=== PATIENT | male | born 1980 | race Two or more races ===

== ENCOUNTER 2023-02-11 07:32 | Inpatient (IN) | payer OTHER ==
[~2023-02-11] VITALS: Ht 172.7 cm; Wt 99.3 kg
[2023-02-11 07:55] VITALS: PULSE 111; RESP 32; O2SAT 95
[2023-02-11 08:20] LABS: Eosinophils # (auto) 0.1 10 ^3/uL (0-0.8)
[2023-02-11 08:21] LABS: Basophils # (auto) 0.1 10 ^3/uL (0-0.2); Basophils % (auto) 0.8 % (0.0-2.0); Eosinophils % (auto) 1.2 % (0.0-7.0); Hemoglobin 18.5 g/dL (13.5-17.5); Lymphocytes # (auto) 1.9 10 ^3/uL (0.4-5.4); Lymphocytes % (auto) 24.9 % (10.0-50.0); Mean Corpuscular Hgb Conc. 32.6 g/dL (32.0-36.0); Monocytes # (auto) 0.7 10 ^3/uL (0-1.3); Monocytes % (auto) 9.9 % (0.0-12.0); Neutrophils # (auto) 4.7 10 ^3/uL (1.6-8.6); Neutrophils % (auto) 63.2 % (37.0-80.0); Nucleated Red Blood Cells % 0.2 %; Red Blood Cells 6.16 10^6/uL (4.5-5.90); Red Cell Distribution Width 16.6 % (11.8-14.3); White Blood Cell 7.4 10^3/uL (4.4-10.8)
[2023-02-11 08:23] LABS: Hematocrit 56.7 % (41.0-53.0)
[2023-02-11 08:43] LABS: Alanine Aminotransferase 32 U/L (7-40); Albumin 4.2 g/dL (3.2-4.8); Alkaline Phosphatase 111 U/L (46-116); Anion Gap 12 (5-15); Aspartate Aminotransferase 29 U/L (13-40); BUN/Creatinine Ratio 10.7 (10.0-20.0); Bilirubin, Total 1.2 mg/dL (0.2-1.0); Blood Urea Nitrogen 9 mg/dL (9-23); Calcium 8.9 mg/dL (8.5-10.1); Carbon Dioxide 21 mmol/L (20-30); Chloride 106 mmol/L (98-107); Glucose 114 mg/dL (74-106); Potassium 3.9 mmol/L (3.5-5.1); Sodium 139 mmol/L (136-145); Total Protein 6.9 g/dL (5.7-8.2)
[2023-02-11 08:51] LABS: Partial Thromboplastin Time 32.5 SEC (24.5-34.5)
[2023-02-11 08:54] LABS: INR 1.25 (0.9-1.15); Prothrombin Time 12.9 sec (9.3-11.8)
[2023-02-11] MEDS ORDERED: ASPirin 81 mg TAB PO ONE (09:00)
[2023-02-11] MEDS ORDERED: NITROGLYCERIN 2% OINT 1GM PKG TD ONE (09:00)
[2023-02-11] MEDS ORDERED: FUROSEMIDE 20 MG/2 ML VIAL IV ONE (09:00)
[2023-02-11] MEDS ORDERED: ACETAMINOPHEN 325 MG TAB PO PRN (10:00)
[2023-02-11] MEDS ORDERED: MORPHINE SULFATE 4 MG/ML SYR/VIAL IV PRN (10:00)
[2023-02-11] MEDS: ASPirin 81 mg TAB PO SCH (10:00)
[2023-02-11] MEDS ORDERED: ONDANSETRON HCL 4 MG/2 ML VIAL IV PRN (10:00)
[2023-02-11] MEDS ORDERED: DEXTROSE (50%) 50ML SYRG IV PRN (10:00)
[2023-02-11] MEDS ORDERED: NITROGLYCERIN 0.4 MG SL TAB SL PRN (10:00)
[2023-02-11] MEDS: METOPROLOL TARTRATE 25 MG TAB PO SCH ×2 (10:27→21:57)
[2023-02-11] MEDS: DOCUSATE SOD 100 MG CAP PO SCH (10:27)
[2023-02-11 10:51] LABS: Triglycerides 109 mg/dL (< 150)
[2023-02-11 10:52] LABS: LDL Cholesterol 92 mg/dL (< 100)
[2023-02-11 10:53] LABS: Cholesterol 134 mg/dL (< 200); HDL Cholesterol 41 mg/dL (40-59)
[2023-02-11 11:05] LABS: INR 1.19 (0.9-1.15); Prothrombin Time 12.4 sec (9.3-11.8)
[2023-02-11] MEDS: InsuLIN REG 1unit/0.01ml Soln (100units/ml) SC SCH ×3 (11:30→22:22)
[2023-02-11] MEDS: ACCU-CHEK COMFORT CURVE STRIP VI SCH ×3 (12:23→21:51)
[2023-02-11 13:00] VITALS: BP 100/58; PULSE 90; RESP 16; TEMP 97.6; O2SAT 96
[2023-02-11] MEDS ORDERED: FURO40TA4 PO (14:20)
[2023-02-11] MEDS ORDERED: SPIR25TA8 PO (14:20)
[2023-02-11] MEDS ORDERED: LISI2.5T47 PO (14:20)
[2023-02-11] MEDS ORDERED: POTA-264 PO (14:20)
[2023-02-11 17:21] VITALS: BP 94/64; PULSE 86; RESP 20; TEMP 98.6; O2SAT 93
[2023-02-11] MEDS: FUROSEMIDE 40 MG/4 ML VIAL IV SCH (18:30)
[2023-02-11 20:15] VITALS: PULSE 99; RESP 18; O2SAT 95
[2023-02-11 22:00] VITALS: BP 112/73; PULSE 90; RESP 18; TEMP 97.1; O2SAT 94
[2023-02-11] MEDS ORDERED: ATORVASTATIN 20 MG TAB PO SCH (22:00)
[2023-02-12 00:17] LABS: Urine Bacteria NONE SEEN /hpf (None Seen); Urine Blood Negative /uL (Negative); Urine Clarity Clear (Clear); Urine Color Yellow (Yellow); Urine Hyaline Cast MOD /lpf (0 - 2); Urine Protein, UAD Negative (Negative); Urine Urobilinogen Normal (Negative); Urine WBC 2 /hpf (0 - 3)
[2023-02-12 00:35] LABS: Amphetamine Screen, Urine Pos (NEGATIVE); Barbiturate Scree,Urine Neg (NEGATIVE); Benzodiazephine Screen, Urine Neg (NEGATIVE); Cocaine Screen, Urine Neg (NEGATIVE); Opiate Scree,Urine Neg (NEGATIVE)
[2023-02-12 00:36] LABS: Cannabinoid Screen, Urine Neg (NEGATIVE); Phencyclidine Screen, Urine Neg (NEGATIVE)
[2023-02-12] MEDS ORDERED: fentaNYL CITRATE 100 MCG/2 ML VL IV ONE (02:00)
[2023-02-12 05:00] VITALS: BP 90/62
[2023-02-12 05:12] VITALS: BP 114/75; PULSE 85; RESP 16; O2SAT 100
[2023-02-12 06:10] VITALS: BP 105/78; PULSE 80; RESP 17; TEMP 98.2; O2SAT 98
[2023-02-12] MEDS: InsuLIN REG 1unit/0.01ml Soln (100units/ml) SC SCH (06:25)
[2023-02-12] MEDS: ACCU-CHEK COMFORT CURVE STRIP VI SCH (06:25)
[2023-02-12] MEDS: FUROSEMIDE 40 MG/4 ML VIAL IV SCH (06:32)
[2023-02-12 06:46] LABS: Basophils # (auto) 0.1 10 ^3/uL (0-0.2); Basophils % (auto) 0.7 % (0.0-2.0); Eosinophils # (auto) 0.1 10 ^3/uL (0-0.8); Hematocrit 54.6 % (41.0-53.0); Neutrophils # (auto) 4.6 10 ^3/uL (1.6-8.6); Nucleated Red Blood Cells % 0.4 %
[2023-02-12 06:48] LABS: Eosinophils % (auto) 1.3 % (0.0-7.0); Hemoglobin 18.5 g/dL (13.5-17.5); Lymphocytes % (auto) 25.3 % (10.0-50.0); Mean Corpuscular Hemoglobin 30.5 pg (28.0-32.0); Mean Corpuscular Hgb Conc. 33.9 g/dL (32.0-36.0); Mean Corpuscular Volume 90.2 fL (80.0-100.0); Monocytes % (auto) 12.8 % (0.0-12.0); Neutrophils % (auto) 59.9 % (37.0-80.0); Red Blood Cells 6.05 10^6/uL (4.5-5.90); Red Cell Distribution Width 16.7 % (11.8-14.3); White Blood Cell 7.7 10^3/uL (4.4-10.8)
[2023-02-12 08:00] VITALS: O2SAT 96
[2023-02-12] MEDS: ASPirin 81 mg TAB PO SCH (09:00)
[2023-02-12] MEDS: DOCUSATE SOD 100 MG CAP PO SCH (09:00)
[2023-02-12 09:01] LABS: Alanine Aminotransferase 33 U/L (7-40); Alkaline Phosphatase 97 U/L (46-116); Anion Gap 11 (5-15); Aspartate Aminotransferase 35 U/L (13-40); BUN/Creatinine Ratio 10.2 (10.0-20.0); Blood Urea Nitrogen 12 mg/dL (9-23); Calcium 8.6 mg/dL (8.7-10.4); Carbon Dioxide 23 mmol/L (20-30); Chloride 103 mmol/L (98-107); Glucose 63 mg/dL (74-106); Potassium 3.8 mmol/L (3.5-5.1); Sodium 137 mmol/L (136-145)
[2023-02-12] MEDS: METOPROLOL TARTRATE 25 MG TAB PO SCH (09:01)
[2023-02-12 09:02] LABS: Bilirubin, Total 1.4 mg/dL (0.2-1.0)
[2023-02-12 09:03] VITALS: BP 110/83; PULSE 82; RESP 16; TEMP 98.2; O2SAT 95
[2023-02-12] MEDS ORDERED: AZITHROMYCIN 500MG/ 250ML 250 ML IV SCH (10:00)
== END 2023-02-12 10:17 | disposition left against medical advice (07) | DRG 177 ==
LOC: EDBD 07:32 → ER 07:32 → TELE 09:54 → TELE-WESTW 11:53
PROVIDERS: ADMIT Nurse Practitioner Family; ATTEND Family Medicine
DX: J15.69 Pneumonia due to other Gram-negative bacteria (principal); I50.43 Acute on chronic combined systolic (congestive) and diastolic (congestive) heart failure; Z59.00 Homelessness unspecified; I42.9 Cardiomyopathy, unspecified; J15.9 Unspecified bacterial pneumonia; I11.0 Hypertensive heart disease with heart failure; E11.9 Type 2 diabetes mellitus without complications; Z53.29 Procedure and treatment not carried out because of patient's decision for other reasons; D45 Polycythemia vera; F15.10 Other stimulant abuse, uncomplicated; E78.00 Pure hypercholesterolemia, unspecified; Z88.0 Allergy status to penicillin; I25.2 Old myocardial infarction; Z87.891 Personal history of nicotine dependence
CPT/HCPCS: 36415; 71045; 80053; 80061; 80307; 81001; 82962; 83735; 83880; 84484; 85025; 85379; 85610; 85730; 87081; 93005; 93306; 96374; G0378; J1815

== ENCOUNTER 2023-11-22 00:28 | Inpatient (IN) | payer OTHER ==
[~2023-11-22] VITALS: Ht 177.8 cm; Wt 90.7 kg
[~2023-11-22 00:28] MED LIST: FURO40TA4 PO; LISI2.5T47 PO; POTA-264 PO; SPIR25TA8 PO
[2023-11-22 00:59] LABS: Basophils # (auto) 0.1 10 ^3/uL (0-0.2); Basophils % (auto) 0.9 % (0.0-2.0); Eosinophils # (auto) 0.1 10 ^3/uL (0-0.8); Eosinophils % (auto) 0.8 % (0.0-7.0); Hematocrit 53.5 % (41.0-53.0); Hemoglobin 18.6 g/dL (13.5-17.5); Lymphocytes # (auto) 2.5 10 ^3/uL (0.4-5.4); Lymphocytes % (auto) 35.2 % (10.0-50.0); Mean Corpuscular Hemoglobin 33.3 pg (28.0-32.0); Mean Corpuscular Hgb Conc. 34.7 g/dL (32.0-36.0); Mean Corpuscular Volume 95.9 fL (80.0-100.0); Monocytes # (auto) 0.4 10 ^3/uL (0-1.3); Monocytes % (auto) 6.2 % (0.0-12.0); Neutrophils % (auto) 56.9 % (37.0-80.0); Nucleated Red Blood Cells % 0.1 %; Platelet Count (auto) 212 10^3/uL (140-450); Red Blood Cells 5.58 10^6/uL (4.5-5.90); Red Cell Distribution Width 14.9 % (11.8-14.3); White Blood Cell 7.1 10^3/uL (4.4-10.8)
[2023-11-22 01:00] VITALS: PULSE 106; RESP 16; TEMP 98.5; O2SAT 97
[2023-11-22 01:07] LABS: Alanine Aminotransferase 33 U/L (7-40); Albumin 4.2 g/dL (3.2-4.8); Alkaline Phosphatase 97 U/L (46-116); Anion Gap 8 (5-15); Aspartate Aminotransferase 38 U/L (13-40); BUN/Creatinine Ratio 10.7 (10.0-20.0); Bilirubin, Total 1.1 mg/dL (0.2-1.0); Blood Urea Nitrogen 15 mg/dL (9-23); Carbon Dioxide 24 mmol/L (20-31); Chloride 106 mmol/L (98-107); Glucose 109 mg/dL (74-106); Magnesium 1.8 mg/dL (1.6-2.6); Potassium 4.2 mmol/L (3.5-5.1); Sodium 138 mmol/L (136-145); Total Protein 7.3 g/dL (5.7-8.2)
[2023-11-22 01:15] LABS: INR 1.19 (0.9-1.15); Partial Thromboplastin Time 27.3 SEC (24.5-34.5); Prothrombin Time 12.5 sec (9.3-11.8)
[2023-11-22] MEDS: ONDANSETRON HCL 4 MG/2 ML VIAL IV ONE (01:15)
[2023-11-22] MEDS: MORPHINE SULFATE 4 MG/ML SYR/VIAL IV ONE (01:15)
[2023-11-22] MEDS ORDERED: HEPARIN SODIUM (PORCINE) 5000 UNITS/ML 1ML VIAL IV ONE (01:30)
[2023-11-22] MEDS: NITROGLYCERIN 2% OINT 1GM PKG TD ONE (02:30)
[2023-11-22] MEDS: HEPARIN SODIUM (PORCINE) 5000 UNITS/ML 1ML VIAL IV ONE (02:35)
[2023-11-22] MEDS: HEPARIN DRIP/D5W 100UNITS/ML 250 ML IV SCH ×2 (02:40→10:00)
[2023-11-22] MEDS ORDERED: MORPHINE SULFATE INJ 2 MG/ml SYRG IV PRN (07:00)
[2023-11-22] MEDS: FUROSEMIDE 40 MG/4 ML VIAL IV ONE (07:00)
[2023-11-22] MEDS ORDERED: ALBUTEROL SULF 2.5 MG/0.5ML(0.5%) NEB SOLN NEB PRN (07:00)
[2023-11-22] MEDS ORDERED: ONDANSETRON HCL 4 MG/2 ML VIAL IV PRN (07:00)
[2023-11-22] MEDS ORDERED: ACETAMINOPHEN 325 MG TAB PO PRN (07:00)
[2023-11-22] MEDS ORDERED: NITROGLYCERIN 0.4 MG SL TAB SL PRN (07:00)
[2023-11-22 08:25] VITALS: PULSE 101; RESP 22; O2SAT 98
[2023-11-22 09:09] LABS: INR 1.18 (0.9-1.15); Partial Thromboplastin Time 45.4 SEC (24.5-34.5); Prothrombin Time 12.4 sec (9.3-11.8)
[2023-11-22] MEDS ORDERED: ENOXAPARIN SOD 40 MG/0.4 ML SYRINGE SC SCH (10:00)
[2023-11-22 10:26] VITALS: O2SAT 98
[2023-11-22] MEDS: ASPirin 81 mg TAB PO SCH (10:27)
[2023-11-22 10:29] VITALS: BP 123/96; PULSE 100; RESP 22; O2SAT 98
[2023-11-22] MEDS: LISINOPRIL 5 MG TAB PO SCH (10:29)
[2023-11-22] MEDS: SPIRONOLACTONE 25 MG TAB PO SCH (10:30)
[2023-11-22] MEDS ORDERED: EMPAGLIFLOZIN 10 MG TAB PO SCH (11:00)
[2023-11-22] MEDS ORDERED: FUROSEMIDE 20 MG/2 ML VIAL IV SCH (18:00)
[2023-11-22 18:48] VITALS: PULSE 83; RESP 17; O2SAT 93
[2023-11-22] MEDS ORDERED: ATORVASTATIN 20 MG TAB PO SCH ×2 (22:00)
[2023-11-23] MEDS ORDERED: ASPirin 81 mg TAB PO SCH (10:00)
== END 2023-11-22 14:09 | disposition left against medical advice (07) | DRG 280 ==
LOC: ER 00:28 → EDBD 00:28 → TELE 06:52
PROVIDERS: ADMIT Nurse Practitioner; ATTEND Student in an Organized Health Care Education/Training Program
DX: I11.0 Hypertensive heart disease with heart failure (principal); I50.43 Acute on chronic combined systolic (congestive) and diastolic (congestive) heart failure; I21.A1 Myocardial infarction type 2; Z53.29 Procedure and treatment not carried out because of patient's decision for other reasons; I42.7 Cardiomyopathy due to drug and external agent; T50.995A Adverse effect of other drugs, medicaments and biological substances, initial encounter; E11.9 Type 2 diabetes mellitus without complications; Z79.899 Other long term (current) drug therapy; Z79.4 Long term (current) use of insulin; Z88.0 Allergy status to penicillin; Y92.89 Other specified places as the place of occurrence of the external cause
CPT/HCPCS: 36415; 71045; 80053; 83735; 83880; 84484; 85025; 85610; 85730; 93005; 96365; 96375; G0378; J2405

== ENCOUNTER 2023-12-08 05:33 | Inpatient (IN) | payer OTHER ==
[~2023-12-08] VITALS: Ht 177.8 cm; Wt 91.4 kg
[2023-12-08 07:32] VITALS: PULSE 102; RESP 12; O2SAT 94
[2023-12-08 08:00] VITALS: PULSE 109
[2023-12-08] MEDS: SODIUM CHLORIDE 0.9% 1,000 ML IV ONE (09:12)
[2023-12-08 09:14] LABS: Basophils # (auto) 0.1 10 ^3/uL (0-0.2); Basophils % (auto) 0.7 % (0.0-2.0); Eosinophils # (auto) 0.1 10 ^3/uL (0-0.8); Hemoglobin 19.1 g/dL (13.5-17.5); Lymphocytes # (auto) 2.4 10 ^3/uL (0.4-5.4); Lymphocytes % (auto) 30.1 % (10.0-50.0); Monocytes # (auto) 0.6 10 ^3/uL (0-1.3)
[2023-12-08 09:16] LABS: Eosinophils % (auto) 0.7 % (0.0-7.0); Mean Corpuscular Hemoglobin 32.5 pg (28.0-32.0); Mean Corpuscular Hgb Conc. 34.2 g/dL (32.0-36.0); Mean Corpuscular Volume 95.2 fL (80.0-100.0); Monocytes % (auto) 8.1 % (0.0-12.0); Neutrophils # (auto) 4.9 10 ^3/uL (1.6-8.6); Neutrophils % (auto) 60.4 % (37.0-80.0); Nucleated Red Blood Cells % 0.2 %; Platelet Count (auto) 212 10^3/uL (140-450); Red Blood Cells 5.88 10^6/uL (4.5-5.90); Red Cell Distribution Width 14.3 % (11.8-14.3)
[2023-12-08] MEDS: ASPirin 81 mg TAB PO ONE (09:16)
[2023-12-08 09:24] LABS: INR 1.12 (0.9-1.15); Partial Thromboplastin Time 27.9 SEC (24.5-34.5); Prothrombin Time 11.8 sec (9.3-11.8)
[2023-12-08 09:31] LABS: Alanine Aminotransferase 42 U/L (7-40); Albumin 4.1 g/dL (3.2-4.8); Alkaline Phosphatase 98 U/L (46-116); Anion Gap 5 (5-15); Aspartate Aminotransferase 50 U/L (13-40); Blood Urea Nitrogen 13 mg/dL (9-23); Calcium 9.6 mg/dL (8.7-10.4); Carbon Dioxide 29 mmol/L (20-31); Chloride 106 mmol/L (98-107); Glucose 111 mg/dL (74-106); Potassium 4.6 mmol/L (3.5-5.1); Sodium 140 mmol/L (136-145); Total Protein 7.3 g/dL (5.7-8.2)
[2023-12-08] MEDS: ONDANSETRON HCL 4 MG/2 ML VIAL IV ONE (10:37)
[2023-12-08] MEDS: MORPHINE SULFATE 4 MG/ML SYR/VIAL IV ONE (10:46)
[2023-12-08] MEDS ORDERED: MORPHINE SULFATE INJ 2 MG/ml SYRG IV PRN (12:30)
[2023-12-08] MEDS ORDERED: NITROGLYCERIN 0.4 MG SL TAB SL PRN (12:30)
[2023-12-08] MEDS: HEPARIN SODIUM (PORCINE) 5000 UNITS/ML 1ML VIAL IV ONE (12:52)
[2023-12-08] MEDS: HEPARIN DRIP/D5W 100UNITS/ML 250 ML IV SCH (12:55)
[2023-12-08 13:33] LABS: Eosinophils # (auto) 0.1 10 ^3/uL (0-0.8); Hemoglobin 19.2 g/dL (13.5-17.5); Monocytes # (auto) 0.5 10 ^3/uL (0-1.3)
[2023-12-08 13:36] LABS: Basophils # (auto) 0.1 10 ^3/uL (0-0.2); Eosinophils % (auto) 0.9 % (0.0-7.0); Hematocrit 55.5 % (41.0-53.0); Lymphocytes # (auto) 1.8 10 ^3/uL (0.4-5.4); Mean Corpuscular Hemoglobin 32.7 pg (28.0-32.0); Mean Corpuscular Hgb Conc. 34.6 g/dL (32.0-36.0); Mean Corpuscular Volume 94.7 fL (80.0-100.0); Monocytes % (auto) 8.5 % (0.0-12.0); Neutrophils # (auto) 3.8 10 ^3/uL (1.6-8.6); Neutrophils % (auto) 60.6 % (37.0-80.0); Nucleated Red Blood Cells % 0.3 %; Platelet Count (auto) 210 10^3/uL (140-450); Red Blood Cells 5.86 10^6/uL (4.5-5.90); Red Cell Distribution Width 14.4 % (11.8-14.3); White Blood Cell 6.3 10^3/uL (4.4-10.8)
[2023-12-08 13:44] LABS: INR 1.15 (0.9-1.15); Partial Thromboplastin Time 29.6 SEC (24.5-34.5); Prothrombin Time 12.1 sec (9.3-11.8)
[2023-12-08 15:29] VITALS: BP 112/74; PULSE 104; PULSE 96; RESP 16; RESP 20; TEMP 97.9; O2SAT 97; O2SAT 98
[2023-12-08 15:56] LABS: Urine Bacteria None Seen /hpf (None Seen)
[2023-12-08 16:25] VITALS: BP 122/69; PULSE 106; RESP 16; TEMP 97.9; O2SAT 98
[2023-12-08 16:46] LABS: Urine Blood Negative /uL (Negative); Urine Clarity Clear (Clear); Urine Color Yellow (Yellow); Urine Mucus FEW (None Seen); Urine Protein, UAD 1+ (Negative); Urine Specific Gravity 1.023 (1.001-1.035); Urine Urobilinogen Normal (Negative); Urine WBC <1 /hpf (0 - 3); Urine pH 5.5 (5.0-9.0)
[2023-12-08 16:53] LABS: Amphetamine Screen, Urine Pos (NEGATIVE); Barbiturate Scree,Urine Neg (NEGATIVE); Benzodiazephine Screen, Urine Neg (NEGATIVE); Cannabinoid Screen, Urine Neg (NEGATIVE); Cocaine Screen, Urine Neg (NEGATIVE); Opiate Scree,Urine Neg (NEGATIVE); Phencyclidine Screen, Urine Neg (NEGATIVE)
[2023-12-08] MEDS: HYDROmorphone HCL 2 MG/ML VL/or syr IV ONE (18:15)
[2023-12-08 20:00] VITALS: PULSE 94; PULSE 95; RESP 18; O2SAT 96
[2023-12-08 20:50] LABS: INR 1.31 (0.9-1.15); Partial Thromboplastin Time 52.4 SEC (24.5-34.5); Prothrombin Time 13.6 sec (9.3-11.8)
[2023-12-08 21:00] VITALS: BP 115/75; PULSE 95; RESP 18; TEMP 98.3; O2SAT 96
[2023-12-08] MEDS: HYDROmorphone HCL 2 MG/ML VL/or syr IV PRN (21:06)
[2023-12-08] MEDS: FUROSEMIDE 40 MG TAB PO SCH (22:05)
[2023-12-09] VITALS (8 sets, daily range): BP systolic 100–120; BP diastolic 58–84; PULSE 74–96; RESP 15–20; TEMP 97.6–98.3; O2SAT 94–99
[2023-12-09] MEDS: HYDROcodone-ACET 5/325MG TAB PO PRN (02:15)
[2023-12-09] MEDS: HEPARIN DRIP/D5W 100UNITS/ML 250 ML IV SCH ×2 (03:25→11:15)
[2023-12-09 07:38] LABS: Basophils # (auto) 0.1 10 ^3/uL (0-0.2); Eosinophils # (auto) 0.1 10 ^3/uL (0-0.8); Eosinophils % (auto) 1.6 % (0.0-7.0); Mean Corpuscular Volume 95.9 fL (80.0-100.0); White Blood Cell 6.1 10^3/uL (4.4-10.8)
[2023-12-09 07:44] LABS: Hematocrit 56.6 % (41.0-53.0); Hemoglobin 19.3 g/dL (13.5-17.5); Lymphocytes # (auto) 2.3 10 ^3/uL (0.4-5.4); Lymphocytes % (auto) 38.7 % (10.0-50.0); Mean Corpuscular Hemoglobin 32.7 pg (28.0-32.0); Mean Corpuscular Hgb Conc. 34.1 g/dL (32.0-36.0); Monocytes # (auto) 0.5 10 ^3/uL (0-1.3); Neutrophils % (auto) 49.7 % (37.0-80.0); Nucleated Red Blood Cells % 0.1 %; Platelet Count (auto) 178 10^3/uL (140-450); Red Cell Distribution Width 14.6 % (11.8-14.3)
[2023-12-09 07:54] LABS: Alanine Aminotransferase 40 U/L (7-40); Albumin 3.9 g/dL (3.2-4.8); Alkaline Phosphatase 85 U/L (46-116); Anion Gap 8 (5-15); Aspartate Aminotransferase 38 U/L (13-40); BUN/Creatinine Ratio 9.5 (10.0-20.0); Bilirubin, Total 1.5 mg/dL (0.2-1.0); Blood Urea Nitrogen 11 mg/dL (9-23); Calcium 8.9 mg/dL (8.7-10.4); Carbon Dioxide 25 mmol/L (20-31); Chloride 104 mmol/L (98-107); Glucose 105 mg/dL (74-106); Potassium 4.2 mmol/L (3.5-5.1); Sodium 137 mmol/L (136-145); Total Protein 7.1 g/dL (5.7-8.2)
[2023-12-09] MEDS: LISINOPRIL 5 MG TAB PO SCH (09:35)
[2023-12-09] MEDS: PANTOPRAZOLE 40 MG/10 ML VIAL INJ IV SCH (09:35)
[2023-12-09] MEDS: SPIRONOLACTONE 25 MG TAB PO SCH (09:35)
[2023-12-09 10:25] LABS: INR 1.21 (0.9-1.15); Partial Thromboplastin Time 53.8 SEC (24.5-34.5); Prothrombin Time 12.6 sec (9.3-11.8)
[2023-12-09 16:10] LABS: INR 1.18 (0.9-1.15); Partial Thromboplastin Time 55.7 SEC (24.5-34.5); Prothrombin Time 12.4 sec (9.3-11.8)
[2023-12-09] MEDS: APIXABAN 2.5 MG TAB PO SCH (20:38)
[2023-12-09] MEDS: CARVEDILOL 3.125 MG TAB PO SCH (22:00)
[2023-12-10] MEDS ORDERED: ASPirin-EC 81 mg tab PO SCH (10:00)
== END 2023-12-09 23:20 | disposition left against medical advice (07) | DRG 280 ==
LOC: EDUNIT# 05:33 → EDBD 05:33 → ER 05:33 → TELE 12:18 → TELE-WESTW 15:22
PROVIDERS: ADMIT Internal Medicine; ATTEND Internal Medicine
DX: I21.4 Non-ST elevation (NSTEMI) myocardial infarction (principal); I50.43 Acute on chronic combined systolic (congestive) and diastolic (congestive) heart failure; I13.0 Hypertensive heart and chronic kidney disease with heart failure and stage 1 through stage 4 chronic kidney disease, or unspecified chronic kidney disease; Z59.00 Homelessness unspecified; I42.7 Cardiomyopathy due to drug and external agent; Z53.29 Procedure and treatment not carried out because of patient's decision for other reasons; D45 Polycythemia vera; E11.22 Type 2 diabetes mellitus with diabetic chronic kidney disease; N18.9 Chronic kidney disease, unspecified; F15.10 Other stimulant abuse, uncomplicated; G89.29 Other chronic pain; Z88.0 Allergy status to penicillin; Z79.899 Other long term (current) drug therapy
CPT/HCPCS: 36415; 71046; 80053; 80307; 81001; 82962; 83735; 83880; 84443; 84484; 85025; 85379; 85610; 85730; 93005; 93306; G0378; J2405; J2470

== ENCOUNTER 2024-05-29 17:42 | Inpatient (IN) | payer OTHER, MEDICAID ==
[~2024-05-29] VITALS: Ht 180.3 cm; Wt 84.2 kg
--- NOTE | 2024-05-29 18:14 | ECG ---
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
--- NOTE | 2024-05-29 19:09 | ED.PDOC ---
HPI Comments HPI: Poor Historian. 43-year-old with multiple comorbidities not taking any medications noncompliant with his medications denies any use of drugs. Patient presents to the ED for two day worsening symptoms of nonspecific midsternal chest pain with the associated shortness of breath and productive cough. He also had an episode of nausea and vomiting nonbilious nonbloody he states having diarrhea but not certain.. Denies any sick contacts. Patient states he have history of congestive heart failure or many other comorbidities Past Medical History: Polycythemia vera, hypertension, CHF, diabetes, asthma, kidney failure, ID, NSTEMI, drug induced cardiomyopathy Past Surgical History: None Social history: Methamphetamine use. REVIEW OF SYSTEMS: CONSTITUTIONAL: Denies acute: fever, diaphoresis, chills, HEAD: Denies acute: headache, photophobia Eyes: Denies acute: Double vision, vision loss, eye pain, eye discharge. EARS: Denies acute: tinnitus, hearing loss, ear discharge, ear pain, THROAT: Denies acute: sore throat, swelling, difficulty swallowing , pain with swallowing, change in voice. NECK: Denies acute: neck pain, neck swelling, stiff neck. HEART: Denies acute : palpitations, LUNGS: Denies acute: , wheezing, , hemoptysis ABDOMEN: Denies acute: abdominal pain, melena , hematemesis, hematochezia SKIN: Denies acute: rash, redness, lesions, itchiness. EXTREMITIES: Denies acute: calf pain, numbness, tingling, weakness, denies pain in extremity. Denies acute: Low back pain. Neuro: Denies acute: focal neurological deficit, motor or sensory focal neurological deficit, tremors, seizure like activity, confusion, dizziness, change in mental status, loss of bowel or bladder function, cauda equina like symptoms. : Denies acute: dysuria, hematuria, flank pain, increase in urinary frequency. PSYCH: Denies acute: hallucination, suicidal ideation, homicidal ideation. PHYSICAL EXAM: General: ----[id number]----acute distress, awake and alert. Head: normocephalic, atraumatic. Neck: supple, trachea is midline, no swelling. Throat: Normal phonation. Eyes:, no erythema, no purulent discharge, no proptosis, no icterus. Heart: regular tachycardia no significant murmur appreciated. Lungs: Mild respiratory distress, Able to speak in full sentences. No wheezing, no rhonchi, no crackles. No stridors Clear to auscultation bilaterally. Abdomen: non tender to palpation, non distended, soft, no guarding, no rebound, + bowel sounds. Neuro: Awake, Alert, oriented to name, self, situation, follows commands GCS=15. Speech is normal. Skin: no petechia, no purpura, no cyanosis, non-pale, not jaundice. Lower extremities: --1/4 b/l- Pitting edema no deformity, no focal swelling, no calf TTP. Makes eye contact. moves all four extremities. Face: no apparent facial droop. Ambulating in the ED independently. ED COURSE: Chief Complaint: Shortness of Breath Time Seen by MD: 17:45 Primary Care Provider: NONW Reviewed Notes: Nurses Notes, Allergies Allergies: Coded Allergies: Penicillins (Verified Allergy, Unknown, 02/11/23) Home Meds Reported Medications Potassium Chloride (K-Tabs) 10 Meq Tab, 1 TAB PO DAILY 02/11/23 Spironolactone (Spironolactone) 25 Mg Tab, 1 TAB PO DAILY 02/11/23 Furosemide (Furosemide) 40 Mg Tab, 1 TAB PO BID 02/11/23 Lisinopril (Lisinopril) 2.5 Mg Tab, 1 TAB PO DAILY 02/11/23 Information Source: Patient Mode of Arrival: Ambulatory Past Medical History PAST MEDICAL HISTORY: CHF, DM, HTN, ID, Seizures Surgical History: Denies all surgeries Family History Family History: Reviewed,noncontributory to illness Social History Smoker: Non-Smoker Alcohol: Occasionally Drugs: Methamphetamine Lives In: Home Was a procedure done? Was a procedure done?: No CP Differential Dx Differential Diagnosis: N/A Differential Diagnosis: Other (Ddx include but not limitied to gastritis, musculoskeletal pain, radiculopathy, atypical chest pain, dissection, aneurysm, ACS, unstable angina, hiatal hernia, GERD, anxiety, costochondritis, PE, pneumothroax, neoplasm, cardiac ischemia, drug abuse, anemia.) Differential Diagnosis: Other (DDx include ACS, unstable angina, anxiety, PE, pneumothroax, neoplasm, cardiac ischemia, COPD, asthma, CHF, pleural effusion, tobacco abuse, pneumonia, hypoxia, hypercapnia, anemia., infection/sepsis., pu lmonary edema. Asthma, Cardiac tamponade, infection.) X-Ray, Labs, Meds, VS Vital Signs Date Time Temp Pulse Resp B/P (MAP) Pulse Ox O2 Delivery O2 Flow Rate FiO2 05/29/24 18:12 117 05/29/24 17:42 96.4 122 18 123/91 (102) 98 96.4 Lab Test 05/29/24 18:21 Range/Units White Blood Count 10.0 4.4-10.8 10^3/uL Red Blood Count 6.26 H 4.5-5.90 10^6/uL Hemoglobin 19.5 H 13.5-17.5 g/dL Hematocrit 58.8 H 41.0-53.0 % Mean Corpuscular Volume 93.9 80.0-100.0 fL Mean Corpuscular Hemoglobin 31.1 28.0-32.0 pg Mean Corpuscular Hemoglobin Concent 33.1 32.0-36.0 g/dL Red Cell Distribution Width 15.0 H 11.8-14.3 % Platelet Count 251 140-450 10^3/uL Mean Platelet Volume 8.1 6.9-10.8 fL Neutrophils (%) (Auto) 74.0 37.0-80.0 % Lymphocytes (%) (Auto) 15.8 10.0-50.0 % Monocytes (%) (Auto) 8.2 0.0-12.0 % Eosinophils (%) (Auto) 0.9 0.0-7.0 % Basophils (%) (Auto) 1.1 0.0-2.0 % Neutrophils # (Auto) 7.4 1.6-8.6 10 ^3/uL Lymphocytes # (Auto) 1.6 0.4-5.4 10 ^3/uL Monocytes # (Auto) 0.8 0-1.3 10 ^3/uL Eosinophils # (Auto) 0.1 0-0.8 10 ^3/uL Basophils # (Auto) 0.1 0-0.2 10 ^3/uL Nucleated Red Blood Cells 0.2 % Prothrombin Time 12.4 H 9.3-11.8 sec Prothrombin Time INR 1.19 H 0.9-1.15 Activated Partial Thromboplast Time 30.6 24.5-34.5 SEC Sodium Level 135 L 136-145 mmol/L Potassium Level 4.1 3.5-5.1 mmol/L Chloride Level 98 98-107 mmol/L Carbon Dioxide Level 28 20-31 mmol/L Anion Gap 9 5-15 Blood Urea Nitrogen 13 9-23 mg/dL Creatinine 1.20 0.700-1.30 mg/dL Glomerular Filtration Rate Calc 78 >90 mL/min BUN/Creatinine Ratio 10.8 10.0-20.0 Serum Glucose 115 H 74-106 mg/dL Lactic Acid Level 2.0 0.4-2.0 mmol/L Calcium Level 9.6 8.7-10.4 mg/dL Magnesium Level 2.1 1.6-2.6 mg/dL Total Bilirubin 2.1 H 0.2-1.0 mg/dL Aspartate Amino Transferase (AST) 46 H 13-40 U/L Alanine Aminotransferase (ALT) 25 7-40 U/L Alkaline Phosphatase 123 H 46-116 U/L Troponin I High Sensitivity 529 *H </=54 ng/L B-Type Natriuretic Peptide 641.20 0-100 pg/mL Total Protein 8.5 H 5.7-8.2 g/dL Albumin 4.6 3.2-4.8 g/dL Microbiology Date/Time Source Procedure Growth Status 05/29/24 18:21 Blood Blood Culture - Preliminary NO GROWTH AFTER 24 HOURS OF INCUBATION. Resulted 05/29/24 18:05 Blood Blood Culture - Preliminary NO GROWTH AFTER 24 HOURS OF INCUBATION. Resulted [place] [address] Ph: [phone] DIAGNOSTIC IMAGING Diagnostic Imaging Report : [id number] Signed PATIENT: CRYSTAL ELENA ACCT: [id number] UNIT: [id number] : 1980 LOC: OVERFLOW ROOM / BED: [address] [place] [address] / AGE / SEX: 43 / M ADM STATUS: ADM IN SERVICE 0234 ORDERING PHYSICIAN: VERO KINGSLEY DO PROCEDURE(s): CXR1 - CHEST XRAY 1 VIEW REASON: CHEST PAIN, ELEVATED TROPS ORDER NUMBER(s): [id number], ACCESSION NUMBER(s): [id number] EXAM: XY CHEST XRAY 1 VIEW HISTORY: CHEST PAIN, ELEVATED TROPS COMPARISON: XY CHEST PORTABLE on DOS: 11/22/23, XY CHEST PORTABLE on DOS: 02/11/23 TECHNIQUE: Portable AP view of the chest was performed. FINDINGS: There is diffuse interstitial prominence, greatest centrally, increased versus prior chest x-ray. No pneumothorax or consolidative infiltrates. The heart is enlarged. The central pulmonary arteries may be ectatic. IMPRESSION: Cardiomegaly with increased interstitial prominence which may be due to CHF and/or reactive airways disease. ATED BY: MATEO ZAMUDIO MD DICTATED DATE/TIME: 05/30/24501 SIGNED BY: MATEO ZAMUDIO MD SIGNED DATE/TIME: 05/30/24501 CC: Time of 1ST Reevaluation: 00:00 Reevaluation 1ST: Improved Patient Education/Counseling: Diagnosis, Treatment Family Education/Counseling: Other Comments Patient presented with the above HPI.----dyspnea--workup was initiated. patient was found with the above mentioned diagnosis. the following medications were ordered: please refer to order lists of meds and tests obtained by myself Dr. Kingsley. Patient ED course and VS have been stabilized. Patient has been reassessed in the ED and remained in a stable condition. Pertinent incidental findings were discussed with the patient and/or family. Patient/family voices understanding and is agreeable with plan. Patient has been observed in the ED adequate length of time to insure improvement/stability. Escalation of care considered: Consideration of escalation to observation or admission Left against medical advice/eloped and then was contacted at home and returned back again to the hospital. Patient was ADMITTED to the medicine team for further evaluation and treatment of their presentation. All the reports of any imaging studies that were ordered by myself were reviewed by myself. Departure 1 Departure Time of Disposition: 19:20 Impression: Primary Impression: Non-STEMI (non-ST elevated myocardial infarction) Additional Impressions: Dyspnea Acute respiratory distress Methamphetamine abuse Disposition: ADMITTED INPATIENT Admit to: Tele Condition: Guarded Discharged With: Self Critical Care Note Critical Care Time?: Yes (45 min-critical care time only) Heart Score Heart Score: Heart Score Response (Comments) Value History Moderate Suspicious 1 EKG Normal 0 Age <45 0 Risk Factors >3 or Hx ASHD 2 Troponin >3 x's Normal limit 2 Total 5 I personally scribed for VERO KINGSLEY DO ([email or web address]) on 05/29/24 at 19:21. Electronically submitted by Fox Almanza ([email or web address]). I personally scribed for VERO KINGSLEY DO ([email or web address]) on 05/30/24 at 21:39. Electronically submitted by Jaylon Kruger ([email or web address]). VERO KINGSLEY DO May 29, 2024 19:09
[2024-05-29 19:23] LABS: Basophils # (auto) 0.1 10 ^3/uL (0-0.2); Basophils % (auto) 1.1 % (0.0-2.0); Eosinophils # (auto) 0.1 10 ^3/uL (0-0.8); Eosinophils % (auto) 0.9 % (0.0-7.0); Hemoglobin 19.5 g/dL (13.5-17.5); Lymphocytes # (auto) 1.6 10 ^3/uL (0.4-5.4); Lymphocytes % (auto) 15.8 % (10.0-50.0); Mean Corpuscular Hemoglobin 31.1 pg (28.0-32.0); Mean Corpuscular Hgb Conc. 33.1 g/dL (32.0-36.0); Mean Corpuscular Volume 93.9 fL (80.0-100.0); Monocytes # (auto) 0.8 10 ^3/uL (0-1.3); Monocytes % (auto) 8.2 % (0.0-12.0); Neutrophils # (auto) 7.4 10 ^3/uL (1.6-8.6); Nucleated Red Blood Cells % 0.2 %; Platelet Count (auto) 251 10^3/uL (140-450); Red Blood Cells 6.26 10^6/uL (4.5-5.90)
[2024-05-29 19:24] LABS: Hematocrit 58.8 % (41.0-53.0)
[2024-05-29 19:48] LABS: Albumin 4.6 g/dL (3.2-4.8); Anion Gap 9 (5-15); Calcium 9.6 mg/dL (8.7-10.4); Carbon Dioxide 28 mmol/L (20-31); Magnesium 2.1 mg/dL (1.6-2.6)
[2024-05-29 19:52] LABS: Alanine Aminotransferase 25 U/L (7-40); Alkaline Phosphatase 123 U/L (46-116); Aspartate Aminotransferase 46 U/L (13-40); Bilirubin, Total 2.1 mg/dL (0.2-1.0); Chloride 98 mmol/L (98-107); Glucose 115 mg/dL (74-106); Potassium 4.1 mmol/L (3.5-5.1); Sodium 135 mmol/L (136-145); Total Protein 8.5 g/dL (5.7-8.2)
[2024-05-29 19:53] LABS: BUN/Creatinine Ratio 10.8 (10.0-20.0); Blood Urea Nitrogen 13 mg/dL (9-23)
--- NOTE | 2024-05-29 20:43 | DVHHP2 ---
Admitting Diagnosis: Chest pain History of Present Illness 43 year old male patient with hx of CHF, DM, ESRD, NE, HTN, and asthma c/o midsternal chest pain with associated SOB x 2 days that has been worsening. Pat ient sts to have a productive cough. Patient reports having nausea and vomiting. While in the emergency department the patient was evaluated by the provider, As per provider: Labs, vital signs, and imagining monitored. Patient will be admitted for further evaluation and treatment. I discussed admission with the patient/family and is in agreement to treatment plan. Allergies: Coded Allergies: Penicillins (Verified Allergy, Unknown, 02/11/23) Home Meds Reported Medications Potassium Chloride (K-Tabs) 10 Meq Tab, 1 TAB PO DAILY 02/11/23 Spironolactone (Spironolactone) 25 Mg Tab, 1 TAB PO DAILY 02/11/23 Furosemide (Furosemide) 40 Mg Tab, 1 TAB PO BID 02/11/23 Lisinopril (Lisinopril) 2.5 Mg Tab, 1 TAB PO DAILY 02/11/23 Current Medications Current Medications Medications (Trade) Dose Ordered Sig/Lei Route PRN Reason Start Time Stop Time Status Last Admin Furosemide (Lasix Injection) 40 mg BIDD IV 05/30/24 18:00 05/31/24 06:21 Atorvastatin Calcium (Lipitor) 40 mg HS PO 05/30/24 22:00 05/30/24 23:49 Midazolam HCl 50 ml @ 1 mls/hr Q24H IV 05/30/24 19:00 05/31/24 17:05 Fentanyl Citrate 250 ml @ 2.5 mls/hr Q24H IV 05/30/24 19:00 05/31/24 11:35 Heparin Sodium/ Dextrose 250 ml @ 14 mls/hr [id number] IV 05/30/24 20:00 05/31/24 12:21 DC 05/31/24 02:22 Enoxaparin Sodium (Lovenox) 90 mg Q12HR SC 05/31/24 22:00 Sodium Chloride 1,000 ml @ 50 mls/hr Q20H IV 05/31/24 12:30 05/31/24 14:07 Review of Systems Constitutional: denies chills, denies fever, denies malaise Eyes: denies eye pain, denies vision change ENT: denies ear pain, denies headache, denies nasal congestion, denies painful swallowing, denies voice change Cardiovascular: denies chest pain, denies edema, denies orthopnea, denies palpitations, denies paroxysmal nocturnal dyspnea Respiratory: denies cough, denies shortness of breath Gastrointestinal: denies constipation, denies diarrhea, denies nausea, denies vomiting Genitourinary: denies dysuria, denies frequent urination, denies urethral discharge Musculoskeletal: denies back pain, denies joint pain, denies muscle pain Skin: denies bruising, denies itching, denies rash Neurological: denies focal weakness, denies headache, denies sensory changes Psychiatric: denies anxiety, denies depression Endocrine: denies polydipsia, denies polyuria Hematologic/Lymphatic: denies easy bleeding, denies easy bruising, denies enlarged lymph nodes Allergic/Immunologic: denies allergy, denies hives Vital Signs Vital Signs Date Time Temp Pulse Resp B/P (MAP) Pulse Ox O2 Delivery O2 Flow Rate FiO2 05/31/24 16:33 98 16 95 Nasal Cannula* 2 28 05/31/24 16:30 99.9 105/67 (80) 211.8 Physical Exam General Appearance: alert, no distress HEENT: EOMI, PERRLA, normal external inspect of ears, no icterus, no nasal drainage Neck: no carotid bruit, no jugular venous distention (JVD), no lymphadenopathy Chest: normal thorax Respiratory: clear to auscultation, normal air movement Cardiovascular: regular rate and rhythm, no diastolic murmur, no jugular venous distention (JVD), no rub, no systolic murmur Abdominal: soft, no hepatomegaly, no mass, no splenomegaly, no tenderness Genitourinary: grossly normal external Musculoskeletal: no joint tenderness, no swelling Extremities: normal pulses, no calf tenderness, no clubbing, no cyanosis, no edema Skin: no bruising, no jaundice, no rash Neurological: alert, No focal deficit Results Labs Test 05/31/24 10:30 05/31/24 06:25 05/31/24 03:31 05/31/24 00:55 Range/Units Prothrombin Time 11.9 H 9.3-11.8 sec Prothrombin Time INR 1.14 0.9-1.15 Activated Partial Thromboplast Time 65.5 H 24.5-34.5 SEC Blood Gas Specimen Type Arterial Blood Gas Sample Site Right radial Blood Gas Patient Temperature 37.0 Arterial Blood Date Drawn [id number] Arterial Blood pH 7.367 7.350-7.450 Arterial Blood Partial Pressure CO2 48.1 H 35.0-48.0 mmHg Arterial Blood Partial Pressure O2 153.5 H 83.0-108.0 mmHg Arterial Blood HCO3 27.0 21.0-28.0 mmol/L Arterial Blood Oxygen Saturation 98.8 H 94.0-98.0 % Arterial Blood Base Excess 0.7 -2.0-3.0 mmol/L Arterial Blood Oxyhemoglobin 97.8 94.0-98.0 % Arterial Blood Carboxyhemoglobin 0.3 L 0.5-1.5 % Arterial Blood Methemoglobin 0.7 0.0-1.5 % Bishnu Test Modified Blood Gas Total Hemoglobin 19.90 *H 13.5-17.5 g/dL Blood Gas Set Respiration Rate 16.0 Blood Gas Modality Vent - ac FiO2 % 45.0 Blood Gas Tidal Volume 500.0 Blood Gas PEEP or CPAP 5.0 Blood Gas Critical Value Read Back yes Blood Gas Notified Whom warp hauler saenz Blood Gas Notified Time [id number] Blood Gas Notified By station repairer nickolas White Blood Count 10.3 # 4.4-10.8 10^3/uL Red Blood Count 5.35 4.5-5.90 10^6/uL Hemoglobin 17.2 13.5-17.5 g/dL Hematocrit 50.9 41.0-53.0 % Mean Corpuscular Volume 95.1 80.0-100.0 fL Mean Corpuscular Hemoglobin 32.2 H 28.0-32.0 pg Mean Corpuscular Hemoglobin Concent 33.9 32.0-36.0 g/dL Red Cell Distribution Width 15.1 H 11.8-14.3 % Platelet Count 177 140-450 10^3/uL Mean Platelet Volume 7.6 6.9-10.8 fL Neutrophils (%) (Auto) 62.8 37.0-80.0 % Lymphocytes (%) (Auto) 24.1 10.0-50.0 % Monocytes (%) (Auto) 9.3 0.0-12.0 % Eosinophils (%) (Auto) 2.2 0.0-7.0 % Basophils (%) (Auto) 1.6 0.0-2.0 % Neutrophils # (Auto) 6.4 1.6-8.6 10 ^3/uL Lymphocytes # (Auto) 2.5 0.4-5.4 10 ^3/uL Monocytes # (Auto) 1.0 0-1.3 10 ^3/uL Eosinophils # (Auto) 0.2 0-0.8 10 ^3/uL Basophils # (Auto) 0.2 0-0.2 10 ^3/uL Nucleated Red Blood Cells 0.1 % Sodium Level 138 136-145 mmol/L Potassium Level 4.1 3.5-5.1 mmol/L Chloride Level 103 98-107 mmol/L Carbon Dioxide Level 29 20-31 mmol/L Anion Gap 6 5-15 Blood Urea Nitrogen 13 9-23 mg/dL Creatinine 1.15 0.700-1.30 mg/dL Glomerular Filtration Rate Calc 82 >90 mL/min BUN/Creatinine Ratio 11.3 10.0-20.0 Serum Glucose 92 74-106 mg/dL Hemoglobin A1c 6.1 H <5.7 % A1C Calcium Level 8.8 8.7-10.4 mg/dL Troponin I High Sensitivity 437 *H </=54 ng/L Test 05/30/24 22:12 05/30/24 20:10 05/30/24 18:41 05/30/24 05:30 Range/Units D-Dimer, Quantitative 0.32 0.0-0.49 mg/L FEU Lactic Acid Level 1.1 0.4-2.0 mmol/L Magnesium Level 2.0 1.6-2.6 mg/dL Total Bilirubin 2.2 H 0.2-1.0 mg/dL Aspartate Amino Transferase (AST) 32 13-40 U/L Alanine Aminotransferase (ALT) 25 7-40 U/L Alkaline Phosphatase 116 46-116 U/L Total Protein 6.9 5.7-8.2 g/dL Albumin 3.8 3.2-4.8 g/dL Urine Color Yellow Yellow Urine Clarity Clear Clear Urine pH 5.5 5.0-9.0 Urine Specific [place] 1.010 1.001-1.035 Urine Protein Trace H Negative Urine Ketones Negative Negative Urine Blood Negative Negative /uL Urine Nitrite Negative Negative Urine Bilirubin Negative Negative Urine Urobilinogen 3 H Negative mg/dL Urine Leukocyte Esterase Negative Negative /uL Urine RBC None seen 0 - 3 /hpf Urine Microscopic WBC < 1 0-3 /HPF Urine Squamous Epithelial Cells Few <5 /hpf Urine Bacteria None seen None Seen /hpf Urine Hyaline Casts Mod 0 - 2 /lpf Urine Glucose Normal Normal mg/dL Urine Opiates Screen Neg NEGATIVE Urine Fentanyl Screen Neg NEGATIVE Urine Barbiturates Screen Neg NEGATIVE Urine Phencyclidine Screen Neg NEGATIVE Urine Amphetamines Screen Pos NEGATIVE Urine Benzodiazepines Screen Pos NEGATIVE Urine Cocaine Screen Neg NEGATIVE Urine Cannabinoids Screen Neg NEGATIVE POC Glucose 137 H 70-106 mg/dl Triglycerides Level 62 < 150 mg/dL Cholesterol Level 148 < 200 mg/dL LDL Cholesterol 113 H < 100 mg/dL HDL Cholesterol 36 L 40-59 mg/dL Test 05/29/24 18:21 Range/Units B-Type Natriuretic Peptide 641.20 0-100 pg/mL Microbiology Date/Time Source Procedure Growth Status 05/30/24 20:50 Sputum Gram Stain - Final Resulted 05/30/24 20:50 Sputum Respiratory Culture - Preliminary Resulted 05/30/24 20:10 Urine - [place] Urine Culture - Preliminary Resulted 05/29/24 18:21 Blood Blood Culture - Preliminary NO GROWTH AFTER 24 HOURS OF INCUBATION. Resulted Plan 1. Acute CVA Monitor, neurology consult 2. Acute on chronic systolic heart failure Monitor, cardiology consult, heparin gtt 3. Drug induced cardiomyopathy Monitor, echocardiogram, cardiology consult 4. Elevated troponin - demand ischemia Monitor EKG, cardiology consult 5. Hx of methamphetamine abuse Monitor, urine drug screen 6. Medical non-internal review and audit compliance, PPI Plan discussed with: Patient, Other JACKIE DILLON NP May 29, 2024 20:43
[2024-05-29] MEDS ORDERED: MORPHINE SULFATE INJ 2 MG/ml SYRG IV PRN ×2 (20:45)
[2024-05-29] MEDS ORDERED: HYDROcodone-ACET 5/325MG TAB PO PRN (20:45)
[2024-05-29] MEDS ORDERED: NITROGLYCERIN 0.4 MG SL TAB SL PRN (20:45)
[2024-05-29 21:40] LABS: INR 1.19 (0.9-1.15); Partial Thromboplastin Time 30.6 SEC (24.5-34.5); Prothrombin Time 12.4 sec (9.3-11.8)
[2024-05-30] VITALS (22 sets, daily range): BP systolic 98–104; BP diastolic 66–79; PULSE 85–112; RESP 15–27; TEMP 97.4–99.9; O2SAT 89–97
[2024-05-30 03:20] LABS: Basophils # (auto) 0.1 10 ^3/uL (0-0.2); Eosinophils # (auto) 0.1 10 ^3/uL (0-0.8); Lymphocytes # (auto) 1.6 10 ^3/uL (0.4-5.4); Monocytes # (auto) 0.8 10 ^3/uL (0-1.3); White Blood Cell 10.3 10^3/uL (4.4-10.8)
[2024-05-30] MEDS: FUROSEMIDE 40 MG/4 ML VIAL IV ONE (03:20)
[2024-05-30 03:21] LABS: Basophils % (auto) 1.1 % (0.0-2.0); Hematocrit 53.1 % (41.0-53.0); Hemoglobin 18.1 g/dL (13.5-17.5); Lymphocytes % (auto) 15.6 % (10.0-50.0); Mean Corpuscular Hgb Conc. 34.2 g/dL (32.0-36.0); Mean Corpuscular Volume 93.8 fL (80.0-100.0); Monocytes % (auto) 8.2 % (0.0-12.0); Neutrophils # (auto) 7.6 10 ^3/uL (1.6-8.6); Neutrophils % (auto) 74.1 % (37.0-80.0); Nucleated Red Blood Cells % 0.2 %; Platelet Count (auto) 230 10^3/uL (140-450); Red Blood Cells 5.66 10^6/uL (4.5-5.90); Red Cell Distribution Width 14.6 % (11.8-14.3)
[2024-05-30] MEDS: HEPARIN SODIUM (PORCINE) 5000 UNITS/ML 1ML VIAL IV ONE (03:21)
[2024-05-30] MEDS: ASPirin 325 MG TAB PO ONE (03:21)
[2024-05-30] MEDS: HEPARIN DRIP/D5W 100UNITS/ML 250 ML IV SCH ×2 (03:22→11:59)
[2024-05-30 03:35] LABS: Alanine Aminotransferase 21 U/L (7-40); Albumin 4.1 g/dL (3.2-4.8); Alkaline Phosphatase 111 U/L (46-116); Anion Gap 9 (5-15); Aspartate Aminotransferase 30 U/L (13-40); BUN/Creatinine Ratio 11.3 (10.0-20.0); Blood Urea Nitrogen 12 mg/dL (9-23); Calcium 8.9 mg/dL (8.7-10.4); Carbon Dioxide 24 mmol/L (20-31); Chloride 103 mmol/L (98-107); Potassium 3.6 mmol/L (3.5-5.1); Sodium 136 mmol/L (136-145); Total Protein 7.5 g/dL (5.7-8.2)
[2024-05-30 03:38] LABS: Bilirubin, Total 1.9 mg/dL (0.2-1.0); Glucose 134 mg/dL (74-106)
[2024-05-30] MEDS: ONDANSETRON HCL 4 MG/2 ML VIAL IV PRN (03:54)
--- NOTE | 2024-05-30 05:05 | DVH ---
EXAM: XY CHEST XRAY 1 VIEW HISTORY: CHEST PAIN, ELEVATED TROPS COMPARISON: XY CHEST PORTABLE on DOS: 11/22/23, XY CHEST PORTABLE on DOS: 02/11/23 TECHNIQUE: Portable AP view of the chest was performed. FINDINGS: There is diffuse interstitial prominence, greatest centrally, increased versus prior chest x-ray. No pneumothorax or consolidative infiltrates. The heart is enlarged. The central pulmonary arteries m ay be ectatic. IMPRESSION: Cardiomegaly with increased interstitial prominence which may be due to CHF and/or reactive airways d iskatya.
--- NOTE | 2024-05-30 08:44 | DVHINCON2 ---
Date of service: May 30, 2024 History of Present Illness HPI Patient is a 43-year-old gentleman who presented with few weeks of worsening shortness of breath/generalized swelling/nausea/and some diarrhea. He is known to have systolic heart failure. He has ran out of his medications for the past few weeks. He mentions that he was on hospice before hand and he wanted to come off of it. He does have baseline history of methamphetamine abuse and mentions that he used it few days ago. He does have baseline history of noncompliance with medication and followups. Previously he was homeless. Now he says that she is renting a place. Cardiology was involved for cardiac aspects of care. It is of note that the patient does have chronic elevated troponin from prior admissions. Home Meds Reported Medications Potassium Chloride (K-Tabs) 10 Meq Tab, 1 TAB PO DAILY 02/11/23 Spironolactone (Spironolactone) 25 Mg Tab, 1 TAB PO DAILY 02/11/23 Furosemide (Furosemide) 40 Mg Tab, 1 TAB PO BID 02/11/23 Lisinopril (Lisinopril) 2.5 Mg Tab, 1 TAB PO DAILY 02/11/23 Past Medical History Others Past medical history includes diabetes mellitus, hypertension, systolic heart failure, polycythemia vera (as per patient), asthma, CKD, history of substance abuse cardiomyopathy, history of meth abuse and also history of chronic elevated troponin. Previously he was homeless. Previously he was on hospice. Smoker: Quit Alocohol: Rare Drugs: Amphetimines Lives with: Alone Review of Systems Constitutional: Weakness Pulmonary/Respiratory: Dyspnea, Cough, Orthopnea Cardiovascular: Edema All Other Systems 14 point review of system was performed. Relevant findings as per above and as per HPI. Otherwise negative. H&P Exam Vital Signs Vital Signs Date Time Temp Pulse Resp B/P (MAP) Pulse Ox O2 Delivery O2 Flow Rate FiO2 05/30/24 06:00 97 22 102/65 (77) 96 05/30/24 03:38 Room Air* 0 21 05/29/24 17:42 96.4 96.4 General Appeara: Mild distress Head Exam: Normal inspection Eye Exam: bilateral eye PERRL Mouth: Normal Inspection Pulmonary/Respiratory: Rales Cardiovascular/Chest: Edema, Regular rate, Systolic murmur, Gallop S3 Peripheral Pulses: 2+ carotid (R), 2+ carotid (L), 2+ femoral (R), 2+ femoral (L), 2+ dorsalis pedis (R), 2+ dorsalis pedis (L), 2+ Radial (R), 2+ Radial (L) Abdominal Exam: Normal bowel sounds, Soft Neuro/Mental St: Alert, Oriented Appearance: Appropriate appearance Eye contact/ Speech: Cooperative Labs/Xrays Labs Test 05/30/24 05:30 05/30/24 02:55 05/29/24 18:21 Range/Units Troponin I High Sensitivity 486 *H </=54 ng/L White Blood Count 10.3 4.4-10.8 10^3/uL Red Blood Count 5.66 4.5-5.90 10^6/uL Hemoglobin 18.1 H 13.5-17.5 g/dL Hematocrit 53.1 H 41.0-53.0 % Mean Corpuscular Volume 93.8 80.0-100.0 fL Mean Corpuscular Hemoglobin 32.0 28.0-32.0 pg Mean Corpuscular Hemoglobin Concent 34.2 32.0-36.0 g/dL Red Cell Distribution Width 14.6 H 11.8-14.3 % Platelet Count 230 140-450 10^3/uL Mean Platelet Volume 7.8 6.9-10.8 fL Neutrophils (%) (Auto) 74.1 37.0-80.0 % Lymphocytes (%) (Auto) 15.6 10.0-50.0 % Monocytes (%) (Auto) 8.2 0.0-12.0 % Eosinophils (%) (Auto) 1.0 0.0-7.0 % Basophils (%) (Auto) 1.1 0.0-2.0 % Neutrophils # (Auto) 7.6 1.6-8.6 10 ^3/uL Lymphocytes # (Auto) 1.6 0.4-5.4 10 ^3/uL Monocytes # (Auto) 0.8 0-1.3 10 ^3/uL Eosinophils # (Auto) 0.1 0-0.8 10 ^3/uL Basophils # (Auto) 0.1 0-0.2 10 ^3/uL Nucleated Red Blood Cells 0.2 % Sodium Level 136 136-145 mmol/L Potassium Level 3.6 3.5-5.1 mmol/L Chloride Level 103 98-107 mmol/L Carbon Dioxide Level 24 20-31 mmol/L Anion Gap 9 5-15 Blood Urea Nitrogen 12 9-23 mg/dL Creatinine 1.06 0.700-1.30 mg/dL Glomerular Filtration Rate Calc 90 >90 mL/min BUN/Creatinine Ratio 11.3 10.0-20.0 Serum Glucose 134 H 74-106 mg/dL Calcium Level 8.9 8.7-10.4 mg/dL Total Bilirubin 1.9 H 0.2-1.0 mg/dL Aspartate Amino Transferase (AST) 30 13-40 U/L Alanine Aminotransferase (ALT) 21 7-40 U/L Alkaline Phosphatase 111 46-116 U/L Total Protein 7.5 5.7-8.2 g/dL Albumin 4.1 3.2-4.8 g/dL Prothrombin Time 12.4 H 9.3-11.8 sec Prothrombin Time INR 1.19 H 0.9-1.15 Activated Partial Thromboplast Time 30.6 24.5-34.5 SEC Lactic Acid Level 2.0 0.4-2.0 mmol/L Magnesium Level 2.1 1.6-2.6 mg/dL B-Type Natriuretic Peptide 641.20 0-100 pg/mL Assessment/Plan Plan Patient is a 43-year-old gentleman who presented with few weeks of worsening shortness of breath/generalized swelling/nausea/and some diarrhea. He is known to have systolic heart failure. He has ran out of his medications for the past few weeks. He mentions that he was on hospice before hand and he wanted to come off of it. He does have baseline history of methamphetamine abuse and mentions that he used it few days ago. He does have baseline history of noncompliance with medication and followups. Previously he was homeless. Now he says that she is renting a place. Cardiology was involved for cardiac aspects of care. It is of note that the patient does have chronic elevated troponin from prior admissions. Not in acute distress. No JVD. Mucosa is pink and wet. Scattered crackles in the lungs is heard. Not using accessory muscle of breathing. Cardiac: Regular, no thrill. Systolic murmur 3/6 in apex is heard. History gallop is heard. Abdomen is soft and mildly distended. Bowel sound is positive. There is no abdominal tenderness. Questionable hepatomegaly can not be elicited. Extremities reveal 2+ edema bilaterally. Dorsalis pedis is 2+ bilateral. Past medical history includes diabetes mellitus, hypertension, systolic heart failure, polycythemia vera (as per patient), asthma, CKD, history of substance abuse cardiomyopathy, history of meth abuse and also history of chronic elevated troponin. Previously he was homeless. Previously he was on hospice. Echocardiogram of December 08, 2023 revealed four-chamber dilatation, ejection fraction of 5-10%, mild mitral regurgitation and tricuspid regurgitation. Hemoglobin: 19.5 - 18.1 Creatinine: 1.20 - 1.06 Potassium: 4.1 - 3.6 BNP: 641.20 Troponin (high sensitive): 529 - 502 - 526 - 486 Chest x-ray revealed: IMPRESSION: Cardiomegaly with increased interstitial prominence which may be due to CHF and/or reactive airways disease. Tele reveals sinus rhythm Patient is a 43-year-old gentleman who presented with weeks of worsening shortness of breath cough/nausea and vomiting. Does have baseline history of systolic heart failure. Has been noncompliant with medication and followups. Acute on chronic systolic heart failure could have contributed to the clinical picture. Does have baseline history of methamphetamine abuse which could have contributed to the clinical picture. He is noncompliant with medication and followups which could have contributed to the clinical picture. Does have baseline history of elevated/chronically troponin. Abnormal troponin in a pa tient with end-stage systolic heart failure usually reflects demand physiology. Acute coronary syndrome is not considered at this point. Acute on chronic systolic heart failure Drug-induced cardiomyopathy CKD Polycythemia vera removal Diabetes mellitus Noncompliant with medication and followups Substance abuse Cardiac suggestion for management: Manage on telemetry IV diuresis Follow-up electrolytes and kidney function tests and correct abnormalities. Keep potassium above 4 and magnesium above 2 Request for Echocardiogram Start Entresto: 24/26 mg p.o. b.i.d. Request for urine toxicology Aspirin: 81 mg daily suggested Heparin drip versus therapeutic Lovenox is suggested at this point High potency statin (atorvastatin at 40 mg daily) suggested Does have baseline history of elevated/chronically troponin. Abnormal troponin (flat trend) in a patient with end-stage systolic heart failure usually reflects demand physiology. Acute coronary syndrome is not considered at this point. Recognizing old history of significant heart failure and noncompliance, outcome is poor. Consider restarting hospice Lifestyle and risk factor modifications. Further evaluation and management depends on the above and clinical course Thank you for consultation A total of 75 minutes was spent reviewing the patient record, examining the patient, making a diagnostic and therapeutic plan, discussing this plan with medical personnel, following up on diagnostic studies and following the patient for clinical stability excluding any and all procedures. At least 50% of this time was spent in direct, [id number] contact. Thank you for allowing me to participate in this patient's care. Further recommendations will depend on patient's clinical course. Please do not hesitate to contact me if you have any questions or concerns. This medical document was created using electronic medical record system with [employer] computerized dictation system. Although this document has been carefully reviewed, there may still be some phonetic and typographical errors. These areas are purely typographical due to the imperfection of the software programs, and do not reflect any compromise in the patient's medical care. Plan discussed with: Patient, Other (Nurse) GABRIEL LOPEZ MD May 30, 2024 08:44
[2024-05-30 09:50] LABS: INR 1.24 (0.9-1.15); Partial Thromboplastin Time 44.9 SEC (24.5-34.5); Prothrombin Time 12.9 sec (9.3-11.8)
[2024-05-30] MEDS: ASPirin 81 mg TAB PO SCH (10:00)
[2024-05-30] MEDS: SACUBITRIL-VALSARTAN 24mg/26mg TAB PO SCH (10:00)
[2024-05-30] MEDS: PANTOPRAZOLE 40 MG/10 ML VIAL INJ IV SCH (10:32)
--- NOTE | 2024-05-30 11:56 | DVH ---
EXAM: CT STROKE CTH HISTORY: Stroke evaluation. COMPARISON: None TECHNIQUE: Axial images of the head were obtained and reformatted in coronal and sagittal planes. All CT scans at this medical facility are performed using dose modulation techniques as appropriate t o a performed exam including the following: Automated exposure control was utilized; adjustment of th e MA and/or KV according to patient size; and use of iterative reconstruction technique. CT Dose: CTDI volume is 53 mGy. Dose-length product is 971 mGy*cm FINDINGS: There is no evidence of acute intracranial hemorrhage, mass, mass effect midline shift. There is no h ydrocephalus or extra-axial fluid collection. Prasad-white matter differentiation is maintained. There is mucosal thickening throughout the paranasal sinuses. The mastoid air cells are clear. The calvarium is intact. IMPRESSION: 1. No acute intracranial process. HS:Y
--- NOTE | 2024-05-30 12:06 | DVH ---
EXAMINATION: MRI BRAIN HEAD WO CONTRAST INDICATION: STROKE LIKE SYMPTOMS COMPARISON: CT head 05/30/2024 TECHNIQUE: Multiplanar, multisequence magnetic resonance imaging of the brain was performed without t he use of intravenous contrast. FINDINGS: There is a small focus of restricted diffusion in the anterior right centrum semiovale likely represe nting a small acute to subacute infarct. There is no evidence of acute hemorrhage. There is no signi ficant surrounding edema or associated mass effect. There is no evidence of mass, mass effect or midline shift. There is no hydrocephalus or extra-axial fluid collection. The visualized intracranial vasculature demonstrates appropriate flow-voids. The s agittal midline structures appear unremarkable. The craniocervical junction is within normal limits. The calvarium demonstrates normal marrow signal. There is mucosal thickening throughout the paranasal sinuses. The mastoid air cells are clear. IMPRESSION: 1. Small focus of restricted diffusion in the anterior right centrum semiovale likely representing sm all acute to subacute infarct. There is no evidence of acute hemorrhage. HS:Y
--- NOTE | 2024-05-30 13:16 | CONS ---
Pharmacy Clinical Information: HEPARIN PER PHARMACY SPOKE TO [facility] REGARDING HEPARIN DOSE CHANGE CURRENT DOSE: 1000 UNITS/HR CURRENT aPTT: 44.9 on 05/30/24 at 09:27 BOLUS: NO Inrease (new dose): 1200 Units/hr Date and time new dose started: 11:59 Next aPTT: 05/30/2024 AT 1800 [facility] READ BACK NEW DOSE: 1200 UNITS/HR RACQUEL Kevin May 30, 2024 13:16
--- NOTE | 2024-05-30 14:47 | DVHPN2 ---
Progress Note - Dictate Date Seen: May 31, 2024 Medical Necessity Reason Pt with a Central, PICC or Fol: No vital signs Vital Sign Date Time Temp Pulse Resp B/P (MAP) Pulse Ox O2 Delivery O2 Flow Rate FiO2 05/30/24 12:00 102 28 116/82 (93) 90 05/30/24 09:10 Room Air* 0 21 05/30/24 09:10 97.4 97.4 medications Current Medications Medications Dose Ordered Sig/Lei Route Start Time Stop Time Status Last Admin Dose Admin Acetaminophen/ Hydrocodone Bitart 1 tab Q4HP PRN PO 05/29/24 20:45 Ondansetron HCl 4 mg Q4HP PRN IV 05/29/24 20:45 05/30/24 03:54 4 MG Acetaminophen 650 mg Q6HP PRN PO 05/29/24 20:45 Morphine Sulfate 2 mg Q4HPRN PRN IV 05/29/24 20:45 Nitroglycerin 0.4 mg Q5MINP PRN SL 05/29/24 20:45 Morphine Sulfate 2 mg Q30M PRN IV 05/29/24 20:45 Pantoprazole Sodium 40 mg DAILY IV 05/30/24 10:00 05/30/24 12:22 40 MG Furosemide 40 mg BIDD IV 05/30/24 18:00 Sacubitril/ Valsartan 1 tab BID PO 05/30/24 10:00 Aspirin 81 mg DAILY PO 05/30/24 10:00 Atorvastatin Calcium 40 mg HS PO 05/30/24 22:00 Heparin Sodium/ Dextrose 250 ml @ 12 mls/hr [id number] IV 05/30/24 10:45 05/30/24 11:59 12 MLS/HR objective General Appearance: alert, no distress HEENT: EOMI, PERRLA, normal external inspect of ears, no icterus, no nasal drainage Neck: no carotid bruit, no jugular venous distention (JVD), no lymphadenopathy Chest: normal thorax Respiratory: clear to auscultation, normal air movement Cardiovascular: regular rate and rhythm, no diastolic murmur, no jugular venous distention (JVD), no rub, no systolic murmur Abdominal: soft, no hepatomegaly, no mass, no splenomegaly, no tenderness Genitourinary: grossly normal external Musculoskeletal: no joint tenderness, no swelling Extremities: normal pulses, no calf tenderness, no clubbing, no cyanosis, no edema Skin: no bruising, no jaundice, no rash Neurological: alert, No focal deficit laboratory and microbiology Laboratory Tests 05/30/24 02:55 Test 05/30/24 02:55 Range/Units Serum Glucose 134 H 74-106 mg/dL Problem List 1. Acute CVA Monitor, neurology consult 2. Acute on chronic systolic heart failure Monitor, cardiology consult, heparin gtt 3. Drug induced cardiomyopathy Monitor, echocardiogram, cardiology consult 4. Elevated troponin - demand ischemia Monitor EKG, cardiology consult 5. Hx of methamphetamine abuse Monitor, urine drug screen 6. Medical non-compliance and control analyst, PPI Assessment/Plan Subjective Patient is alert and oriented 4. Objective Patient had a change in mentation earlier today in the emergency room. I spoke with the RN, and the patient stated he could not move his left side STAT CT of the head showed no brain bleed. STAT MRI of the brain showed an acute CVA. I discussed plan of care with patients significant other at bedside. She stated patient was out of state recently and was told he had blood clots in his legs, arm, chest, and heart. She also mentioned patient left against medical advice and did not take any of his home medications, including blood thinners. RN called me again later in the day and stated patient was again having a change in mentation, likely resolving CVA. I directed her to contact neurology for further instructions. Patient was previously on a heparin drip for elevated troponin levels, most likely NSTEMI type II. Patient has a known history of methamphetamine abuse. Urine drug screen is still pending. Plan Continue current treatment. Patient had acute CVA with left-sided deficits, facial drooping, and slurred speech. Plan discussed with: Patient, Other JACKIE DILLON NP May 30, 2024 14:47
[2024-05-30 16:48] LABS: Triglycerides 62 mg/dL (< 150)
[2024-05-30 16:49] LABS: Cholesterol 148 mg/dL (< 200)
[2024-05-30 16:58] LABS: HDL Cholesterol 36 mg/dL (40-59); LDL Cholesterol 113 mg/dL (< 100)
[2024-05-30] MEDS: FUROSEMIDE 40 MG/4 ML VIAL IV SCH (18:15)
--- NOTE | 2024-05-30 18:23 | DVH ---
BILATERAL LOWER EXTREMITY VENOUS DOPPLER ULTRASOUND CLINICAL HISTORY: R/O DVT TECHNIQUE: Grayscale ultrasound with compression, color Doppler flow imaging with pulsed duplex sonog saleem of the bilateral lower extremity deep venous system from the common femoral veins through the p opliteal veins is performed. COMPARISON: None FINDINGS: Right common femoral vein: Negative. Right greater saphenous vein: Negative. Right deep femoral vein: Negative. Right femoral vein: Negative. Right popliteal vein: Negative. Left common femoral vein: Negative. Left greater saphenous vein: Negative. Left deep femoral vein: Negative. Left femoral vein: Negative. Left popliteal vein: Negative. Other: Visualized bilateral popliteal trifurcation and posterior tibial veins demonstrate color flow. IMPRESSION: No sonographic evidence of deep venous thrombosis in either lower extremity at this time. HS:Y
--- NOTE | 2024-05-30 18:24 | DVH ---
RIGHT UPPER EXTREMITY VENOUS ULTRASOUND CLINICAL HISTORY: R/O DVT COMPARISON: None TECHNIQUE: Grayscale ultrasound with compression, color flow Doppler and spectral Doppler ultrasound is performed through the deep venous system of both arms from the base of the neck through the antecu bital fossa.. FINDINGS: Right internal jugular vein: Negative Right subclavian vein: Negative Right axillary vein: Negative Right brachial veins:Negative Right basilic vein: Negative Right cephalic vein: Negative Left internal jugular vein: Negative Left subclavian vein: Negative Left axillary vein: Negative Left brachial veins:Negative Left basilic vein: Negative Left cephalic vein: Negative IMPRESSION: No sonographic evidence of deep venous thrombosis in either upper extremity at this time. HS:Y
--- NOTE | 2024-05-30 18:28 | DVH ---
Carotid Doppler Examination CLINICAL HISTORY: CVA ACUTE TECHNIQUE: Real-time high resolution grayscale imaging and color Doppler flow imaging with pulsed du plex sonography of the carotid and vertebral arteries is performed. Velocity criteria are extrapolated from angiographic diameter data as defined by the Society of [employer] in Ultrasound Consensus Conference (Radiology 2003; 229: 340-346). FINDINGS: There is no significant mathias scale stenosis. Arterial waveforms are satisfactory. The vertebral ar teries demonstrate antegrade flow. Peak systolic velocities (cm/s): Right ICA proximal: 27.6 Right ICA mid: 36.8 Right ICA distal: 51.8 Right systolic ICA/CCA ratio: 1.1 Left ICA proximal: 41.0 Left ICA mid: 44.6 Left ICA distal: 40.3 Left systolic ICA/CCA ratio: 1.4 IMPRESSION: No hemodynamically significant stenoses or occlusions identified. HS:Y
--- NOTE | 2024-05-30 18:32 | DVHSR ---
APPROVED REPORT EXAM: Two-dimensional and M-mode echocardiogram with Doppler and color Doppler. Blood Pressure: 102/65 mmHg INDICATION NSTEMI RISK FACTORS Height: 70, Weight: 200 DIMENSIONS LVDd7.3 (3.8-5.7cm)LA (2D)4.6 (1.9-4.0cm)Aortic Root3.6 (2.0-3.7cm) LVDs7.0 (2.5-4.0cm)LA (MM) (1.9-4.0cm)Aortic Cusp Exc1.9 (1.5-2.0cm) EF (%) 9.0 (55-70%)Rt. Atrium4.9 (1.9-4.0cm)Asc. Aorta cm IVSd1.2 (0.7-1.1cm)RV (D) (1.8-2.4cm) PWd1.2 (0.7-1.1cm) Mitral Valve MitralMitral Stenosis E wave0.82m/sMV Mean GR.mmHg A wavem/sMV Peak GR.53mmHg E/A ratio0.02D MVAcm2 Aortic Valve Aortic ValveAortic Stenosis V10.37m/Qian Mean GR.10mmHg V21.96m/Qian Peak GR.15mmHg LVOT Diameter2.5 (1.8-2.4cm)Doppler AVA0.93cm2 Pulmonic Valve V20.51m/s Tricuspid Valve TR Velocity2.30m/s [id number] Conclusion Four-chamber dilatation was observed. Left ventricle: Left ventricle was significantly dilated with significantly reduced systolic functio n. Diffuse hypokinesis of left ventricle was seen. LVEF was 5-10%. LVEDP was assessed to be elevat ed. Right ventricle was dilated with reduced systolic function. Both atria were dilated. Aortic valve was not well visualized. There was mild aortic insufficiency. There was no aortic sten osis. There was trivial mitral regurgitation. There was mild tricuspid regurgitation. There was tr ivial pulmonary valve insufficiency. Right ventricular systolic pressure was assessed at 57 mm Hg. IVC was dilated with reduced respirato ry variation. There was no pericardial effusion
[2024-05-30] MEDS: SUCCINYLCHOLINE CHLORIDE 20 MG/ML 10ML VIAL IV ONE (18:45)
[2024-05-30] MEDS: ETOMIDATE (2MG/ML) 20ML VIAL IV ONE (18:45)
[2024-05-30] MEDS: MIDAZOLAM DRIP 50 mg/50mL 50 ML IV ONE (18:49)
[2024-05-30] MEDS: fentaNYL Drip 2500mCg/250mlNS 250 ML IV ONE (19:01)
[2024-05-30] MEDS: NOREPINEPHRINE 8 MG/250ML KIT 0 ML IV ONE (19:01)
[2024-05-30 19:27] LABS: INR 1.17 (0.9-1.15); Prothrombin Time 12.2 sec (9.3-11.8)
--- NOTE | 2024-05-30 19:28 | DVHNC2 ---
Procedure - INDICATION: Resp Failure PROCEDURE FARMWORKER FUR: Cherrie Ramos MD The procedure was emergent, the patient was unable to provide consent, and a designee was not immediately available. PROCEDURE SUMMARY: Rapid Sequence Intubation was conducted. The patient received Etomidate and Succinylcholine. Cricoid pressure was maintained from time induction agent was given to time of cuff balloon inflation. Using a laryngoscope and a size 7.5 endotracheal tube with stylet, the patient was intubated. The stylet was removed and cuff balloon was inflated. Appropriate endotracheal tube position was confirmed by direct visualization of vocal cord passage, fogging of the tube, CO2 colormetric indicator and symmetric breath sounds. The tube was secured at 22 cm at the lips. Post intubation chest x-ray is pending at this time. Date of Service: May 30, 2024 Billing Provider: CHERRIE RAMOS MD Common Visit Codes: PROCEDURE ONLY Procedure Codes: [id number] CHERRIE RAMOS MD May 30, 2024 19:28
--- NOTE | 2024-05-30 19:49 | DVH ---
CHEST RADIOGRAPH Indication: Post Intucation Technique: Single frontal view of the chest was obtained Comparison: XY CHEST XRAY 1 VIEW on DOS: 05/30/24, XY CHEST PORTABLE on DOS: 11/22/23, XY CHEST PORTABL E on DOS: 02/11/23 FINDINGS: Endotracheal tube is in good position of the level of the clavicles. Nasogastric tube is in the stomach. There is cardiomegaly with an enlarged left ventricle. There is significant pulmonary vascular congestion. Impression congestive heart failure pattern. If patient has not had a recent cardiac echo I would re commend cardiac echo
--- NOTE | 2024-05-30 19:56 | DVH ---
CT HEAD WITHOUT CONTRAST INDICATION: CVA COMPARISON: CT STROKE CTH on DOS: 05/30/24; MRI brain 05/30/24 TECHNIQUE: CT of the head without intravenous contrast. RADIATION DOSE: CTDIvol: 59.54 mGy, DLP: 954.32 mGy*cm FINDINGS: Residual intraarterial contrast present. There is no evidence of intracranial hemorrhage, large infarct, extra-axial collection, mass effect, midline shift, herniation or hydrocephalus. The very small acute/subacute infarct in the right front al lobe and very small old cortical infarct in the left parietal lobe seen on the MRI study from [facility] the same day are not evident on CT. The ventricles, sulci and cisterns are normal. The mathisa-white differentiation is normal. Fluid/mucosal thickening in bilateral maxillary, sphenoid, and ethmoid si nuses and to lesser extent frontal sinuses. Mastoid air cells and middle ear cavities are clear. Soft tissues and osseous structures are unremarkable. IMPRESSION: No abnormality demonstrated. The very small acute/subacute infarct in right frontal lobe and very sm all old cortical infarct in left parietal lobe seen on the MRI study from earlier the same day are no t evident on CT.
--- NOTE | 2024-05-30 20:04 | DVH ---
Procedure: CT CHEST WITHOUT CONTRAST Reason for study/Clinical History: SOB and ALOC Comparison Study: None available at time of dictation. Exam Date: 05/30/2024 07:23 PM TECHNIQUE: Multidetector CT of the chest was performed from the lung apices to the upper abdomen with out the use of intravenous contract. Axial, coronal and sagittal multiplanar reformats were performed . Radiation Dose Information: CT Dose: CTDI volume is 26.83 mGy. Dose-length product is 1056.64 mGy*cm The dose indicators for CT are the volume Computed Tomography (CT) Dose Index (CTDIvol) and the Dose Length Product (DLP), and are measured in units of mGy and mGy-cm, respectively. These indicators are not patient dose, but values generated from the CT scanner acquisition factors. The report includes radiation exposure data for exposures received during this examination. FINDINGS: Lower neck: Endotracheal tube and enteric tube in place. Lungs: No focal consolidation, pleural effusion or pneumothorax. Heart/Vascular Structures: Cardiomegaly with scattered coronary artery calcifications.. No pericardia l effusion. Lymph Nodes: No adenopathy Pleura: No pleural effusion or significant pneumothorax. Musculoskeletal: No acute osseous abnormality. Soft tissues: Normal. Upper abdomen: Limited portions of the upper abdomen are unremarkable. IMPRESSION: 1. Cardiomegaly. 2. Scattered coronary artery calcifications 3. Endotracheal tube in place terminating above the nicola. 4. Enteric tube in the stomach. Radiation optimization: All CT scans at this facility use at least one of these dose optimization meliza hniques: automated exposure control mA and/or kV adjustment per patient size (includes targeted exam s where dose is matched to clinical indication) or iterative reconstruction. HS:Y
--- NOTE | 2024-05-30 20:13 | DVHINCON2 ---
Date of service: May 30, 2024 Referring Physician Ángela Reason for Consultation Sudden onset of stroke-like syndrome History of Present Illness Mr. Castillo is a 43 years old right-handed gentleman with a history of hypertension, diabetes, coronary artery disease, heart attack, congestive heart failure, polycythemia vera, cardiomyopathy, asthma, he came to the [facility] Emergency room on 05/29/2024 with a chief complaint of shortness breath, chest pain. At this time, he was sedated, intubated, the history is obtained from his girlfriend, sister, but they are not good historian, I have also reviewed the chart and discussed with his nurse For a few days before he came to the hospital, the patient was did not feel comfortable, he coughed excessively, had sweating, he was in the emergency room on 05/29/2024, but he left AMA. Because of abnormal blood tests, the patient was caught back to the hospital. In the morning on 05/30/2024, he coughed excessively, and during the coughing, the patient was become nonresponsive for 10 minutes After he was admitted a telemetry bed, his found him nonresponsive, on assessment, it was confirmed that patient was nonresponsive to stroke painful stimuli, and he was diaphoretic; he was intubated, and transferred to ICU Earlier today, MR brain scan showed acute/subacute stroke, in the right central semiovale, I also saw a small DWI lesion in the left cerebellum hemispheres WBC/HB/PLT/MCV, 05/30/2024: 10.3/18.1/230/93.8 PT/INR/PTT, 05/30/2024: 12.03/1016/47 BMP, 05/30/2024: Unremarkable TBI/AST/ALT/AP, 05/29/2024: 2.1/46/25/133 Troponin one high sensitivity, 05/29/2024: 529, 05/30/2024: 502, 526, TG/HDL/LDL/HDL, 05/30/2024: 62/148/113/36 Echocardiogram, 05/30/2024: Four-chamber dilatation was observed. Left ventricle: Left ventricle was significantly dilated with significantly reduced systolic function. Diffuse hypokinesis of left ventricle was seen. LVEF was 5-10%. LVEDP was assessed to be elevated. Right ventricle was dilated with reduced systolic function. Both atria were dilated. Aortic valve was not well visualized. There was mild aortic insufficiency. There was no aortic stenosis. There was trivial mitral regurgitation. There was mild tricuspid regurgitation. There was trivial pulmonary valve insufficiency. Right ventricular systolic pressure was assessed at 57 mm Hg. IVC was dilated with reduced respiratory variation. There was no pericardial effusion Carotid Doppler, 05/30/2024: No hemodynamically significant stenoses or occlusions identified. CT head, 05/30/2024 1107: No acute intracranial process CT head, 05/30/2024 1856: No abnormality demonstrated. The very small acute/subacute infarct in right frontal lobe and very small old cortical infarct in left parietal lobe seen on the MRI study from earlier the same day are not evident on CT MRI head, 05/30/2024 1041: Small focus of restricted diffusion in the anterior right centrum semiovale likely representing small acute to subacute infarct. There is no evidence of acute hemorrhage (I saw a small DWI lesion in the left cerebellum hemisphere with ADC correlation) Past Medical History Hypertension, diabetes, coronary artery disease, heart attack, congestive heart failure, polycythemia vera, cardiomyopathy, asthma Past Surgical History No surgeries Family History Cancer Social History He has not tobacco smoke, he uses amphetamine, no drug abuse history Allergies: Coded Allergies: Penicillins (Verified Allergy, Unknown, 02/11/23) Home Meds Reported Medications Potassium Chloride (K-Tabs) 10 Meq Tab, 1 TAB PO DAILY 02/11/23 Spironolactone (Spironolactone) 25 Mg Tab, 1 TAB PO DAILY 02/11/23 Furosemide (Furosemide) 40 Mg Tab, 1 TAB PO BID 02/11/23 Lisinopril (Lisinopril) 2.5 Mg Tab, 1 TAB PO DAILY 02/11/23 Current Medications Current Medications Medications (Trade) Dose Ordered Sig/Lei Route PRN Reason Start Time Stop Time Status Last Admin Acetaminophen/ Hydrocodone Bitart (Sidney 5/325MG Tab) 1 tab Q4HP PRN PO MODERATE PAIN (4-6 PAIN SCALE) 05/29/24 20:45 Ondansetron HCl (Zofran) 4 mg Q4HP PRN IV NAUSEA / VOMITING 05/29/24 20:45 05/30/24 03:54 Acetaminophen (Tylenol Tablet) 650 mg Q6HP PRN PO PAIN SCALE 1-3 OR TEMP>100.4 05/29/24 20:45 Morphine Sulfate 2 mg Q4HPRN PRN IV SEVERE PAIN (7-10 PAIN SCALE) 05/29/24 20:45 Nitroglycerin (Ntrostat Sublingual) 0.4 mg Q5MINP PRN SL FOR CHEST PAIN 05/29/24 20:45 Morphine Sulfate 2 mg Q30M PRN IV FOR CHEST PAIN 05/29/24 20:45 Heparin Sodium/ Dextrose 250 ml @ 10 mls/hr Q24H IV 05/29/24 21:30 05/30/24 10:38 DC 05/30/24 03:22 Pantoprazole Sodium (Protonix) 40 mg DAILY IV 05/30/24 10:00 05/30/24 12:22 Furosemide (Lasix Injection) 40 mg BIDD IV 05/30/24 18:00 05/30/24 18:15 Sacubitril/ Valsartan (Entresto 24-26 Mg tab) 1 tab BID PO 05/30/24 10:00 Aspirin 81 mg DAILY PO 05/30/24 10:00 Atorvastatin Calcium (Lipitor) 40 mg HS PO 05/30/24 22:00 Heparin Sodium/ Dextrose 250 ml @ 12 mls/hr [id number] IV 05/30/24 10:45 05/30/24 19:50 DC 05/30/24 11:59 Midazolam HCl 50 ml @ 1 mls/hr Q24H IV 05/30/24 19:00 Fentanyl Citrate 250 ml @ 2.5 mls/hr Q24H IV 05/30/24 19:00 Heparin Sodium/ Dextrose 250 ml @ 14 mls/hr [id number] IV 05/30/24 20:00 Review of Systems As above, the other systems are negative Vital Signs Vital Signs Date Time Temp Pulse Resp B/P (MAP) Pulse Ox O2 Delivery O2 Flow Rate FiO2 05/30/24 18:15 112/82 05/30/24 16:23 97.4 107 19 97 97.4 05/30/24 09:10 Room Air* 0 21 Physical Exam The patient is well-nourished and well-developed with no distress. The patient is intubated HEENT: Normocephalic, neck supple, no carotid bruits Lungs: Clear to auscultation Cardiovascular: Regular rate and region, S1, S2, no murmurs Abdomen: Soft, nontender, normal bowel sounds MENTAL STATUS: Responsive to stroke painful stimuli CRANIAL NERVES: Pupils are equal, round and reactive.There are corneal reflexes and doll's eyes phenomenon. No signs of facial weakness. There are gagging or coughing reflexes SENSATION: Responses to pain stimuli. MOTOR: Normal tone in the upper and lower extremity. Normal muscle bulk. No fasciculations. No spontaneous movement. REFLEXES: Deep tendon reflexes are symmetrical. No pathological reflexes. CEREBELLAR/COORDINATION: Deferred GAIT/STATION: deferred. Labs/Diagnostic Data Labs Test 05/30/24 18:57 05/30/24 18:41 05/30/24 05:30 05/30/24 02:55 Range/Units Prothrombin Time 12.2 H 9.3-11.8 sec Prothrombin Time INR 1.17 H 0.9-1.15 Activated Partial Thromboplast Time 47.0 H 24.5-34.5 SEC POC Glucose 137 H 70-106 mg/dl Troponin I High Sensitivity 486 *H </=54 ng/L Triglycerides Level 62 < 150 mg/dL Cholesterol Level 148 < 200 mg/dL LDL Cholesterol 113 H < 100 mg/dL HDL Cholesterol 36 L 40-59 mg/dL White Blood Count 10.3 4.4-10.8 10^3/uL Red Blood Count 5.66 4.5-5.90 10^6/uL Hemoglobin 18.1 H 13.5-17.5 g/dL Hematocrit 53.1 H 41.0-53.0 % Mean Corpuscular Volume 93.8 80.0-100.0 fL Mean Corpuscular Hemoglobin 32.0 28.0-32.0 pg Mean Corpuscular Hemoglobin Concent 34.2 32.0-36.0 g/dL Red Cell Distribution Width 14.6 H 11.8-14.3 % Platelet Count 230 140-450 10^3/uL Mean Platelet Volume 7.8 6.9-10.8 fL Neutrophils (%) (Auto) 74.1 37.0-80.0 % Lymphocytes (%) (Auto) 15.6 10.0-50.0 % Monocytes (%) (Auto) 8.2 0.0-12.0 % Eosinophils (%) (Auto) 1.0 0.0-7.0 % Basophils (%) (Auto) 1.1 0.0-2.0 % Neutrophils # (Auto) 7.6 1.6-8.6 10 ^3/uL Lymphocytes # (Auto) 1.6 0.4-5.4 10 ^3/uL Monocytes # (Auto) 0.8 0-1.3 10 ^3/uL Eosinophils # (Auto) 0.1 0-0.8 10 ^3/uL Basophils # (Auto) 0.1 0-0.2 10 ^3/uL Nucleated Red Blood Cells 0.2 % Sodium Level 136 136-145 mmol/L Potassium Level 3.6 3.5-5.1 mmol/L Chloride Level 103 98-107 mmol/L Carbon Dioxide Level 24 20-31 mmol/L Anion Gap 9 5-15 Blood Urea Nitrogen 12 9-23 mg/dL Creatinine 1.06 0.700-1.30 mg/dL Glomerular Filtration Rate Calc 90 >90 mL/min BUN/Creatinine Ratio 11.3 10.0-20.0 Serum Glucose 134 H 74-106 mg/dL Calcium Level 8.9 8.7-10.4 mg/dL Total Bilirubin 1.9 H 0.2-1.0 mg/dL Aspartate Amino Transferase (AST) 30 13-40 U/L Alanine Aminotransferase (ALT) 21 7-40 U/L Alkaline Phosphatase 111 46-116 U/L Total Protein 7.5 5.7-8.2 g/dL Albumin 4.1 3.2-4.8 g/dL Test 05/29/24 18:21 Range/Units Lactic Acid Level 2.0 0.4-2.0 mmol/L Magnesium Level 2.1 1.6-2.6 mg/dL B-Type Natriuretic Peptide 641.20 0-100 pg/mL Microbiology Date/Time Source Procedure Growth Status 05/29/24 18:21 Blood Blood Culture - Preliminary NO GROWTH AFTER 24 HOURS OF INCUBATION. Resulted Assessment Altered mental status ? More strokes ? Status epileptics Elevated troponin one/heart attack Multiple strokes Cardiomyopathy Congestive heart failure A spell of nonresponsiveness on 05/30/2024 ? Syncope triggered by coughing/arrhythmia ? Seizure activity Heart failure Plan/Recommendation Monitoring Supportive treatments ICU care UDS EEG KI Stabilize vitals Respiratory support/vent management Heparin drip Aspirin 81 mg daily Lipitor 40 mg daily GI prophylax/Protonix More recommendation per clinical course Prognosis: Poor, guarded This medical document was created using an electronic medical record system with [employer] dictation system. Although this document has been carefully reviewed, there may still be some phonetic and typographical errors. These areas are purely typographical due to imperfections of the software programs, and do not reflect any compromise in the patient's medical care.uds Plan discussed with: Other ZEKE REYNOLDS MD May 30, 2024 20:13
[2024-05-30] MEDS: MIDAZOLAM DRIP 50 mg/50mL 50 ML IV SCH (20:24)
[2024-05-30 20:30] LABS: Urine Bacteria None Seen /hpf (None Seen)
[2024-05-30 20:39] LABS: Urine Blood Negative /uL (Negative); Urine Clarity Clear (Clear); Urine Color Yellow (Yellow); Urine Hyaline Cast MOD /lpf (0 - 2); Urine Protein, UAD TRACE (Negative); Urine Squamous Epithelial Cell FEW /hpf (<5); Urine Urobilinogen 3 mg/dL (Negative); Urine WBC < 1 /HPF (0-3); Urine pH 5.5 (5.0-9.0)
[2024-05-30 20:54] LABS: Cannabinoid Screen, Urine Neg (NEGATIVE)
[2024-05-30 20:55] LABS: Amphetamine Screen, Urine Pos (NEGATIVE); Barbiturate Scree,Urine Neg (NEGATIVE); Benzodiazephine Screen, Urine Pos (NEGATIVE); Cocaine Screen, Urine Neg (NEGATIVE); Opiate Scree,Urine Neg (NEGATIVE); Phencyclidine Screen, Urine Neg (NEGATIVE)
[2024-05-30] MEDS: fentaNYL Drip 2500mCg/250mlNS 250 ML IV SCH (20:55)
[2024-05-30 22:01] LABS: Base Excess -0.4 mmol/L (-2.0-3.0)
--- NOTE | 2024-05-30 22:04 | CONS ---
Pharmacy Clinical Information: INCREASE HEPARIN DRIP RATE TO 1400 UNITS/HR PER APTT OF 47 NEXT APTT DRAW SCHEDULED ON 05/31/24 @ 0330PER RX PROTOCOL PER RX CHA, RATE INCREASE AT 2130. RN CONFIRMED AND READ BACK Herminia Stinson PHARMACIST May 30, 2024 22:04
[2024-05-30 22:34] LABS: Basophils # (auto) 0.1 10 ^3/uL (0-0.2); Basophils % (auto) 0.8 % (0.0-2.0); Eosinophils # (auto) 0.2 10 ^3/uL (0-0.8); Eosinophils % (auto) 2.1 % (0.0-7.0); Hematocrit 55.2 % (41.0-53.0); Hemoglobin 18.2 g/dL (13.5-17.5); Lymphocytes # (auto) 1.5 10 ^3/uL (0.4-5.4); Lymphocytes % (auto) 18.8 % (10.0-50.0); Mean Corpuscular Hgb Conc. 32.9 g/dL (32.0-36.0); Mean Corpuscular Volume 94.1 fL (80.0-100.0); Monocytes # (auto) 0.6 10 ^3/uL (0-1.3); Monocytes % (auto) 8.1 % (0.0-12.0); Neutrophils # (auto) 5.5 10 ^3/uL (1.6-8.6); Neutrophils % (auto) 70.2 % (37.0-80.0); Nucleated Red Blood Cells % 0.2 %; Platelet Count (auto) 226 10^3/uL (140-450); Red Blood Cells 5.86 10^6/uL (4.5-5.90); White Blood Cell 7.8 10^3/uL (4.4-10.8)
[2024-05-30 22:47] LABS: Alanine Aminotransferase 25 U/L (7-40); Albumin 3.8 g/dL (3.2-4.8); Alkaline Phosphatase 116 U/L (46-116); Anion Gap 9 (5-15); Aspartate Aminotransferase 32 U/L (13-40); BUN/Creatinine Ratio 13.8 (10.0-20.0); Blood Urea Nitrogen 15 mg/dL (9-23); Carbon Dioxide 27 mmol/L (20-31); Chloride 103 mmol/L (98-107); Potassium 3.8 mmol/L (3.5-5.1); Sodium 139 mmol/L (136-145); Total Protein 6.9 g/dL (5.7-8.2)
[2024-05-30 23:04] LABS: Bilirubin, Total 2.2 mg/dL (0.2-1.0); Calcium 8.6 mg/dL (8.7-10.4); Glucose 108 mg/dL (74-106)
[2024-05-30] MEDS: ATORVASTATIN 20 MG TAB PO SCH (23:49)
[2024-05-31] VITALS (99 sets, daily range): BP systolic 82–138; BP diastolic 48–85; PULSE 80–114; RESP 16–17; TEMP 97.9–101.2; O2SAT 68–100
[2024-05-31] MEDS: HEPARIN DRIP/D5W 100UNITS/ML 250 ML IV SCH (02:22)
[2024-05-31 03:46] LABS: Basophils # (auto) 0.2 10 ^3/uL (0-0.2); Basophils % (auto) 1.6 % (0.0-2.0); Eosinophils # (auto) 0.2 10 ^3/uL (0-0.8); Eosinophils % (auto) 2.2 % (0.0-7.0); Hematocrit 50.9 % (41.0-53.0); Hemoglobin 17.2 g/dL (13.5-17.5); Lymphocytes # (auto) 2.5 10 ^3/uL (0.4-5.4); Lymphocytes % (auto) 24.1 % (10.0-50.0); Mean Corpuscular Hemoglobin 32.2 pg (28.0-32.0); Mean Corpuscular Hgb Conc. 33.9 g/dL (32.0-36.0); Mean Corpuscular Volume 95.1 fL (80.0-100.0); Monocytes % (auto) 9.3 % (0.0-12.0); Neutrophils # (auto) 6.4 10 ^3/uL (1.6-8.6); Neutrophils % (auto) 62.8 % (37.0-80.0); Nucleated Red Blood Cells % 0.1 %; Platelet Count (auto) 177 10^3/uL (140-450); Red Blood Cells 5.35 10^6/uL (4.5-5.90); Red Cell Distribution Width 15.1 % (11.8-14.3); White Blood Cell 10.3 10^3/uL (4.4-10.8)
[2024-05-31 03:54] LABS: Chloride 103 mmol/L (98-107); Potassium 4.1 mmol/L (3.5-5.1); Sodium 138 mmol/L (136-145)
[2024-05-31 03:55] LABS: Anion Gap 6 (5-15); Calcium 8.8 mg/dL (8.7-10.4); Carbon Dioxide 29 mmol/L (20-31)
[2024-05-31 04:00] LABS: BUN/Creatinine Ratio 11.3 (10.0-20.0); Blood Urea Nitrogen 13 mg/dL (9-23); Glucose 92 mg/dL (74-106)
[2024-05-31 04:21] LABS: INR 1.19 (0.9-1.15); Partial Thromboplastin Time 58.9 SEC (24.5-34.5); Prothrombin Time 12.4 sec (9.3-11.8)
[2024-05-31 06:30] LABS: Base Excess 0.7 mmol/L (-2.0-3.0)
--- NOTE | 2024-05-31 07:14 | DVHPN2 ---
Progress Note - Dictate Date Seen: May 31, 2024 Medical Necessity Reason Pt with a Central, PICC or Fol: Yes vital signs Vital Sign Date Time Temp Pulse Resp B/P (MAP) Pulse Ox O2 Delivery O2 Flow Rate FiO2 05/31/24 07:00 99.1 91 16 106/75 (85) 92 210.4 05/31/24 06:08 45 05/31/24 06:00 Mechanical Ventilator+ 05/30/24 16:33 2 Total Intake and Output 05/30/24 05/30/24 05/31/24 15:00 23:00 07:00 Intake Total 36 ml 114 ml 244.5 ml Output Total 900 ml Balance 36 ml 114 ml -655.5 ml medications Current Medications Medications Dose Ordered Sig/Lei Route Start Time Stop Time Status Last Admin Dose Admin Acetaminophen/ Hydrocodone Bitart 1 tab Q4HP PRN PO 05/29/24 20:45 Ondansetron HCl 4 mg Q4HP PRN IV 05/29/24 20:45 05/30/24 03:54 4 MG Acetaminophen 650 mg Q6HP PRN PO 05/29/24 20:45 Morphine Sulfate 2 mg Q4HPRN PRN IV 05/29/24 20:45 Nitroglycerin 0.4 mg Q5MINP PRN SL 05/29/24 20:45 Morphine Sulfate 2 mg Q30M PRN IV 05/29/24 20:45 Pantoprazole Sodium 40 mg DAILY IV 05/30/24 10:00 05/30/24 12:22 40 MG Furosemide 40 mg BIDD IV 05/30/24 18:00 05/31/24 06:21 40 MG Sacubitril/ Valsartan 1 tab BID PO 05/30/24 10:00 Aspirin 81 mg DAILY PO 05/30/24 10:00 Atorvastatin Calcium 40 mg HS PO 05/30/24 22:00 05/30/24 23:49 40 MG Midazolam HCl 50 ml @ 1 mls/hr Q24H IV 05/30/24 19:00 05/31/24 02:20 8 MLS/HR Fentanyl Citrate 250 ml @ 2.5 mls/hr Q24H IV 05/30/24 19:00 05/30/24 20:55 15 MLS/HR Heparin Sodium/ Dextrose 250 ml @ 14 mls/hr [id number] IV 05/30/24 20:00 05/31/24 02:22 14 MLS/HR laboratory and microbiology Laboratory Tests 05/31/24 03:31 Test 05/31/24 03:31 Range/Units Serum Glucose 92 74-106 mg/dL Assessment/Plan Patient had AMS and later had respiratory failure. Intubated and brought to [facility]/ICU. He is found to have acute/subacute CVA Patient is a 43-year-old gentleman who presented with few weeks of worsening shortness of breath/generalized swelling/nausea/and some diarrhea. He is known to have systolic heart failure. He has ran out of his medications for the past few weeks. He mentions that he was on hospice before hand and he wanted to come off of it. He does have baseline history of methamphetamine abuse and mentions that he used it few days ago. He does have baseline history of noncompliance with medication and followups. Previously he was homeless. Now he says that she is renting a place. Cardiology was involved for cardiac aspects of care. It is of note that the patient does have chronic elevated troponin from prior admissions. Not in acute distress. No JVD. Mucosa is pink and wet. Scattered crackles in the lungs is heard. Not using accessory muscle of breathing. Cardiac: Regular, no thrill. Systolic murmur 3/6 in apex is heard. History gallop is heard. Abdomen is soft and mildly distended. Bowel sound is positive. There is no abdominal tenderness. Questionable hepatomegaly can not be elicited. Extremities reveal 2+ edema bilaterally. Dorsalis pedis is 2+ bilateral. Past medical history includes diabetes mellitus, hypertension, systolic heart failure, polycythemia vera (as per patient), asthma, CKD, history of substance abuse cardiomyopathy, history of meth abuse and also history of chronic elevated troponin. Previously he was homeless. Previously he was on hospice. Echocardiogram of December 08, 2023 revealed four-chamber dilatation, ejection fraction of 5-10%, mild mitral regurgitation and tricuspid regurgitation. Hemoglobin: 19.5 - 18.1 - 18.2 - 17.2 Creatinine: 1.20 - 1.06 - 1.09 - 1.15 Potassium: 4.1 - 3.6 - 3.8 - 4.1 BNP: 641.20 Troponin (high sensitive): 529 - 502 - 526 - 486 - 422 - 436 - 437 D-dimer: 0.32 Urine tox was positive for Amphetamine and Benzodiazepine Chest x-ray revealed: IMPRESSION: Cardiomegaly with increased interstitial prominence which may be due to CHF and/or reactive airways disease. Repeat chest xry revealed: Endotracheal tube is in good position of the level of the clavicles. Nasogastric tube is in the stomach. There is cardiomegaly with an enlarged left ventricle. There is significant pulmonary vascular congestion. Impression congestive heart failure pattern. If patient has not had a recent cardiac echo I would recommend cardiac echo MRI of brain revealed: 1. Small focus of restricted diffusion in the anterior right centrum semiovale likely representing small acute to subacute infarct. There is no evidence of acute hemorrhage. CT of head revealed: IMPRESSION: 1. No acute intracranial process. Repeat CT of head revealed: IMPRESSION: No abnormality demonstrated. The very small acute/subacute infarct in right frontal lobe and very small old cortical infarct in left parietal lobe seen on the MRI study from earlier the same day are not evident on CT. Carotid ultrasound revealed: IMPRESSION: No hemodynamically significant stenoses or occlusions identified. Chest CT revealed: IMPRESSION: 1. Cardiomegaly. 2. Scattered coronary artery calcifications 3. Endotracheal tube in place terminating above the nicola. 4. Enteric tube in the stomach. Lower ext venous duplex revealed: IMPRESSION: No sonographic evidence of deep venous thrombosis in either lower extremity at this time. Right upper ext venous ultrasound revealed: IMPRESSION: No sonographic evidence of deep venous thrombosis in either upper extremity at this time. Tele reveals sinus rhythm Echocardiogram revealed: Four-chamber dilatation was observed. Left ventricle: Left ventricle was significantly dilated with significantly reduced systolic function. Diffuse hypokinesis of left ventricle was seen. LVEF was 5-10%. LVEDP was assessed to be elevated. Right ventricle was dilated with reduced systolic function. Both atria were dilated. Aortic valve was not well visualized. There was mild aortic insufficiency. There was no aortic stenosis. There was trivial mitral regurgitation. There was mild tricuspid regurgitation. There was trivial pulmonary valve insufficiency. Right ventricular systolic pressure was assessed at 57 mm Hg. IVC was dilated with reduced respiratory variation. There was no pericardial effusion Patient is a 43-year-old gentleman who presented with weeks of worsening shortness of breath cough/nausea and vomiting. Does have baseline history of systolic heart failure. Has been noncompliant with medication and followups. Acute on chronic systolic heart failure could have contributed to the clinical picture. Does have baseline history of methamphetamine abuse which could have contributed to the clinical picture. He is noncompliant with medication and followups which could have contributed to the clinical picture. Does have baseline history of elevated/chronically troponin. Abnormal troponin in a patient with end-stage systolic heart failure usually reflects demand physiology. Acute coronary syndrome is not considered at this point. Had AMS and later had respiratory failure. Intubated and brought to [facility]ICU. He is found to have acute/subacute CVA. Is being followed by Neurology Acute on chronic systolic heart failure Drug-induced cardiomyopathy CKD Polycythemia vera removal Diabetes mellitus Noncompliant with medication and followups Substance abuse AMS Acute/subacute CVA Cardiac suggestion for management: Manage on telemetry IV diuresis Follow-up electrolytes and kidney function tests and correct abnormalities. Keep potassium above 4 and magnesium above 2 Request for Echocardiogram Start Entresto: 24/26 mg p.o. b.i.d. Request for urine toxicology Aspirin: 81 mg daily suggested Heparin drip versus therapeutic Lovenox is suggested at this point High potency statin (atorvastatin at 40 mg daily) suggested Does have baseline history of elevated/chronically troponin. Abnormal troponin (flat trend) in a patient with end-stage systolic heart failure usually reflects demand physiology. Acute coronary syndrome is not considered at this point. Recognizing old history of significant heart failure and noncompliance, outcome is poor. Consider restarting hospice Lifestyle and risk factor modifications. Further evaluation and management depends on the above and clinical course A total of 75 minutes was spent reviewing the patient record, examining the patient, making a diagnostic and therapeutic plan, discussing this plan with medical personnel, following up on diagnostic studies and following the patient for clinical stability excluding any and all procedures. At least 50% of this time was spent in direct, [id number] contact. Thank you for allowing me to participate in this patient's care. Further recommendations will depend on patient's clinical course. Please do not hesitate to contact me if you have any questions or concerns. This medical document was created using electronic medical record system with [employer] dictation system. Although this document has been carefully reviewed, there may still be some phonetic and typographical errors. These areas are purely typographical due to the imperfection of the software programs, and do not reflect any compromise in the patient's medical care. Plan discussed with: Other (nurse) GABRIEL LOPEZ MD May 31, 2024 07:13
--- NOTE | 2024-05-31 07:52 | RESUS ---
CODE ASSIST ASSESSSMENT Initial Information Code Assist Date: May 30, 2024 Code Assist Time: 18:41 Location of Arrest: [facility] Room # 217A Provider Name Dr Ramos Time Notified: 18:41 (came to bedside) Crash Cart Opened and Supplies: Yes Situation Staff concerned/worried, speci: Non-responsive Situation comment: Per RN report patient came out of room and stated patient was unresponsive. See RN note. Background Background: See EMR for patient history, care, and treatment provided during admission. Came up from ER around 1544 to tele bed. Arrived to tele floor with stroke symptoms persisting in which laborer tan house advised her to call primary provider and nuerologist. Previously in the day when patient was in ER he had stroke like symptoms and was taken to CT. See EMR for results. Assessment Blood Pressure Systolic: 125 Blood Pressure Diastolic: 146 Respiratory Rate: 99 O2 Sat by Pulse Oximetry: 92 Bedside Blood Glucose: 137 Assessment comment: Decision was made to intubate for airway protection. Recommendations/Interventions Procedures: Accu check, ABG, CXR Portable, CMP, CBC, Troponin, Cardiac Monitoring, Inititate ACLS Protocol, Intubated, O2 Mask/NC Other Interventions Etomidate 20mg IV given per Dr order at 1851. Succinylcholine total of 100 mg IV was given at 1852 after per order for RSI. Intubated by Dr Ramos on second attempt with ETT size 8.0/24 at lip at 1854. Versed drip for sedation ordered by and started. Outcome Outcome: Transfer to ICU (room 265) Follow up Report Follow up Report Taken to CT in stable condition for stat head and chest CT order prior to ICU transfer Team Members Team Members Dr Ramos, Dr Garber-Resident, Huang GROUND EQUIPMENT MECHANIC, Felicia/Desire RFID SYSTEMS ENGINEER charges, Vasu dual rate supervisor, Parul velasquez RN, Fay RN, Bowen RN, Jaylyn RT, Maria Antonia RT critical care time 45 mins Date of Service: May 30, 2024 Billing Provider: CHERRIE RAMOS MD Common Visit Codes: [id number] CARE 30-74 MIN Vasu Jessica May 31, 2024 07:52 CHERRIE RAMOS MD May 31, 2024 19:39
--- NOTE | 2024-05-31 09:24 | DVH ---
INDICATION: intubated TECHNIQUE: Single frontal view of the chest was obtained COMPARISON: XY CHEST XRAY 1 VIEW on DOS: 05/30/24, XY CHEST XRAY 1 VIEW on DOS: 05/30/24, XY CHEST PORT ABLE on DOS: 11/22/23, XY CHEST PORTABLE on DOS: 02/11/23, XY CHEST XRAY 1 VIEW on DOS: 05/30/24 FINDINGS: Endotracheal tube is in good position of the level of the clavicles. Nasogastric tube is in the stomach. There is cardiomegaly with an enlarged left ventricle. There is significant pulmonary vascular congestion. IMPRESSION: 1. congestive heart failure pattern.
[2024-05-31 11:08] LABS: INR 1.14 (0.9-1.15); Partial Thromboplastin Time 65.5 SEC (24.5-34.5); Prothrombin Time 11.9 sec (9.3-11.8)
--- NOTE | 2024-05-31 11:43 | ECG ---
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
[2024-05-31] MEDS: ACETAMINOPHEN 325 MG TAB PO PRN (12:34)
[2024-05-31] MEDS: SODIUM CHLORIDE 0.9% 1,000 ML IV SCH (14:07)
--- NOTE | 2024-05-31 15:06 | DVHPN2 ---
Progress Note - Dictate Date Seen: May 31, 2024 Medical Necessity Reason Pt with a Central, PICC or Fol: Yes Subjective Mr. Castillo is a 43 years old right-handed gentleman with a history of hypertension, diabetes, coronary artery disease, heart attack, congestive heart failure, polycythemia vera, cardiomyopathy, asthma, he came to the [facility] room on 05/29/2024 with a chief complaint of shortness breath, chest pain. I have seen and examined the patient, I have talked to his nurse, family in the room He was intubated, sedated, reasonable to painful stimuli He is off heparin drip, on levo subcu Fentanyl 100 milligram/hour, Versed 7 milligram/hour Urinalysis, 05/30/2024: WBC: <1, urine leukocyte esterase: Negative UDS, 05/30/2024, amphetamine, benzo WBC/HB/PLT/MCV, 05/30/2024: 10.3/18.1/230/93.8 PT/INR/PTT, 05/30/2024: 12.03/1016/47 05/31/2024: 11.9/1.14/65.5 BMP, 05/30/2024: Unremarkable TBI/AST/ALT/AP, 05/29/2024: 2.1/46/25/133 Troponin one high sensitivity, 05/29/2024: 529, 05/30/2024: 502, 526, TG/HDL/LDL/HDL, 05/30/2024: 62/148/113/36 Echocardiogram, 05/30/2024: Four-chamber dilatation was observed. Left ventricle: Left ventricle was significantly dilated with significantly reduced systolic function. Diffuse hypokinesis of left ventricle was seen. LVEF was 5-10%. LVEDP was assessed to be elevated. Right ventricle was dilated with reduced systolic function. Both atria were dilated. Aortic valve was not well visualized. There was mild aortic insufficiency. There was no aortic stenosis. There was trivial mitral regurgitation. There was mild tricuspid regurgitation. There was trivial pulmonary valve insufficiency. Right ventricular systolic pressure was assessed at 57 mm Hg. IVC was dilated with reduced respiratory variation. There was no pericardial effusion Carotid Doppler, 05/30/2024: No hemodynamically significant stenoses or occlusions identified. CT head, 05/30/2024 1107: No acute intracranial process CT head, 05/30/2024 1856: No abnormality demonstrated. The very small acute/subacute infarct in right frontal lobe and very small old cortical infarct in left parietal lobe seen on the MRI study from earlier the same day are not evident on CT MRI head, 05/30/2024 1041: Small focus of restricted diffusion in the anterior right centrum semiovale likely representing small acute to subacute infarct. There is no evidence of acute hemorrhage (I saw a small DWI lesion in the left cerebellum hemisphere with ADC correlation) vital signs Vital Sign Date Time Temp Pulse Resp B/P (MAP) Pulse Ox O2 Delivery O2 Flow Rate FiO2 05/31/24 13:41 85 16 89/48 (62) 91 35 05/31/24 13:34 100.2 05/31/24 12:00 Mechanical Ventilator+ 05/31/24 08:00 40 Total Intake and Output 05/30/24 05/30/24 05/31/24 15:00 23:00 07:00 Intake Total 36 ml 114 ml 278.0 ml Output Total 900 ml Balance 36 ml 114 ml -622.0 ml medications Current Medications Medications Dose Ordered Sig/Lei Route Start Time Stop Time Status Last Admin Dose Admin Acetaminophen/ Hydrocodone Bitart 1 tab Q4HP PRN PO 05/29/24 20:45 Ondansetron HCl 4 mg Q4HP PRN IV 05/29/24 20:45 05/30/24 03:54 4 MG Acetaminophen 650 mg Q6HP PRN PO 05/29/24 20:45 05/31/24 12:34 650 MG Morphine Sulfate 2 mg Q4HPRN PRN IV 05/29/24 20:45 Nitroglycerin 0.4 mg Q5MINP PRN SL 05/29/24 20:45 Morphine Sulfate 2 mg Q30M PRN IV 05/29/24 20:45 Pantoprazole Sodium 40 mg DAILY IV 05/30/24 10:00 05/31/24 10:53 40 MG Furosemide 40 mg BIDD IV 05/30/24 18:00 05/31/24 06:21 40 MG Sacubitril/ Valsartan 1 tab BID PO 05/30/24 10:00 05/31/24 10:52 1 TAB Aspirin 81 mg DAILY PO 05/30/24 10:00 05/31/24 10:53 81 MG Atorvastatin Calcium 40 mg HS PO 05/30/24 22:00 05/30/24 23:49 40 MG Midazolam HCl 50 ml @ 1 mls/hr Q24H IV 05/30/24 19:00 05/31/24 09:05 7 MLS/HR Fentanyl Citrate 250 ml @ 2.5 mls/hr Q24H IV 05/30/24 19:00 05/31/24 11:35 12.5 MLS/HR Enoxaparin Sodium 90 mg Q12HR SC 05/31/24 22:00 Sodium Chloride 1,000 ml @ 50 mls/hr Q20H IV 05/31/24 12:30 05/31/24 14:07 50 MLS/HR objective The patient is well-nourished and well-developed with no distress. The patient is intubated MENTAL STATUS: Subjective CRANIAL NERVES: Pupils are equal, round and reactive.There are corneal reflexes and doll's eyes phenomenon. No signs of facial weakness. There are gagging or coughing reflexes SENSATION: Responses to pain stimuli. MOTOR: Normal tone in the upper and lower extremity. Normal muscle bulk. No fasciculations. No spontaneous movement. REFLEXES: Deep tendon reflexes are symmetrical. No pathological reflexes. CEREBELLAR/COORDINATION: Deferred GAIT/STATION: deferred laboratory and microbiology Laboratory Tests 05/31/24 03:31 Test 05/31/24 03:31 Range/Units Serum Glucose 92 74-106 mg/dL Problem List Altered mental status ? More strokes ? Status epileptics Elevated troponin one/heart attack Multiple strokes Cardiomyopathy Congestive heart failure A spell of nonresponsiveness on 05/30/2024 ? Syncope triggered by coughing/arrhythmia ? Seizure activity Heart failure Assessment/Plan Monitoring Supportive treatments ICU care EEG KI Follow-up MRI head Stabilize vitals Respiratory support/vent management Lovenox 90 mg subQ b.i.d. Aspirin 81 mg daily Lipitor 40 mg daily GI prophylax/Protonix More recommendation per clinical course This medical document was created using an electronic medical record system with [employer] system. Although this document has been carefully reviewed, there may still be some phonetic and typographical errors. These areas are purely typographical due to imperfections of the software programs, and do not reflect any compromise in the patient's medical care Prognosis guarded Dietary Evaluation Review Comments: 1) TF Glucerna 1.2Cal @ 70ml/hr x 24 hr along with Pro-stat 1 pk daily. Start @ 30ml/hr, increase 10ml/hr Q4H until goal rate is reached. Water flush 50ml Q4H TF goal volume along with Pro-stat & water flush provide 2016 kcal (100%), 116 gm protein (100%), and 1652ml free water 2) TPN if NPO>7 days 3) Advance diet as medically feasible 4) Continue current plan of care Expected Outcomes/Goals: To meet >75% estimated needs within 7 days Fu 2-3 days Plan discussed with: Other Critical Care Time(min): 35 ZEKE REYNOLDS MD May 31, 2024 15:06
--- NOTE | 2024-05-31 18:11 | DVH ---
EXAM: MRI BRAIN HEAD WO CONTRAST; DATE: 05/31/2024 04:56 PM HISTORY: CVA, Acute ALOC COMPARISON: MRI BRAIN HEAD WO CONTRAST on DOS: 05/30/24, CT scan dated 05/30/2024 TECHNIQUE: MRI was performed utilizing multiple appropriate imaging planes and pulse sequences. FINDINGS: SUPRATENTORIAL REGION: No evidence for acute ischemia or intracranial hemorrhage. A subcentimeter fo cus of restricted diffusion in the right frontal centrum semiovale noted without associated abnormal ADC signal. POSTERIOR FOSSA: Subcentimeter focus of acute ischemia in the medial aspect of the left cerebellar l obe. Subcentimeter foci abnormal signal in the bilateral cerebellar lobes BRAINSTEM: Unremarkable. SELLAR/SUPRASELLAR REGION: Unremarkable. VENTRICLES, CISTERNS, SULCI: Age-appropriate. ORBITS: Unremarkable. PARANASAL SINUSES: Diffuse paranasal sinus mucosal thickening noted. MASTOID AIR CELLS: Unremarkable. VASCULATURE: Unremarkable. BONES/ SOFT TISSUES: Unremarkable. OTHER: None. IMPRESSION: 1. Redemonstration of subcentimeter focus of acute ischemia in the left cerebellar lobe. No intracr anial hemorrhage. 2. Redemonstration of subcentimeter focus of DWI hyperintense signal in the right frontal centrum abigail iovale without corresponding abnormal ADC signal reflecting T2 shine through. No evidence of acute i schemia. 3. Subcentimeter foci abnormal signal in the bilateral cerebellar lobes may reflect chronic infarcts or underlying lesions. Further evaluation with MRI with IV contrast is recommended. 4. 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.
[2024-05-31 19:45] LABS: Urine Bacteria None Seen /hpf (None Seen)
[2024-05-31 20:19] LABS: Urine Blood 3+ /uL (Negative); Urine Budding Yeast OCCASIONAL /hpf (None Seen); Urine Clarity Ex.Turbid (Clear); Urine Color Orange (Yellow); Urine Mucus FEW (None Seen); Urine Protein, UAD 2+ (Negative); Urine Specific Gravity 1.019 (1.001-1.035); Urine Squamous Epithelial Cell None Seen /hpf (<5); Urine Urobilinogen 4 mg/dL (Negative); Urine WBC 145 /HPF (0-3); Urine pH 5.5 (5.0-9.0)
--- NOTE | 2024-05-31 20:20 | DVHPN2 ---
Progress Note Date Seen: May 31, 2024 Medical Necessity Reason Pt with a Central, PICC or Fol: No Subjective Review of Systems: Not Done (Unable to obtain patient is intubated and sedated) Objective vital signs Vital Sign Date Time Temp Pulse Resp B/P (MAP) Pulse Ox O2 Delivery O2 Flow Rate FiO2 05/31/24 19:30 111 16 125/79 (94) 95 05/31/24 19:03 101.2 05/31/24 18:00 40 05/31/24 18:00 Mechanical Ventilator+ 05/31/24 16:33 2 Total Intake and Output 05/30/24 05/30/24 05/31/24 15:00 23:00 07:00 Intake Total 36 ml 114 ml 278.0 ml Output Total 900 ml Balance 36 ml 114 ml -622.0 ml medications Current Medications Medications Dose Ordered Sig/Lei Route Start Time Stop Time Status Last Admin Dose Admin Acetaminophen/ Hydrocodone Bitart 1 tab Q4HP PRN PO 05/29/24 20:45 Ondansetron HCl 4 mg Q4HP PRN IV 05/29/24 20:45 05/30/24 03:54 4 MG Acetaminophen 650 mg Q6HP PRN PO 05/29/24 20:45 05/31/24 19:03 650 MG Morphine Sulfate 2 mg Q4HPRN PRN IV 05/29/24 20:45 Nitroglycerin 0.4 mg Q5MINP PRN SL 05/29/24 20:45 Morphine Sulfate 2 mg Q30M PRN IV 05/29/24 20:45 Pantoprazole Sodium 40 mg DAILY IV 05/30/24 10:00 05/31/24 10:53 40 MG Furosemide 40 mg BIDD IV 05/30/24 18:00 05/31/24 19:05 40 MG Sacubitril/ Valsartan 1 tab BID PO 05/30/24 10:00 05/31/24 10:52 1 TAB Aspirin 81 mg DAILY PO 05/30/24 10:00 05/31/24 10:53 81 MG Atorvastatin Calcium 40 mg HS PO 05/30/24 22:00 05/30/24 23:49 40 MG Midazolam HCl 50 ml @ 1 mls/hr Q24H IV 05/30/24 19:00 05/31/24 17:05 7 MLS/HR Fentanyl Citrate 250 ml @ 2.5 mls/hr Q24H IV 05/30/24 19:00 05/31/24 11:35 12.5 MLS/HR Enoxaparin Sodium 90 mg Q12HR SC 05/31/24 22:00 Sodium Chloride 1,000 ml @ 50 mls/hr Q20H IV 05/31/24 12:30 05/31/24 14:07 50 MLS/HR Examination: GENERAL:Normal, LUNGS:Abnormal (Diminished on ventilator), CVS:Normal, ABDOMEN:Normal, SKIN:Normal, :Normal laboratory and microbiology Laboratory Tests 05/31/24 03:31 Test 05/31/24 03:31 Range/Units Serum Glucose 92 74-106 mg/dL Microbiology Date/Time Source Procedure Growth Status 05/30/24 20:50 Sputum Gram Stain - Final Resulted 05/30/24 20:50 Sputum Respiratory Culture - Preliminary Resulted 05/30/24 20:10 Nose MRSA Screen - Final Complete 05/30/24 20:10 Urine - [place] Urine Culture - Preliminary Resulted 05/29/24 18:21 Blood Blood Culture - Preliminary NO GROWTH AFTER 48 HOURS OF INCUBATION. Resulted Labs and/or images reviewed: Labs reviewed by me, Image(s) reviewed by me Problem List/Assessment/Plan Problem List/Assessment/Plan 1. Acute CVA Monitor, neurology consult 2. Acute on chronic systolic heart failure Monitor, cardiology consult, heparin gtt 3. Drug induced cardiomyopathy Monitor, echocardiogram, cardiology consult 4. Elevated troponin - demand ischemia Monitor EKG, cardiology consult 5. Hx of methamphetamine abuse Monitor, urine drug screen 6. Medical non-compliance 7. Acute hypoxic respiratory failure Pulmonary consult Subjective: Intubated and sedated Objective: Patient was admitted for acute CVA, apparently yesterday patient had rapid response called. Patient was emergently intubated. Patient was found to be positive for methamphetamine. Per notes patient recently left AMA for DVTs in his lungs and bilateral lower extremities and patient is known to be noncompliant to medications. Currently venous Dopplers negative for DVTs to bilateral lower extremities. D-dimer is negative. Despite this we will continue doing CTA chest. Patient is on heparin drip for elevated troponins which was transition to full-dose Lovenox. Likely elevated troponins are due to non-STEMI type 2. Pulmonary was consulted for ventilator management. Plan: Pulmonary consult for ventilator management, neurology consult for acute CVA, continue heparin drip per Cardiology, pending CTA of chest Plan discussed with: Patient My Orders My Orders Orders - MAGGIE SANTANA Procedure Category Date Status Time Enoxaparin Sodium PHA 05/31/24 In Process (Lovenox) 22:00 *Consult CONS 05/31/24 Transmitted / 12:29 Sodium Chloride 0.9% PHA 05/31/24 In Process 12:30 Dietary Evaluation Review Comments: 1) TF Glucerna 1.2Cal @ 70ml/hr x 24 hr along with Pro-stat 1 pk daily. Start @ 30ml/hr, increase 10ml/hr Q4H until goal rate is reached. Water flush 50ml Q4H TF goal volume along with Pro-stat & water flush provide 2016 kcal (100%), 116 gm protein (100%), and 1652ml free water 2) TPN if NPO>7 days 3) Advance diet as medically feasible 4) Continue current plan of care Expected Outcomes/Goals: To meet >75% estimated needs within 7 days Fu 2-3 days Date of Service: May 31, 2024 Billing Provider: AVIS SHELLEY MD Common Visit Codes: [id number] INP/OBS CARE (MOD) MAGGIE SANTANA May 31, 2024 20:20
[2024-05-31 20:23] LABS: Cannabinoid Screen, Urine Neg (NEGATIVE)
[2024-05-31 20:26] LABS: Amphetamine Screen, Urine Pos (NEGATIVE); Barbiturate Scree,Urine Neg (NEGATIVE); Benzodiazephine Screen, Urine Pos (NEGATIVE); Cocaine Screen, Urine Neg (NEGATIVE); Opiate Scree,Urine Neg (NEGATIVE); Phencyclidine Screen, Urine Neg (NEGATIVE)
[2024-05-31] MEDS: ENOXAPARIN SOD 100 MG/1 ML SYRINGE SC SCH (21:43)
--- NOTE | 2024-05-31 22:45 | DVHINCON2 ---
Date of service: May 31, 2024 Referring Physician Ángela Albright NP Reason for Consultation Acute hypoxic respiratory failure requiring mechanical ventilator. History of Present Illness A 43-year-old man with past medical history of asthma, CHF, diabetes mellitus, ESRD, MA, and hypertension who presented to ED on 05/29/24 with c/o midsternal chest pain with associated SOB x 2 days that has been worsening. Patient also c/o productive cough and nausea and vomiting. He has run out of his medications for the past few weeks. He mentioned that he was on hospice before and wanted to come off of it. He does have baseline history of methamphetamine abuse and reports using few days prior to presentation. He does have baseline history of noncompliance with medication and followups. Patient was admitted for further care and pulmonary consultation is requested for evaluation and management of acute hypoxic respiratory failure requiring mechanical ventilator. Review of Systems: 14-point review of systems negative unless otherwise noted above. Past Medical History: Asthma, CHF, diabetes mellitus, ESRD, MA, and hypertension Past Surgical History: None Medications: Reviewed. Allergies: Penicillins Family History: No family history of premature CAD. No family history of lung disorders. Social History: Nonsmoker. No alcohol or illicit drug use. Allergies: Coded Allergies: Penicillins (Verified Allergy, Unknown, 02/11/23) Uncoded Allergies: IV CONTRAST (Allergy, Severe, HIVES AND VOMITING. , 06/01/24) Home Meds Reported Medications Potassium Chloride (K-Tabs) 10 Meq Tab, 1 TAB PO DAILY 02/11/23 Spironolactone (Spironolactone) 25 Mg Tab, 1 TAB PO DAILY 02/11/23 Furosemide (Furosemide) 40 Mg Tab, 1 TAB PO BID 02/11/23 Lisinopril (Lisinopril) 2.5 Mg Tab, 1 TAB PO DAILY 02/11/23 Current Medications Current Medications Medications (Trade) Dose Ordered Sig/Lei Route PRN Reason Start Time Stop Time Status Last Admin Enoxaparin Sodium (Lovenox) 90 mg Q12HR SC 05/31/24 22:00 05/31/24 21:43 Sodium Chloride 1,000 ml @ 50 mls/hr Q20H IV 05/31/24 12:30 05/31/24 14:07 Vital Signs Vital Signs Date Time Temp Pulse Resp B/P (MAP) Pulse Ox O2 Delivery O2 Flow Rate FiO2 05/31/24 22:37 94 16 98/64 (75) 98 30 05/31/24 22:00 Mechanical Ventilator+ 05/31/24 21:30 99.3 99.3 05/31/24 16:33 2 Physical Exam Gen.: Patient lying in bed in medical ICU. Sedated, intubated on mechanical v entilator. Head: Normocephalic, atraumatic. Eyes: PERRLA. Ears: Normal external anatomy. Throat: Endotracheal tube and orogastric tube in place. Neck: Supple, trachea midline. Chest: Transmitted breath sounds bilaterally. Decreased air entry bilaterally. N o wheezing. Bibasilar crackles. Cardiovascular: Positive S1, positive S2. Regular rate and rhythm. Abdomen: Positive bowel sounds in all 4 quadrants. Soft, nontender, nondistended. : Campos in place. Normal external genitalia. Rectal: Deferred. Skin: Warm, dry. Intact. Extremities: 2+ radial pulses bilaterally. No lower extremity edema. Neuro: Sedated. Labs/Diagnostic Data Labs Test 05/31/24 19:25 05/31/24 10:30 05/31/24 06:25 05/31/24 03:31 Range/Units Urine Color [place] H Yellow Urine Clarity Ex.turbid Clear Urine pH 5.5 5.0-9.0 Urine Specific [place] 1.019 1.001-1.035 Urine Protein 2+ H Negative Urine Ketones Negative Negative Urine Blood 3+ H Negative /uL Urine Nitrite Negative Negative Urine Bilirubin Negative Negative Urine Urobilinogen 4 H Negative mg/dL Urine Leukocyte Esterase Negative Negative /uL Urine RBC 417 0 - 3 /hpf Urine Microscopic WBC 145 H 0-3 /HPF Urine Squamous Epithelial Cells None seen <5 /hpf Urine Bacteria None seen None Seen /hpf Urine Mucus Few None Seen Urine Yeast (Budding) Occasional None Seen /hpf Urine Glucose Normal Normal mg/dL Urine Opiates Screen Neg NEGATIVE Urine Fentanyl Screen Pos NEGATIVE Urine Barbiturates Screen Neg NEGATIVE Urine Phencyclidine Screen Neg NEGATIVE Urine Amphetamines Screen Pos NEGATIVE Urine Benzodiazepines Screen Pos NEGATIVE Urine Cocaine Screen Neg NEGATIVE Urine Cannabinoids Screen Neg NEGATIVE Prothrombin Time 11.9 H 9.3-11.8 sec Prothrombin Time INR 1.14 0.9-1.15 Activated Partial Thromboplast Time 65.5 H 24.5-34.5 SEC Blood Gas Specimen Type Arterial Blood Gas Sample Site Right radial Blood Gas Patient Temperature 37.0 Arterial Blood Date Drawn [id number] Arterial Blood pH 7.367 7.350-7.450 Arterial Blood Partial Pressure CO2 48.1 H 35.0-48.0 mmHg Arterial Blood Partial Pressure O2 153.5 H 83.0-108.0 mmHg Arterial Blood HCO3 27.0 21.0-28.0 mmol/L Arterial Blood Oxygen Saturation 98.8 H 94.0-98.0 % Arterial Blood Base Excess 0.7 -2.0-3.0 mmol/L Arterial Blood Oxyhemoglobin 97.8 94.0-98.0 % Arterial Blood Carboxyhemoglobin 0.3 L 0.5-1.5 % Arterial Blood Methemoglobin 0.7 0.0-1.5 % Bishnu Test Modified Blood Gas Total Hemoglobin 19.90 *H 13.5-17.5 g/dL Blood Gas Set Respiration Rate 16.0 Blood Gas Modality Vent - ac FiO2 % 45.0 Blood Gas Tidal Volume 500.0 Blood Gas PEEP or CPAP 5.0 Blood Gas Critical Value Read Back yes Blood Gas Notified Whom operations research director saenz Blood Gas Notified Time [id number] Blood Gas Notified By prestressed concrete laborer nickolas White Blood Count 10.3 # 4.4-10.8 10^3/uL Red Blood Count 5.35 4.5-5.90 10^6/uL Hemoglobin 17.2 13.5-17.5 g/dL Hematocrit 50.9 41.0-53.0 % Mean Corpuscular Volume 95.1 80.0-100.0 fL Mean Corpuscular Hemoglobin 32.2 H 28.0-32.0 pg Mean Corpuscular Hemoglobin Concent 33.9 32.0-36.0 g/dL Red Cell Distribution Width 15.1 H 11.8-14.3 % Platelet Count 177 140-450 10^3/uL Mean Platelet Volume 7.6 6.9-10.8 fL Neutrophils (%) (Auto) 62.8 37.0-80.0 % Lymphocytes (%) (Auto) 24.1 10.0-50.0 % Monocytes (%) (Auto) 9.3 0.0-12.0 % Eosinophils (%) (Auto) 2.2 0.0-7.0 % Basophils (%) (Auto) 1.6 0.0-2.0 % Neutrophils # (Auto) 6.4 1.6-8.6 10 ^3/uL Lymphocytes # (Auto) 2.5 0.4-5.4 10 ^3/uL Monocytes # (Auto) 1.0 0-1.3 10 ^3/uL Eosinophils # (Auto) 0.2 0-0.8 10 ^3/uL Basophils # (Auto) 0.2 0-0.2 10 ^3/uL Nucleated Red Blood Cells 0.1 % Sodium Level 138 136-145 mmol/L Potassium Level 4.1 3.5-5.1 mmol/L Chloride Level 103 98-107 mmol/L Carbon Dioxide Level 29 20-31 mmol/L Anion Gap 6 5-15 Blood Urea Nitrogen 13 9-23 mg/dL Creatinine 1.15 0.700-1.30 mg/dL Glomerular Filtration Rate Calc 82 >90 mL/min BUN/Creatinine Ratio 11.3 10.0-20.0 Serum Glucose 92 74-106 mg/dL Hemoglobin A1c 6.1 H <5.7 % A1C Calcium Level 8.8 8.7-10.4 mg/dL Test 05/31/24 00:55 05/30/24 22:12 05/30/24 20:10 05/30/24 18:41 Range/Units Troponin I High Sensitivity 437 *H </=54 ng/L D-Dimer, Quantitative 0.32 0.0-0.49 mg/L FEU Lactic Acid Level 1.1 0.4-2.0 mmol/L Magnesium Level 2.0 1.6-2.6 mg/dL Total Bilirubin 2.2 H 0.2-1.0 mg/dL Aspartate Amino Transferase (AST) 32 13-40 U/L Alanine Aminotransferase (ALT) 25 7-40 U/L Alkaline Phosphatase 116 46-116 U/L Total Protein 6.9 5.7-8.2 g/dL Albumin 3.8 3.2-4.8 g/dL Urine Hyaline Casts Mod 0 - 2 /lpf POC Glucose 137 H 70-106 mg/dl Test 05/30/24 05:30 05/29/24 18:21 Range/Units Triglycerides Level 62 < 150 mg/dL Cholesterol Level 148 < 200 mg/dL LDL Cholesterol 113 H < 100 mg/dL HDL Cholesterol 36 L 40-59 mg/dL B-Type Natriuretic Peptide 641.20 0-100 pg/mL Microbiology Date/Time Source Procedure Growth Status 05/30/24 20:50 Sputum Gram Stain - Final Resulted 05/30/24 20:50 Sputum Respiratory Culture - Preliminary Resulted 05/30/24 20:10 Nose MRSA Screen - Final Complete 05/30/24 20:10 Urine - [place] Urine Culture - Preliminary Resulted 05/29/24 18:21 Blood Blood Culture - Preliminary NO GROWTH AFTER 48 HOURS OF INCUBATION. Resulted Assessment Impression: Acute hypoxic respiratory failure On mechanical ventilator Pulmonary hypertension, RVSP 57 mmHg ( Echo with LVEF of 5% to 10%) Acute CVA Acute on chronic systolic heart failure Drug induced cardiomyopathy Elevated troponin Polysubstance abuse Medical non-compliance Plan: s/p intubation on mechanical ventilator. CXR image and report reviewed. Devices in place; cardiomegaly with enlarged left ventricle; significant pulmonary vascular congestion- CHF pattern. ABG reviewed, compensated. On AC mode; RR 16, VT 500, PEEP 5, FiO2 30% Titrate FIO2 to keep O2 saturation above 90%. VAP bundle. Daily ABG and CXR while intubated Sedate for ventilator synchrony - Versed/Fentanyl Pulmonary hypertension, RVSP 57 mmHg - Echo showing LVEF of 5% to 10%. Follow up Cardiology recs On statin Elevated troponin - Heparin drip discontinued. Note, patient is febrile. MRI head shows no evidence of acute ischemia Pressors as necessary for hemodynamic support Titrate to keep mean arterial pressure greater than 65 mmHg IV fluids with NS at 50 ml/hr. Diurese as tolerated w/ Lasix BID Monitor renal function Monitor electrolytes. Supplement as necessary. Monitor ins and outs. GI prophylaxis. DVT prophylaxis. Prognosis: Poor given patient's multiple co-morbidities. Condition: Critical Rest of plan per hospitalist and other consultants. A total of 35 minutes of critical care time was spent reviewing the patient record, examining the patient, making a diagnostic and therapeutic plan, discussing this plan with the medical personnel, following up on diagnostic studies and following the patient for clinical stability excluding any and all procedures. At least 50% of this time was spent in direct, [id number] cont act. Thank you, BRANDIN Albright, for allowing me to participate in this patient's care. Further recommendations will depend on the patient's clinical course. Please do not hesitate to contact me if you have any questions or concerns. This medical document was created using an electronic medical record system with [employer] computerized dictation system. Although these documentations are being carefully reviewed, there may still be some phonetic and typographical changes. The errors are purely typographical, due to imperfection on the software program, and do not reflect any compromise in the patient's medical care. Plan discussed with: Other (RN/BRANDIN Albright/) NATALIO MÁRQUEZ MD May 31, 2024 22:44
[2024-06-01] VITALS (104 sets, daily range): BP systolic 81–117; BP diastolic 45–70; PULSE 84–99; RESP 15–19; TEMP 99.1–101.8; O2SAT 93–100
[2024-06-01 05:27] LABS: Basophils # (auto) 0.1 10 ^3/uL (0-0.2); Basophils % (auto) 0.4 % (0.0-2.0); Eosinophils # (auto) 0.1 10 ^3/uL (0-0.8); Eosinophils % (auto) 0.4 % (0.0-7.0); Hematocrit 58.2 % (41.0-53.0); Hemoglobin 18.9 g/dL (13.5-17.5); Lymphocytes # (auto) 1.4 10 ^3/uL (0.4-5.4); Lymphocytes % (auto) 9.4 % (10.0-50.0); Mean Corpuscular Hemoglobin 31.1 pg (28.0-32.0); Mean Corpuscular Hgb Conc. 32.5 g/dL (32.0-36.0); Mean Corpuscular Volume 95.7 fL (80.0-100.0); Monocytes # (auto) 1.9 10 ^3/uL (0-1.3); Neutrophils # (auto) 11.2 10 ^3/uL (1.6-8.6); Neutrophils % (auto) 76.8 % (37.0-80.0); Platelet Count (auto) 229 10^3/uL (140-450); Red Blood Cells 6.08 10^6/uL (4.5-5.90); White Blood Cell 14.5 10^3/uL (4.4-10.8)
[2024-06-01 06:05] LABS: Alanine Aminotransferase 18 U/L (7-40); Alkaline Phosphatase 107 U/L (46-116); Anion Gap 14 (5-15); BUN/Creatinine Ratio 13.8 (10.0-20.0); Blood Urea Nitrogen 20 mg/dL (9-23); Carbon Dioxide 24 mmol/L (20-31); Chloride 104 mmol/L (98-107); Glucose 85 mg/dL (74-106); Potassium 4.5 mmol/L (3.5-5.1); Sodium 142 mmol/L (136-145); Total Protein 7.2 g/dL (5.7-8.2)
[2024-06-01 06:06] LABS: Albumin 3.7 g/dL (3.2-4.8); Aspartate Aminotransferase 29 U/L (13-40)
[2024-06-01 06:20] LABS: Bilirubin, Total 2.1 mg/dL (0.2-1.0)
--- NOTE | 2024-06-01 06:41 | DVH ---
CHEST RADIOGRAPH Indication: intubated Technique: Single frontal view of the chest was obtained COMPARISON: XY CHEST PORTABLE on DOS: 05/31/24, XY CHEST XRAY 1 VIEW on DOS: 05/30/24, XY CHEST XRAY 1 VIEW on DOS: 05/30/24, XY CHEST PORTABLE on DOS: 11/22/23, XY CHEST PORTABLE on DOS: 02/11/23 FINDINGS: Lines and Tubes: Endotracheal tube and enteric catheter in satisfactory position. Lungs: Patchy bilateral airspace disease Pleura: No effusion. No pneumothorax. Cardiomediastinal contours: Cardiomegaly Bones: Unremarkable IMPRESSION: Lines and tubes in satisfactory position. No significant interval change.
[2024-06-01 06:46] LABS: Platelet Estimate Adequate
[2024-06-01] MEDS: cefTRIAXone 1GM/50ML D5W 50 ML IV SCH (07:54)
[2024-06-01] MEDS: IOHEXOL 350 MG/ML 100ML IJ ONE (08:36)
[2024-06-01 08:48] LABS: Base Excess 1.5 mmol/L (-2.0-3.0)
--- NOTE | 2024-06-01 08:57 | DVH ---
INDICATION: Hematuria TECHNIQUE: Multiple real-time sonographic images of the kidneys and bladder were obtained. COMPARISON: None FINDINGS: The right kidney measures 12.2 cm in length, which is normal in size. There is normal echog enicity of the right kidney. No hydronephrosis. The left kidney measures 9.3 cm in length, which is normal in size. There is normal echogenicity of t he left kidney. No hydronephrosis. [place] catheter is present in the urinary bladder. Urinary bladder is underdistended. IMPRESSION: 1. Left renal atrophy. No intrarenal calculi.
--- NOTE | 2024-06-01 09:21 | DVHPN2 ---
Progress Note - Dictate Date Seen: Jun 01, 2024 Medical Necessity Reason Pt with a Central, PICC or Fol: No vital signs Vital Sign Date Time Temp Pulse Resp B/P (MAP) Pulse Ox O2 Delivery O2 Flow Rate FiO2 06/01/24 08:45 100.9 92 16 110/65 (80) 100 213.6 06/01/24 08:00 Mechanical Ventilator+ 30 30 05/31/24 16:33 2 Total Intake and Output 05/31/24 05/31/24 06/01/24 15:00 23:00 07:00 Intake Total 290.0 ml 661.5 ml 614.0 ml Output Total 625 ml 700 ml Balance 290.0 ml 36.5 ml -86.0 ml medications Current Medications Medications Dose Ordered Sig/Lei Route Start Time Stop Time Status Last Admin Dose Admin Acetaminophen/ Hydrocodone Bitart 1 tab Q4HP PRN PO 05/29/24 20:45 Ondansetron HCl 4 mg Q4HP PRN IV 05/29/24 20:45 05/30/24 03:54 4 MG Acetaminophen 650 mg Q6HP PRN PO 05/29/24 20:45 06/01/24 08:32 650 MG Morphine Sulfate 2 mg Q4HPRN PRN IV 05/29/24 20:45 Nitroglycerin 0.4 mg Q5MINP PRN SL 05/29/24 20:45 Morphine Sulfate 2 mg Q30M PRN IV 05/29/24 20:45 Pantoprazole Sodium 40 mg DAILY IV 05/30/24 10:00 05/31/24 10:53 40 MG Furosemide 40 mg BIDD IV 05/30/24 18:00 06/01/24 05:45 40 MG Sacubitril/ Valsartan 1 tab BID PO 05/30/24 10:00 05/31/24 21:42 1 TAB Aspirin 81 mg DAILY PO 05/30/24 10:00 05/31/24 10:53 81 MG Atorvastatin Calcium 40 mg HS PO 05/30/24 22:00 05/31/24 21:42 40 MG Midazolam HCl 50 ml @ 1 mls/hr Q24H IV 05/30/24 19:00 06/01/24 02:41 8 MLS/HR Fentanyl Citrate 250 ml @ 2.5 mls/hr Q24H IV 05/30/24 19:00 06/01/24 05:28 12.5 MLS/HR Enoxaparin Sodium 90 mg Q12HR SC 05/31/24 22:00 05/31/24 21:43 90 MG Sodium Chloride 1,000 ml @ 50 mls/hr Q20H IV 05/31/24 12:30 06/01/24 09:07 50 MLS/HR Ceftriaxone Sodium 50 ml @ 100 mls/hr DAILY@09 IV 06/01/24 07:30 06/01/24 07:54 100 MLS/HR laboratory and microbiology Laboratory Tests 06/01/24 04:20 Test 06/01/24 04:20 Range/Units Serum Glucose 85 74-106 mg/dL Assessment/Plan Intubated and in [facility]/ICU. He is found to have acute/subacute CVA Patient is a 43-year-old gentleman who presented with few weeks of worsening shortness of breath/generalized swelling/nausea/and some diarrhea. He is known to have systolic heart failure. He has ran out of his medications for the past few weeks. He mentions that he was on hospice before hand and he wanted to come off of it. He does have baseline history of methamphetamine abuse and mentions that he used it few days ago. He does have baseline history of noncompliance with medication and followups. Previously he was homeless. Now he says that she is renting a place. Cardiology was involved for cardiac aspects of care. It is of note that the patient does have chronic elevated troponin from prior admissions. Intubated, No JVD. Mucosa is pink and wet. Scattered crackles in the lungs is heard. Cardiac: Regular, no thrill. Systolic murmur 3/6 in apex is heard. History gallop is heard. Abdomen is soft and mildly distended. Bowel sound is positive. There is no abdominal tenderness. Questionable hepatomegaly can not be elicited. Extremities reveal 2+ edema bilaterally. Dorsalis pedis is 2+ bilateral. Past medical history includes diabetes mellitus, hypertension, systolic heart failure, polycythemia vera (as per patient), asthma, CKD, history of substance abuse cardiomyopathy, history of meth abuse and also history of chronic elevated troponin. Previously he was homeless. Previously he was on hospice. Echocardiogram of December 08, 2023 revealed four-chamber dilatation, ejection fraction of 5-10%, mild mitral regurgitation and tricuspid regurgitation. Hemoglobin: 19.5 - 18.1 - 18.2 - 17.2 - 18.9 Creatinine: 1.20 - 1.06 - 1.09 - 1.15 - 1.45 Potassium: 4.1 - 3.6 - 3.8 - 4.1 - 4.5 BNP: 641.20 Troponin (high sensitive): 529 - 502 - 526 - 486 - 422 - 436 - 437 D-dimer: 0.32 Urine tox was positive for Amphetamine and Benzodiazepine Chest x-ray revealed: IMPRESSION: Cardiomegaly with increased interstitial prominence which may be due to CHF and/or reactive airways disease. Repeat chest xry revealed: Endotracheal tube is in good position of the level of the clavicles. Nasogastric tube is in the stomach. There is cardiomegaly with an enlarged left ventricle. There is significant pulmonary vascular congestion. Impression congestive heart failure pattern. If patient has not had a recent cardiac echo I would recommend cardiac echo Repeat chest xry revealed: IMPRESSION: 1. congestive heart failure pattern. Repeat chest xry revealed: FINDINGS: Lines and Tubes: Endotracheal tube and enteric catheter in satisfactory position. Lungs: Patchy bilateral airspace disease Pleura: No effusion. No pneumothorax. Cardiomediastinal contours: Cardiomegaly Bones: Unremarkable IMPRESSION: Lines and tubes in satisfactory position. No significant interval change. MRI of brain revealed: 1. Small focus of restricted diffusion in the anterior right centrum semiovale likely representing small acute to subacute infarct. There is no evidence of acute hemorrhage. Repeat MRI of brain revealed: IMPRESSION: 1. Redemonstration of subcentimeter focus of acute ischemia in the left cerebellar lobe. No intracranial hemorrhage. 2. Redemonstration of subcentimeter focus of DWI hyperintense signal in the right frontal centrum semiovale without corresponding abnormal ADC signal reflecting T2 shine through. No evidence of acute ischemia. 3. Subcentimeter foci abnormal signal in the bilateral cerebellar lobes may reflect chronic infarcts or underlying lesions. Further evaluation with MRI with IV contrast is recommended. 4. 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. CT of head revealed: IMPRESSION: 1. No acute intracranial process. Repeat CT of head revealed: IMPRESSION: No abnormality demonstrated. The very small acute/subacute infarct in right frontal lobe and very small old cortical infarct in left parietal lobe seen on the MRI study from earlier the same day are not evident on CT. Carotid ultrasound revealed: IMPRESSION: No hemodynamically significant stenoses or occlusions identified. Chest CT revealed: IMPRESSION: 1. Cardiomegaly. 2. Scattered coronary artery calcifications 3. Endotracheal tube in place terminating above the nicola. 4. Enteric tube in the stomach. Lower ext venous duplex revealed: IMPRESSION: No sonographic evidence of deep venous thrombosis in either lower extremity at this time. Right upper ext venous ultrasound revealed: IMPRESSION: No sonographic evidence of deep venous thrombosis in either upper extremity at this time. Renal Ultrasound revealed: IMPRESSION: 1. Left renal atrophy. No intrarenal calculi. Tele reveals sinus rhythm Echocardiogram revealed: Four-chamber dilatation was observed. Left ventricle: Left ventricle was significantly dilated with significantly reduced systolic function. Diffuse hypokinesis of left ventricle was seen. LVEF was 5-10%. LVEDP was assessed to be elevated. Right ventricle was dilated with reduced systolic function. Both atria were dilated. Aortic valve was not well visualized. There was mild aortic insufficiency. There was no aortic stenosis. There was trivial mitral regurgitation. There was mild tricuspid regurgitation. There was trivial pulmonary valve insufficiency. Right ventricular systolic pressure was assessed at 57 mm Hg. IVC was dilated with reduced respiratory variation. There was no pericardial effusion Patient is a 43-year-old gentleman who presented with weeks of worsening shortness of breath cough/nausea and vomiting. Does have baseline history of systolic heart failure. Has been noncompliant with medication and followups. Acute on chronic systolic heart failure could have contributed to the clinical picture. Does have baseline history of methamphetamine abuse which could have contributed to the clinical picture. He is noncompliant with medication and followups which could have contributed to the clinical picture. Does have baseline history of elevated/chronically troponin. Abnormal troponin in a patient with end-stage systolic heart failure usually reflects demand physiology. Acute coronary syndrome is not considered at this point. Had AMS and later had respiratory failure. Intubated and brought to [facility]/ICU. He is found to have acute/subacute CVA. Is being followed by Neurology Acute on chronic systolic heart failure Drug-induced cardiomyopathy CKD Polycythemia vera removal Diabetes mellitus Noncompliant with medication and followups Substance abuse AMS Acute/subacute CVA Cardiac suggestion for management: Manage in ICU IV diuresis Follow-up electrolytes and kidney function tests and correct abnormalities. Keep potassium above 4 and magnesium above 2 Start Entresto: 24/26 mg p.o. b.i.d. Request for urine toxicology Aspirin: 81 mg daily suggested Heparin drip versus therapeutic Lovenox is suggested at this point High potency statin (atorvastatin at 40 mg daily) suggested Does have baseline history of elevated/chronically troponin. Abnormal troponin (flat trend) in a patient with end-stage systolic heart failure usually reflects demand physiology. Acute coronary syndrome is not considered at this point. Recognizing old history of significant heart failure and noncompliance, outcome is poor. Consider restarting hospice Lifestyle and risk factor modifications. KI as suggested by Neurology early next week (tentatively Monday) Neurology follow up Further evaluation and management depends on the above and clinical course A total of 75 minutes was spent reviewing the patient record, examining the patient, making a diagnostic and therapeutic plan, discussing this plan with medical personnel, following up on diagnostic studies and following the patient for clinical stability excluding any and all procedures. At least 50% of this time was spent in direct, [id number] contact. Thank you for allowing me to participate in this patient's care. Further recommendations will depend on patient's clinical course. Please do not hesitate to contact me if you have any questions or concerns. This medical document was created using electronic medical record system with [employer] computerized dictation system. Although this document has been carefully reviewed, there may still be some phonetic and typographical errors. These areas are purely typographical due to the imperfection of the software programs, and do not reflect any compromise in the patient's medical care. Dietary Evaluation Review Comments: 1) TF Glucerna 1.2Cal @ 70ml/hr x 24 hr along with Pro-stat 1 pk daily. Start @ 30ml/hr, increase 10ml/hr Q4H until goal rate is reached. Water flush 50ml Q4H TF goal volume along with Pro-stat & water flush provide 2016 kcal (100%), 116 gm protein (100%), and 1652ml free water 2) TPN if NPO>7 days 3) Advance diet as medically feasible 4) Continue current plan of care Expected Outcomes/Goals: To meet >75% estimated needs within 7 days Fu 2-3 days Plan discussed with: Other (nurse) GABRIEL LOPEZ MD Jun 01, 2024 09:21
--- NOTE | 2024-06-01 13:35 | DVHPN2 ---
Progress Note - Dictate Date Seen: Jun 01, 2024 Medical Necessity Reason Pt with a Central, PICC or Fol: Yes Subjective *Computer Network Engineer rounds* Patient seen and examined Overnight events reviewed vital signs Vital Sign Date Time Temp Pulse Resp B/P (MAP) Pulse Ox O2 Delivery O2 Flow Rate FiO2 06/01/24 13:15 100.0 85 16 102/52 (69) 100 212.0 06/01/24 12:00 30 06/01/24 12:00 Mechanical Ventilator+ 05/31/24 16:33 2 Total Intake and Output 05/31/24 05/31/24 06/01/24 15:00 23:00 07:00 Intake Total 290.0 ml 661.5 ml 614.0 ml Output Total 625 ml 700 ml Balance 290.0 ml 36.5 ml -86.0 ml medications Current Medications Medications Dose Ordered Sig/Lei Route Start Time Stop Time Status Last Admin Dose Admin Acetaminophen/ Hydrocodone Bitart 1 tab Q4HP PRN PO 05/29/24 20:45 Ondansetron HCl 4 mg Q4HP PRN IV 05/29/24 20:45 05/30/24 03:54 4 MG Acetaminophen 650 mg Q6HP PRN PO 05/29/24 20:45 06/01/24 08:32 650 MG Morphine Sulfate 2 mg Q4HPRN PRN IV 05/29/24 20:45 Nitroglycerin 0.4 mg Q5MINP PRN SL 05/29/24 20:45 Morphine Sulfate 2 mg Q30M PRN IV 05/29/24 20:45 Pantoprazole Sodium 40 mg DAILY IV 05/30/24 10:00 06/01/24 10:00 40 MG Furosemide 40 mg BIDD IV 05/30/24 18:00 06/01/24 05:45 40 MG Sacubitril/ Valsartan 1 tab BID PO 05/30/24 10:00 06/01/24 09:22 1 TAB Aspirin 81 mg DAILY PO 05/30/24 10:00 06/01/24 09:23 81 MG Atorvastatin Calcium 40 mg HS PO 05/30/24 22:00 05/31/24 21:42 40 MG Midazolam HCl 50 ml @ 1 mls/hr Q24H IV 05/30/24 19:00 06/01/24 09:27 8 MLS/HR Fentanyl Citrate 250 ml @ 2.5 mls/hr Q24H IV 05/30/24 19:00 06/01/24 05:28 12.5 MLS/HR Enoxaparin Sodium 90 mg Q12HR SC 05/31/24 22:00 06/01/24 09:22 90 MG Sodium Chloride 1,000 ml @ 50 mls/hr Q20H IV 05/31/24 12:30 06/01/24 09:07 50 MLS/HR Ceftriaxone Sodium 50 ml @ 100 mls/hr DAILY@09 IV 06/01/24 07:30 06/01/24 07:54 100 MLS/HR laboratory and microbiology Laboratory Tests 06/01/24 04:20 Test 06/01/24 04:20 Range/Units Serum Glucose 85 74-106 mg/dL Assessment/Plan Impression Acute hypoxemic respiratory failure Substance abuse Cardiomyopathy Atelectasis Patient seen and examined in ICU Events On mechanical ventilation S/p intubation PEEP 8, FiO2 40% Family at the bedside Labs and imaging reviewed Creatinine borderline ABG reviewed Management Vent support Titrate to maintain sats 90% or above Sedation for vent synchrony Continue antibiotics F/u cultures Bronchodilators Monitor renal function Monitor electrolytes Supplement as needed Pressors as needed for hemodynamic support To maintain a mean arterial pressure of 65 mmHg Scheduled for KI F/u cardiology DVT prophylaxis Critical care time 35 minutes Dietary Evaluation Review Comments: 1) TF Glucerna 1.2Cal @ 70ml/hr x 24 hr along with Pro-stat 1 pk daily. Start @ 30ml/hr, increase 10ml/hr Q4H until goal rate is reached. Water flush 50ml Q4H TF goal volume along with Pro-stat & water flush provide 2016 kcal (100%), 116 gm protein (100%), and 1652ml free water 2) TPN if NPO>7 days 3) Advance diet as medically feasible 4) Continue current plan of care Expected Outcomes/Goals: To meet >75% estimated needs within 7 days Fu 2-3 days Plan discussed with: Other (Rn) JAIME ALAN MD Jun 01, 2024 13:35
--- NOTE | 2024-06-01 19:14 | DVHPN2 ---
Progress Note Date Seen: Jun 01, 2024 Medical Necessity Reason Pt with a Central, PICC or Fol: Yes Subjective Review of Systems: Not Done Objective vital signs Vital Sign Date Time Temp Pulse Resp B/P (MAP) Pulse Ox O2 Delivery O2 Flow Rate FiO2 06/01/24 18:45 100.8 95 16 97/50 (66) 100 213.4 06/01/24 18:19 30 06/01/24 18:00 Mechanical Ventilator+ 06/01/24 16:33 2 Total Intake and Output 05/31/24 05/31/24 06/01/24 15:00 23:00 07:00 Intake Total 290.0 ml 661.5 ml 614.0 ml Output Total 625 ml 700 ml Balance 290.0 ml 36.5 ml -86.0 ml medications Current Medications Medications Dose Ordered Sig/Lei Route Start Time Stop Time Status Last Admin Dose Admin Acetaminophen/ Hydrocodone Bitart 1 tab Q4HP PRN PO 05/29/24 20:45 Ondansetron HCl 4 mg Q4HP PRN IV 05/29/24 20:45 05/30/24 03:54 4 MG Acetaminophen 650 mg Q6HP PRN PO 05/29/24 20:45 06/01/24 17:42 650 MG Morphine Sulfate 2 mg Q4HPRN PRN IV 05/29/24 20:45 Nitroglycerin 0.4 mg Q5MINP PRN SL 05/29/24 20:45 Morphine Sulfate 2 mg Q30M PRN IV 05/29/24 20:45 Pantoprazole Sodium 40 mg DAILY IV 05/30/24 10:00 06/01/24 10:00 40 MG Furosemide 40 mg BIDD IV 05/30/24 18:00 06/01/24 17:43 40 MG Sacubitril/ Valsartan 1 tab BID PO 05/30/24 10:00 06/01/24 09:22 1 TAB Aspirin 81 mg DAILY PO 05/30/24 10:00 06/01/24 09:23 81 MG Atorvastatin Calcium 40 mg HS PO 05/30/24 22:00 05/31/24 21:42 40 MG Midazolam HCl 50 ml @ 1 mls/hr Q24H IV 05/30/24 19:00 06/01/24 16:30 8 MLS/HR Fentanyl Citrate 250 ml @ 2.5 mls/hr Q24H IV 05/30/24 19:00 06/01/24 05:28 12.5 MLS/HR Enoxaparin Sodium 90 mg Q12HR SC 05/31/24 22:00 06/01/24 09:22 90 MG Sodium Chloride 1,000 ml @ 50 mls/hr Q20H IV 05/31/24 12:30 06/01/24 09:07 50 MLS/HR Ceftriaxone Sodium 50 ml @ 100 mls/hr DAILY@09 IV 06/01/24 07:30 06/01/24 07:54 100 MLS/HR Examination: LUNGS:Abnormal, CVS:Normal, ABDOMEN:Normal, SKIN:Normal, NEURO:Normal, :Normal laboratory and microbiology Laboratory Tests 06/01/24 04:20 Test 06/01/24 04:20 Range/Units Serum Glucose 85 74-106 mg/dL Microbiology Date/Time Source Procedure Growth Status 05/30/24 20:50 Sputum Gram Stain - Final Complete 05/30/24 20:50 Respiratory Culture - Final Klebsiella pneumoniae Complete 05/30/24 20:10 Nose MRSA Screen - Final Complete 05/30/24 20:10 Urine - [place] Urine Culture - Preliminary Resulted 05/29/24 18:21 Blood Blood Culture - Preliminary NO GROWTH AFTER 48 HOURS OF INCUBATION. Resulted Labs and/or images reviewed: Labs reviewed by me, Image(s) reviewed by me Problem List/Assessment/Plan Problem List/Assessment/Plan 1. Acute CVA Monitor, neurology consult 2. Acute on chronic systolic heart failure Monitor, cardiology consult, heparin gtt 3. Drug induced cardiomyopathy Monitor, echocardiogram, cardiology consult 4. Elevated troponin - demand ischemia Monitor EKG, cardiology consult 5. Hx of methamphetamine abuse Monitor, urine drug screen 6. Medical non-compliance 7. Acute hypoxic respiratory failure likely from pneumonia Pulmonary consult 8. Pneumonia likely hospital acquired from Klebsiella pneumoniae IV Rocephin 9. Acute cystitis without hematuria IV Rocephin Subjective: Intubated and sedated Objective: Patient was admitted for acute CVA, apparently yesterday patient had rapid response called. Patient was emergently intubated. Patient was found to be positive for methamphetamine. Per notes patient recently left AMA for DVTs in his lungs and bilateral lower extremities and patient is known to be noncompliant to medications. Currently venous Dopplers negative for DVTs to bilateral lower extremities. D-dimer is negative. Despite this we will continue doing CTA chest. Patient is on heparin drip for elevated troponins which was transition to full-dose Lovenox. Likely elevated troponins are due to non-STEMI type 2. Patient was seen by neurologist. Sputum culture was positive for Klebsiella pneumoniae, which is sensitive to Rocephin Plan: Pulmonary consult for ventilator management, neurology consult for acute CVA, continue full-dose Lovenox, continue IV Rocephin, pending CTA of chest Plan discussed with: Patient My Orders My Orders Orders - MAGGIE SANTANA Procedure Category Date Status Time Kidney US 06/01/24 Resulted 06:54 Ceftriaxone 1gm/50ml PHA 06/01/24 In Process D5w (Rocephin) 07:30 * Dietary Consult CONS 06/01/24 Transmitted 10:53 Dietary Evaluation Review Comments: 1) TF Glucerna 1.2Cal @ 70ml/hr x 24 hr along with Pro-stat 1 pk daily. Start @ 30ml/hr, increase 10ml/hr Q4H until goal rate is reached. Water flush 50ml Q4H TF goal volume along with Pro-stat & water flush provide 2016 kcal (100%), 116 gm protein (100%), and 1652ml free water 2) TPN if NPO>7 days 3) Advance diet as medically feasible 4) Continue current plan of care Expected Outcomes/Goals: To meet >75% estimated needs within 7 days Fu 2-3 days Date of Service: Jun 01, 2024 Billing Provider: AVIS SHELLEY MD Common Visit Codes: [id number] INP/OBS CARE (MOD) MAGGIE SANTANA Jun 01, 2024 19:14
[2024-06-02] VITALS (113 sets, daily range): BP systolic 77–121; BP diastolic 40–72; PULSE 81–99; RESP 13–18; TEMP 98.6–100.9; O2SAT 92–100
--- NOTE | 2024-06-02 07:00 | DVH ---
INDICATION: RESPIRATORY FAILURE TECHNIQUE: Single frontal view of the chest was obtained COMPARISON: XY CHEST PORTABLE on DOS: 06/01/24, XY CHEST PORTABLE on DOS: 05/31/24, XY CHEST XRAY 1 VIE W on DOS: 05/30/24, XY CHEST XRAY 1 VIEW on DOS: 05/30/24, XY CHEST PORTABLE on DOS: 11/22/23, XY CHEST PORTABLE on DOS: 06/01/24 FINDINGS: Lines and Tubes: Endotracheal tube and enteric catheter in satisfactory position. Lungs: Patchy bilateral airspace disease Pleura: No effusion. No pneumothorax. Cardiomediastinal contours: Cardiomegaly Bones: Unremarkable IMPRESSION: Lines and tubes in satisfactory position. No significant interval change.
[2024-06-02 10:41] LABS: Basophils # (auto) 0 10 ^3/uL (0-0.2); Basophils % (auto) 0.2 % (0.0-2.0); Eosinophils # (auto) 0 10 ^3/uL (0-0.8); Eosinophils % (auto) 0.1 % (0.0-7.0)
[2024-06-02 10:42] LABS: Hematocrit 60.8 % (41.0-53.0); Hemoglobin 20.1 g/dL (13.5-17.5); Lymphocytes # (auto) 0.6 10 ^3/uL (0.4-5.4); Lymphocytes % (auto) 3.6 % (10.0-50.0); Mean Corpuscular Hemoglobin 31.5 pg (28.0-32.0); Mean Corpuscular Hgb Conc. 33.1 g/dL (32.0-36.0); Monocytes # (auto) 1.4 10 ^3/uL (0-1.3); Monocytes % (auto) 8.8 % (0.0-12.0); Neutrophils # (auto) 13.4 10 ^3/uL (1.6-8.6); Neutrophils % (auto) 87.3 % (37.0-80.0); Nucleated Red Blood Cells % 0.6 %; Platelet Count (auto) 209 10^3/uL (140-450); Red Cell Distribution Width 14.8 % (11.8-14.3); White Blood Cell 15.4 10^3/uL (4.4-10.8)
[2024-06-02 11:08] LABS: Alanine Aminotransferase 16 U/L (7-40); Albumin 3.6 g/dL (3.2-4.8); Alkaline Phosphatase 112 U/L (46-116); Anion Gap 9 (5-15); Aspartate Aminotransferase 35 U/L (13-40); BUN/Creatinine Ratio 13.8 (10.0-20.0); Blood Urea Nitrogen 17 mg/dL (9-23); Calcium 9.1 mg/dL (8.7-10.4); Carbon Dioxide 25 mmol/L (20-31); Chloride 103 mmol/L (98-107); Potassium 3.9 mmol/L (3.5-5.1); Sodium 137 mmol/L (136-145); Total Protein 7.3 g/dL (5.7-8.2)
[2024-06-02 11:50] LABS: Bilirubin, Total 1.8 mg/dL (0.2-1.0); Glucose 107 mg/dL (74-106)
[2024-06-02] MEDS: LIDOCAINE 1% (LOCAL ANESTH.) PF 5ml SDV ID ONE (13:30)
--- NOTE | 2024-06-02 14:01 | DVHPN2 ---
Progress Note - Dictate Date Seen: Jun 02, 2024 Medical Necessity Reason Pt with a Central, PICC or Fol: Yes Subjective *Corporate Trainer rounds* Patient seen and examined Overnight events reviewed vital signs Vital Sign Date Time Temp Pulse Resp B/P (MAP) Pulse Ox O2 Delivery O2 Flow Rate FiO2 06/02/24 13:50 30 06/02/24 13:50 16 100 Mechanical Ventilator+ 06/02/24 13:50 87 06/02/24 13:45 98.8 90/59 (69) 209.8 06/01/24 16:33 2 Total Intake and Output 06/01/24 06/01/24 06/02/24 15:00 23:00 07:00 Intake Total 626.5 ml 849.0 ml 650.0 ml Output Total 700 ml 750 ml Balance 626.5 ml 149.0 ml -100.0 ml medications Current Medications Medications Dose Ordered Sig/Lei Route Start Time Stop Time Status Last Admin Dose Admin Acetaminophen/ Hydrocodone Bitart 1 tab Q4HP PRN PO 05/29/24 20:45 Ondansetron HCl 4 mg Q4HP PRN IV 05/29/24 20:45 05/30/24 03:54 4 MG Acetaminophen 650 mg Q6HP PRN PO 05/29/24 20:45 06/02/24 09:19 650 MG Morphine Sulfate 2 mg Q4HPRN PRN IV 05/29/24 20:45 Nitroglycerin 0.4 mg Q5MINP PRN SL 05/29/24 20:45 Morphine Sulfate 2 mg Q30M PRN IV 05/29/24 20:45 Pantoprazole Sodium 40 mg DAILY IV 05/30/24 10:00 06/02/24 07:53 40 MG Furosemide 40 mg BIDD IV 05/30/24 18:00 06/02/24 05:55 40 MG Sacubitril/ Valsartan 1 tab BID PO 05/30/24 10:00 06/02/24 07:54 1 TAB Aspirin 81 mg DAILY PO 05/30/24 10:00 06/02/24 07:54 81 MG Atorvastatin Calcium 40 mg HS PO 05/30/24 22:00 06/01/24 21:31 40 MG Midazolam HCl 50 ml @ 1 mls/hr Q24H IV 05/30/24 19:00 06/02/24 13:11 5 MLS/HR Fentanyl Citrate 250 ml @ 2.5 mls/hr Q24H IV 05/30/24 19:00 06/02/24 13:12 15 MLS/HR Enoxaparin Sodium 90 mg Q12HR SC 05/31/24 22:00 06/02/24 07:54 90 MG Sodium Chloride 1,000 ml @ 50 mls/hr Q20H IV 05/31/24 12:30 06/01/24 09:07 50 MLS/HR Ceftriaxone Sodium 50 ml @ 100 mls/hr DAILY@09 IV 06/01/24 07:30 06/02/24 07:53 100 MLS/HR Norepinephrine Bitartrate 250 ml @ 3.75 mls/hr Q24H IV 06/02/24 11:30 laboratory and microbiology Laboratory Tests 06/02/24 10:19 Test 06/02/24 10:19 Range/Units Serum Glucose 107 H 74-106 mg/dL Assessment/Plan director diabetes rounds Impression Acute hypoxemic respiratory failure Substance abuse Cardiomyopathy Atelectasis Patient seen and examined in ICU Events On mechanical ventilation S/p intubation PEEP 8, FiO2 40% planned for KI on monday afterwards proceed to weaning Labs and imaging reviewed ABG reviewed Management Vent support Titrate to maintain sats 90% or above Sedation for vent synchrony Continue antibiotics F/u cultures Bronchodilators Monitor renal function Monitor electrolytes Supplement as needed Pressors as needed for hemodynamic support To maintain a mean arterial pressure of 65 mmHg Scheduled for KI F/u cardiology DVT prophylaxis Critical care time 35 minutes Dietary Evaluation Review Comments: 1) TF Glucerna 1.2Cal @ 70ml/hr x 24 hr along with Pro-stat 1 pk daily. Start @ 30ml/hr, increase 10ml/hr Q4H until goal rate is reached. Water flush 50ml Q4H TF goal volume along with Pro-stat & water flush provide 2016 kcal (100%), 116 gm protein (100%), and 1652ml free water 2) TPN if NPO>7 days 3) Advance diet as medically feasible 4) Continue current plan of care Expected Outcomes/Goals: To meet >75% estimated needs within 7 days Fu 2-3 days Plan discussed with: Other (rn) JAIME ALAN MD Jun 02, 2024 14:01
[2024-06-02] MEDS: NOREPINEPHRINE 8 MG/250ML KIT 250 ML IV SCH (16:15)
--- NOTE | 2024-06-02 17:37 | DVHPN2 ---
Progress Note Date Seen: Jun 02, 2024 Medical Necessity Reason Pt with a Central, PICC or Fol: Yes Objective vital signs Vital Sign Date Time Temp Pulse Resp B/P (MAP) Pulse Ox O2 Delivery O2 Flow Rate FiO2 06/02/24 17:12 87/53 06/02/24 17:00 99.9 89 16 100 211.8 06/02/24 16:02 30 06/02/24 15:37 Mechanical Ventilator+ 06/01/24 16:33 2 Total Intake and Output 06/01/24 06/01/24 06/02/24 15:00 23:00 07:00 Intake Total 626.5 ml 849.0 ml 650.0 ml Output Total 700 ml 750 ml Balance 626.5 ml 149.0 ml -100.0 ml medications Current Medications Medications Dose Ordered Sig/Lei Route Start Time Stop Time Status Last Admin Dose Admin Acetaminophen/ Hydrocodone Bitart 1 tab Q4HP PRN PO 05/29/24 20:45 Ondansetron HCl 4 mg Q4HP PRN IV 05/29/24 20:45 05/30/24 03:54 4 MG Acetaminophen 650 mg Q6HP PRN PO 05/29/24 20:45 06/02/24 09:19 650 MG Morphine Sulfate 2 mg Q4HPRN PRN IV 05/29/24 20:45 Nitroglycerin 0.4 mg Q5MINP PRN SL 05/29/24 20:45 Morphine Sulfate 2 mg Q30M PRN IV 05/29/24 20:45 Pantoprazole Sodium 40 mg DAILY IV 05/30/24 10:00 06/02/24 07:53 40 MG Furosemide 40 mg BIDD IV 05/30/24 18:00 06/02/24 17:12 40 MG Sacubitril/ Valsartan 1 tab BID PO 05/30/24 10:00 06/02/24 07:54 1 TAB Aspirin 81 mg DAILY PO 05/30/24 10:00 06/02/24 07:54 81 MG Atorvastatin Calcium 40 mg HS PO 05/30/24 22:00 06/01/24 21:31 40 MG Midazolam HCl 50 ml @ 1 mls/hr Q24H IV 05/30/24 19:00 06/02/24 13:11 5 MLS/HR Fentanyl Citrate 250 ml @ 2.5 mls/hr Q24H IV 05/30/24 19:00 06/02/24 13:12 15 MLS/HR Enoxaparin Sodium 90 mg Q12HR SC 05/31/24 22:00 06/02/24 07:54 90 MG Sodium Chloride 1,000 ml @ 50 mls/hr Q20H IV 05/31/24 12:30 06/02/24 15:33 50 MLS/HR Ceftriaxone Sodium 50 ml @ 100 mls/hr DAILY@09 IV 06/01/24 07:30 06/02/24 07:53 100 MLS/HR Norepinephrine Bitartrate 250 ml @ 3.75 mls/hr Q24H IV 06/02/24 11:30 06/02/24 16:15 3.75 MLS/HR Sodium Chloride 10 ml QSHIFT@10,22 IV 06/02/24 22:00 Examination: GENERAL:Normal, LUNGS:Normal, CVS:Normal, ABDOMEN:Normal, SKIN:Normal, NEURO:Normal laboratory and microbiology Laboratory Tests 06/02/24 10:19 Test 06/02/24 10:19 Range/Units Serum Glucose 107 H 74-106 mg/dL Microbiology Date/Time Source Procedure Growth Status 05/30/24 20:50 Sputum Gram Stain - Final Complete 05/30/24 20:50 Respiratory Culture - Final Klebsiella pneumoniae Complete 05/30/24 20:10 Nose MRSA Screen - Final Complete 05/30/24 20:10 Urine - [place] Urine Culture - Final Complete 05/29/24 18:21 Blood Blood Culture - Preliminary NO GROWTH AFTER 72 HOURS OF INCUBATION. Resulted Labs and/or images reviewed: Labs reviewed by me, Image(s) reviewed by me Problem List/Assessment/Plan Problem List/Assessment/Plan 1. Acute CVA Monitor, neurology consult 2. Acute on chronic systolic heart failure Monitor, cardiology consult, heparin gtt 3. Drug induced cardiomyopathy Monitor, echocardiogram, cardiology consult 4. Elevated troponin - demand ischemia Monitor EKG, cardiology consult 5. Hx of methamphetamine abuse Monitor, urine drug screen 6. Medical non-compliance 7. Acute hypoxic respiratory failure likely from pneumonia Pulmonary consult 8. Pneumonia likely hospital acquired from Klebsiella pneumoniae IV Rocephin 9. Acute cystitis without hematuria IV Rocephin Subjective: Intubated and sedated Objective: Patient was admitted for acute CVA, apparently yesterday patient had rapid response called. Patient was emergently intubated. Patient was found to be positive for methamphetamine. Per notes patient recently left AMA for DVTs in his lungs and bilateral lower extremities and patient is known to be noncompliant to medications. Currently venous Dopplers negative for DVTs to bilateral lower extremities. D-dimer is negative. Despite this we will continue doing CTA chest. Patient is on heparin drip for elevated troponins which was transition to full-dose Lovenox. Likely elevated troponins are due to non-STEMI type 2. Patient was seen by neurologist. Sputum culture was positive for Klebsiella pneumoniae, which is sensitive to Rocephin. Patient is to have KI done tomorrow by Cardiology Plan: Pulmonary consult for ventilator management, neurology consult for acute CVA, continue full-dose Lovenox, continue IV Rocephin, pending CTA of chest, pending KI tomorrow, continue with current management Plan discussed with: Patient My Orders My Orders Orders - MAGGIE SANTANA Procedure Category Date Status Time Norepinephrine 8 PHA 06/02/24 In Process Mg/250ml Kit 11:30 * Picc Line Consult CONS 06/02/24 Transmitted 11:20 Dietary Evaluation Review Comments: 1) TF Glucerna 1.2Cal @ 70ml/hr x 24 hr along with Pro-stat 1 pk daily. Start @ 30ml/hr, increase 10ml/hr Q4H until goal rate is reached. Water flush 50ml Q4H TF goal volume along with Pro-stat & water flush provide 2016 kcal (100%), 116 gm protein (100%), and 1652ml free water 2) TPN if NPO>7 days 3) Advance diet as medically feasible 4) Continue current plan of care Expected Outcomes/Goals: To meet >75% estimated needs within 7 days Fu 2-3 days Date of Service: Jun 02, 2024 Billing Provider: AVIS SHELLEY MD Common Visit Codes: [id number] INP/OBS CARE (MOD) MAGGIE SANTANA Jun 02, 2024 17:36
--- NOTE | 2024-06-02 19:36 | DVHPN2 ---
Progress Note - Dictate Date Seen: Jun 02, 2024 Medical Necessity Reason Pt with a Central, PICC or Fol: Yes vital signs Vital Sign Date Time Temp Pulse Resp B/P (MAP) Pulse Ox O2 Delivery O2 Flow Rate FiO2 06/02/24 18:45 100.6 95 16 94/53 (67) 100 213.1 06/02/24 18:12 30 06/02/24 17:36 Mechanical Ventilator+ 06/01/24 16:33 2 Total Intake and Output 06/01/24 06/01/24 06/02/24 15:00 23:00 07:00 Intake Total 626.5 ml 849.0 ml 650.0 ml Output Total 700 ml 750 ml Balance 626.5 ml 149.0 ml -100.0 ml medications Current Medications Medications Dose Ordered Sig/Lei Route Start Time Stop Time Status Last Admin Dose Admin Acetaminophen/ Hydrocodone Bitart 1 tab Q4HP PRN PO 05/29/24 20:45 Ondansetron HCl 4 mg Q4HP PRN IV 05/29/24 20:45 05/30/24 03:54 4 MG Acetaminophen 650 mg Q6HP PRN PO 05/29/24 20:45 06/02/24 09:19 650 MG Morphine Sulfate 2 mg Q4HPRN PRN IV 05/29/24 20:45 Nitroglycerin 0.4 mg Q5MINP PRN SL 05/29/24 20:45 Morphine Sulfate 2 mg Q30M PRN IV 05/29/24 20:45 Pantoprazole Sodium 40 mg DAILY IV 05/30/24 10:00 06/02/24 07:53 40 MG Furosemide 40 mg BIDD IV 05/30/24 18:00 06/02/24 17:12 40 MG Sacubitril/ Valsartan 1 tab BID PO 05/30/24 10:00 06/02/24 07:54 1 TAB Aspirin 81 mg DAILY PO 05/30/24 10:00 06/02/24 07:54 81 MG Atorvastatin Calcium 40 mg HS PO 05/30/24 22:00 06/01/24 21:31 40 MG Midazolam HCl 50 ml @ 1 mls/hr Q24H IV 05/30/24 19:00 06/02/24 13:11 5 MLS/HR Fentanyl Citrate 250 ml @ 2.5 mls/hr Q24H IV 05/30/24 19:00 06/02/24 13:12 15 MLS/HR Enoxaparin Sodium 90 mg Q12HR SC 05/31/24 22:00 06/02/24 07:54 90 MG Sodium Chloride 1,000 ml @ 50 mls/hr Q20H IV 05/31/24 12:30 06/02/24 15:33 50 MLS/HR Ceftriaxone Sodium 50 ml @ 100 mls/hr DAILY@09 IV 06/01/24 07:30 06/02/24 07:53 100 MLS/HR Norepinephrine Bitartrate 250 ml @ 3.75 mls/hr Q24H IV 06/02/24 11:30 06/02/24 16:15 3.75 MLS/HR Sodium Chloride 10 ml QSHIFT@,22 IV 06/02/24 22:00 laboratory and microbiology Laboratory Tests 06/02/24 10:19 Test 06/02/24 10:19 Range/Units Serum Glucose 107 H 74-106 mg/dL Assessment/Plan Intubated and in [facility]/ICU. He is found to have acute/subacute CVA Patient is a 43-year-old gentleman who presented with few weeks of worsening shortness of breath/generalized swelling/nausea/and some diarrhea. He is known to have systolic heart failure. He has ran out of his medications for the past few weeks. He mentions that he was on hospice before hand and he wanted to come off of it. He does have baseline history of methamphetamine abuse and mentions that he used it few days ago. He does have baseline history of noncompliance with medication and followups. Previously he was homeless. Now he says that she is renting a place. Cardiology was involved for cardiac aspects of care. It is of note that the patient does have chronic elevated troponin from prior admissions. Intubated, No JVD. Mucosa is pink and wet. Scattered crackles in the lungs is heard. Cardiac: Regular, no thrill. Systolic murmur 3/6 in apex is heard. History gallop is heard. Abdomen is soft and mildly distended. Bowel sound is positive. There is no abdominal tenderness. Questionable hepatomegaly can not be elicited. Extremities reveal 2+ edema bilaterally. Dorsalis pedis is 2+ bilateral. Past medical history includes diabetes mellitus, hypertension, systolic heart failure, polycythemia vera (as per patient), asthma, CKD, history of substance abuse cardiomyopathy, history of meth abuse and also history of chronic elevated troponin. Previously he was homeless. Previously he was on hospice. Echocardiogram of December 08, 2023 revealed four-chamber dilatation, ejection fraction of 5-10%, mild mitral regurgitation and tricuspid regurgitation. Hemoglobin: 19.5 - 18.1 - 18.2 - 17.2 - 18.9 - 20.1 Creatinine: 1.20 - 1.06 - 1.09 - 1.15 - 1.45 - 1.23 Potassium: 4.1 - 3.6 - 3.8 - 4.1 - 4.5 - 3.9 BNP: 641.20 Troponin (high sensitive): 529 - 502 - 526 - 486 - 422 - 436 - 437 D-dimer: 0.32 Urine tox was positive for Amphetamine and Benzodiazepine Chest x-ray revealed: IMPRESSION: Cardiomegaly with increased interstitial prominence which may be due to CHF and/or reactive airways disease. Repeat chest xry revealed: Endotracheal tube is in good position of the level of the clavicles. Nasogastric tube is in the stomach. There is cardiomegaly with an enlarged left ventricle. There is significant pulmonary vascular congestion. Impression congestive heart failure pattern. If patient has not had a recent cardiac echo I would recommend cardiac echo Repeat chest xry revealed: IMPRESSION: 1. congestive heart failure pattern. Repeat chest xry revealed: FINDINGS: Lines and Tubes: Endotracheal tube and enteric catheter in satisfactory position. Lungs: Patchy bilateral airspace disease Pleura: No effusion. No pneumothorax. Cardiomediastinal contours: Cardiomegaly Bones: Unremarkable IMPRESSION: Lines and tubes in satisfactory position. No significant interval change. Repeat chest xry revealed: IMPRESSION: Lines and tubes in satisfactory position. No significant interval change. MRI of brain revealed: 1. Small focus of restricted diffusion in the anterior right centrum semiovale likely representing small acute to subacute infarct. There is no evidence of acute hemorrhage. Repeat MRI of brain revealed: IMPRESSION: 1. Redemonstration of subcentimeter focus of acute ischemia in the left cerebellar lobe. No intracranial hemorrhage. 2. Redemonstration of subcentimeter focus of DWI hyperintense signal in the right frontal centrum semiovale without corresponding abnormal ADC signal reflecting T2 shine through. No evidence of acute ischemia. 3. Subcentimeter foci abnormal signal in the bilateral cerebellar lobes may reflect chronic infarcts or underlying lesions. Further evaluation with MRI with IV contrast is recommended. 4. 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. CT of head revealed: IMPRESSION: 1. No acute intracranial process. Repeat CT of head revealed: IMPRESSION: No abnormality demonstrated. The very small acute/subacute infarct in right frontal lobe and very small old cortical infarct in left parietal lobe seen on the MRI study from earlier the same day are not evident on CT. Carotid ultrasound revealed: IMPRESSION: No hemodynamically significant stenoses or occlusions identified. Chest CT revealed: IMPRESSION: 1. Cardiomegaly. 2. Scattered coronary artery calcifications 3. Endotracheal tube in place terminating above the nicola. 4. Enteric tube in the stomach. Lower ext venous duplex revealed: IMPRESSION: No sonographic evidence of deep venous thrombosis in either lower extremity at this time. Right upper ext venous ultrasound revealed: IMPRESSION: No sonographic evidence of deep venous thrombosis in either upper extremity at this time. Renal Ultrasound revealed: IMPRESSION: 1. Left renal atrophy. No intrarenal calculi. Tele reveals sinus rhythm Echocardiogram revealed: Four-chamber dilatation was observed. Left ventricle: Left ventricle was significantly dilated with significantly reduced systolic function. Diffuse hypokinesis of left ventricle was seen. LVEF was 5-10%. LVEDP was assessed to be elevated. Right ventricle was dilated with reduced systolic function. Both atria were dilated. Aortic valve was not well visualized. There was mild aortic insufficiency. There was no aortic stenosis. There was trivial mitral regurgitation. There was mild tricuspid regurgitation. There was trivial pulmonary valve insufficiency. Right ventricular systolic pressure was assessed at 57 mm Hg. IVC was dilated with reduced respiratory variation. There was no pericardial effusion Patient is a 43-year-old gentleman who presented with weeks of worsening shortness of breath cough/nausea and vomiting. Does have baseline history of systolic heart failure. Has been noncompliant with medication and followups. Acute on chronic systolic heart failure could have contributed to the clinical picture. Does have baseline history of methamphetamine abuse which could have contributed to the clinical picture. He is noncompliant with medication and followups which could have contributed to the clinical picture. Does have baseline history of elevated/chronically troponin. Abnormal troponin in a patient with end-stage systolic heart failure usually reflects demand physiology. Acute coronary syndrome is not considered at this point. Had AMS and later had respiratory failure. Intubated and brought to [facility]/ICU. He is found to have acute/subacute CVA. Is being followed by Neurology Acute on chronic systolic heart failure Drug-induced cardiomyopathy CKD Polycythemia vera removal Diabetes mellitus Noncompliant with medication and followups Substance abuse AMS Acute/subacute CVA Cardiac suggestion for management: Manage in ICU IV diuresis Follow-up electrolytes and kidney function tests and correct abnormalities. Keep potassium above 4 and magnesium above 2 Entresto: 24/26 mg p.o. b.i.d. Aspirin: 81 mg daily suggested Heparin drip versus therapeutic Lovenox is suggested at this point High potency statin (atorvastatin at 40 mg daily) suggested Does have baseline history of elevated/chronically troponin. Abnormal troponin (flat trend) in a patient with end-stage systolic heart failure usually reflects demand physiology. Acute coronary syndrome is not considered at this point. Recognizing old history of significant heart failure and noncompliance, outcome is poor. Consider restarting hospice Lifestyle and risk factor modifications. KI as suggested by Neurology early next week (tentatively Monday) Neurology follow up Further evaluation and management depends on the above and clinical course A total of 75 minutes was spent reviewing the patient record, examining the patient, making a diagnostic and therapeutic plan, discussing this plan with medical personnel, following up on diagnostic studies and following the patient for clinical stability excluding any and all procedures. At least 50% of this time was spent in direct, [id number] contact. Thank you for allowing me to participate in this patient's care. Further recommendations will depend on patient's clinical course. Please do not hesitate to contact me if you have any questions or concerns. This medical document was created using electronic medical record system with [employer] computerized dictation system. Although this document has been carefully reviewed, there may still be some phonetic and typographical errors. These areas are purely typographical due to the imperfection of the software programs, and do not reflect any compromise in the patient's medical care. Dietary Evaluation Review Comments: 1) TF Glucerna 1.2Cal @ 70ml/hr x 24 hr along with Pro-stat 1 pk daily. Start @ 30ml/hr, increase 10ml/hr Q4H until goal rate is reached. Water flush 50ml Q4H TF goal volume along with Pro-stat & water flush provide 2016 kcal (100%), 116 gm protein (100%), and 1652ml free water 2) TPN if NPO>7 days 3) Advance diet as medically feasible 4) Continue current plan of care Expected Outcomes/Goals: To meet >75% estimated needs within 7 days Fu 2-3 days Plan discussed with: Other (nurse) GABRIEL OLPEZ MD Jun 02, 2024 19:36
[2024-06-02] MEDS: SODIUM CHLOR 0.9% PF (SALINE LOCK) 10ML VIAL/SYR IV SCH (21:54)
[2024-06-03] VITALS (106 sets, daily range): BP systolic 83–124; BP diastolic 33–70; PULSE 81–97; RESP 14–17; TEMP 99.3–101.5; O2SAT 89–100
[2024-06-03 05:22] LABS: Basophils # (auto) 0.1 10 ^3/uL (0-0.2); Eosinophils # (auto) 0 10 ^3/uL (0-0.8); Eosinophils % (auto) 0.1 % (0.0-7.0); Monocytes # (auto) 1.6 10 ^3/uL (0-1.3)
[2024-06-03 05:25] LABS: Basophils % (auto) 0.4 % (0.0-2.0); Hemoglobin 19.2 g/dL (13.5-17.5); Lymphocytes % (auto) 5.6 % (10.0-50.0); Mean Corpuscular Hemoglobin 31.5 pg (28.0-32.0); Mean Corpuscular Hgb Conc. 33.2 g/dL (32.0-36.0); Monocytes % (auto) 8.7 % (0.0-12.0); Neutrophils # (auto) 15.4 10 ^3/uL (1.6-8.6); Neutrophils % (auto) 85.2 % (37.0-80.0); Nucleated Red Blood Cells % 0.5 %; Platelet Count (auto) 275 10^3/uL (140-450); Red Cell Distribution Width 14.8 % (11.8-14.3); White Blood Cell 18.1 10^3/uL (4.4-10.8)
[2024-06-03 05:29] LABS: Hematocrit 57.9 % (41.0-53.0)
--- NOTE | 2024-06-03 05:40 | DVH ---
EXAM: XR Chest, 1 View CLINICAL INDICATION: intubated TECHNIQUE: Frontal view of the chest. COMPARISON: XY CHEST PORTABLE on DOS: 06/02/24, XY CHEST PORTABLE on DOS: 06/01/24, XY CHEST PORTABLE on DOS: 05/31/24, XY CHEST XRAY 1 VIEW on DOS: 05/30/24, XY CHEST XRAY 1 VIEW on DOS: 05/30/24 FINDINGS: LUNGS AND PLEURAL SPACES: See below. HEART: Cardiomegaly with mild congestion. MEDIASTINUM: Unremarkable. Normal mediastinal contour. BONES/JOINTS: Unremarkable. No acute fracture. TUBES, LINES AND DEVICES: Right-sided peripherally inserted central catheter (PICC) tip in the supe rior vena cava. The endotracheal tube (ETT) is in satisfactory position. Enteric tube tip in the st omach. OTHER FINDINGS: . . .. IMPRESSION: Cardiomegaly with mild congestion.
[2024-06-03 06:04] LABS: Alanine Aminotransferase 15 U/L (7-40); Albumin 3.3 g/dL (3.2-4.8); Anion Gap 10 (5-15); BUN/Creatinine Ratio 17.7 (10.0-20.0); Carbon Dioxide 25 mmol/L (20-31); Total Protein 6.7 g/dL (5.7-8.2)
[2024-06-03 06:10] LABS: Alkaline Phosphatase 122 U/L (46-116); Aspartate Aminotransferase 60 U/L (13-40); Bilirubin, Total 1.4 mg/dL (0.2-1.0); Blood Urea Nitrogen 26 mg/dL (9-23); Calcium 8.4 mg/dL (8.7-10.4); Chloride 105 mmol/L (98-107); Glucose 120 mg/dL (74-106); Potassium 3.7 mmol/L (3.5-5.1); Sodium 140 mmol/L (136-145)
--- NOTE | 2024-06-03 07:42 | DVHPN2 ---
Progress Note - Dictate Date Seen: Jun 03, 2024 Medical Necessity Reason Pt with a Central, PICC or Fol: Yes vital signs Vital Sign Date Time Temp Pulse Resp B/P (MAP) Pulse Ox O2 Delivery O2 Flow Rate FiO2 06/03/24 06:45 100.4 93 16 102/57 (72) 99 212.7 06/03/24 06:05 30 06/03/24 06:00 Mechanical Ventilator+ 06/01/24 16:33 2 Total Intake and Output 06/02/24 06/02/24 06/03/24 15:00 23:00 07:00 Intake Total 627.5 ml 790.50 ml 812.00 ml Output Total 825 ml 500 ml Balance 627.5 ml -34.50 ml 312.00 ml medications Current Medications Medications Dose Ordered Sig/Lei Route Start Time Stop Time Status Last Admin Dose Admin Acetaminophen/ Hydrocodone Bitart 1 tab Q4HP PRN PO 05/29/24 20:45 Ondansetron HCl 4 mg Q4HP PRN IV 05/29/24 20:45 05/30/24 03:54 4 MG Acetaminophen 650 mg Q6HP PRN PO 05/29/24 20:45 06/02/24 22:38 650 MG Morphine Sulfate 2 mg Q4HPRN PRN IV 05/29/24 20:45 Nitroglycerin 0.4 mg Q5MINP PRN SL 05/29/24 20:45 Morphine Sulfate 2 mg Q30M PRN IV 05/29/24 20:45 Pantoprazole Sodium 40 mg DAILY IV 05/30/24 10:00 06/02/24 07:53 40 MG Furosemide 40 mg BIDD IV 05/30/24 18:00 06/03/24 05:48 40 MG Sacubitril/ Valsartan 1 tab BID PO 05/30/24 10:00 06/02/24 07:54 1 TAB Aspirin 81 mg DAILY PO 05/30/24 10:00 06/02/24 07:54 81 MG Atorvastatin Calcium 40 mg HS PO 05/30/24 22:00 06/02/24 21:54 40 MG Midazolam HCl 50 ml @ 1 mls/hr Q24H IV 05/30/24 19:00 06/03/24 00:14 6 MLS/HR Fentanyl Citrate 250 ml @ 2.5 mls/hr Q24H IV 05/30/24 19:00 06/03/24 03:58 15 MLS/HR Enoxaparin Sodium 90 mg Q12HR SC 05/31/24 22:00 06/02/24 21:55 90 MG Sodium Chloride 1,000 ml @ 50 mls/hr Q20H IV 05/31/24 12:30 06/02/24 15:33 50 MLS/HR Ceftriaxone Sodium 50 ml @ 100 mls/hr DAILY@09 IV 06/01/24 07:30 06/02/24 07:53 100 MLS/HR Norepinephrine Bitartrate 250 ml @ 3.75 mls/hr Q24H IV 06/02/24 11:30 06/03/24 03:57 33.75 MLS/HR Sodium Chloride 10 ml QSHIFT@10,22 IV 06/02/24 22:00 06/02/24 21:54 10 ML laboratory and microbiology Laboratory Tests 06/03/24 04:35 Test 06/03/24 04:35 Range/Units Serum Glucose 120 H 74-106 mg/dL Assessment/Plan Intubated and in [facility]/ICU. He is found to have acute/subacute CVA Patient is a 43-year-old gentleman who presented with few weeks of worsening shortness of breath/generalized swelling/nausea/and some diarrhea. He is known to have systolic heart failure. He has ran out of his medications for the past few weeks. He mentions that he was on hospice before hand and he wanted to come off of it. He does have baseline history of methamphetamine abuse and mentions that he used it few days ago. He does have baseline history of noncompliance with medication and followups. Previously he was homeless. Now he says that she is renting a place. Cardiology was involved for cardiac aspects of care. It is of note that the patient does have chronic elevated troponin from prior admissions. Intubated, No JVD. Mucosa is pink and wet. Scattered crackles in the lungs is heard. Cardiac: Regular, no thrill. Systolic murmur 3/6 in apex is heard. History gallop is heard. Abdomen is soft and mildly distended. Bowel sound is positive. There is no abdominal tenderness. Questionable hepatomegaly can not be elicited. Extremities reveal 2+ edema bilaterally. Dorsalis pedis is 2+ bilateral. Past medical history includes diabetes mellitus, hypertension, systolic heart failure, polycythemia vera (as per patient), asthma, CKD, history of substance abuse cardiomyopathy, history of meth abuse and also history of chronic elevated troponin. Previously he was homeless. Previously he was on hospice. Echocardiogram of December 08, 2023 revealed four-chamber dilatation, ejection fraction of 5-10%, mild mitral regurgitation and tricuspid regurgitation. Hemoglobin: 19.5 - 18.1 - 18.2 - 17.2 - 18.9 - 20.1 - 19.2 Creatinine: 1.20 - 1.06 - 1.09 - 1.15 - 1.45 - 1.23 - 1.47 Potassium: 4.1 - 3.6 - 3.8 - 4.1 - 4.5 - 3.9 - 3.7 BNP: 641.20 Troponin (high sensitive): 529 - 502 - 526 - 486 - 422 - 436 - 437 D-dimer: 0.32 Urine tox was positive for Amphetamine and Benzodiazepine Chest x-ray revealed: IMPRESSION: Cardiomegaly with increased interstitial prominence which may be due to CHF and/or reactive airways disease. Repeat chest xry revealed: Endotracheal tube is in good position of the level of the clavicles. Nasogastric tube is in the stomach. There is cardiomegaly with an enlarged left ventricle. There is significant pulmonary vascular congestion. Impression congestive heart failure pattern. If patient has not had a recent cardiac echo I would recommend cardiac echo Repeat chest xry revealed: IMPRESSION: 1. congestive heart failure pattern. Repeat chest xry revealed: FINDINGS: Lines and Tubes: Endotracheal tube and enteric catheter in satisfactory position. Lungs: Patchy bilateral airspace disease Pleura: No effusion. No pneumothorax. Cardiomediastinal contours: Cardiomegaly Bones: Unremarkable IMPRESSION: Lines and tubes in satisfactory position. No significant interval change. Repeat chest xry revealed: IMPRESSION: Lines and tubes in satisfactory position. No significant interval change. Repeat chest xry revealed: IMPRESSION: Cardiomegaly with mild congestion. MRI of brain revealed: 1. Small focus of restricted diffusion in the anterior right centrum semiovale likely representing small acute to subacute infarct. There is no evidence of acute hemorrhage. Repeat MRI of brain revealed: IMPRESSION: 1. Redemonstration of subcentimeter focus of acute ischemia in the left cerebellar lobe. No intracranial hemorrhage. 2. Redemonstration of subcentimeter focus of DWI hyperintense signal in the right frontal centrum semiovale without corresponding abnormal ADC signal reflecting T2 shine through. No evidence of acute ischemia. 3. Subcentimeter foci abnormal signal in the bilateral cerebellar lobes may reflect chronic infarcts or underlying lesions. Further evaluation with MRI with IV contrast is recommended. 4. 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. CT of head revealed: IMPRESSION: 1. No acute intracranial process. Repeat CT of head revealed: IMPRESSION: No abnormality demonstrated. The very small acute/subacute infarct in right frontal lobe and very small old cortical infarct in left parietal lobe seen on the MRI study from earlier the same day are not evident on CT. Carotid ultrasound revealed: IMPRESSION: No hemodynamically significant stenoses or occlusions identified. Chest CT revealed: IMPRESSION: 1. Cardiomegaly. 2. Scattered coronary artery calcifications 3. Endotracheal tube in place terminating above the nicola. 4. Enteric tube in the stomach. Lower ext venous duplex revealed: IMPRESSION: No sonographic evidence of deep venous thrombosis in either lower extremity at this time. Right upper ext venous ultrasound revealed: IMPRESSION: No sonographic evidence of deep venous thrombosis in either upper extremity at this time. Renal Ultrasound revealed: IMPRESSION: 1. Left renal atrophy. No intrarenal calculi. Tele reveals sinus rhythm Echocardiogram revealed: Four-chamber dilatation was observed. Left ventricle: Left ventricle was significantly dilated with significantly reduced systolic function. Diffuse hypokinesis of left ventricle was seen. LVEF was 5-10%. LVEDP was assessed to be elevated. Right ventricle was dilated with reduced systolic function. Both atria were dilated. Aortic valve was not well visualized. There was mild aortic insufficiency. There was no aortic stenosis. There was trivial mitral regurgitation. There was mild tricuspid regurgitation. There was trivial pulmonary valve insufficiency. Right ventricular systolic pressure was assessed at 57 mm Hg. IVC was dilated with reduced respiratory variation. There was no pericardial effusion KI: Severe dilatation of LV with reduced LV systolic function. No Cardiac source for Emboli. Positive bubble study questions small PFO (PFO itself could not be visualized) Patient is a 43-year-old gentleman who presented with weeks of worsening shortness of breath cough/nausea and vomiting. Does have baseline history of systolic heart failure. Has been noncompliant with medication and followups. Acute on chronic systolic heart failure could have contributed to the clinical picture. Does have baseline history of methamphetamine abuse which could have contributed to the clinical picture. He is noncompliant with medication and followups which could have contributed to the clinical picture. Does have baseline history of elevated/chronically troponin. Abnormal troponin in a patient with end-stage systolic heart failure usually reflects demand physiology. Acute coronary syndrome is not considered at this point. Had AMS and later had respiratory failure. Intubated and brought to [facility]/ICU. He is found to have acute/subacute CVA. Is being followed by Neurology. KI performed: no source for Emboli. Still, Positive Bubble study questions PFO (PFO itself could not be visualized: maybe too small). Still, there was no recent DVT also (negative venous duplex). Acute on chronic systolic heart failure Drug-induced cardiomyopathy CKD Polycythemia vera removal Diabetes mellitus Noncompliant with medication and followups Substance abuse AMS Acute/subacute CVA Cardiac suggestion for management: Manage in ICU IV diuresis Follow-up electrolytes and kidney function tests and correct abnormalities. Keep potassium above 4 and magnesium above 2 Entresto: 24/26 mg p.o. b.i.d. Aspirin: 81 mg daily suggested Heparin drip versus therapeutic Lovenox is suggested at this point High potency statin (atorvastatin at 40 mg daily) suggested Does have baseline history of elevated/chronically troponin. Abnormal troponin (flat trend) in a patient with end-stage systolic heart failure usually reflects demand physiology. Acute coronary syndrome is not considered at this point. Recognizing old history of significant heart failure and noncompliance, outcome is poor. Consider restarting hospice Lifestyle and risk factor modifications. Neurology follow up Further evaluation and management depends on the above and clinical course A total of 75 minutes was spent reviewing the patient record, examining the patient, making a diagnostic and therapeutic plan, discussing this plan with medical personnel, following up on diagnostic studies and following the patient for clinical stability excluding any and all procedures. At least 50% of this time was spent in direct, [id number] contact. Thank you for allowing me to participate in this patient's care. Further recommendations will depend on patient's clinical course. Please do not hesitate to contact me if you have any questions or concerns. This medical document was created using electronic medical record system with [employer] dictation system. Although this document has been carefully reviewed, there may still be some phonetic and typographical errors. These areas are purely typographical due to the imperfection of the software programs, and do not reflect any compromise in the patient's medical care. Dietary Evaluation Review Comments: 1) TF Glucerna 1.2Cal @ 70ml/hr x 24 hr along with Pro-stat 1 pk daily. Start @ 30ml/hr, increase 10ml/hr Q4H until goal rate is reached. Water flush 50ml Q4H TF goal volume along with Pro-stat & water flush provide 2016 kcal (100%), 116 gm protein (100%), and 1652ml free water 2) TPN if NPO>7 days 3) Advance diet as medically feasible 4) Continue current plan of care Expected Outcomes/Goals: To meet >75% estimated needs within 7 days Fu 2-3 days Plan discussed with: Other (nurse) GABRIEL LOPEZ MD Jun 03, 2024 07:42
[2024-06-03 08:00] LABS: Base Excess -1.9 mmol/L (-2.0-3.0)
--- NOTE | 2024-06-03 09:29 | DVHOP2 ---
Operative Report Trans-Esophageal Echocardiogram PROCEDURE REPORT Date of Service: 06/03/2024 [employer]: Gabriel Lopez MD PROCEDURE PERFORMED: Transesophageal echocardiogram, conscious sedation administration and supervision, more than 15 minutes. Intra cardiac bubble study. PREOPERATIVE DIAGNOSES: r/o source for emboli. DESCRIPTION OF PROCEDURE: As the patient is intubated and on Vent support: The NOK/(father) signed informed consent understanding risks, benefits and alternatives of the procedure, they wished to proceed. He is intubated from before the procedure. Was on Versed drip from before. He was placed in a left lateral decubitus position and conscious sedation was administered per optical laboratory manager protocol (another 1 mg of Versed). I administered a bite block into his mouth and a KI probe into the mid esophagus without any difficulties or complications. Multiple planar images were obtained. Bubble study was also performed. At the completion of procedure, KI probe was removed and there were no immediate complications. Vitals signs were stable throughout the procedure. FINDINGS: 1. Left ventricle: Significant dilatation of Left ventricle with LVEF of around 10% was observed. Diffuse hypokinesis of left ventricle was seen. There was no intraventricular thrombus. . 2. Right ventricle: RV was dilated with reduced systolic function. 3. Left atrium: LA enlarged 4. Right atrium: RA enlarged 5. Mitral valve: Mild Mitral regurgitation, no significant stenosis, normal functioning valve. No vegetation was seen on Mitral valve. 6. Left atrial appendage: No evidence of thrombus. 7. Aortic valve: It was trileaflet. There was no stenosis. There was trace insufficiency. There was no vegetation seen in Aortic valve. 8. Pulmonic valve: Trivial pulmonic insufficiency. No significant stenosis. No vegetation was seen. 9. Tricuspid valve: Mild tricuspid regurgitation. There was no vegetation on Tricuspid valve. 10. Interatrial septum: Negative color flow for shunt was observed. Some bubbles crossed to left atria in favor of small PFO. 11. Pericardium: No significant effusion. 12. Thoracic aorta: No significant plaquing. Severe dilatation of LV with reduced LV systolic function. No Cardiac source for Emboli. Positive bubble study questions small PFO (PFO itself could not be visualized) GABRIEL LOPEZ MD Jun 03, 2024 09:29
--- NOTE | 2024-06-03 09:49 | DVHPN2 ---
Progress Note - Dictate Date Seen: Jun 03, 2024 Medical Necessity Reason Pt with a Central, PICC or Fol: Yes Subjective Mr. Castillo is a 43 years old right-handed gentleman with a history of hypertension, diabetes, coronary artery disease, heart attack, congestive heart failure, polycythemia vera, cardiomyopathy, asthma, he came to the [facility] Emergency room on 05/29/2024 with a chief complaint of shortness breath, chest pain. I have seen and examined the patient, I have talked to his nurse. I have talked to Dr. Tovar. 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 He was responds to strong painful stimuli prior the KI, but now is completely nonresponsive, he was all the brainstem reflexes Fentanyl 150 milligram/hour, Versed 6 milligram/hour Urinalysis, 05/30/2024: WBC: <1, urine leukocyte esterase: Negative UDS, 05/30/2024, amphetamine, benzo CBC, 05/30/2024: Respiratory acidosis, 06/03/2024: Acidosis WBC/HB/PLT/MCV, 05/30/2024: 10.3/18.1/230/93.8, 06/03/2024: 18.1/19.2/275/95 PT/INR/PTT, 05/30/2024: 12.03/1016/47 05/31/2024: 11.9/1.14/65.5 BMP, 05/30/2024: Unremarkable BUN/CR, 06/03/2024: 26/1.47 TBI/AST/ALT/AP, 05/29/2024: 2.1/46/25/133, 06/03/2024: 1.4/60/15/122 Troponin one high sensitivity, 05/29/2024: 529, 05/30/2024: 502, 526, TG/HDL/LDL/HDL, 05/30/2024: 62/148/113/36 Echocardiogram, 05/30/2024: Four-chamber dilatation was observed. Left ventricle: Left ventricle was significantly dilated with significantly reduced systolic function. Diffuse hypokinesis of left ventricle was seen. LVEF was 5-10%. LVEDP was assessed to be elevated. Right ventricle was dilated with reduced systolic function. Both atria were dilated. Aortic valve was not well visualized. There was mild aortic insufficiency. There was no aortic stenosis. There was trivial mitral regurgitation. There was mild tricuspid regurgitation. There was trivial pulmonary valve insufficiency. Right ventricular systolic pressure was assessed at 57 mm Hg. IVC was dilated with reduced respiratory variation. There was no pericardial effusion Carotid Doppler, 05/30/2024: No hemodynamically significant stenoses or occlusions identified. CT head, 05/30/2024 1107: No acute intracranial process CT head, 05/30/2024 1856: No abnormality demonstrated. The very small acute/subacute infarct in right frontal lobe and very small old cortical infarct in left parietal lobe seen on the MRI study from earlier the same day are not evident on CT MRI head, 05/30/2024 1041: Small focus of restricted diffusion in the anterior right centrum semiovale likely representing small acute to subacute infarct. There is no evidence of acute hemorrhage (I saw a small DWI lesion in the left cerebellum hemisphere with ADC correlation) MRI head, 05/31/2024: 1. Redemonstration of subcentimeter focus of acute ischemia in the left cerebellar lobe. No intracranial hemorrhage. 2. Redemonstration of subcentimeter focus of DWI hyperintense signal in the right frontal centrum semiovale without corresponding abnormal ADC signal reflecting T2 shine through. No evidence of acute ischemia. 3. Subcentimeter foci abnormal signal in the bilateral cerebellar lobes may reflect chronic infarcts or underlying lesions. Further evaluation with MRI with IV contrast is recommended. 4. 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 vital signs Vital Sign Date Time Temp Pulse Resp B/P (MAP) Pulse Ox O2 Delivery O2 Flow Rate FiO2 06/03/24 08:30 124/57 06/03/24 08:03 95 16 100 30 06/03/24 08:00 Mechanical Ventilator+ 06/03/24 08:00 100.4 212.7 06/01/24 16:33 2 Total Intake and Output 06/02/24 06/02/24 06/03/24 15:00 23:00 07:00 Intake Total 627.5 ml 790.50 ml 913.00 ml Output Total 825 ml 500 ml Balance 627.5 ml -34.50 ml 413.00 ml medications Current Medications Medications Dose Ordered Sig/Lei Route Start Time Stop Time Status Last Admin Dose Admin Acetaminophen/ Hydrocodone Bitart 1 tab Q4HP PRN PO 4/9/25 20:45 Ondansetron HCl 4 mg Q4HP PRN IV 05/29/24 20:45 05/30/24 03:54 4 MG Acetaminophen 650 mg Q6HP PRN PO 05/29/24 20:45 06/02/24 22:38 650 MG Morphine Sulfate 2 mg Q4HPRN PRN IV 05/29/24 20:45 Nitroglycerin 0.4 mg Q5MINP PRN SL 05/29/24 20:45 Morphine Sulfate 2 mg Q30M PRN IV 05/29/24 20:45 Pantoprazole Sodium 40 mg DAILY IV 05/30/24 10:00 06/03/24 08:22 40 MG Furosemide 40 mg BIDD IV 05/30/24 18:00 06/03/24 05:48 40 MG Sacubitril/ Valsartan 1 tab BID PO 05/30/24 10:00 06/03/24 09:32 1 TAB Aspirin 81 mg DAILY PO 05/30/24 10:00 06/03/24 09:33 81 MG Atorvastatin Calcium 40 mg HS PO 05/30/24 22:00 06/02/24 21:54 40 MG Midazolam HCl 50 ml @ 1 mls/hr Q24H IV 05/30/24 19:00 06/03/24 07:41 6 MLS/HR Fentanyl Citrate 250 ml @ 2.5 mls/hr Q24H IV 05/30/24 19:00 06/03/24 03:58 15 MLS/HR Enoxaparin Sodium 90 mg Q12HR SC 05/31/24 22:00 06/03/24 09:33 90 MG Sodium Chloride 1,000 ml @ 50 mls/hr Q20H IV 05/31/24 12:30 06/03/24 08:23 50 MLS/HR Ceftriaxone Sodium 50 ml @ 100 mls/hr DAILY@09 IV 06/01/24 07:30 06/03/24 08:22 100 MLS/HR Norepinephrine Bitartrate 250 ml @ 3.75 mls/hr Q24H IV 06/02/24 11:30 06/03/24 03:57 33.75 MLS/HR Sodium Chloride 10 ml QSHIFT@ IV 06/02/24 22:00 06/03/24 08:22 10 ML objective The patient is well-nourished and well-developed with no distress. The patient is intubated MENTAL STATUS: Subjective CRANIAL NERVES: Pupils are equal, round and reactive.There are corneal reflexes and doll's eyes phenomenon. No signs of facial weakness. There are gagging or coughing reflexes SENSATION: Responses to pain stimuli. MOTOR: Normal tone in the upper and lower extremity. Normal muscle bulk. No fasciculations. No spontaneous movement. REFLEXES: Deep tendon reflexes are symmetrical. No pathological reflexes. CEREBELLAR/COORDINATION: Deferred GAIT/STATION: deferred laboratory and microbiology Laboratory Tests 06/03/24 04:35 Test 06/03/24 04:35 Range/Units Serum Glucose 120 H 74-106 mg/dL Problem List Altered mental status More strokes Metabolic encephalopathy/hepatic encephalopathy ? Status epileptics Elevated troponin one/heart attack Multiple strokes Cardiomyopathy Congestive heart failure A spell of nonresponsiveness on 05/30/2024 ? Syncope triggered by coughing/arrhythmia ? Seizure activity Heart failure Assessment/Plan Monitoring Supportive treatments ICU care EEG KI NH3 Stabilize vitals Respiratory support/vent management Lovenox 90 mg subQ b.i.d. Aspirin 81 mg daily Lipitor 40 mg daily IV antibiotics GI prophylax/Protonix More recommendation per clinical course This medical document was created using an electronic medical record system with [employer] dictation system. Although this document has been carefully reviewed, there may still be some phonetic and typographical errors. These areas are purely typographical due to imperfections of the software programs, and do not reflect any compromise in the patient's medical care Prognosis guarded Dietary Evaluation Review Comments: 1) TF Glucerna 1.2Cal @ 70ml/hr x 24 hr along with Pro-stat 1 pk daily. Start @ 30ml/hr, increase 10ml/hr Q4H until goal rate is reached. Water flush 50ml Q4H TF goal volume along with Pro-stat & water flush provide 2016 kcal (100%), 116 gm protein (100%), and 1652ml free water 2) TPN if NPO>7 days 3) Advance diet as medically feasible 4) Continue current plan of care Expected Outcomes/Goals: To meet >75% estimated needs within 7 days Fu 2-3 days Plan discussed with: Other Critical Care Time(min): 35 ZEKE REYNOLDS MD Jun 03, 2024 09:49
--- NOTE | 2024-06-03 15:13 | DVHPN2 ---
Progress Note - Dictate Date Seen: Jun 03, 2024 Medical Necessity Reason Pt with a Central, PICC or Fol: Yes vital signs Vital Sign Date Time Temp Pulse Resp B/P (MAP) Pulse Ox O2 Delivery O2 Flow Rate FiO2 06/03/24 14:02 97 16 105/39 (61) 99 30 06/03/24 14:00 Mechanical Ventilator+ 06/03/24 13:30 101.3 214.3 06/01/24 16:33 2 Total Intake and Output 06/02/24 06/02/24 06/03/24 15:00 23:00 07:00 Intake Total 627.5 ml 790.50 ml 913.00 ml Output Total 825 ml 500 ml Balance 627.5 ml -34.50 ml 413.00 ml medications Current Medications Medications Dose Ordered Sig/Lei Route Start Time Stop Time Status Last Admin Dose Admin Acetaminophen/ Hydrocodone Bitart 1 tab Q4HP PRN PO 05/29/24 20:45 Ondansetron HCl 4 mg Q4HP PRN IV 05/29/24 20:45 05/30/24 03:54 4 MG Acetaminophen 650 mg Q6HP PRN PO 05/29/24 20:45 06/03/24 13:26 650 MG Morphine Sulfate 2 mg Q4HPRN PRN IV 05/29/24 20:45 Nitroglycerin 0.4 mg Q5MINP PRN SL 05/29/24 20:45 Morphine Sulfate 2 mg Q30M PRN IV 05/29/24 20:45 Pantoprazole Sodium 40 mg DAILY IV 05/30/24 10:00 06/03/24 08:22 40 MG Furosemide 40 mg BIDD IV 05/30/24 18:00 06/03/24 05:48 40 MG Sacubitril/ Valsartan 1 tab BID PO 05/30/24 10:00 06/03/24 09:32 1 TAB Aspirin 81 mg DAILY PO 05/30/24 10:00 06/03/24 09:33 81 MG Atorvastatin Calcium 40 mg HS PO 05/30/24 22:00 06/02/24 21:54 40 MG Midazolam HCl 50 ml @ 1 mls/hr Q24H IV 05/30/24 19:00 06/03/24 07:41 6 MLS/HR Fentanyl Citrate 250 ml @ 2.5 mls/hr Q24H IV 05/30/24 19:00 06/03/24 03:58 15 MLS/HR Enoxaparin Sodium 90 mg Q12HR SC 05/31/24 22:00 06/03/24 09:33 90 MG Sodium Chloride 1,000 ml @ 50 mls/hr Q20H IV 05/31/24 12:30 06/03/24 08:23 50 MLS/HR Ceftriaxone Sodium 50 ml @ 100 mls/hr DAILY@09 IV 06/01/24 07:30 06/03/24 08:22 100 MLS/HR Norepinephrine Bitartrate 250 ml @ 3.75 mls/hr Q24H IV 06/02/24 11:30 06/03/24 11:35 26.25 MLS/HR Sodium Chloride 10 ml QSHIFT@10,22 IV 06/02/24 22:00 06/03/24 08:22 10 ML objective General Appearance: alert, no distress HEENT: EOMI, PERRLA, normal external inspect of ears, no icterus, no nasal drainage Neck: no carotid bruit, no jugular venous distention (JVD), no lymphadenopathy Chest: normal thorax Respiratory: clear to auscultation, normal air movement Cardiovascular: regular rate and rhythm, no diastolic murmur, no jugular venous distention (JVD), no rub, no systolic murmur Abdominal: soft, no hepatomegaly, no mass, no splenomegaly, no tenderness Genitourinary: grossly normal external Musculoskeletal: no joint tenderness, no swelling Extremities: normal pulses, no calf tenderness, no clubbing, no cyanosis, no edema Skin: no bruising, no jaundice, no rash Neurological: alert, No focal deficit laboratory and microbiology Laboratory Tests 06/03/24 04:35 Test 06/03/24 04:35 Range/Units Serum Glucose 120 H 74-106 mg/dL Problem List 1. Acute CVA Monitor, neurology consult 2. Acute on chronic systolic heart failure Monitor, cardiology consult, heparin gtt 3. Drug induced cardiomyopathy Monitor, echocardiogram, cardiology consult 4. Elevated troponin - demand ischemia Monitor EKG, cardiology consult 5. Hx of methamphetamine abuse Monitor, urine drug screen 6. 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 Objective: I spoke with patients father at bedside. Patient was admitted for sepsis with pneumonia and UTI. He had a change in mentation and was found to have an acute CVA. Significant other reported DVTs in lower extremities and heart; however, Doppler ultrasound of bilateral upper and lower extremities was negative for DVT. KI done today was negative for emboli but showed a possible PFO due to positive bubble study. Sputum culture is positive for Klebsiella pneumonia. Plan: Continue current treatment. Continue antibiotics. Cardiology and neurology recommendations appreciated. Ventilator management per pulmonary. Dietary Evaluation Review Comments: 1) TF Glucerna 1.2Cal @ 70ml/hr x 24 hr along with Pro-stat 1 pk daily. Start @ 30ml/hr, increase 10ml/hr Q4H until goal rate is reached. Water flush 50ml Q4H TF goal volume along with Pro-stat & water flush provide 2016 kcal (100%), 116 gm protein (100%), and 1652ml free water 2) TPN if NPO>7 days 3) Advance diet as medically feasible 4) Continue current plan of care Expected Outcomes/Goals: To meet >75% estimated needs within 7 days Fu 2-3 days Plan discussed with: Patient, Other JACKIE DILLON FAT [employer]ESS[employer]OM WORKER Jun 03, 2024 15:13
--- NOTE | 2024-06-03 20:41 | DVHPN2 ---
Progress Note - Dictate Date Seen: Jun 03, 2024 Medical Necessity Reason Pt with a Central, PICC or Fol: Yes The following are medically ne: Ramirez Catheter Reason for ramirez catheter: Strict I&O Subjective Patient seen and examined at bedside. Sedated, intubated on mechanical ventilator. Overnight events reviewed. vital signs Vital Sign Date Time Temp Pulse Resp B/P (MAP) Pulse Ox O2 Delivery O2 Flow Rate FiO2 06/03/24 20:25 85 16 96/54 (68) 100 30 06/03/24 18:45 99.7 211.5 06/03/24 18:00 Mechanical Ventilator+ 06/01/24 16:33 2 Total Intake and Output 06/02/24 06/02/24 06/03/24 15:00 23:00 07:00 Intake Total 627.5 ml 790.50 ml 913.00 ml Output Total 825 ml 500 ml Balance 627.5 ml -34.50 ml 413.00 ml medications Current Medications Medications Dose Ordered Sig/Lei Route Start Time Stop Time Status Last Admin Dose Admin Acetaminophen/ Hydrocodone Bitart 1 tab Q4HP PRN PO 05/29/24 20:45 Ondansetron HCl 4 mg Q4HP PRN IV 05/29/24 20:45 05/30/24 03:54 4 MG Acetaminophen 650 mg Q6HP PRN PO 05/29/24 20:45 06/03/24 13:26 650 MG Morphine Sulfate 2 mg Q4HPRN PRN IV 05/29/24 20:45 Nitroglycerin 0.4 mg Q5MINP PRN SL 05/29/24 20:45 Morphine Sulfate 2 mg Q30M PRN IV 05/29/24 20:45 Pantoprazole Sodium 40 mg DAILY IV 05/30/24 10:00 06/03/24 08:22 40 MG Furosemide 40 mg BIDD IV 05/30/24 18:00 06/03/24 17:02 40 MG Sacubitril/ Valsartan 1 tab BID PO 05/30/24 10:00 06/03/24 09:32 1 TAB Aspirin 81 mg DAILY PO 05/30/24 10:00 06/03/24 09:33 81 MG Atorvastatin Calcium 40 mg HS PO 05/30/24 22:00 06/02/24 21:54 40 MG Midazolam HCl 50 ml @ 1 mls/hr Q24H IV 05/30/24 19:00 06/03/24 16:08 6 MLS/HR Fentanyl Citrate 250 ml @ 2.5 mls/hr Q24H IV 05/30/24 19:00 06/03/24 20:32 15 MLS/HR Enoxaparin Sodium 90 mg Q12HR SC 05/31/24 22:00 06/03/24 09:33 90 MG Sodium Chloride 1,000 ml @ 50 mls/hr Q20H IV 05/31/24 12:30 06/03/24 08:23 50 MLS/HR Ceftriaxone Sodium 50 ml @ 100 mls/hr DAILY@09 IV 06/01/24 07:30 06/03/24 08:22 100 MLS/HR Norepinephrine Bitartrate 250 ml @ 3.75 mls/hr Q24H IV 06/02/24 11:30 06/03/24 11:35 26.25 MLS/HR Sodium Chloride 10 ml QSHIFT@10,22 IV 06/02/24 22:00 06/03/24 08:22 10 ML objective Gen.: Patient lying in bed in medical ICU. Sedated, intubated on mechanical ventilator. Head: Normocephalic, atraumatic. Eyes: PERRLA. Ears: Normal external anatomy. Throat: Endotracheal tube and orogastric tube in place. Neck: Supple, trachea midline. Chest: Transmitted breath sounds bilaterally. Decreased air entry bilaterally. No wheezing. Bibasilar crackles. Cardiovascular: Positive S1, positive S2. Regular rate and rhythm. Abdomen: Positive bowel sounds in all 4 quadrants. Soft, nontender, nondistended. : Ramirez in place. Normal external genitalia. Rectal: Deferred. Skin: Warm, dry. Intact. Extremities: 2+ radial pulses bilaterally. No lower extremity edema. Neuro: Sedated. laboratory and microbiology Laboratory Tests 06/03/24 04:35 Test 06/03/24 04:35 Range/Units Serum Glucose 120 H 74-106 mg/dL Assessment/Plan Impression: Acute hypoxic respiratory failure On mechanical ventilator Pulmonary hypertension, RVSP 57 mmHg ( Echo with LVEF of 5% to 10%) Atelectasis Acute CVA Acute on chronic systolic heart failure Drug induced cardiomyopathy Elevated troponin Polysubstance abuse Medical non-compliance Events: Remains on vent support On AC mode; RR 16, VT 500, PEEP 5, FiO2 30% Improved FiO2 requirements Sedated on Versed, Fentanyl Pressors for hemodynamic support On Levophed 14 mcg/min Titrate to keep mean arterial pressure greater than 65 mmHg Poor EF Status post KI Follow up Cardiology recs Maintain euvolemia w/ Lasix BID Monitor renal function Monitor electrolytes. Supplement as necessary. Monitor ins and outs. ABG reviewed, notable for acidemia CXR reviewed, demonstrates cardiomegaly with mild congestion. Taper sedation as tolerated SBT/MANOLO Labs and imaging reviewed. Rest of plan as noted below. Plan: s/p intubation on mechanical ventilator. On AC mode; RR 16, VT 500, PEEP 5, FiO2 30% Titrate FIO2 to keep O2 saturation above 90%. VAP bundle. Daily ABG and CXR while intubated Sedate for ventilator synchrony Pulmonary hypertension, RVSP 57 mmHg - Echo showing LVEF of 5% to 10%. Follow up Cardiology recs On statin Elevated troponin - Heparin drip discontinued. MRI head shows no evidence of acute ischemia Pressors as necessary for hemodynamic support Titrate to keep mean arterial pressure greater than 65 mmHg IV fluids with NS at 50 ml/hr. Diurese as tolerated w/ Lasix BID Monitor renal function Monitor electrolytes. Supplement as necessary. Monitor ins and outs. GI prophylaxis - Protonix. DVT prophylaxis - Lovenox SC. Prognosis: Poor given patient's multiple co-morbidities. Condition: Critical Rest of plan per hospitalist and other consultants. A total of 35 minutes of critical care time was spent reviewing the patient record, examining the patient, making a diagnostic and therapeutic plan, discussing this plan with the medical personnel, following up on diagnostic studies and following the patient for clinical stability excluding any and all procedures. At least 50% of this time was spent in direct, [id number] contact. Thank you, BRANDIN Albright, for allowing me to participate in this patient's care. Further recommendations will depend on the patient's clinical course. Please do not hesitate to contact me if you have any questions or concerns. This medical document was created using an electronic medical record system with [employer] system. Although these documentations are being carefully reviewed, there may still be some phonetic and typographical changes. The errors are purely typographical, due to imperfection on the software program, and do not reflect any compromise in the patient's medical care. Dietary Evaluation Review Comments: 1) TF Glucerna 1.2Cal @ 70ml/hr x 24 hr along with Pro-stat 1 pk daily. Start @ 30ml/hr, increase 10ml/hr Q4H until goal rate is reached. Water flush 50ml Q4H TF goal volume along with Pro-stat & water flush provide 2016 kcal (100%), 116 gm protein (100%), and 1652ml free water 2) TPN if NPO>7 days 3) Advance diet as medically feasible 4) Continue current plan of care Expected Outcomes/Goals: To meet >75% estimated needs within 7 days Fu 2-3 days Plan discussed with: Other (HONG Olguin) Critical Care Time(min): 35 NATALIO MÁRQUEZ MD Jun 03, 2024 20:41
[2024-06-04] VITALS (105 sets, daily range): BP systolic 87–129; BP diastolic 52–80; PULSE 78–101; RESP 12–20; TEMP 99–101.1; O2SAT 94–100
[2024-06-04 05:03] LABS: Basophils # (auto) 0 10 ^3/uL (0-0.2); Eosinophils # (auto) 0.1 10 ^3/uL (0-0.8); Eosinophils % (auto) 0.5 % (0.0-7.0); Lymphocytes # (auto) 0.8 10 ^3/uL (0.4-5.4)
[2024-06-04 05:06] LABS: Basophils % (auto) 0.1 % (0.0-2.0); Hemoglobin 19.3 g/dL (13.5-17.5); Lymphocytes % (auto) 6.2 % (10.0-50.0); Mean Corpuscular Hemoglobin 31.7 pg (28.0-32.0); Mean Corpuscular Hgb Conc. 33.8 g/dL (32.0-36.0); Mean Corpuscular Volume 93.8 fL (80.0-100.0); Monocytes % (auto) 7.4 % (0.0-12.0); Neutrophils # (auto) 11.8 10 ^3/uL (1.6-8.6); Neutrophils % (auto) 85.8 % (37.0-80.0); Nucleated Red Blood Cells % 0.1 %; Platelet Count (auto) 252 10^3/uL (140-450); Red Blood Cells 6.08 10^6/uL (4.5-5.90); Red Cell Distribution Width 14.4 % (11.8-14.3); White Blood Cell 13.7 10^3/uL (4.4-10.8)
--- NOTE | 2024-06-04 05:12 | DVH ---
Exam: US US GUIDED VASCULAR ACCESS Clinical History: PICC LINE INSERTION Comparison: None Findings: Targeted sonographic evaluation of the arm vein was obtained utilizing grayscale and color Doppler im aging. IMPRESSION: Sonographic assistance for central line placement. Please refer to procedural report for detailed fin dings.
--- NOTE | 2024-06-04 05:13 | DVH ---
CHEST RADIOGRAPH Indication: Intubated Technique: Single frontal view of the chest was obtained COMPARISON: XY CHEST PORTABLE on DOS: 06/03/24, XY CHEST PORTABLE on DOS: 06/02/24, XY CHEST PORTABLE o n DOS: 06/01/24, XY CHEST PORTABLE on DOS: 05/31/24, XY CHEST XRAY 1 VIEW on DOS: 05/30/24 FINDINGS: Lines and Tubes: Endotracheal tube, enteric catheter and right PICC in satisfactory position. Lungs: Congestion Pleura: No effusion. No pneumothorax. Cardiomediastinal contours: Cardiomegaly Bones: Unremarkable IMPRESSION: Lines and tubes in satisfactory position. No significant interval change.
[2024-06-04 05:32] LABS: Alanine Aminotransferase 26 U/L (7-40); Albumin 3.5 g/dL (3.2-4.8); Anion Gap 8 (5-15); BUN/Creatinine Ratio 16.5 (10.0-20.0); Blood Urea Nitrogen 19 mg/dL (9-23); Calcium 9.1 mg/dL (8.7-10.4); Carbon Dioxide 28 mmol/L (20-31); Chloride 105 mmol/L (98-107); Potassium 3.8 mmol/L (3.5-5.1); Sodium 141 mmol/L (136-145)
[2024-06-04 05:43] LABS: Alkaline Phosphatase 128 U/L (46-116); Aspartate Aminotransferase 87 U/L (13-40); Bilirubin, Total 1.3 mg/dL (0.2-1.0); Glucose 126 mg/dL (74-106)
--- NOTE | 2024-06-04 07:45 | DVHPN2 ---
Progress Note - Dictate Date Seen: Jun 04, 2024 Medical Necessity Reason Pt with a Central, PICC or Fol: Yes The following are medically ne: Ramirez Catheter Reason for ramirez catheter: Strict I&O vital signs Vital Sign Date Time Temp Pulse Resp B/P (MAP) Pulse Ox O2 Delivery O2 Flow Rate FiO2 06/04/24 07:27 83 16 104/66 (79) 100 30 06/04/24 06:00 Mechanical Ventilator+ 06/04/24 03:10 99.1 Total Intake and Output 06/03/24 06/03/24 06/04/24 15:00 23:00 07:00 Intake Total 830 ml 764.75 ml 527.50 ml Output Total 1050 ml 1600 ml Balance 830 ml -285.25 ml -1072.50 ml medications Current Medications Medications Dose Ordered Sig/Lei Route Start Time Stop Time Status Last Admin Dose Admin Acetaminophen/ Hydrocodone Bitart 1 tab Q4HP PRN PO 05/29/24 20:45 Ondansetron HCl 4 mg Q4HP PRN IV 05/29/24 20:45 05/30/24 03:54 4 MG Acetaminophen 650 mg Q6HP PRN PO 05/29/24 20:45 06/03/24 22:44 650 MG Morphine Sulfate 2 mg Q4HPRN PRN IV 05/29/24 20:45 Nitroglycerin 0.4 mg Q5MINP PRN SL 05/29/24 20:45 Morphine Sulfate 2 mg Q30M PRN IV 05/29/24 20:45 Pantoprazole Sodium 40 mg DAILY IV 05/30/24 10:00 06/03/24 08:22 40 MG Furosemide 40 mg BIDD IV 05/30/24 18:00 06/04/24 06:44 40 MG Sacubitril/ Valsartan 1 tab BID PO 05/30/24 10:00 06/03/24 22:03 1 TAB Aspirin 81 mg DAILY PO 05/30/24 10:00 06/03/24 09:33 81 MG Atorvastatin Calcium 40 mg HS PO 05/30/24 22:00 06/03/24 22:03 40 MG Midazolam HCl 50 ml @ 1 mls/hr Q24H IV 05/30/24 19:00 06/04/24 03:10 4 MLS/HR Fentanyl Citrate 250 ml @ 2.5 mls/hr Q24H IV 05/30/24 19:00 06/03/24 20:32 15 MLS/HR Enoxaparin Sodium 90 mg Q12HR SC 05/31/24 22:00 06/03/24 22:03 90 MG Sodium Chloride 1,000 ml @ 50 mls/hr Q20H IV 05/31/24 12:30 06/04/24 05:11 50 MLS/HR Ceftriaxone Sodium 50 ml @ 100 mls/hr DAILY@09 IV 06/01/24 07:30 06/03/24 08:22 100 MLS/HR Norepinephrine Bitartrate 250 ml @ 3.75 mls/hr Q24H IV 06/02/24 11:30 06/04/24 07:16 18.75 MLS/HR Sodium Chloride 10 ml QSHIFT@10,22 IV 06/02/24 22:00 06/03/24 22:02 10 ML laboratory and microbiology Laboratory Tests 06/04/24 04:51 Test 06/04/24 04:51 Range/Units Serum Glucose 126 H 74-106 mg/dL Assessment/Plan Intubated and in [facility]/ICU. He is found to have acute/subacute CVA Patient is a 43-year-old gentleman who presented with few weeks of worsening shortness of breath/generalized swelling/nausea/and some diarrhea. He is known to have systolic heart failure. He has ran out of his medications for the past few weeks. He mentions that he was on hospice before hand and he wanted to come off of it. He does have baseline history of methamphetamine abuse and mentions that he used it few days ago. He does have baseline history of noncompliance with medication and followups. Previously he was homeless. Now he says that she is renting a place. Cardiology was involved for cardiac aspects of care. It is of note that the patient does have chronic elevated troponin from prior admissions. Intubated, No JVD. Mucosa is pink and wet. Scattered crackles in the lungs is heard. Cardiac: Regular, no thrill. Systolic murmur 3/6 in apex is heard. History gallop is heard. Abdomen is soft and mildly distended. Bowel sound is positive. There is no abdominal tenderness. Questionable hepatomegaly can not be elicited. Extremities reveal 2+ edema bilaterally. Dorsalis pedis is 2+ bilateral. Past medical history includes diabetes mellitus, hypertension, systolic heart failure, polycythemia vera (as per patient), asthma, CKD, history of substance abuse cardiomyopathy, history of meth abuse and also history of chronic elevated troponin. Previously he was homeless. Previously he was on hospice. Echocardiogram of December 08, 2023 revealed four-chamber dilatation, ejection fraction of 5-10%, mild mitral regurgitation and tricuspid regurgitation. Hemoglobin: 19.5 - 18.1 - 18.2 - 17.2 - 18.9 - 20.1 - 19.2 - 19.3 Creatinine: 1.20 - 1.06 - 1.09 - 1.15 - 1.45 - 1.23 - 1.47 - 1.15 Potassium: 4.1 - 3.6 - 3.8 - 4.1 - 4.5 - 3.9 - 3.7 - 3.8 BNP: 641.20 Troponin (high sensitive): 529 - 502 - 526 - 486 - 422 - 436 - 437 D-dimer: 0.32 Urine tox was positive for Amphetamine and Benzodiazepine Chest x-ray revealed: IMPRESSION: Cardiomegaly with increased interstitial prominence which may be due to CHF and/or reactive airways disease. Repeat chest xry revealed: Endotracheal tube is in good position of the level of the clavicles. Nasogastric tube is in the stomach. There is cardiomegaly with an enlarged left ventricle. There is significant pulmonary vascular congestion. Impression congestive heart failure pattern. If patient has not had a recent cardiac echo I would recommend cardiac echo Repeat chest xry revealed: IMPRESSION: 1. congestive heart failure pattern. Repeat chest xry revealed: FINDINGS: Lines and Tubes: Endotracheal tube and enteric catheter in satisfactory position. Lungs: Patchy bilateral airspace disease Pleura: No effusion. No pneumothorax. Cardiomediastinal contours: Cardiomegaly Bones: Unremarkable IMPRESSION: Lines and tubes in satisfactory position. No significant interval change. Repeat chest xry revealed: IMPRESSION: Lines and tubes in satisfactory position. No significant interval change. Repeat chest xry revealed: IMPRESSION: Cardiomegaly with mild congestion. Repeat chest xry revealed: IMPRESSION: Lines and tubes in satisfactory position. No significant interval change. MRI of brain revealed: 1. Small focus of restricted diffusion in the anterior right centrum semiovale likely representing small acute to subacute infarct. There is no evidence of acute hemorrhage. Repeat MRI of brain revealed: IMPRESSION: 1. Redemonstration of subcentimeter focus of acute ischemia in the left cerebellar lobe. No intracranial hemorrhage. 2. Redemonstration of subcentimeter focus of DWI hyperintense signal in the right frontal centrum semiovale without corresponding abnormal ADC signal reflecting T2 shine through. No evidence of acute ischemia. 3. Subcentimeter foci abnormal signal in the bilateral cerebellar lobes may reflect chronic infarcts or underlying lesions. Further evaluation with MRI with IV contrast is recommended. 4. 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. CT of head revealed: IMPRESSION: 1. No acute intracranial process. Repeat CT of head revealed: IMPRESSION: No abnormality demonstrated. The very small acute/subacute infarct in right frontal lobe and very small old cortical infarct in left parietal lobe seen on the MRI study from earlier the same day are not evident on CT. Carotid ultrasound revealed: IMPRESSION: No hemodynamically significant stenoses or occlusions identified. Chest CT revealed: IMPRESSION: 1. Cardiomegaly. 2. Scattered coronary artery calcifications 3. Endotracheal tube in place terminating above the nicola. 4. Enteric tube in the stomach. Lower ext venous duplex revealed: IMPRESSION: No sonographic evidence of deep venous thrombosis in either lower extremity at this time. Right upper ext venous ultrasound revealed: IMPRESSION: No sonographic evidence of deep venous thrombosis in either upper extremity at this time. Renal Ultrasound revealed: IMPRESSION: 1. Left renal atrophy. No intrarenal calculi. Tele reveals sinus rhythm Echocardiogram revealed: Four-chamber dilatation was observed. Left ventricle: Left ventricle was significantly dilated with significantly reduced systolic function. Diffuse hypokinesis of left ventricle was seen. LVEF was 5-10%. LVEDP was assessed to be elevated. Right ventricle was dilated with reduced systolic function. Both atria were dilated. Aortic valve was not well visualized. There was mild aortic insufficiency. There was no aortic stenosis. There was trivial mitral regurgitation. There was mild tricuspid regurgitation. There was trivial pulmonary valve insufficiency. Right ventricular systolic pressure was assessed at 57 mm Hg. IVC was dilated with reduced respiratory variation. There was no pericardial effusion KI: Severe dilatation of LV with reduced LV systolic function. No Cardiac source for Emboli. Positive bubble study questions small PFO (PFO itself could not be visualized) Patient is a 43-year-old gentleman who presented with weeks of worsening shortness of breath cough/nausea and vomiting. Does have baseline history of systolic heart failure. Has been noncompliant with medication and followups. Acute on chronic systolic heart failure could have contributed to the clinical picture. Does have baseline history of methamphetamine abuse which could have contributed to the clinical picture. He is noncompliant with medication and followups which could have contributed to the clinical picture. Does have baseline history of elevated/chronically troponin. Abnormal troponin in a patient with end-stage systolic heart failure usually reflects demand physiology. Acute coronary syndrome is not considered at this point. Had AMS and later had respiratory failure. Intubated and brought to [facility]/ICU. He is found to have acute/subacute CVA. Is being followed by Neurology. KI performed: no source for Emboli. Still, Positive Bubble study questions PFO (PFO itself could not be visualized: maybe too small). Still, there was no recent DVT also (negative venous duplex). Acute on chronic systolic heart failure Drug-induced cardiomyopathy CKD Polycythemia vera removal Diabetes mellitus Noncompliant with medication and followups Substance abuse AMS Acute/subacute CVA Cardiac suggestion for management: Manage in ICU IV diuresis Follow-up electrolytes and kidney function tests and correct abnormalities. Keep potassium above 4 and magnesium above 2 Entresto: 24/26 mg p.o. b.i.d. Aspirin: 81 mg daily suggested Heparin drip versus therapeutic Lovenox is suggested at this point High potency statin (atorvastatin at 40 mg daily) suggested Does have baseline history of elevated/chronically troponin. Abnormal troponin (flat trend) in a patient with end-stage systolic heart failure usually reflects demand physiology. Acute coronary syndrome is not considered at this point. Recognizing old history of significant heart failure and noncompliance, outcome is poor. Consider restarting hospice Lifestyle and risk factor modifications. Neurology follow up Consider Hematology evaluation for Hemoconcentration / Polycythemia Vera Further evaluation and management depends on the above and clinical course A total of 75 minutes was spent reviewing the patient record, examining the patient, making a diagnostic and therapeutic plan, discussing this plan with medical personnel, following up on diagnostic studies and following the patient for clinical stability excluding any and all procedures. At least 50% of this time was spent in direct, [id number] contact. Thank you for allowing me to participate in this patient's care. Further recommendations will depend on patient's clinical course. Please do not hesitate to contact me if you have any questions or concerns. This medical document was created using electronic medical record system with [employer] computerized dictation system. Although this document has been carefully reviewed, there may still be some phonetic and typographical errors. These areas are purely typographical due to the imperfection of the software programs, and do not reflect any compromise in the patient's medical care. Dietary Evaluation Review Comments: 1) TF Glucerna 1.2Cal @ 70ml/hr x 24 hr along with Pro-stat 1 pk daily. Start @ 30ml/hr, increase 10ml/hr Q4H until goal rate is reached. Water flush 50ml Q4H TF goal volume along with Pro-stat & water flush provide 2016 kcal (100%), 116 gm protein (100%), and 1652ml free water 2) TPN if NPO>7 days 3) Advance diet as medically feasible 4) Continue current plan of care Expected Outcomes/Goals: To meet >75% estimated needs within 7 days Fu 2-3 days Plan discussed with: Patient, Other (nurse) GABRIEL LOPEZ MD Jun 04, 2024 07:45
--- NOTE | 2024-06-04 10:43 | DVHPN2 ---
Progress Note - Dictate Date Seen: Jun 04, 2024 Medical Necessity Reason Pt with a Central, PICC or Fol: Yes The following are medically ne: Ramirez Catheter Reason for ramirez catheter: Strict I&O vital signs Vital Sign Date Time Temp Pulse Resp B/P (MAP) Pulse Ox O2 Delivery O2 Flow Rate FiO2 06/04/24 09:51 83 16 91/60 (70) 100 30 06/04/24 08:00 Mechanical Ventilator+ 06/04/24 07:45 99.9 211.8 Total Intake and Output 06/03/24 06/03/24 06/04/24 15:00 23:00 07:00 Intake Total 830 ml 764.75 ml 648.00 ml Output Total 1050 ml 1600 ml Balance 830 ml -285.25 ml -952.00 ml medications Current Medications Medications Dose Ordered Sig/Lei Route Start Time Stop Time Status Last Admin Dose Admin Acetaminophen/ Hydrocodone Bitart 1 tab Q4HP PRN PO 05/29/24 20:45 Ondansetron HCl 4 mg Q4HP PRN IV 05/29/24 20:45 05/30/24 03:54 4 MG Acetaminophen 650 mg Q6HP PRN PO 05/29/24 20:45 06/03/24 22:44 650 MG Morphine Sulfate 2 mg Q4HPRN PRN IV 05/29/24 20:45 Nitroglycerin 0.4 mg Q5MINP PRN SL 05/29/24 20:45 Morphine Sulfate 2 mg Q30M PRN IV 05/29/24 20:45 Pantoprazole Sodium 40 mg DAILY IV 05/30/24 10:00 06/03/24 08:22 40 MG Furosemide 40 mg BIDD IV 05/30/24 18:00 06/04/24 06:44 40 MG Sacubitril/ Valsartan 1 tab BID PO 05/30/24 10:00 06/03/24 22:03 1 TAB Aspirin 81 mg DAILY PO 05/30/24 10:00 06/03/24 09:33 81 MG Atorvastatin Calcium 40 mg HS PO 05/30/24 22:00 06/03/24 22:03 40 MG Midazolam HCl 50 ml @ 1 mls/hr Q24H IV 05/30/24 19:00 06/04/24 03:10 4 MLS/HR Fentanyl Citrate 250 ml @ 2.5 mls/hr Q24H IV 05/30/24 19:00 06/03/24 20:32 15 MLS/HR Enoxaparin Sodium 90 mg Q12HR SC 05/31/24 22:00 06/03/24 22:03 90 MG Sodium Chloride 1,000 ml @ 50 mls/hr Q20H IV 05/31/24 12:30 06/04/24 05:11 50 MLS/HR Ceftriaxone Sodium 50 ml @ 100 mls/hr DAILY@09 IV 06/01/24 07:30 06/04/24 09:33 100 MLS/HR Norepinephrine Bitartrate 250 ml @ 3.75 mls/hr Q24H IV 06/02/24 11:30 06/04/24 07:16 18.75 MLS/HR Sodium Chloride 10 ml QSHIFT@10,22 IV 06/02/24 22:00 06/03/24 22:02 10 ML Piperacillin Sod/ Tazobactam Sod 100 ml @ 25 mls/hr Q8HR IV 06/04/24 14:00 UNV Diphenhydramine HCl 25 mg Q4HP PRN IV 06/04/24 10:45 UNV objective General Appearance: alert, no distress HEENT: EOMI, PERRLA, normal external inspect of ears, no icterus, no nasal drainage Neck: no carotid bruit, no jugular venous distention (JVD), no lymphadenopathy Chest: normal thorax Respiratory: clear to auscultation, normal air movement Cardiovascular: regular rate and rhythm, no diastolic murmur, no jugular venous distention (JVD), no rub, no systolic murmur Abdominal: soft, no hepatomegaly, no mass, no splenomegaly, no tenderness Genitourinary: grossly normal external Musculoskeletal: no joint tenderness, no swelling Extremities: normal pulses, no calf tenderness, no clubbing, no cyanosis, no edema Skin: no bruising, no jaundice, no rash Neurological: alert, No focal deficit laboratory and microbiology Laboratory Tests 06/04/24 04:51 Test 06/04/24 04:51 Range/Units Serum Glucose 126 H 74-106 mg/dL Problem List 1. Acute CVA Monitor, neurology consult 2. Acute on chronic systolic heart failure Monitor, cardiology consult, heparin gtt 3. Drug induced cardiomyopathy Monitor, echocardiogram, cardiology consult 4. Elevated troponin - demand ischemia Monitor EKG, cardiology consult 5. Hx of methamphetamine abuse Monitor, urine drug screen 6. 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 Acute hypoxic respiratory failure Monitor, supplemental O2, ventilator management per pulmonary 8. Pneumonia Monitor, antibiotics, pulmonary consult 9. Acute cystitis Monitor, antibiotics [40] minutes of critical care time were spent in evaluating the patient, reviewing the diagnostic data, discussing with the family. Assessment/Plan Subjective: Patient remains sedated on the ventilator. Objective: I did update mother and father at bedside. Patient was admitted for sepsis with acute cystitis and pneumonia. Patient had a mental status change in the emergency room. Stat MRI was done which did show an acute CVA. Patient has acute on chronic systolic heart failure. Patient does have drug-induced cardiomyopathy. Patient tested positive for methamphetamines. Plan: Broaden antibiotics. Add Zosyn. ID consult. Panculture. Ventilator management per pulmonary. Will assess neurostatus once extubated. Dietary Evaluation Review Comments: 1) TF Glucerna 1.2Cal @ 70ml/hr x 24 hr along with Pro-stat 1 pk daily. Start @ 30ml/hr, increase 10ml/hr Q4H until goal rate is reached. Water flush 50ml Q4H TF goal volume along with Pro-stat & water flush provide 2016 kcal (100%), 116 gm protein (100%), and 1652ml free water 2) TPN if NPO>7 days 3) Advance diet as medically feasible 4) Continue current plan of care Expected Outcomes/Goals: To meet >75% estimated needs within 7 days Fu 2-3 days Plan discussed with: Patient, Other JACKIE DILLON [employer] Jun 04, 2024 10:43
--- NOTE | 2024-06-04 11:05 | DVHPN2 ---
Progress Note - Dictate Date Seen: Jun 04, 2024 Medical Necessity Reason Pt with a Central, PICC or Fol: Yes The following are medically ne: Ramirez Catheter Reason for ramirez catheter: Strict I&O Subjective Mr. Castillo is a 43 years old right-handed gentleman with a history of hypertension, diabetes, coronary artery disease, heart attack, congestive heart failure, polycythemia vera, cardiomyopathy, asthma, he came to the [facility] Emergency room on 05/29/2024 with a chief complaint of shortness breath, chest pain. I have seen and examined the patient, I have talked to his nurse. Family in the room. He is responsive to painful stimuli Fentanyl 150 mcg/hour, Versed 5 milligram/hour Levo: 8mcg/min Urinalysis, 05/30/2024: WBC: <1, urine leukocyte esterase: Negative UDS, 05/30/2024, amphetamine, benzo CBC, 05/30/2024: Respiratory acidosis, 06/03/2024: Acidosis WBC/HB/PLT/MCV, 05/30/2024: 10.3/18.1/230/93.8, 06/03/2024: 18.1/19.2/275/95 PT/INR/PTT, 05/30/2024: 12.03/1016/47 05/31/2024: 11.9/1.14/65.5 BMP, 05/30/2024: Unremarkable BUN/CR, 06/03/2024: 26/1.47 TBI/AST/ALT/AP, 05/29/2024: 2.1/46/25/133, 06/03/2024: 1.4/60/15/122 NH3 06/03/24: 30 Troponin one high sensitivity, 05/29/2024: 529, 05/30/2024: 502, 526, TG/HDL/LDL/HDL, 05/30/2024: 62/148/113/36 Echocardiogram, 05/30/2024: Four-chamber dilatation was observed. Left ventricle: Left ventricle was significantly dilated with significantly reduced systolic function. Diffuse hypokinesis of left ventricle was seen. LVEF was 5-10%. LVEDP was assessed to be elevated. Right ventricle was dilated with reduced systolic function. Both atria were dilated. Aortic valve was not well visualized. There was mild aortic insufficiency. There was no aortic stenosis. There was trivial mitral regurgitation. There was mild tricuspid regurgitation. There was trivial pulmonary valve insufficiency. Right ventricular systolic pressure was assessed at 57 mm Hg. IVC was dilated with reduced respiratory variation. There was no pericardial effusion Carotid Doppler, 05/30/2024: No hemodynamically significant stenoses or occlusions identified. CT head, 05/30/2024 1107: No acute intracranial process CT head, 05/30/2024 1856: No abnormality demonstrated. The very small acute/subacute infarct in right frontal lobe and very small old cortical infarct in left parietal lobe seen on the MRI study from earlier the same day are not evident on CT MRI head, 05/30/2024 1041: Small focus of restricted diffusion in the anterior right centrum semiovale likely representing small acute to subacute infarct. There is no evidence of acute hemorrhage (I saw a small DWI lesion in the left cerebellum hemisphere with ADC correlation) MRI head, 05/31/2024: 1. Redemonstration of subcentimeter focus of acute ischemia in the left cerebellar lobe. No intracranial hemorrhage. 2. Redemonstration of subcentimeter focus of DWI hyperintense signal in the right frontal centrum semiovale without corresponding abnormal ADC signal reflecting T2 shine through. No evidence of acute ischemia. 3. Subcentimeter foci abnormal signal in the bilateral cerebellar lobes may reflect chronic infarcts or underlying lesions. Further evaluation with MRI with IV contrast is recommended. 4. 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 vital signs Vital Sign Date Time Temp Pulse Resp B/P (MAP) Pulse Ox O2 Delivery O2 Flow Rate FiO2 06/04/24 09:51 83 16 91/60 (70) 100 30 06/04/24 08:00 Mechanical Ventilator+ 06/04/24 07:45 99.9 211.8 Total Intake and Output 06/03/24 06/03/24 06/04/24 15:00 23:00 07:00 Intake Total 830 ml 764.75 ml 648.00 ml Output Total 1050 ml 1600 ml Balance 830 ml -285.25 ml -952.00 ml medications Current Medications Medications Dose Ordered Sig/Lei Route Start Time Stop Time Status Last Admin Dose Admin Acetaminophen/ Hydrocodone Bitart 1 tab Q4HP PRN PO 05/29/24 20:45 Ondansetron HCl 4 mg Q4HP PRN IV 05/29/24 20:45 05/30/24 03:54 4 MG Acetaminophen 650 mg Q6HP PRN PO 05/29/24 20:45 06/03/24 22:44 650 MG Morphine Sulfate 2 mg Q4HPRN PRN IV 05/29/24 20:45 Nitroglycerin 0.4 mg Q5MINP PRN SL 05/29/24 20:45 Morphine Sulfate 2 mg Q30M PRN IV 05/29/24 20:45 Pantoprazole Sodium 40 mg DAILY IV 05/30/24 10:00 06/03/24 08:22 40 MG Furosemide 40 mg BIDD IV 05/30/24 18:00 06/04/24 06:44 40 MG Sacubitril/ Valsartan 1 tab BID PO 05/30/24 10:00 06/03/24 22:03 1 TAB Aspirin 81 mg DAILY PO 05/30/24 10:00 06/03/24 09:33 81 MG Atorvastatin Calcium 40 mg HS PO 05/30/24 22:00 06/03/24 22:03 40 MG Midazolam HCl 50 ml @ 1 mls/hr Q24H IV 05/30/24 19:00 06/04/24 03:10 4 MLS/HR Fentanyl Citrate 250 ml @ 2.5 mls/hr Q24H IV 05/30/24 19:00 06/03/24 20:32 15 MLS/HR Enoxaparin Sodium 90 mg Q12HR SC 05/31/24 22:00 06/03/24 22:03 90 MG Sodium Chloride 1,000 ml @ 50 mls/hr Q20H IV 05/31/24 12:30 06/04/24 05:11 50 MLS/HR Ceftriaxone Sodium 50 ml @ 100 mls/hr DAILY@09 IV 06/01/24 07:30 06/04/24 09:33 100 MLS/HR Norepinephrine Bitartrate 250 ml @ 3.75 mls/hr Q24H IV 06/02/24 11:30 06/04/24 07:16 18.75 MLS/HR Sodium Chloride 10 ml QSHIFT@ IV 06/02/24 22:00 06/03/24 22:02 10 ML Piperacillin Sod/ Tazobactam Sod 100 ml @ 25 mls/hr Q8HR IV 06/04/24 14:00 UNV Diphenhydramine HCl 25 mg Q4HP PRN IV 06/04/24 10:45 UNV objective The patient is well-nourished and well-developed with no distress. The patient is intubated MENTAL STATUS: Subjective CRANIAL NERVES: Pupils are equal, round and reactive.There are corneal reflexes and doll's eyes phenomenon. No signs of facial weakness. There are gagging or coughing reflexes SENSATION: Responses to pain stimuli. MOTOR: Normal tone in the upper and lower extremity. Normal muscle bulk. No fasciculations. No spontaneous movement. REFLEXES: Deep tendon reflexes are symmetrical. No pathological reflexes. CEREBELLAR/COORDINATION: Deferred GAIT/STATION: deferred laboratory and microbiology Laboratory Tests 06/04/24 04:51 Test 06/04/24 04:51 Range/Units Serum Glucose 126 H 74-106 mg/dL Problem List Altered mental status More strokes Metabolic encephalopathy/hepatic encephalopathy ? Status epileptics Elevated troponin one/heart attack Multiple strokes Cardiomyopathy Congestive heart failure A spell of nonresponsiveness on 05/30/2024 ? Syncope triggered by coughing/arrhythmia ? Seizure activity Heart failure Assessment/Plan Monitoring Supportive treatments ICU care EEG Stabilize vitals Respiratory support/vent management Lovenox 90 mg subQ b.i.d. Aspirin 81 mg daily Lipitor 40 mg daily IV antibiotics GI prophylax/Protonix More recommendation per clinical course This medical document was created using an electronic medical record system with [employer] dictation system. Although this document has been carefully reviewed, there may still be some phonetic and typographical errors. These areas are purely typographical due to imperfections of the software programs, and do not reflect any compromise in the patient's medical care Prognosis guarded Dietary Evaluation Review Comments: 1) TF Glucerna 1.2Cal @ 70ml/hr x 24 hr along with Pro-stat 1 pk daily. Start @ 30ml/hr, increase 10ml/hr Q4H until goal rate is reached. Water flush 50ml Q4H TF goal volume along with Pro-stat & water flush provide 2016 kcal (100%), 116 gm protein (100%), and 1652ml free water 2) TPN if NPO>7 days 3) Advance diet as medically feasible 4) Continue current plan of care Expected Outcomes/Goals: To meet >75% estimated needs within 7 days Fu 2-3 days Plan discussed with: Other Critical Care Time(min): 35 ZEKE REYNOLDS MD Jun 04, 2024 11:05
[2024-06-04] MEDS: diphenhdrAMINE HCL 50 MG/1 ML VL IV PRN (13:28)
[2024-06-04] MEDS: PIPERACILLIN-TAZOB 3.375GM 100 ML IV SCH (13:35)
--- NOTE | 2024-06-04 19:56 | DVHPN2 ---
Progress Note - Dictate Date Seen: Jun 04, 2024 Medical Necessity Reason Pt with a Central, PICC or Fol: Yes The following are medically ne: Ramirez Catheter Reason for ramirez catheter: Strict I&O Subjective Patient seen and examined at bedside. Sedated, intubated on mechanical ventilator. Overnight events reviewed. vital signs Vital Sign Date Time Temp Pulse Resp B/P (MAP) Pulse Ox O2 Delivery O2 Flow Rate FiO2 06/04/24 19:55 103/66 06/04/24 19:15 99.9 82 16 100 211.8 06/04/24 18:00 Mechanical Ventilator+ 30 30 Total Intake and Output 06/03/24 06/03/24 06/04/24 15:00 23:00 07:00 Intake Total 830 ml 764.75 ml 733.25 ml Output Total 1050 ml 1600 ml Balance 830 ml -285.25 ml -866.75 ml medications Current Medications Medications Dose Ordered Sig/Lei Route Start Time Stop Time Status Last Admin Dose Admin Acetaminophen/ Hydrocodone Bitart 1 tab Q4HP PRN PO 05/29/24 20:45 Ondansetron HCl 4 mg Q4HP PRN IV 05/29/24 20:45 05/30/24 03:54 4 MG Acetaminophen 650 mg Q6HP PRN PO 05/29/24 20:45 06/04/24 13:18 650 MG Morphine Sulfate 2 mg Q4HPRN PRN IV 05/29/24 20:45 Nitroglycerin 0.4 mg Q5MINP PRN SL 05/29/24 20:45 Morphine Sulfate 2 mg Q30M PRN IV 05/29/24 20:45 Pantoprazole Sodium 40 mg DAILY IV 05/30/24 10:00 06/04/24 11:18 40 MG Furosemide 40 mg BIDD IV 05/30/24 18:00 06/04/24 18:30 40 MG Sacubitril/ Valsartan 1 tab BID PO 05/30/24 10:00 Hold 06/03/24 22:03 1 TAB Aspirin 81 mg DAILY PO 05/30/24 10:00 06/04/24 11:19 81 MG Atorvastatin Calcium 40 mg HS PO 05/30/24 22:00 06/03/24 22:03 40 MG Midazolam HCl 50 ml @ 1 mls/hr Q24H IV 05/30/24 19:00 06/04/24 19:55 6 MLS/HR Fentanyl Citrate 250 ml @ 2.5 mls/hr Q24H IV 05/30/24 19:00 06/04/24 14:36 15 MLS/HR Enoxaparin Sodium 90 mg Q12HR SC 05/31/24 22:00 06/04/24 11:19 90 MG Sodium Chloride 1,000 ml @ 50 mls/hr Q20H IV 05/31/24 12:30 06/04/24 05:11 50 MLS/HR Ceftriaxone Sodium 50 ml @ 100 mls/hr DAILY@09 IV 06/01/24 07:30 06/04/24 09:33 100 MLS/HR Norepinephrine Bitartrate 250 ml @ 3.75 mls/hr Q24H IV 06/02/24 11:30 06/04/24 19:54 22.5 MLS/HR Sodium Chloride 10 ml QSHIFT@10,22 IV 06/02/24 22:00 06/04/24 11:18 10 ML Piperacillin Sod/ Tazobactam Sod 100 ml @ 25 mls/hr Q8HR IV 06/04/24 14:00 06/04/24 13:35 25 MLS/HR Diphenhydramine HCl 25 mg Q4HP PRN IV 06/04/24 10:45 06/04/24 13:28 25 MG objective Gen.: Patient lying in bed in medical ICU. Sedated, intubated on mechanical ventilator. Head: Normocephalic, atraumatic. Eyes: PERRLA. Ears: Normal external anatomy. Throat: Endotracheal tube and orogastric tube in place. Neck: Supple, trachea midline. Chest: Transmitted breath sounds bilaterally. Decreased air entry bilaterally. No wheezing. Bibasilar crackles. Cardiovascular: Positive S1, positive S2. Regular rate and rhythm. Abdomen: Positive bowel sounds in all 4 quadrants. Soft, nontender, nondistended. : Ramirez in place. Normal external genitalia. Rectal: Deferred. Skin: Warm, dry. Intact. Extremities: 2+ radial pulses bilaterally. No lower extremity edema. Neuro: Sedated. laboratory and microbiology Laboratory Tests 06/04/24 04:51 Test 06/04/24 04:51 Range/Units Serum Glucose 126 H 74-106 mg/dL Assessment/Plan Impression: Acute hypoxic respiratory failure On mechanical ventilator Pulmonary hypertension, RVSP 57 mmHg ( Echo with LVEF of 5% to 10%) Atelectasis Acute CVA Acute on chronic systolic heart failure Drug induced cardiomyopathy Elevated troponin Polysubstance abuse Medical non-compliance Events: Remains on vent support On AC mode; RR 16, VT 500, PEEP 5, FiO2 30% Sedated on Versed, Fentanyl Pressors for hemodynamic support On Levophed 12 mcg/min Titrate to keep mean arterial pressure greater than 65 mmHg Increased pressor requirements Patient was re-sedated Increased ET tube secretions noted Plan/obtain consent for therapeutic bronchoscopy for clearing of secretions. Continue antibiotics Follow up ID recommendations Follow up Hematology recommendations for polycythemia vera. Maintain euvolemia w/ Lasix BID Monitor renal function Monitor electrolytes. Supplement as necessary. Monitor ins and outs. Poor EF Status post KI Cardiology recs appreciated ABG reviewed, compensated CXR reviewed, demonstrates pulmonary congestion. Taper sedation as tolerated SBT/MANOLO Labs and imaging reviewed. Rest of plan as noted below. Plan: s/p intubation on mechanical ventilator. On AC mode; RR 16, VT 500, PEEP 5, FiO2 30% Titrate FIO2 to keep O2 saturation above 90%. VAP bundle. Daily ABG and CXR while intubated Sedate for ventilator synchrony Pulmonary hypertension, RVSP 57 mmHg - Echo showing LVEF of 5% to 10%. On statin Cardiology recs appreciated Elevated troponin - Heparin drip discontinued. MRI head shows no evidence of acute ischemia Pressors as necessary for hemodynamic support Titrate to keep mean arterial pressure greater than 65 mmHg IV fluids with NS at 50 ml/hr. Diurese as tolerated w/ Lasix BID Monitor renal function Monitor electrolytes. Supplement as necessary. Monitor ins and outs. GI prophylaxis - Protonix. DVT prophylaxis - Lovenox SC. Prognosis: Poor given patient's multiple co-morbidities. Condition: Critical Rest of plan per hospitalist and other consultants. A total of 35 minutes of critical care time was spent reviewing the patient record, examining the patient, making a diagnostic and therapeutic plan, discussing this plan with the medical personnel, following up on diagnostic studies and following the patient for clinical stability excluding any and all procedures. At least 50% of this time was spent in direct, [id number] contact. Thank you, BRANDIN Albright, for allowing me to participate in this patient's care. Further recommendations will depend on the patient's clinical course. Please do not hesitate to contact me if you have any questions or concerns. This medical document was created using an electronic medical record system with [employer] dictation system. Although these documentations are being carefully reviewed, there may still be some phonetic and typographical changes. The errors are purely typographical, due to imperfection on the software program, and do not reflect any compromise in the patient's medical care. Dietary Evaluation Review Comments: 1) TF Glucerna 1.2Cal @ 70ml/hr x 24 hr along with Pro-stat 1 pk daily. Start @ 30ml/hr, increase 10ml/hr Q4H until goal rate is reached. Water flush 50ml Q4H TF goal volume along with Pro-stat & water flush provide 2016 kcal (100%), 116 gm protein (100%), and 1652ml free water 2) TPN if NPO>7 days 3) Advance diet as medically feasible 4) Continue current plan of care Expected Outcomes/Goals: To meet >75% estimated needs within 7 days Fu 2-3 days Plan discussed with: Other (HONG Gonzalez) Critical Care Time(min): 35 NATALIO MÁRQUEZ MD Jun 04, 2024 19:56
[2024-06-05] VITALS (111 sets, daily range): BP systolic 85–124; BP diastolic 53–85; PULSE 74–100; RESP 11–19; TEMP 98.8–101.5; O2SAT 98–100
--- NOTE | 2024-06-05 05:13 | DVH ---
EXAM: XR Chest, 1 View CLINICAL INDICATION: intubated, congestion TECHNIQUE: Frontal view of the chest. COMPARISON: XY CHEST PORTABLE on DOS: 06/04/24, XY CHEST PORTABLE on DOS: 06/03/24, XY CHEST PORTABLE on DOS: 06/02/24, XY CHEST PORTABLE on DOS: 06/01/24, XY CHEST PORTABLE on DOS: 05/31/24 FINDINGS: LUNGS AND PLEURAL SPACES: See below. HEART: Cardiomegaly with mild congestion. MEDIASTINUM: Unremarkable. Normal mediastinal contour. BONES/JOINTS: Unremarkable. No acute fracture. TUBES, LINES AND DEVICES: Right peripherally inserted central catheter (PICC) tip in the superior v arturo cava. The endotracheal tube (ETT) is in satisfactory position. Enteric tube tip in the stomach. OTHER FINDINGS: . . .. IMPRESSION: Cardiomegaly with mild congestion.
--- NOTE | 2024-06-05 06:46 | DVHPN2 ---
Progress Note - Dictate Date Seen: Jun 05, 2024 Medical Necessity Reason Pt with a Central, PICC or Fol: Yes The following are medically ne: Ramirez Catheter Reason for ramirez catheter: Strict I&O vital signs Vital Sign Date Time Temp Pulse Resp B/P (MAP) Pulse Ox O2 Delivery O2 Flow Rate FiO2 06/05/24 06:30 99.0 74 16 124/85 (98) 100 210.2 06/05/24 06:19 30 06/05/24 06:00 Mechanical Ventilator+ Total Intake and Output 06/04/24 06/04/24 06/05/24 15:00 23:00 07:00 Intake Total 838.75 ml 993.0 ml 611.0 ml Output Total 1925 ml 1900 ml Balance 838.75 ml -932.0 ml -1289.0 ml medications Current Medications Medications Dose Ordered Sig/Lei Route Start Time Stop Time Status Last Admin Dose Admin Acetaminophen/ Hydrocodone Bitart 1 tab Q4HP PRN PO 05/29/24 20:45 Ondansetron HCl 4 mg Q4HP PRN IV 05/29/24 20:45 05/30/24 03:54 4 MG Acetaminophen 650 mg Q6HP PRN PO 05/29/24 20:45 06/05/24 01:39 650 MG Morphine Sulfate 2 mg Q4HPRN PRN IV 05/29/24 20:45 Nitroglycerin 0.4 mg Q5MINP PRN SL 05/29/24 20:45 Morphine Sulfate 2 mg Q30M PRN IV 05/29/24 20:45 Pantoprazole Sodium 40 mg DAILY IV 05/30/24 10:00 06/04/24 11:18 40 MG Furosemide 40 mg BIDD IV 05/30/24 18:00 06/05/24 06:04 40 MG Sacubitril/ Valsartan 1 tab BID PO 05/30/24 10:00 Hold 06/03/24 22:03 1 TAB Aspirin 81 mg DAILY PO 05/30/24 10:00 06/04/24 11:19 81 MG Atorvastatin Calcium 40 mg HS PO 05/30/24 22:00 06/04/24 21:45 40 MG Midazolam HCl 50 ml @ 1 mls/hr Q24H IV 05/30/24 19:00 06/05/24 03:45 6 MLS/HR Fentanyl Citrate 250 ml @ 2.5 mls/hr Q24H IV 05/30/24 19:00 06/05/24 03:46 15 MLS/HR Enoxaparin Sodium 90 mg Q12HR SC 05/31/24 22:00 06/04/24 21:46 90 MG Sodium Chloride 1,000 ml @ 50 mls/hr Q20H IV 05/31/24 12:30 06/04/24 05:11 50 MLS/HR Ceftriaxone Sodium 50 ml @ 100 mls/hr DAILY@09 IV 06/01/24 07:30 06/04/24 09:33 100 MLS/HR Norepinephrine Bitartrate 250 ml @ 3.75 mls/hr Q24H IV 06/02/24 11:30 06/04/24 19:54 22.5 MLS/HR Sodium Chloride 10 ml QSHIFT@10,22 IV 06/02/24 22:00 06/04/24 21:45 10 ML Piperacillin Sod/ Tazobactam Sod 100 ml @ 25 mls/hr Q8HR IV 06/04/24 14:00 06/05/24 06:04 25 MLS/HR Diphenhydramine HCl 25 mg Q4HP PRN IV 06/04/24 10:45 06/04/24 13:28 25 MG laboratory and microbiology Laboratory Tests 06/04/24 04:51 Test 06/04/24 04:51 Range/Units Serum Glucose 126 H 74-106 mg/dL Assessment/Plan Intubated and in [facility]/ICU. He is found to have acute/subacute CVA Patient is a 43-year-old gentleman who presented with few weeks of worsening shortness of breath/generalized swelling/nausea/and some diarrhea. He is known to have systolic heart failure. He has ran out of his medications for the past few weeks. He mentions that he was on hospice before hand and he wanted to come off of it. He does have baseline history of methamphetamine abuse and mentions that he used it few days ago. He does have baseline history of noncompliance with medication and followups. Previously he was homeless. Now he says that she is renting a place. Cardiology was involved for cardiac aspects of care. It is of note that the patient does have chronic elevated troponin from prior admissions. Intubated, No JVD. Mucosa is pink and wet. Scattered crackles in the lungs is heard. Cardiac: Regular, no thrill. Systolic murmur 3/6 in apex is heard. History gallop is heard. Abdomen is soft and mildly distended. Bowel sound is positive. There is no abdominal tenderness. Questionable hepatomegaly can not be elicited. Extremities reveal 2+ edema bilaterally. Dorsalis pedis is 2+ bilateral. Past medical history includes diabetes mellitus, hypertension, systolic heart failure, polycythemia vera (as per patient), asthma, CKD, history of substance abuse cardiomyopathy, history of meth abuse and also history of chronic elevated troponin. Previously he was homeless. Previously he was on hospice. Echocardiogram of December 08, 2023 revealed four-chamber dilatation, ejection fraction of 5-10%, mild mitral regurgitation and tricuspid regurgitation. Hemoglobin: 19.5 - 18.1 - 18.2 - 17.2 - 18.9 - 20.1 - 19.2 - 19.3 Creatinine: 1.20 - 1.06 - 1.09 - 1.15 - 1.45 - 1.23 - 1.47 - 1.15 Potassium: 4.1 - 3.6 - 3.8 - 4.1 - 4.5 - 3.9 - 3.7 - 3.8 BNP: 641.20 Troponin (high sensitive): 529 - 502 - 526 - 486 - 422 - 436 - 437 D-dimer: 0.32 Urine tox was positive for Amphetamine and Benzodiazepine Chest x-ray revealed: IMPRESSION: Cardiomegaly with increased interstitial prominence which may be due to CHF and/or reactive airways disease. Repeat chest xry revealed: Endotracheal tube is in good position of the level of the clavicles. Nasogastric tube is in the stomach. There is cardiomegaly with an enlarged left ventricle. There is significant pulmonary vascular congestion. Impression congestive heart failure pattern. If patient has not had a recent cardiac echo I would recommend cardiac echo Repeat chest xry revealed: IMPRESSION: 1. congestive heart failure pattern. Repeat chest xry revealed: FINDINGS: Lines and Tubes: Endotracheal tube and enteric catheter in satisfactory position. Lungs: Patchy bilateral airspace disease Pleura: No effusion. No pneumothorax. Cardiomediastinal contours: Cardiomegaly Bones: Unremarkable IMPRESSION: Lines and tubes in satisfactory position. No significant interval change. Repeat chest xry revealed: IMPRESSION: Lines and tubes in satisfactory position. No significant interval change. Repeat chest xry revealed: IMPRESSION: Cardiomegaly with mild congestion. Repeat chest xry revealed: IMPRESSION: Lines and tubes in satisfactory position. No significant interval change. Repeat chest xry revealed: IMPRESSION: Cardiomegaly with mild congestion. MRI of brain revealed: 1. Small focus of restricted diffusion in the anterior right centrum semiovale likely representing small acute to subacute infarct. There is no evidence of acute hemorrhage. Repeat MRI of brain revealed: IMPRESSION: 1. Redemonstration of subcentimeter focus of acute ischemia in the left cerebellar lobe. No intracranial hemorrhage. 2. Redemonstration of subcentimeter focus of DWI hyperintense signal in the right frontal centrum semiovale without corresponding abnormal ADC signal reflecting T2 shine through. No evidence of acute ischemia. 3. Subcentimeter foci abnormal signal in the bilateral cerebellar lobes may reflect chronic infarcts or underlying lesions. Further evaluation with MRI with IV contrast is recommended. 4. 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. CT of head revealed: IMPRESSION: 1. No acute intracranial process. Repeat CT of head revealed: IMPRESSION: No abnormality demonstrated. The very small acute/subacute infarct in right frontal lobe and very small old cortical infarct in left parietal lobe seen on the MRI study from earlier the same day are not evident on CT. Carotid ultrasound revealed: IMPRESSION: No hemodynamically significant stenoses or occlusions identified. Chest CT revealed: IMPRESSION: 1. Cardiomegaly. 2. Scattered coronary artery calcifications 3. Endotracheal tube in place terminating above the nicola. 4. Enteric tube in the stomach. Lower ext venous duplex revealed: IMPRESSION: No sonographic evidence of deep venous thrombosis in either lower extremity at this time. Right upper ext venous ultrasound revealed: IMPRESSION: No sonographic evidence of deep venous thrombosis in either upper extremity at this time. Renal Ultrasound revealed: IMPRESSION: 1. Left renal atrophy. No intrarenal calculi. Tele reveals sinus rhythm Echocardiogram revealed: Four-chamber dilatation was observed. Left ventricle: Left ventricle was significantly dilated with significantly reduced systolic function. Diffuse hypokinesis of left ventricle was seen. LVEF was 5-10%. LVEDP was assessed to be elevated. Right ventricle was dilated with reduced systolic function. Both atria were dilated. Aortic valve was not well visualized. There was mild aortic insufficiency. There was no aortic stenosis. There was trivial mitral regurgitation. There was mild tricuspid regurgitation. There was trivial pulmonary valve insufficiency. Right ventricular systolic pressure was assessed at 57 mm Hg. IVC was dilated with reduced respiratory variation. There was no pericardial effusion KI: Severe dilatation of LV with reduced LV systolic function. No Cardiac source for Emboli. Positive bubble study questions small PFO (PFO itself could not be visualized) Patient is a 43-year-old gentleman who presented with weeks of worsening shortness of breath cough/nausea and vomiting. Does have baseline history of systolic heart failure. Has been noncompliant with medication and followups. Acute on chronic systolic heart failure could have contributed to the clinical picture. Does have baseline history of methamphetamine abuse which could have contributed to the clinical picture. He is noncompliant with medication and followups which could have contributed to the clinical picture. Does have baseline history of elevated/chronically troponin. Abnormal troponin in a patient with end-stage systolic heart failure usually reflects demand physiology. Acute coronary syndrome is not considered at this point. Had AMS and later had respiratory failure. Intubated and brought to [facility]/ICU. He is found to have acute/subacute CVA. Is being followed by Neurology. KI performed: no source for Emboli. Still, Positive Bubble study questions PFO (PFO itself could not be visualized: maybe too small). Still, there was no recent DVT also (negative venous duplex). Acute on chronic systolic heart failure Drug-induced cardiomyopathy CKD Polycythemia vera removal Diabetes mellitus Noncompliant with medication and followups Substance abuse AMS Acute/subacute CVA Cardiac suggestion for management: Manage in ICU IV diuresis Follow-up electrolytes and kidney function tests and correct abnormalities. Keep potassium above 4 and magnesium above 2 Entresto: 24/26 mg p.o. b.i.d. Aspirin: 81 mg daily suggested Heparin drip versus therapeutic Lovenox is suggested at this point High potency statin (atorvastatin at 40 mg daily) suggested Does have baseline history of elevated/chronically troponin. Abnormal troponin (flat trend) in a patient with end-stage systolic heart failure usually reflects demand physiology. Acute coronary syndrome is not considered at this point. Recognizing old history of significant heart failure and noncompliance, outcome is poor. Consider restarting hospice Lifestyle and risk factor modifications. Neurology follow up Consider Hematology evaluation for Hemoconcentration / Polycythemia Vera Further evaluation and management depends on the above and clinical course A total of 75 minutes was spent reviewing the patient record, examining the patient, making a diagnostic and therapeutic plan, discussing this plan with medical personnel, following up on diagnostic studies and following the patient for clinical stability excluding any and all procedures. At least 50% of this time was spent in direct, [id number] contact. Thank you for allowing me to participate in this patient's care. Further recommendations will depend on patient's clinical course. Please do not hesitate to contact me if you have any questions or concerns. This medical document was created using electronic medical record system with [employer] dictation system. Although this document has been carefully reviewed, there may still be some phonetic and typographical errors. These areas are purely typographical due to the imperfection of the software programs, and do not reflect any compromise in the patient's medical care. Dietary Evaluation Review Comments: 1) TF Glucerna 1.2Cal @ 70ml/hr x 24 hr along with Pro-stat 1 pk daily. Start @ 30ml/hr, increase 10ml/hr Q4H until goal rate is reached. Water flush 50ml Q4H TF goal volume along with Pro-stat & water flush provide 2016 kcal (100%), 116 gm protein (100%), and 1652ml free water 2) TPN if NPO>7 days 3) Advance diet as medically feasible 4) Continue current plan of care Expected Outcomes/Goals: To meet >75% estimated needs within 7 days Fu 2-3 days Plan discussed with: Other (nurse) GABRIEL LOPEZ MD Jun 05, 2024 06:46
[2024-06-05] MEDS ORDERED: VANCOMYCIN PER PHARMACY 0 MG IV SCH (09:45)
[2024-06-05] MEDS ORDERED: Glucerna 1.2 Cal 1Liter BOTTLE GT SCH (10:15)
--- NOTE | 2024-06-05 10:56 | DVHPN2 ---
Progress Note - Dictate Date Seen: Jun 05, 2024 Medical Necessity Reason Pt with a Central, PICC or Fol: Yes The following are medically ne: Ramirez Catheter Reason for ramirez catheter: Strict I&O vital signs Vital Sign Date Time Temp Pulse Resp B/P (MAP) Pulse Ox O2 Delivery O2 Flow Rate FiO2 06/05/24 10:05 105/66 06/05/24 09:34 87 16 100 30 06/05/24 08:00 Mechanical Ventilator+ 06/05/24 07:15 99.0 210.2 Total Intake and Output 06/04/24 06/04/24 06/05/24 15:00 23:00 07:00 Intake Total 838.75 ml 993.0 ml 773.0 ml Output Total 1925 ml 1900 ml Balance 838.75 ml -932.0 ml -1127.0 ml medications Current Medications Medications Dose Ordered Sig/Lei Route Start Time Stop Time Status Last Admin Dose Admin Acetaminophen/ Hydrocodone Bitart 1 tab Q4HP PRN PO 05/29/24 20:45 Ondansetron HCl 4 mg Q4HP PRN IV 05/29/24 20:45 05/30/24 03:54 4 MG Acetaminophen 650 mg Q6HP PRN PO 05/29/24 20:45 06/05/24 01:39 650 MG Morphine Sulfate 2 mg Q4HPRN PRN IV 05/29/24 20:45 Nitroglycerin 0.4 mg Q5MINP PRN SL 05/29/24 20:45 Morphine Sulfate 2 mg Q30M PRN IV 05/29/24 20:45 Pantoprazole Sodium 40 mg DAILY IV 05/30/24 10:00 06/05/24 09:57 40 MG Furosemide 40 mg BIDD IV 05/30/24 18:00 06/05/24 06:04 40 MG Sacubitril/ Valsartan 1 tab BID PO 05/30/24 10:00 Hold 06/03/24 22:03 1 TAB Aspirin 81 mg DAILY PO 05/30/24 10:00 06/05/24 09:58 81 MG Atorvastatin Calcium 40 mg HS PO 05/30/24 22:00 06/04/24 21:45 40 MG Midazolam HCl 50 ml @ 1 mls/hr Q24H IV 05/30/24 19:00 06/05/24 10:05 6 MLS/HR Fentanyl Citrate 250 ml @ 2.5 mls/hr Q24H IV 05/30/24 19:00 06/05/24 03:46 15 MLS/HR Enoxaparin Sodium 90 mg Q12HR SC 05/31/24 22:00 06/05/24 09:58 90 MG Sodium Chloride 1,000 ml @ 50 mls/hr Q20H IV 05/31/24 12:30 06/04/24 05:11 50 MLS/HR Ceftriaxone Sodium 50 ml @ 100 mls/hr DAILY@09 IV 06/01/24 07:30 06/05/24 09:55 100 MLS/HR Norepinephrine Bitartrate 250 ml @ 3.75 mls/hr Q24H IV 06/02/24 11:30 06/05/24 07:53 22.5 MLS/HR Sodium Chloride 10 ml QSHIFT@10,22 IV 06/02/24 22:00 06/05/24 09:57 10 ML Piperacillin Sod/ Tazobactam Sod 100 ml @ 25 mls/hr Q8HR IV 06/04/24 14:00 06/05/24 06:04 25 MLS/HR Diphenhydramine HCl 25 mg Q4HP PRN IV 06/04/24 10:45 06/04/24 13:28 25 MG Vancomycin HCl 0 ml @ 0 mls/hr UD IV 06/05/24 09:45 UNV Enteral Nutritional Formula 1,000 ml 70ML/HR GT 06/05/24 10:15 UNV Amino Acid Protein 30 ml DAILY PO 06/06/24 10:00 UNV objective General Appearance: alert, no distress HEENT: EOMI, PERRLA, normal external inspect of ears, no icterus, no nasal drainage Neck: no carotid bruit, no jugular venous distention (JVD), no lymphadenopathy Chest: normal thorax Respiratory: clear to auscultation, normal air movement Cardiovascular: regular rate and rhythm, no diastolic murmur, no jugular venous distention (JVD), no rub, no systolic murmur Abdominal: soft, no hepatomegaly, no mass, no splenomegaly, no tenderness Genitourinary: grossly normal external Musculoskeletal: no joint tenderness, no swelling Extremities: normal pulses, no calf tenderness, no clubbing, no cyanosis, no edema Skin: no bruising, no jaundice, no rash Neurological: alert, No focal deficit laboratory and microbiology Test 06/05/24 10:48 Range/Units Serum Glucose Pending Problem List 1. Acute CVA Monitor, neurology consult 2. Acute on chronic systolic heart failure Monitor, cardiology consult, heparin gtt 3. Drug induced cardiomyopathy Monitor, echocardiogram, cardiology consult 4. Elevated troponin - demand ischemia Monitor EKG, cardiology consult 5. Hx of methamphetamine abuse Monitor, urine drug screen 6. 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 Acute hypoxic respiratory failure Monitor, supplemental O2, ventilator management per pulmonary 8. Pneumonia Monitor, antibiotics, pulmonary consult 9. Acute cystitis Monitor, antibiotics 10. Bacteremia Monitor, continue antibiotics, ID consult. [40] minutes of critical care time were spent in evaluating the patient, reviewing the diagnostic data, discussing with the family. Assessment/Plan Subjective: Patient remains intubated and sedated. Objective: Patient was admitted on May 29, 2024 for severe sepsis related to pneumonia and UTI. Patient was found to be positive for methamphetamines. Patient patient had a change in mentation in the emergency room. Stat MRI was done and patient was found to have an acute CVA. Patient was seen and evaluated by neurology. Re peat cultures were done. Patient was found to have bacteremia. Patient was seen and evaluated by pulmonary and they are scheduling for a bronchoscopy today. Plan: Continue antibiotics as ordered by ID. Patient was initiated on vancomycin today. Ventilator management for pulmonary. Patient will need to be assessed by neurology once extubated. Monitor daily labs. Continued tube feeding as tolerated. Dietary Evaluation Review Comments: 1) TF Glucerna 1.2Cal @ 70ml/hr x 24 hr along with Pro-stat 1 pk daily. Start @ 30ml/hr, increase 10ml/hr Q4H until goal rate is reached. Water flush 50ml Q4H TF goal volume along with Pro-stat & water flush provide 2016 kcal (100%), 116 gm protein (100%), and 1652ml free water 2) TPN if NPO>7 days 3) Advance diet as medically feasible 4) Continue current plan of care Expected Outcomes/Goals: To meet >75% estimated needs within 7 days Fu 2-3 days Plan discussed with: Patient, Other JACKIE DILLON ATM TECHNICIAN Jun 05, 2024 10:56
[2024-06-05 11:04] LABS: Basophils # (auto) 0 10 ^3/uL (0-0.2); Basophils % (auto) 0.3 % (0.0-2.0); Eosinophils # (auto) 0.2 10 ^3/uL (0-0.8); Hemoglobin 19.7 g/dL (13.5-17.5); Mean Corpuscular Hgb Conc. 33.2 g/dL (32.0-36.0); Mean Corpuscular Volume 93.3 fL (80.0-100.0); Monocytes % (auto) 8.1 % (0.0-12.0); Neutrophils # (auto) 9.9 10 ^3/uL (1.6-8.6); Neutrophils % (auto) 81.6 % (37.0-80.0); Nucleated Red Blood Cells % 0.2 %; Platelet Count (auto) 288 10^3/uL (140-450); Red Blood Cells 6.35 10^6/uL (4.5-5.90); White Blood Cell 12.2 10^3/uL (4.4-10.8)
[2024-06-05 11:06] LABS: Hematocrit 59.3 % (41.0-53.0)
[2024-06-05 11:20] LABS: Alanine Aminotransferase 28 U/L (7-40); Albumin 3.7 g/dL (3.2-4.8); Anion Gap 9 (5-15); BUN/Creatinine Ratio 13.3 (10.0-20.0); Blood Urea Nitrogen 15 mg/dL (9-23); Calcium 9.3 mg/dL (8.7-10.4); Carbon Dioxide 27 mmol/L (20-31); Chloride 102 mmol/L (98-107); Magnesium 1.9 mg/dL (1.6-2.6); Potassium 3.6 mmol/L (3.5-5.1); Sodium 138 mmol/L (136-145); Total Protein 7.6 g/dL (5.7-8.2)
[2024-06-05 11:22] LABS: Alkaline Phosphatase 133 U/L (46-116); Aspartate Aminotransferase 81 U/L (13-40); Bilirubin, Total 1.2 mg/dL (0.2-1.0); Glucose 151 mg/dL (74-106)
--- NOTE | 2024-06-05 11:22 | DVHPN2 ---
Progress Note - Dictate Date Seen: Jun 05, 2024 Medical Necessity Reason Pt with a Central, PICC or Fol: Yes The following are medically ne: Ramirez Catheter Reason for ramirez catheter: Strict I&O Subjective Mr. Castillo is a 43 years old right-handed gentleman with a history of hypertension, diabetes, coronary artery disease, heart attack, congestive heart failure, polycythemia vera, cardiomyopathy, asthma, he came to the [facility] Emergency room on 05/29/2024 with a chief complaint of shortness breath, chest pain. I have seen and examined the patient, I have talked to his nurse. The eyes were closed, but there was strong resistance when I tried to open them Nurse reports the patient moved arms Fentanyl 150 mcg/hour, Versed 6 milligram/hour Levo: 12 mcg/min Urinalysis, 05/30/2024: WBC: <1, urine leukocyte esterase: Negative UDS, 05/30/2024, amphetamine, benzo CBC, 05/30/2024: Respiratory acidosis, 06/03/2024: Acidosis WBC/HB/PLT/MCV, 05/30/2024: 10.3/18.1/230/93.8, 06/03/2024: 18.1/19.2/275/95 PT/INR/PTT, 05/30/2024: 12.03/1016/47 05/31/2024: 11.9/1.14/65.5 BMP, 05/30/2024: Unremarkable BUN/CR, 06/03/2024: 26/1.47 TBI/AST/ALT/AP, 05/29/2024: 2.1/46/25/133, 06/03/2024: 1.4/60/15/122 NH3 06/03/24: 30 Troponin one high sensitivity, 05/29/2024: 529, 05/30/2024: 502, 526, TG/HDL/LDL/HDL, 05/30/2024: 62/148/113/36 KI, 06/03/24: 1. Left ventricle: Significant dilatation of Left ventricle with LVEF of around 10% was observed. Diffuse hypokinesis of left ventricle was seen. There was no intraventricular thrombus. . 2. Right ventricle: RV was dilated with reduced systolic function. 3. Left atrium: LA enlarged 4. Right atrium: RA enlarged 5. Mitral valve: Mild Mitral regurgitation, no significant stenosis, normal functioning valve. No vegetation was seen on Mitral valve. 6. Left atrial appendage: No evidence of thrombus. 7. Aortic valve: It was trileaflet. There was no stenosis. There was trace insufficiency. There was no vegetation seen in Aortic valve. 8. Pulmonic valve: Trivial pulmonic insufficiency. No significant stenosis. No vegetation was seen. 9. Tricuspid valve: Mild tricuspid regurgitation. There was no vegetation on Tricuspid valve. 10. Interatrial septum: Negative color flow for shunt was observed. Some bubbles crossed to left atria in favor of small PFO. 11. Pericardium: No significant effusion. 12. Thoracic aorta: No significant plaquing. Echocardiogram, 05/30/2024: Four-chamber dilatation was observed. Left ventricle: Left ventricle was significantly dilated with significantly reduced systolic function. Diffuse hypokinesis of left ventricle was seen. LVEF was 5-10%. LVEDP was assessed to be elevated. Right ventricle was dilated with reduced systolic function. Both atria were dilated. Aortic valve was not well visualized. There was mild aortic insufficiency. There was no aortic stenosis. There was trivial mitral regurgitation. There was mild tricuspid regurgitation. There was trivial pulmonary valve insufficiency. Right ventricular systolic pressure was assessed at 57 mm Hg. IVC was dilated with reduced respiratory variation. There was no pericardial effusion Carotid Doppler, 05/30/2024: No hemodynamically significant stenoses or occlusions identified. CT head, 05/30/2024 1107: No acute intracranial process CT head, 05/30/2024 1856: No abnormality demonstrated. The very small acute/subacute infarct in right frontal lobe and very small old cortical infarct in left parietal lobe seen on the MRI study from earlier the same day are not evident on CT MRI head, 05/30/2024 1041: Small focus of restricted diffusion in the anterior right centrum semiovale likely representing small acute to subacute infarct. There is no evidence of acute hemorrhage (I saw a small DWI lesion in the left cerebellum hemisphere with ADC correlation) MRI head, 05/31/2024: 1. Redemonstration of subcentimeter focus of acute ischemia in the left cerebellar lobe. No intracranial hemorrhage. 2. Redemonstration of subcentimeter focus of DWI hyperintense signal in the right frontal centrum semiovale without corresponding abnormal ADC signal reflecting T2 shine through. No evidence of acute ischemia. 3. Subcentimeter foci abnormal signal in the bilateral cerebellar lobes may reflect chronic infarcts or underlying lesions. Further evaluation with MRI with IV contrast is recommended. 4. 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 vital signs Vital Sign Date Time Temp Pulse Resp B/P (MAP) Pulse Ox O2 Delivery O2 Flow Rate FiO2 06/05/24 10:05 105/66 06/05/24 09:34 87 16 100 30 06/05/24 08:00 Mechanical Ventilator+ 06/05/24 07:15 99.0 210.2 Total Intake and Output 06/04/24 06/04/24 06/05/24 15:00 23:00 07:00 Intake Total 838.75 ml 993.0 ml 773.0 ml Output Total 1925 ml 1900 ml Balance 838.75 ml -932.0 ml -1127.0 ml medications Current Medications Medications Dose Ordered Sig/Lei Route Start Time Stop Time Status Last Admin Dose Admin Acetaminophen/ Hydrocodone Bitart 1 tab Q4HP PRN PO 05/29/24 20:45 Ondansetron HCl 4 mg Q4HP PRN IV 05/29/24 20:45 05/30/24 03:54 4 MG Acetaminophen 650 mg Q6HP PRN PO 05/29/24 20:45 06/05/24 01:39 650 MG Morphine Sulfate 2 mg Q4HPRN PRN IV 05/29/24 20:45 Nitroglycerin 0.4 mg Q5MINP PRN SL 05/29/24 20:45 Morphine Sulfate 2 mg Q30M PRN IV 05/29/24 20:45 Pantoprazole Sodium 40 mg DAILY IV 05/30/24 10:00 06/05/24 09:57 40 MG Furosemide 40 mg BIDD IV 05/30/24 18:00 06/05/24 06:04 40 MG Sacubitril/ Valsartan 1 tab BID PO 05/30/24 10:00 Hold 06/03/24 22:03 1 TAB Aspirin 81 mg DAILY PO 05/30/24 10:00 06/05/24 09:58 81 MG Atorvastatin Calcium 40 mg HS PO 05/30/24 22:00 06/04/24 21:45 40 MG Midazolam HCl 50 ml @ 1 mls/hr Q24H IV 05/30/24 19:00 06/05/24 10:05 6 MLS/HR Fentanyl Citrate 250 ml @ 2.5 mls/hr Q24H IV 05/30/24 19:00 06/05/24 03:46 15 MLS/HR Enoxaparin Sodium 90 mg Q12HR SC 05/31/24 22:00 06/05/24 09:58 90 MG Sodium Chloride 1,000 ml @ 50 mls/hr Q20H IV 05/31/24 12:30 06/04/24 05:11 50 MLS/HR Ceftriaxone Sodium 50 ml @ 100 mls/hr DAILY@09 IV 06/01/24 07:30 06/05/24 09:55 100 MLS/HR Norepinephrine Bitartrate 250 ml @ 3.75 mls/hr Q24H IV 06/02/24 11:30 06/05/24 07:53 22.5 MLS/HR Sodium Chloride 10 ml QSHIFT@10,22 IV 06/02/24 22:00 06/05/24 09:57 10 ML Piperacillin Sod/ Tazobactam Sod 100 ml @ 25 mls/hr Q8HR IV 06/04/24 14:00 06/05/24 06:04 25 MLS/HR Diphenhydramine HCl 25 mg Q4HP PRN IV 06/04/24 10:45 06/04/24 13:28 25 MG Vancomycin HCl 0 ml @ 0 mls/hr UD IV 06/05/24 09:45 UNV Enteral Nutritional Formula 1,000 ml 70ML/HR GT 06/05/24 10:15 Amino Acid Protein 30 ml DAILY PO 06/06/24 10:00 objective The patient is well-nourished and well-developed with no distress. The patient is intubated MENTAL STATUS: Subjective CRANIAL NERVES: Pupils are equal, round and reactive.There are corneal reflexes and doll's eyes phenomenon. No signs of facial weakness. There are gagging or coughing reflexes SENSATION: Responses to pain stimuli. MOTOR: Normal tone in the upper and lower extremity. Normal muscle bulk. No fasciculations. No spontaneous movement. REFLEXES: Deep tendon reflexes are symmetrical. No pathological reflexes. CEREBELLAR/COORDINATION: Deferred GAIT/STATION: deferred laboratory and microbiology Laboratory Tests 06/05/24 10:48 Test 06/05/24 10:48 Range/Units Serum Glucose Pending Problem List Altered mental status More strokes Metabolic encephalopathy/hepatic encephalopathy ? Status epileptics Elevated troponin one/heart attack Multiple strokes Cardiomyopathy Congestive heart failure A spell of nonresponsiveness on 05/30/2024 ? Syncope triggered by coughing/arrhythmia ? Seizure activity Heart failure ? Small PFO Assessment/Plan Monitoring Supportive treatments ICU care EEG Stabilize vitals Respiratory support/vent management Lovenox 90 mg subQ b.i.d. Aspirin 81 mg daily Lipitor 40 mg daily IV antibiotics GI prophylax/Protonix More recommendation per clinical course This medical document was created using an electronic medical record system with [employer] dictation system. Although this document has been carefully reviewed, there may still be some phonetic and typographical errors. These areas are purely typographical due to imperfections of the software programs, and do not reflect any compromise in the patient's medical care Prognosis guarded Dietary Evaluation Review Comments: 1) TF Glucerna 1.2Cal @ 70ml/hr x 24 hr along with Pro-stat 1 pk daily. Start @ 30ml/hr, increase 10ml/hr Q4H until goal rate is reached. Water flush 50ml Q4H TF goal volume along with Pro-stat & water flush provide 2016 kcal (100%), 116 gm protein (100%), and 1652ml free water 2) TPN if NPO>7 days 3) Advance diet as medically feasible 4) Continue current plan of care Expected Outcomes/Goals: To meet >75% estimated needs within 7 days Fu 2-3 days Plan discussed with: Other ZEKE REYNOLDS MD Jun 05, 2024 11:22
[2024-06-05] MEDS: POTASSIUM EFFERVESENT TAB 25 MEQ PO ONE (15:27)
[2024-06-05] MEDS: MAGNESIUM SULFATE 1GM/100ML 100 ML IV SCH (15:27)
[2024-06-05] MEDS: VANCOMYCIN 1GM/200ML PM 250 ML IV SCH (15:28)
--- NOTE | 2024-06-05 19:52 | DVHPN2 ---
Progress Note - Dictate Date Seen: Jun 05, 2024 Medical Necessity Reason Pt with a Central, PICC or Fol: Yes The following are medically ne: Ramirez Catheter Reason for ramirez catheter: Strict I&O Subjective Patient seen and examined at bedside. Sedated, intubated on mechanical ventilator. Overnight events reviewed. vital signs Vital Sign Date Time Temp Pulse Resp B/P (MAP) Pulse Ox O2 Delivery O2 Flow Rate FiO2 06/05/24 18:56 105/69 06/05/24 17:50 92 16 100 30 06/05/24 16:15 99.9 211.8 06/05/24 16:00 Mechanical Ventilator+ Total Intake and Output 06/04/24 06/04/24 06/05/24 15:00 23:00 07:00 Intake Total 838.75 ml 993.0 ml 823.0 ml Output Total 1925 ml 1900 ml Balance 838.75 ml -932.0 ml -1077.0 ml medications Current Medications Medications Dose Ordered Sig/Lei Route Start Time Stop Time Status Last Admin Dose Admin Acetaminophen/ Hydrocodone Bitart 1 tab Q4HP PRN PO 05/29/24 20:45 Ondansetron HCl 4 mg Q4HP PRN IV 05/29/24 20:45 05/30/24 03:54 4 MG Acetaminophen 650 mg Q6HP PRN PO 05/29/24 20:45 06/05/24 01:39 650 MG Morphine Sulfate 2 mg Q4HPRN PRN IV 05/29/24 20:45 Nitroglycerin 0.4 mg Q5MINP PRN SL 05/29/24 20:45 Morphine Sulfate 2 mg Q30M PRN IV 05/29/24 20:45 Pantoprazole Sodium 40 mg DAILY IV 05/30/24 10:00 06/05/24 09:57 40 MG Furosemide 40 mg BIDD IV 05/30/24 18:00 06/05/24 17:57 40 MG Sacubitril/ Valsartan 1 tab BID PO 05/30/24 10:00 Hold 06/03/24 22:03 1 TAB Aspirin 81 mg DAILY PO 05/30/24 10:00 06/05/24 09:58 81 MG Atorvastatin Calcium 40 mg HS PO 05/30/24 22:00 06/04/24 21:45 40 MG Midazolam HCl 50 ml @ 1 mls/hr Q24H IV 05/30/24 19:00 06/05/24 17:56 6 MLS/HR Fentanyl Citrate 250 ml @ 2.5 mls/hr Q24H IV 05/30/24 19:00 06/05/24 18:56 17.5 MLS/HR Enoxaparin Sodium 90 mg Q12HR SC 05/31/24 22:00 06/05/24 09:58 90 MG Sodium Chloride 1,000 ml @ 50 mls/hr Q20H IV 05/31/24 12:30 06/05/24 14:17 50 MLS/HR Ceftriaxone Sodium 50 ml @ 100 mls/hr DAILY@09 IV 06/01/24 07:30 06/05/24 09:55 100 MLS/HR Norepinephrine Bitartrate 250 ml @ 3.75 mls/hr Q24H IV 06/02/24 11:30 06/05/24 07:53 22.5 MLS/HR Sodium Chloride 10 ml QSHIFT@10,22 IV 06/02/24 22:00 06/05/24 09:57 10 ML Piperacillin Sod/ Tazobactam Sod 100 ml @ 25 mls/hr Q8HR IV 06/04/24 14:00 06/05/24 14:17 25 MLS/HR Diphenhydramine HCl 25 mg Q4HP PRN IV 06/04/24 10:45 06/04/24 13:28 25 MG Vancomycin HCl 0 ml @ 0 mls/hr UD IV 06/05/24 09:45 Enteral Nutritional Formula 1,000 ml 70ML/HR GT 06/05/24 10:15 Amino Acid Protein 30 ml DAILY PO 06/06/24 10:00 objective Gen.: Patient lying in bed in medical ICU. Sedated, intubated on mechanical ventilator. Head: Normocephalic, atraumatic. Eyes: PERRLA. Ears: Normal external anatomy. Throat: Endotracheal tube and orogastric tube in place. Neck: Supple, trachea midline. Chest: Transmitted breath sounds bilaterally. Decreased air entry bilaterally. No wheezing. Bibasilar crackles. Cardiovascular: Positive S1, positive S2. Regular rate and rhythm. Abdomen: Positive bowel sounds in all 4 quadrants. Soft, nontender, nondistended. : Rmairez in place. Normal external genitalia. Rectal: Deferred. Skin: Warm, dry. Intact. Extremities: 2+ radial pulses bilaterally. No lower extremity edema. Neuro: Sedated. laboratory and microbiology Laboratory Tests 06/05/24 10:48 Test 06/05/24 10:48 Range/Units Serum Glucose 151 H 74-106 mg/dL Assessment/Plan Impression: Acute hypoxic respiratory failure On mechanical ventilator Pulmonary hypertension, RVSP 57 mmHg ( Echo with LVEF of 5% to 10%) Atelectasis Acute CVA Acute on chronic systolic heart failure Drug induced cardiomyopathy Elevated troponin Polysubstance abuse Medical non-compliance Events: Remains on vent support On AC mode; RR 16, VT 500, PEEP 5, FiO2 100% Increased FiO2 requirements Sedated on Versed, Fentanyl Pressors for hemodynamic support On Levophed Titrate to keep mean arterial pressure greater than 65 mmHg S/p therapeutic bronchoscopy with BAL for clearing of secretions. Please see procedure note for details Follow up BAL cultures Continue antibiotics - started vancomycin Follow up blood cultures Follow up ID recommendations Follow up Hematology recommendations for polycythemia vera. Maintain euvolemia w/ Lasix BID Monitor renal function Monitor electrolytes. Supplement as necessary. Magnesium supplementation Monitor ins and outs. Poor EF Status post KI Cardiology recs appreciated ABG reviewed, compensated CXR reviewed, demonstrates cardiomegaly with mild congestion. Taper sedation as tolerated CPAP in the AM Labs and imaging reviewed. Rest of plan as noted below. Plan: s/p intubation on mechanical ventilator. On AC mode; RR 16, VT 500, PEEP 5, FiO2 100% Titrate FIO2 to keep O2 saturation above 90%. VAP bundle. Daily ABG and CXR while intubated Sedate for ventilator synchrony Pulmonary hypertension, RVSP 57 mmHg - Echo showing LVEF of 5% to 10%. On statin Cardiology recs appreciated Elevated troponin - Heparin drip discontinued. MRI head shows no evidence of acute ischemia Pressors as necessary for hemodynamic support Titrate to keep mean arterial pressure greater than 65 mmHg IV fluids with NS at 50 ml/hr. Diurese as tolerated w/ Lasix BID Monitor renal function Monitor electrolytes. Supplement as necessary. Monitor ins and outs. GI prophylaxis - Protonix. DVT prophylaxis - Lovenox SC. Prognosis: Poor given patient's multiple co-morbidities. Condition: Critical Rest of plan per hospitalist and other consultants. A total of 35 minutes of critical care time was spent reviewing the patient record, examining the patient, making a diagnostic and therapeutic plan, discussing this plan with the medical personnel, following up on diagnostic studies and following the patient for clinical stability excluding any and all procedures. At least 50% of this time was spent in direct, [id number] contact. Thank you, BRANDIN Albright, for allowing me to participate in this patient's care. Further recommendations will depend on the patient's clinical course. Please do not hesitate to contact me if you have any questions or concerns. This medical document was created using an electronic medical record system with [employer] dictation system. Although these documentations are being carefully reviewed, there may still be some phonetic and typographical changes. The errors are purely typographical, due to imperfection on the software program, and do not reflect any compromise in the patient's medical care. Dietary Evaluation Review Comments: 1) TF Glucerna 1.2Cal @ 70ml/hr x 24 hr along with Pro-stat 1 pk daily. Start @ 30ml/hr, increase 10ml/hr Q4H until goal rate is reached. Water flush 50ml Q4H TF goal volume along with Pro-stat & water flush provide 2016 kcal (100%), 116 gm protein (100%), and 1652ml free water 2) TPN if NPO>7 days 3) Advance diet as medically feasible 4) Continue current plan of care Expected Outcomes/Goals: To meet >75% estimated needs within 7 days Fu 2-3 days Plan discussed with: Other (HONG Gonzalez) Critical Care Time(min): 35 NATALIO MÁRQUEZ MD Jun 05, 2024 19:52
--- NOTE | 2024-06-05 19:54 | DVHNC2 ---
Procedure - Bronchoscopy procedure note: Indications: Increased ET tube secretions, Possible mucous plugging. Medicines: See [employer]ESSOR notes. Complications: None Procedure: Patient medications and allergies reviewed. The risks and benefits of the procedure and the sedation options and risk were discussed with the patient's healthcare proxy. All questions were answered and informed consent was obt ained. Patient identification and proposed procedure were verified prior to the procedure by the physician, and a nurse, and the respiratory therapist in ICU room. The heart rate, respiratory rate, oxygen saturations, blood pressure, adequacy of pulmonary ventilation, and response to care were monitored throughout the procedure. The physical status of the patient was reassessed after the procedure. After obtaining informed consent, the bronchoscope was introduced through the endotracheal tube and advanced into the trachea bronchial tree of both lungs. The procedure was accomplished without difficulty. The patient tolerated the procedure well. Findings: The trachea is in normal caliber. The nicola is sharp. The tracheobronchial t ree of the right lung was examined to at least the first subsegmental level. The bronchial mucosa and anatomy in the right lung are normal. There are no endobronchial lesions. There was copious whitish secretions from right main stem bronchus onward throughout R6-R10. Right lower lobe (RLL) Bronchoalveolar lavage (BAL) obtained. RLL BAL sent for gram stain and culture. The left upper lobe, lingula, and left lower lobe were examined to at least the first subsegmental level. Bronchial mucosa and anatomy in the left upper lobe and lingula are normal. There were no endobronchial lesions. There was copious whitish secretions from left main stem bronchus onward throughout L6-L10. Mucous plugging removed from L6-L10. There was no active bleeding at the completion of the procedure. Estimated blood loss: Less than 5 mL. Impression: Right and Left lower lobe atelectasis due to mucous plugging Mucous plugging from L6-L10 and R6-R10 RLL BAL performed Recommendation: Follow-up RLL BAL results. Procedure codes: 47035, bronchoscopy, rigid and flexible, including fluoroscopic guidance, one performed; with bronchial endobronchial broncho-alveolar lavage, single or multiple sites NATALIO MÁRQUEZ MD Jun 05, 2024 19:54
[2024-06-06] VITALS (99 sets, daily range): BP systolic 76–130; BP diastolic 48–92; PULSE 69–111; RESP 15–29; TEMP 94.1–102; O2SAT 78–100
[2024-06-06] MEDS: DEXMEDETOMIDINE HCL IN D5W 100 ML IV SCH (02:47)
[2024-06-06 05:45] LABS: Lymphocytes # (auto) 1.2 10 ^3/uL (0.4-5.4); Neutrophils % (auto) 76.6 % (37.0-80.0); Platelet Count (auto) 260 10^3/uL (140-450)
[2024-06-06 05:48] LABS: Basophils # (auto) 0.1 10 ^3/uL (0-0.2); Basophils % (auto) 0.5 % (0.0-2.0); Eosinophils # (auto) 0.3 10 ^3/uL (0-0.8); Eosinophils % (auto) 2.9 % (0.0-7.0); Hematocrit 55.4 % (41.0-53.0); Hemoglobin 18.6 g/dL (13.5-17.5); Lymphocytes % (auto) 10.9 % (10.0-50.0); Mean Corpuscular Hemoglobin 31.6 pg (28.0-32.0); Mean Corpuscular Hgb Conc. 33.5 g/dL (32.0-36.0); Mean Corpuscular Volume 94.2 fL (80.0-100.0); Monocytes % (auto) 9.1 % (0.0-12.0); Neutrophils # (auto) 8.6 10 ^3/uL (1.6-8.6); Nucleated Red Blood Cells % 0.1 %; Red Blood Cells 5.88 10^6/uL (4.5-5.90); White Blood Cell 11.2 10^3/uL (4.4-10.8)
--- NOTE | 2024-06-06 05:57 | DVH ---
CHEST RADIOGRAPH Indication: s/p bronchoscopy Technique: Single frontal view of the chest was obtained Comparison: XY CHEST PORTABLE on DOS: 06/05/24 FINDINGS: Lines and Tubes: The endotracheal tube terminates 5.6 cm above the nicola. Right PICC terminates in t he right atrium. The enteric tube courses below the left hemidiaphragm and the tip extends outside t he field of view. Lungs: Mild pulmonary congestion. Pleura: No effusion. No pneumothorax. Cardiomediastinal contours: Cardiomegaly. Bones: No acute osseous abnormality. IMPRESSION: 1. Mild pulmonary congestion. 2. Cardiomegaly.
[2024-06-06 06:14] LABS: Alanine Aminotransferase 25 U/L (7-40); Albumin 3.5 g/dL (3.2-4.8); Anion Gap 9 (5-15); BUN/Creatinine Ratio 12.3 (10.0-20.0); Blood Urea Nitrogen 16 mg/dL (9-23); Calcium 9.2 mg/dL (8.7-10.4); Carbon Dioxide 26 mmol/L (20-31); Chloride 101 mmol/L (98-107); Magnesium 2.2 mg/dL (1.6-2.6); Potassium 3.9 mmol/L (3.5-5.1); Sodium 136 mmol/L (136-145); Total Protein 7.3 g/dL (5.7-8.2)
[2024-06-06 06:15] LABS: Phosphorus 3.8 mg/dL (2.4-5.1)
[2024-06-06 06:17] LABS: Alkaline Phosphatase 136 U/L (46-116); Aspartate Aminotransferase 75 U/L (13-40); Bilirubin, Total 1.3 mg/dL (0.2-1.0); Glucose 132 mg/dL (74-106)
--- NOTE | 2024-06-06 06:46 | DVHPN2 ---
Progress Note - Dictate Date Seen: Jun 06, 2024 Medical Necessity Reason Pt with a Central, PICC or Fol: Yes The following are medically ne: Ramirez Catheter Reason for ramirez catheter: Strict I&O vital signs Vital Sign Date Time Temp Pulse Resp B/P (MAP) Pulse Ox O2 Delivery O2 Flow Rate FiO2 06/06/24 06:15 98.8 74 16 90/58 (69) 99 209.8 06/06/24 06:00 Mechanical Ventilator+ 30 30 Total Intake and Output 06/05/24 06/05/24 06/06/24 15:00 23:00 07:00 Intake Total 893.00 ml 1686.75 ml 488.50 ml Output Total 1250 ml 1200 ml Balance 893.00 ml 436.75 ml -711.50 ml medications Current Medications Medications Dose Ordered Sig/Lei Route Start Time Stop Time Status Last Admin Dose Admin Acetaminophen/ Hydrocodone Bitart 1 tab Q4HP PRN PO 05/29/24 20:45 Ondansetron HCl 4 mg Q4HP PRN IV 05/29/24 20:45 05/30/24 03:54 4 MG Acetaminophen 650 mg Q6HP PRN PO 05/29/24 20:45 06/06/24 00:36 650 MG Morphine Sulfate 2 mg Q4HPRN PRN IV 05/29/24 20:45 Nitroglycerin 0.4 mg Q5MINP PRN SL 05/29/24 20:45 Morphine Sulfate 2 mg Q30M PRN IV 05/29/24 20:45 Pantoprazole Sodium 40 mg DAILY IV 05/30/24 10:00 06/05/24 09:57 40 MG Furosemide 40 mg BIDD IV 05/30/24 18:00 06/06/24 05:20 40 MG Sacubitril/ Valsartan 1 tab BID PO 05/30/24 10:00 Hold 06/03/24 22:03 1 TAB Aspirin 81 mg DAILY PO 05/30/24 10:00 06/05/24 09:58 81 MG Atorvastatin Calcium 40 mg HS PO 05/30/24 22:00 06/05/24 21:25 40 MG Midazolam HCl 50 ml @ 1 mls/hr Q24H IV 05/30/24 19:00 06/06/24 00:35 6 MLS/HR Fentanyl Citrate 250 ml @ 2.5 mls/hr Q24H IV 05/30/24 19:00 06/05/24 18:56 17.5 MLS/HR Enoxaparin Sodium 90 mg Q12HR SC 05/31/24 22:00 06/05/24 21:26 90 MG Sodium Chloride 1,000 ml @ 50 mls/hr Q20H IV 05/31/24 12:30 06/05/24 14:17 50 MLS/HR Ceftriaxone Sodium 50 ml @ 100 mls/hr DAILY@09 IV 06/01/24 07:30 06/05/24 09:55 100 MLS/HR Norepinephrine Bitartrate 250 ml @ 3.75 mls/hr Q24H IV 06/02/24 11:30 06/06/24 00:36 11.25 MLS/HR Sodium Chloride 10 ml QSHIFT@10,22 IV 06/02/24 22:00 06/05/24 21:29 10 ML Piperacillin Sod/ Tazobactam Sod 100 ml @ 25 mls/hr Q8HR IV 06/04/24 14:00 06/06/24 05:21 25 MLS/HR Diphenhydramine HCl 25 mg Q4HP PRN IV 06/04/24 10:45 06/04/24 13:28 25 MG Vancomycin HCl 0 ml @ 0 mls/hr UD IV 06/05/24 09:45 Enteral Nutritional Formula 1,000 ml 70ML/HR GT 06/05/24 10:15 Amino Acid Protein 30 ml DAILY PO 06/06/24 10:00 laboratory and microbiology Laboratory Tests 06/06/24 05:09 Test 06/06/24 05:09 Range/Units Serum Glucose 132 H 74-106 mg/dL Assessment/Plan Intubated and in [facility]/ICU. He is found to have acute/subacute CVA Patient is a 43-year-old gentleman who presented with few weeks of worsening shortness of breath/generalized swelling/nausea/and some diarrhea. He is known to have systolic heart failure. He has ran out of his medications for the past few weeks. He mentions that he was on hospice before hand and he wanted to come off of it. He does have baseline history of methamphetamine abuse and mentions that he used it few days ago. He does have baseline history of noncompliance with medication and followups. Previously he was homeless. Now he says that she is renting a place. Cardiology was involved for cardiac aspects of care. It is of note that the patient does have chronic elevated troponin from prior admissions. Intubated, No JVD. Mucosa is pink and wet. Scattered crackles in the lungs is heard. Cardiac: Regular, no thrill. Systolic murmur 3/6 in apex is heard. History gallop is heard. Abdomen is soft and mildly distended. Bowel sound is positive. There is no abdominal tenderness. Questionable hepatomegaly can not be elicited. Extremities reveal 2+ edema bilaterally. Dorsalis pedis is 2+ bilateral. Past medical history includes diabetes mellitus, hypertension, systolic heart failure, polycythemia vera (as per patient), asthma, CKD, history of substance abuse cardiomyopathy, history of meth abuse and also history of chronic elevated troponin. Previously he was homeless. Previously he was on hospice. Echocardiogram of December 08, 2023 revealed four-chamber dilatation, ejection fraction of 5-10%, mild mitral regurgitation and tricuspid regurgitation. Hemoglobin: 19.5 - 18.1 - 18.2 - 17.2 - 18.9 - 20.1 - 19.2 - 19.3 - 18.6 Creatinine: 1.20 - 1.06 - 1.09 - 1.15 - 1.45 - 1.23 - 1.47 - 1.15 - 1.13 - 1.30 Potassium: 4.1 - 3.6 - 3.8 - 4.1 - 4.5 - 3.9 - 3.7 - 3.8 - 3.6 - 3.9 BNP: 641.20 Troponin (high sensitive): 529 - 502 - 526 - 486 - 422 - 436 - 437 D-dimer: 0.32 Urine tox was positive for Amphetamine and Benzodiazepine Chest x-ray revealed: IMPRESSION: Cardiomegaly with increased interstitial prominence which may be due to CHF and/or reactive airways disease. Repeat chest xry revealed: Endotracheal tube is in good position of the level of the clavicles. Nasogastric tube is in the stomach. There is cardiomegaly with an enlarged left ventricle. There is significant pulmonary vascular congestion. Impression congestive heart failure pattern. If patient has not had a recent cardiac echo I would recommend cardiac echo Repeat chest xry revealed: IMPRESSION: 1. congestive heart failure pattern. Repeat chest xry revealed: FINDINGS: Lines and Tubes: Endotracheal tube and enteric catheter in satisfactory position. Lungs: Patchy bilateral airspace disease Pleura: No effusion. No pneumothorax. Cardiomediastinal contours: Cardiomegaly Bones: Unremarkable IMPRESSION: Lines and tubes in satisfactory position. No significant interval change. Repeat chest xry revealed: IMPRESSION: Lines and tubes in satisfactory position. No significant interval change. Repeat chest xry revealed: IMPRESSION: Cardiomegaly with mild congestion. Repeat chest xry revealed: IMPRESSION: Lines and tubes in satisfactory position. No significant interval change. Repeat chest xry revealed: IMPRESSION: Cardiomegaly with mild congestion. Repeat chest xry revealed: IMPRESSION: 1. Mild pulmonary congestion. 2. Cardiomegaly. MRI of brain revealed: 1. Small focus of restricted diffusion in the anterior right centrum semiovale likely representing small acute to subacute infarct. There is no evidence of acute hemorrhage. Repeat MRI of brain revealed: IMPRESSION: 1. Redemonstration of subcentimeter focus of acute ischemia in the left cerebellar lobe. No intracranial hemorrhage. 2. Redemonstration of subcentimeter focus of DWI hyperintense signal in the right frontal centrum semiovale without corresponding abnormal ADC signal reflecting T2 shine through. No evidence of acute ischemia. 3. Subcentimeter foci abnormal signal in the bilateral cerebellar lobes may reflect chronic infarcts or underlying lesions. Further evaluation with MRI with IV contrast is recommended. 4. 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. CT of head revealed: IMPRESSION: 1. No acute intracranial process. Repeat CT of head revealed: IMPRESSION: No abnormality demonstrated. The very small acute/subacute infarct in right frontal lobe and very small old cortical infarct in left parietal lobe seen on the MRI study from earlier the same day are not evident on CT. Carotid ultrasound revealed: IMPRESSION: No hemodynamically significant stenoses or occlusions identified. Chest CT revealed: IMPRESSION: 1. Cardiomegaly. 2. Scattered coronary artery calcifications 3. Endotracheal tube in place terminating above the nicola. 4. Enteric tube in the stomach. Lower ext venous duplex revealed: IMPRESSION: No sonographic evidence of deep venous thrombosis in either lower extremity at this time. Right upper ext venous ultrasound revealed: IMPRESSION: No sonographic evidence of deep venous thrombosis in either upper extremity at this time. Renal Ultrasound revealed: IMPRESSION: 1. Left renal atrophy. No intrarenal calculi. Tele reveals sinus rhythm Echocardiogram revealed: Four-chamber dilatation was observed. Left ventricle: Left ventricle was significantly dilated with significantly reduced systolic function. Diffuse hypokinesis of left ventricle was seen. LVEF was 5-10%. LVEDP was assessed to be elevated. Right ventricle was dilated with reduced systolic function. Both atria were dilated. Aortic valve was not well visualized. There was mild aortic insufficiency. There was no aortic stenosis. There was trivial mitral regurgitation. There was mild tricuspid regurgitation. There was trivial pulmonary valve insufficiency. Right ventricular systolic pressure was assessed at 57 mm Hg. IVC was dilated with reduced respiratory variation. There was no pericardial effusion KI: Severe dilatation of LV with reduced LV systolic function. No Cardiac source for Emboli. Positive bubble study questions small PFO (PFO itself could not be visualized) Patient is a 43-year-old gentleman who presented with weeks of worsening shortness of breath cough/nausea and vomiting. Does have baseline history of systolic heart failure. Has been noncompliant with medication and followups. Acute on chronic systolic heart failure could have contributed to the clinical picture. Does have baseline history of methamphetamine abuse which could have contributed to the clinical picture. He is noncompliant with medication and followups which could have contributed to the clinical picture. Does have baseline history of elevated/chronically troponin. Abnormal troponin in a patient with end-stage systolic heart failure usually reflects demand physiology. Acute coronary syndrome is not considered at this point. Had AMS and later had respiratory failure. Intubated and brought to [facility]/ICU. He is found to have acute/subacute CVA. Is being followed by Neurology. KI performed: no source for Emboli. Still, Positive Bubble study questions PFO (PFO itself could not be visualized: maybe too small). Still, there was no recent DVT also (negative venous duplex). Acute on chronic systolic heart failure Drug-induced cardiomyopathy CKD Polycythemia vera removal Diabetes mellitus Noncompliant with medication and followups Substance abuse AMS Acute/subacute CVA Cardiac suggestion for management: Manage in ICU IV diuresis Follow-up electrolytes and kidney function tests and correct abnormalities. Keep potassium above 4 and magnesium above 2 Entresto: 24/26 mg p.o. b.i.d. (for now on hold secondary to hypotension and need for pressure support) Aspirin: 81 mg daily suggested Heparin drip versus therapeutic Lovenox is suggested at this point High potency statin (atorvastatin at 40 mg daily) suggested Does have baseline history of elevated/chronically troponin. Abnormal troponin (flat trend) in a patient with end-stage systolic heart failure usually reflects demand physiology. Acute coronary syndrome is not considered at this point. Recognizing old history of significant heart failure and noncompliance, outcome is poor. Consider restarting hospice Lifestyle and risk factor modifications. Neurology follow up Consider Hematology evaluation for Hemoconcentration / Polycythemia Vera Further evaluation and management depends on the above and clinical course A total of 75 minutes was spent reviewing the patient record, examining the patient, making a diagnostic and therapeutic plan, discussing this plan with medical personnel, following up on diagnostic studies and following the patient for clinical stability excluding any and all procedures. At least 50% of this time was spent in direct, [id number] contact. Thank you for allowing me to participate in this patient's care. Further recommendations will depend on patient's clinical course. Please do not hesitate to contact me if you have any questions or concerns. This medical document was created using electronic medical record system with [employer] computerized dictation system. Although this document has been carefully reviewed, there may still be some phonetic and typographical errors. These areas are purely typographical due to the imperfection of the software programs, and do not reflect any compromise in the patient's medical care. Dietary Evaluation Review Comments: 1) TF Glucerna 1.2Cal @ 70ml/hr x 24 hr along with Pro-stat 1 pk daily. Start @ 30ml/hr, increase 10ml/hr Q4H until goal rate is reached. Water flush 50ml Q4H TF goal volume along with Pro-stat & water flush provide 2016 kcal (100%), 116 gm protein (100%), and 1652ml free water 2) TPN if NPO>7 days 3) Advance diet as medically feasible 4) Continue current plan of care Expected Outcomes/Goals: To meet >75% estimated needs within 7 days Fu 2-3 days Plan discussed with: Other (nurse) GABRIEL LOPEZ MD Jun 06, 2024 06:46
--- NOTE | 2024-06-06 07:14 | DVHINCON2 ---
Date of service: Jun 04, 2024 Allergies: Coded Allergies: Penicillins (Verified Allergy, Unknown, 02/11/23) Uncoded Allergies: IV CONTRAST (Allergy, Severe, HIVES AND VOMITING. , 06/01/24) Home Meds Reported Medications Potassium Chloride (K-Tabs) 10 Meq Tab, 1 TAB PO DAILY 02/11/23 Spironolactone (Spironolactone) 25 Mg Tab, 1 TAB PO DAILY 02/11/23 Furosemide (Furosemide) 40 Mg Tab, 1 TAB PO BID 02/11/23 Lisinopril (Lisinopril) 2.5 Mg Tab, 1 TAB PO DAILY 02/11/23 Current Medications Current Medications Medications (Trade) Dose Ordered Sig/Lei Route PRN Reason Start Time Stop Time Status Last Admin Vancomycin HCl 0 ml @ 0 mls/hr UD IV 06/05/24 09:45 Enteral Nutritional Formula (Glucerna 1.2 Benedict) 1,000 ml 70ML/HR GT 06/05/24 10:15 Amino Acid Protein (Pro-Stat Sugar Free) 30 ml DAILY PO 06/06/24 10:00 Vancomycin HCl 250 ml @ 250 mls/hr Q1H IV 06/05/24 13:15 06/05/24 15:14 DC 06/05/24 16:50 Magnesium Sulfate/ Dextrose 100 ml @ 100 mls/hr Q1HR IV 06/05/24 15:00 06/05/24 16:59 DC 06/05/24 16:50 Vital Signs Vital Signs Date Time Temp Pulse Resp B/P (MAP) Pulse Ox O2 Delivery O2 Flow Rate FiO2 06/06/24 06:41 73 16 93/60 (71) 100 30 06/06/24 06:15 98.8 209.8 06/06/24 06:00 Mechanical Ventilator+ Labs/Diagnostic Data Labs Test 06/06/24 05:09 06/05/24 07:38 06/03/24 17:56 06/03/24 10:20 Range/Units White Blood Count 11.2 H 4.4-10.8 10^3/uL Red Blood Count 5.88 4.5-5.90 10^6/uL Hemoglobin 18.6 H 13.5-17.5 g/dL Hematocrit 55.4 H 41.0-53.0 % Mean Corpuscular Volume 94.2 80.0-100.0 fL Mean Corpuscular Hemoglobin 31.6 28.0-32.0 pg Mean Corpuscular Hemoglobin Concent 33.5 32.0-36.0 g/dL Red Cell Distribution Width 15.0 H 11.8-14.3 % Platelet Count 260 140-450 10^3/uL Mean Platelet Volume 7.9 6.9-10.8 fL Neutrophils (%) (Auto) 76.6 37.0-80.0 % Lymphocytes (%) (Auto) 10.9 10.0-50.0 % Monocytes (%) (Auto) 9.1 0.0-12.0 % Eosinophils (%) (Auto) 2.9 0.0-7.0 % Basophils (%) (Auto) 0.5 0.0-2.0 % Neutrophils # (Auto) 8.6 1.6-8.6 10 ^3/uL Lymphocytes # (Auto) 1.2 0.4-5.4 10 ^3/uL Monocytes # (Auto) 1.0 0-1.3 10 ^3/uL Eosinophils # (Auto) 0.3 0-0.8 10 ^3/uL Basophils # (Auto) 0.1 0-0.2 10 ^3/uL Nucleated Red Blood Cells 0.1 % Sodium Level 136 136-145 mmol/L Potassium Level 3.9 3.5-5.1 mmol/L Chloride Level 101 98-107 mmol/L Carbon Dioxide Level 26 20-31 mmol/L Anion Gap 9 5-15 Blood Urea Nitrogen 16 9-23 mg/dL Creatinine 1.30 0.700-1.30 mg/dL Glomerular Filtration Rate Calc 71 >90 mL/min BUN/Creatinine Ratio 12.3 10.0-20.0 Serum Glucose 132 H 74-106 mg/dL Calcium Level 9.2 8.7-10.4 mg/dL Phosphorus Level 3.8 2.4-5.1 mg/dL Magnesium Level 2.2 1.6-2.6 mg/dL Total Bilirubin 1.3 H 0.2-1.0 mg/dL Aspartate Amino Transferase (AST) 75 H 13-40 U/L Alanine Aminotransferase (ALT) 25 7-40 U/L Alkaline Phosphatase 136 H 46-116 U/L Total Protein 7.3 5.7-8.2 g/dL Albumin 3.5 3.2-4.8 g/dL Random Vancomycin Level 12.0 H 5-10 ug/mL Blood Gas Specimen Type Arterial Blood Gas Sample Site Right radial Blood Gas Patient Temperature 37.0 Arterial Blood Date Drawn [id number] Arterial Blood pH 7.399 7.350-7.450 Arterial Blood Partial Pressure CO2 43.7 35.0-48.0 mmHg Arterial Blood Partial Pressure O2 97.1 83.0-108.0 mmHg Arterial Blood HCO3 26.4 21.0-28.0 mmol/L Bishnu Test Modified Blood Gas Total Hemoglobin > 21.00 *H 13.5-17.5 g/dL Blood Gas Set Respiration Rate 16.0 Blood Gas Modality Vent - ac FiO2 % 30.0 Blood Gas Tidal Volume 500.0 Blood Gas PEEP or CPAP 5.0 Blood Gas Critical Value Read Back Yes Blood Gas Notified Whom Benny patton Blood Gas Notified Time [id number] Blood Gas Notified By Jey pattern designer POC Glucose 148 H 70-106 mg/dl Ammonia 30 11-32 umol/L Test 06/03/24 07:42 06/02/24 07:22 06/01/24 04:20 05/31/24 19:25 Range/Units Arterial Blood Oxygen Saturation 96.1 94.0-98.0 % Arterial Blood Base Excess -1.9 -2.0-3.0 mmol/L Arterial Blood Oxyhemoglobin 95.2 94.0-98.0 % Arterial Blood Carboxyhemoglobin 0.3 L 0.5-1.5 % Arterial Blood Methemoglobin 0.6 0.0-1.5 % Blood Gas Comments hgb out of amr range Platelet Estimate Adequate Urine Color [place] H Yellow Urine Clarity Ex.turbid Clear Urine pH 5.5 5.0-9.0 Urine Specific Brick 1.019 1.001-1.035 Urine Protein 2+ H Negative Urine Ketones Negative Negative Urine Blood 3+ H Negative /uL Urine Nitrite Negative Negative Urine Bilirubin Negative Negative Urine Urobilinogen 4 H Negative mg/dL Urine Leukocyte Esterase Negative Negative /uL Urine RBC 417 0 - 3 /hpf Urine Microscopic WBC 145 H 0-3 /HPF Urine Squamous Epithelial Cells None seen <5 /hpf Urine Bacteria None seen None Seen /hpf Urine Mucus Few None Seen Urine Yeast (Budding) Occasional None Seen /hpf Urine Glucose Normal Normal mg/dL Urine Opiates Screen Neg NEGATIVE Urine Fentanyl Screen Pos NEGATIVE Urine Barbiturates Screen Neg NEGATIVE Urine Phencyclidine Screen Neg NEGATIVE Urine Amphetamines Screen Pos NEGATIVE Urine Benzodiazepines Screen Pos NEGATIVE Urine Cocaine Screen Neg NEGATIVE Urine Cannabinoids Screen Neg NEGATIVE Test 05/31/24 10:30 05/31/24 03:31 05/31/24 00:55 05/30/24 22:12 Range/Units Prothrombin Time 11.9 H 9.3-11.8 sec Prothrombin Time INR 1.14 0.9-1.15 Activated Partial Thromboplast Time 65.5 H 24.5-34.5 SEC Hemoglobin A1c 6.1 H <5.7 % A1C Troponin I High Sensitivity 437 *H </=54 ng/L D-Dimer, Quantitative 0.32 0.0-0.49 mg/L FEU Lactic Acid Level 1.1 0.4-2.0 mmol/L Test 05/30/24 20:10 05/30/24 05:30 05/29/24 18:21 Range/Units Urine Hyaline Casts Mod 0 - 2 /lpf Triglycerides Level 62 < 150 mg/dL Cholesterol Level 148 < 200 mg/dL LDL Cholesterol 113 H < 100 mg/dL HDL Cholesterol 36 L 40-59 mg/dL B-Type Natriuretic Peptide 641.20 0-100 pg/mL Microbiology Date/Time Source Procedure Growth Status 06/04/24 15:40 Urine - [place] Urine Culture - Preliminary Resulted 06/04/24 15:30 Sputum Gram Stain - Final Resulted 06/04/24 15:30 Sputum Respiratory Culture - Preliminary Resulted 06/04/24 10:28 Blood Blood Culture - Preliminary Resulted 05/30/24 20:10 Nose MRSA Screen - Final Complete Problems(with codes): (1) Septic shock (2) Klebsiella pneumoniae pneumonia (3) Aspiration pneumonia (4) Gram positive bacterial infection (5) Congestive heart failure due to cardiomyopathy (6) Non-STEMI (non-ST elevated myocardial infarction) (7) Acute respiratory distress (8) Dyspnea (9) Methamphetamine abuse (10) CHF exacerbation (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 (12) Polycythemia vera (13) NSTEMI (non-ST elevated myocardial infarction) Plan/Recommendation ASSESSMENT AND PLAN ID Problem List: - Septic shock - Acute hypoxic respiratory failure - Aspiration pneumonia (Klebsiella) - Gram-positive cocci bacteremia - Acute systolic and diastolic heart failure - [id number] myocardial infarction (NSTEMI) Type 2 - Ischemic stroke - Polysythemia vera - End-stage renal disease (on hemodialysis, possibly resolved) - Hypertension - Diabetes mellitus - Asthma - Intravenous drug use (amphetamines, benzodiazepines, ongoing) - Medication noncompliance - History of deep vein thrombosis (DVT) and pulmonary embolism (PE), not currently confirmed Assessment: This is a 43-year-old male with significant past medical history including congestive heart failure, hypertension, diabetes mellitus, end-stage renal disease (previously on hemodialysis), asthma, polysythemia vera, and ongoing intravenous drug use, presenting with septic shock, acute hypoxic respiratory failure, aspiration pneumonia, and a complicated hospital course. He was noted to have chest pain, shortness of breath, and recent code event. Imaging revealed acute ischemic stroke. Patient had recent blood clots in multiple locations and was previously medication noncompliant. Admitted for acute decompensated heart failure (cardiomyopathy, LVEF 5-10%), persistent fevers, and required emergent intubation for hypoxia. Sputum culture positive for gram-negative rods (Klebsiella); blood cultures preliminary growth gram-positive cocci. Initial antibiotics with ceftriaxone, transitioned to Zosyn, then vancomycin added due to persistent fevers and rising WBC. Patient has a central line in place. TTE reveals four chamber dilation, biventricular systolic dysfunction, no pericardial effusion. Labs notable for persistent leukocytosis, Hb as high as 19.5 (polycythemia vera), and improving chest imaging but ongoing fever. No current DVTs by Doppler. Plan: - Continue vancomycin and Zosyn (piperacillin-tazobactam); discontinue ceftriaxone - Monitor for persistent bacteremia; if persists, consider line exchange - Await and follow up on KI to evaluate for endocarditis - Repeat and monitor blood cultures to confirm clearance - Continue supportive care for acute hypoxic respiratory failure; monitor ventilator settings; target minimal FiO2 - Serial lactate and creatinine monitoring - Cardiology and primary service to continue management of heart failure and NSTEMI type 2 - Monitor skin for signs of ischemia or evolving lesions - Repeat imaging as clinically indicated - Assess for HIV and hepatitis status given ongoing IV drug use - Defer management of drug use and suspected resolved end-stage renal disease; re-evaluate dialysis need - Social work and case management for disposition planning (including possible hospice versus home care if patient preference changes) - Continue close hemodynamic and laboratory monitoring - Infectious Disease service to continue to follow Authorized and Performed by: Randi Barboza MD Total critical care time: Approximately 76 minutes Due to a high probability of clinically significant, life threatening deterioration, the patient required my highest level of preparedness to intervene emergently and I personally spent this critical care time directly and personally managing the patient. This critical care time included obtaining a history; examining the patient; pulse oximetry; ordering and review of studies; arranging urgent treatment with development of a management plan; evaluation of patient's response to treatment; frequent reassessment; and, discussions with other providers. This critical care time was performed to assess and manage the high probability of imminent, life-threatening deterioration that could result in multi-organ failure. It was exclusive of separately billable procedures and treating other patients and teaching time. Assessment and plan was discussed with the patient as written above. Plan is subject to change pending incorporation of new incoming information/diagnostics. Updates may be added as an addendum at the bottom (or top) of this note. Thank you for the consult. ID will continue to follow. Please contact Infectious Disease for any questions or concerns. Randi Barboza M.D. [facility] Ph: ? History: The patient's chart and medications were reviewed in detail and the patient was seen and examined. History obtained from: Encounter transcript This is a 43-year-old male with history as above, admitted with septic shock, acute hypoxic respiratory failure, aspiration pneumonia (Klebsiella), acute heart failure, recent code event, positive blood and sputum cultures, and evidence of ongoing IV drug use. Review of Systems: A complete review of systems was completed and is negative except as documented in the HPI or below. - CONSTITUTIONAL: Reports persistent fevers, most recently up to 100.6F. - HEENT: Not specifically discussed. - RESPIRATORY: Shortness of breath noted. - CV: Chest pain reported. - GI: Not specifically discussed. - : Not specifically discussed; chronic renal disease referenced, possibly resolved. - MSK: No lower extremity DVTs noted on Doppler; otherwise not discussed. - SKIN: No skin lesions; modeling of skin likely ischemic. - NEUROLOGICAL: Noted acute ischemic stroke on MRI, left-sided symptoms; otherwise not discussed. - PSYCHIATRIC: Not specifically addressed. Past Medical History: - Congestive heart failure - Hypertension - Diabetes mellitus - End-stage renal disease (on hemodialysis, per history, possibly resolved) - Asthma - Polysythemia vera - Ischemic stroke - History of DVT and PE - IV drug use (ongoing; amphetamines, benzodiazepines) - Medication noncompliance Past Surgical History: Not provided in transcript. Home Medications: Not provided in transcript. Allergies: Not provided in transcript. Family History: Not provided in transcript. Social History: IV drug useongoing (amphetamines, benzodiazepines) Further details not provided in transcript. Objective: Vital Signs on Arrival: Not provided in transcript. Most Recent Vital Signs: Not provided in transcript. Admission Weight: Not provided in transcript. Physical Exam: General: NAD Neck: Supple. No masses. HEENT: PERRL. Normal lids and conjunctiva. Moist mucous membranes. Oropharynx without lesions, exudates or excessive erythema. Normal appearance of the external aspects of the nose and ears. Heart: Regular rhythm, normal rate. No murmur. No lower extremity edema. Lungs: Normal respiratory effort. Clear to auscultation bilaterally. No wheezes. No crackles. Abdomen: Soft. Non-tender. Non-distended. No masses or abdominal hernia. Msk: No digital cyanosis. Normal strength and tone in all 4 limbs. Skin: Warm and dry, no rashes. Modeling likely ischemic disease. Neuro: Alert. No facial droop or slurred speech. Extra-ocular movements intact. Sensation intact to soft touch in all 4 limbs. Evidence of acute stroke (left-sided symptoms per MRI report). Psych: Appropriate mood. Full affect. Oriented to person, place, time, and situation. Lines: Central line in place. No other notable lines specified. Diagnostic Studies: Diagnostic studies were reviewed personally. Significant results are outlined below or addressed in the Assessment and Plan above. Pertinent Imaging and Labs: - MRI: Acute ischemic stroke - TTE: Four chamber dilation, LVEF 5-10%, biventricular dysfunction, dilated IVC, trivial pulmonary valve insufficiency, no pericardial effusion - Chest X-ray: Initial pulmonary edema resolved; no current focal consolidation or opacities - Sputum culture: Gram-negative rods, Klebsiella - Blood cultures: Preliminary, gram-positive cocci in clusters - Labs: WBC up to 18.1, Hb up to 19.5, A1C 6.1, sodium 141, potassium 3.8, BUN 30, Cr 1.15, AST 87, ALT 26 - Lower extremity Doppler: Negative for DVT - Vitals: Intermittent fever, max 100.6F, other values not specified If additional detail is needed for any section, further transcript review or user clarification is required. Plan discussed with: Patient RANDI BARBOZA MD Jun 06, 2024 07:14
[2024-06-06 07:57] LABS: Base Excess 3.8 mmol/L (-2.0-3.0)
[2024-06-06] MEDS: Pro-Stat SF 30ml Vanilla PO SCH (10:00)
--- NOTE | 2024-06-06 10:06 | CONS ---
Pharmacy Clinical Information: From Heart Failure Fallout Report on CQM Application, Landen Castillo is a 43 year old male with PMH of CHF, DM, ESRD, HI, HTN. Patient is NPO, sedated, and intubated on mechanical ventilator. EBBB, MRA, SGLT2i not recommended at this time due to patient's critical condition. According to 2024 ADA guidelines, insulin should be initiated or intensified for treatment of persistent hyperglycemia starting at a threshold of >180 mg/dL for the majority of critically ill hospitalized individuals. His HbA1c was 6.1% within goal and serum Glu ranges <180 mg/dL. Antihyperglycemic agents not recommended at this time. GENOVEVA PADRON PHARMACIST Jun 06, 2024 10:06
--- NOTE | 2024-06-06 11:00 | DVHPN2 ---
Progress Note - Dictate Date Seen: Jun 06, 2024 Medical Necessity Reason Pt with a Central, PICC or Fol: Yes The following are medically ne: Ramirez Catheter Reason for ramirez catheter: Strict I&O Subjective Mr. Castillo is a 43 years old right-handed gentleman with a history of hypertension, diabetes, coronary artery disease, heart attack, congestive heart failure, polycythemia vera, cardiomyopathy, asthma, he came to the [facility] room on 05/29/2024 with a chief complaint of shortness breath, chest pain. I have seen and examined the patient, I have talked to his nurse. Family in the room. He was eyes are closed, but is responsive to touch stimuli, cough excessively with a lot of oral secretions He moves the arms and legs Precedex 0.07mcg/Kg/Hr, Levo: 10 mcg/min Urinalysis, 05/30/2024: WBC: <1, urine leukocyte esterase: Negative UDS, 05/30/2024, amphetamine, benzo CBC, 05/30/2024: Respiratory acidosis, 06/03/2024: Acidosis WBC/HB/PLT/MCV, 05/30/2024: 10.3/18.1/230/93.8, 06/03/2024: 18.1/19.2/275/95 PT/INR/PTT, 05/30/2024: 12.03/1016/47 05/31/2024: 11.9/1.14/65.5 BMP, 05/30/2024: Unremarkable BUN/CR, 06/03/2024: 26/1.47 TBI/AST/ALT/AP, 05/29/2024: 2.1/46/25/133, 06/03/2024: 1.4/60/15/122 NH3 06/03/24: 30 Troponin one high sensitivity, 05/29/2024: 529, 05/30/2024: 502, 526, TG/HDL/LDL/HDL, 05/30/2024: 62/148/113/36 KI, 06/03/24: 1. Left ventricle: Significant dilatation of Left ventricle with LVEF of around 10% was observed. Diffuse hypokinesis of left ventricle was seen. There was no intraventricular thrombus. . 2. Right ventricle: RV was dilated with reduced systolic function. 3. Left atrium: LA enlarged 4. Right atrium: RA enlarged 5. Mitral valve: Mild Mitral regurgitation, no significant stenosis, normal functioning valve. No vegetation was seen on Mitral valve. 6. Left atrial appendage: No evidence of thrombus. 7. Aortic valve: It was trileaflet. There was no stenosis. There was trace insufficiency. There was no vegetation seen in Aortic valve. 8. Pulmonic valve: Trivial pulmonic insufficiency. No significant stenosis. No vegetation was seen. 9. Tricuspid valve: Mild tricuspid regurgitation. There was no vegetation on Tricuspid valve. 10. Interatrial septum: Negative color flow for shunt was observed. Some bubbles crossed to left atria in favor of small PFO. 11. Pericardium: No significant effusion. 12. Thoracic aorta: No significant plaquing. Echocardiogram, 05/30/2024: Four-chamber dilatation was observed. Left ventricle: Left ventricle was significantly dilated with significantly reduced systolic function. Diffuse hypokinesis of left ventricle was seen. LVEF was 5-10%. LVEDP was assessed to be elevated. Right ventricle was dilated with reduced systolic function. Both atria were dilated. Aortic valve was not well visualized. There was mild aortic insufficiency. There was no aortic stenosis. There was trivial mitral regurgitation. There was mild tricuspid regurgitation. There was trivial pulmonary valve insufficiency. Right ventricular systolic pressure was assessed at 57 mm Hg. IVC was dilated with reduced respiratory variation. There was no pericardial effusion Carotid Doppler, 05/30/2024: No hemodynamically significant stenoses or occlusions identified. CT head, 05/30/2024 1107: No acute intracranial process CT head, 05/30/2024 1856: No abnormality demonstrated. The very small acute/subacute infarct in right frontal lobe and very small old cortical infarct in left parietal lobe seen on the MRI study from earlier the same day are not evident on CT MRI head, 05/30/2024 1041: Small focus of restricted diffusion in the anterior right centrum semiovale likely representing small acute to subacute infarct. There is no evidence of acute hemorrhage (I saw a small DWI lesion in the left cerebellum hemisphere with ADC correlation) MRI head, 05/31/2024: 1. Redemonstration of subcentimeter focus of acute ischemia in the left cerebellar lobe. No intracranial hemorrhage. 2. Redemonstration of subcentimeter focus of DWI hyperintense signal in the right frontal centrum semiovale without corresponding abnormal ADC signal reflecting T2 shine through. No evidence of acute ischemia. 3. Subcentimeter foci abnormal signal in the bilateral cerebellar lobes may reflect chronic infarcts or underlying lesions. Further evaluation with MRI with IV contrast is recommended. 4. 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 vital signs Vital Sign Date Time Temp Pulse Resp B/P (MAP) Pulse Ox O2 Delivery O2 Flow Rate FiO2 06/06/24 10:53 87/53 06/06/24 10:29 96 18 96 30 06/06/24 06:15 98.8 209.8 06/06/24 06:00 Mechanical Ventilator+ Total Intake and Output 06/05/24 06/05/24 06/06/24 15:00 23:00 07:00 Intake Total 893.00 ml 1686.75 ml 563.50 ml Output Total 1250 ml 1200 ml Balance 893.00 ml 436.75 ml -636.50 ml medications Current Medications Medications Dose Ordered Sig/Lei Route Start Time Stop Time Status Last Admin Dose Admin Acetaminophen/ Hydrocodone Bitart 1 tab Q4HP PRN PO 05/29/24 20:45 Ondansetron HCl 4 mg Q4HP PRN IV 05/29/24 20:45 05/30/24 03:54 4 MG Acetaminophen 650 mg Q6HP PRN PO 05/29/24 20:45 06/06/24 00:36 650 MG Morphine Sulfate 2 mg Q4HPRN PRN IV 05/29/24 20:45 Nitroglycerin 0.4 mg Q5MINP PRN SL 05/29/24 20:45 Morphine Sulfate 2 mg Q30M PRN IV 05/29/24 20:45 Pantoprazole Sodium 40 mg DAILY IV 05/30/24 10:00 06/06/24 09:57 40 MG Furosemide 40 mg BIDD IV 05/30/24 18:00 06/06/24 05:20 40 MG Sacubitril/ Valsartan 1 tab BID PO 05/30/24 10:00 Hold 06/03/24 22:03 1 TAB Aspirin 81 mg DAILY PO 05/30/24 10:00 06/05/24 09:58 81 MG Atorvastatin Calcium 40 mg HS PO 05/30/24 22:00 06/05/24 21:25 40 MG Midazolam HCl 50 ml @ 1 mls/hr Q24H IV 05/30/24 19:00 06/06/24 00:35 6 MLS/HR Fentanyl Citrate 250 ml @ 2.5 mls/hr Q24H IV 05/30/24 19:00 06/05/24 18:56 17.5 MLS/HR Enoxaparin Sodium 90 mg Q12HR SC 05/31/24 22:00 06/06/24 10:00 90 MG Sodium Chloride 1,000 ml @ 50 mls/hr Q20H IV 05/31/24 12:30 06/05/24 14:17 50 MLS/HR Ceftriaxone Sodium 50 ml @ 100 mls/hr DAILY@09 IV 06/01/24 07:30 06/06/24 09:18 100 MLS/HR Norepinephrine Bitartrate 250 ml @ 3.75 mls/hr Q24H IV 06/02/24 11:30 06/06/24 00:36 11.25 MLS/HR Sodium Chloride 10 ml QSHIFT@10,22 IV 06/02/24 22:00 06/06/24 10:01 10 ML Piperacillin Sod/ Tazobactam Sod 100 ml @ 25 mls/hr Q8HR IV 06/04/24 14:00 06/06/24 05:21 25 MLS/HR Diphenhydramine HCl 25 mg Q4HP PRN IV 06/04/24 10:45 06/04/24 13:28 25 MG Vancomycin HCl 0 ml @ 0 mls/hr UD IV 06/05/24 09:45 Enteral Nutritional Formula 1,000 ml 70ML/HR GT 06/05/24 10:15 Amino Acid Protein 30 ml DAILY PO 06/06/24 10:00 objective The patient is well-nourished and well-developed with no distress. The patient is intubated MENTAL STATUS: Subjective CRANIAL NERVES: Pupils are equal, round and reactive. There are conjugated eye movement. No signs of facial weakness. He coughs excessively s SENSATION: Responses to pain stimuli. MOTOR: Normal tone in the upper and lower extremity. Normal muscle bulk. No fasciculations. He moves the arms and legs REFLEXES: Deep tendon reflexes are symmetrical. No pathological reflexes. CEREBELLAR/COORDINATION: Deferred GAIT/STATION: deferred laboratory and microbiology Laboratory Tests 06/06/24 05:09 Test 06/06/24 05:09 Range/Units Serum Glucose 132 H 74-106 mg/dL Problem List Altered mental status More strokes Metabolic encephalopathy/hepatic encephalopathy ? Status epileptics Elevated troponin I/heart attack Multiple strokes Cardiomyopathy Congestive heart failure A spell of nonresponsiveness on 05/30/2024 ? Syncope triggered by coughing/arrhythmia ? Seizure activity Heart failure ? Small PFO Assessment/Plan Monitoring Supportive treatments ICU care EEG Stabilize vitals Respiratory support/vent management Lovenox 90 mg subQ b.i.d. Aspirin 81 mg daily Lipitor 40 mg daily IV antibiotics GI prophylax/Protonix CPAP trial More recommendation per clinical course This medical document was created using an electronic medical record system with [employer] dictation system. Although this document has been carefully reviewed, there may still be some phonetic and typographical errors. These areas are purely typographical due to imperfections of the software programs, and do not reflect any compromise in the patient's medical care Prognosis guarded Dietary Evaluation Review Comments: 1) TF Glucerna 1.2Cal @ 70ml/hr x 24 hr along with Pro-stat 1 pk daily. Start @ 30ml/hr, increase 10ml/hr Q4H until goal rate is reached. Water flush 50ml Q4H TF goal volume along with Pro-stat & water flush provide 2016 kcal (100%), 116 gm protein (100%), and 1652ml free water 2) TPN if NPO>7 days 3) Advance diet as medically feasible 4) Continue current plan of care Expected Outcomes/Goals: To meet >75% estimated needs within 7 days Fu 2-3 days Plan discussed with: Other Critical Care Time(min): 30 ZEKE REYNOLDS MD Jun 06, 2024 11:00
[2024-06-06 13:57] LABS: Lactic Acid w/Reflex 2.1 mmol/L (0.4-2.0)
--- NOTE | 2024-06-06 14:53 | DVHPN2 ---
Progress Note - Dictate Date Seen: Jun 06, 2024 Medical Necessity Reason Pt with a Central, PICC or Fol: Yes The following are medically ne: Ramirez Catheter Reason for ramirez catheter: Strict I&O vital signs Vital Sign Date Time Temp Pulse Resp B/P (MAP) Pulse Ox O2 Delivery O2 Flow Rate FiO2 06/06/24 14:26 101.1 06/06/24 12:50 97 19 114/81 (92) 100 30 06/06/24 12:00 Mechanical Ventilator+ Total Intake and Output 06/05/24 06/05/24 06/06/24 15:00 23:00 07:00 Intake Total 893.00 ml 1686.75 ml 563.50 ml Output Total 1250 ml 1200 ml Balance 893.00 ml 436.75 ml -636.50 ml medications Current Medications Medications Dose Ordered Sig/Lei Route Start Time Stop Time Status Last Admin Dose Admin Acetaminophen/ Hydrocodone Bitart 1 tab Q4HP PRN PO 05/29/24 20:45 Ondansetron HCl 4 mg Q4HP PRN IV 05/29/24 20:45 05/30/24 03:54 4 MG Acetaminophen 650 mg Q6HP PRN PO 05/29/24 20:45 06/06/24 14:26 650 MG Morphine Sulfate 2 mg Q4HPRN PRN IV 05/29/24 20:45 Nitroglycerin 0.4 mg Q5MINP PRN SL 05/29/24 20:45 Morphine Sulfate 2 mg Q30M PRN IV 05/29/24 20:45 Pantoprazole Sodium 40 mg DAILY IV 05/30/24 10:00 06/06/24 09:57 40 MG Furosemide 40 mg BIDD IV 05/30/24 18:00 06/06/24 05:20 40 MG Sacubitril/ Valsartan 1 tab BID PO 05/30/24 10:00 Hold 06/03/24 22:03 1 TAB Aspirin 81 mg DAILY PO 05/30/24 10:00 06/05/24 09:58 81 MG Atorvastatin Calcium 40 mg HS PO 05/30/24 22:00 06/05/24 21:25 40 MG Midazolam HCl 50 ml @ 1 mls/hr Q24H IV 05/30/24 19:00 06/06/24 00:35 6 MLS/HR Fentanyl Citrate 250 ml @ 2.5 mls/hr Q24H IV 05/30/24 19:00 06/05/24 18:56 17.5 MLS/HR Enoxaparin Sodium 90 mg Q12HR SC 05/31/24 22:00 06/06/24 10:00 90 MG Sodium Chloride 1,000 ml @ 50 mls/hr Q20H IV 05/31/24 12:30 06/05/24 14:17 50 MLS/HR Norepinephrine Bitartrate 250 ml @ 3.75 mls/hr Q24H IV 06/02/24 11:30 06/06/24 12:45 26.25 MLS/HR Sodium Chloride 10 ml QSHIFT@10,22 IV 06/02/24 22:00 06/06/24 10:01 10 ML Piperacillin Sod/ Tazobactam Sod 100 ml @ 25 mls/hr Q8HR IV 06/04/24 14:00 06/06/24 14:25 25 MLS/HR Diphenhydramine HCl 25 mg Q4HP PRN IV 06/04/24 10:45 06/04/24 13:28 25 MG Vancomycin HCl 0 ml @ 0 mls/hr UD IV 06/05/24 09:45 Enteral Nutritional Formula 1,000 ml 70ML/HR GT 06/05/24 10:15 Amino Acid Protein 30 ml DAILY PO 06/06/24 10:00 objective General Appearance: alert, no distress HEENT: EOMI, PERRLA, normal external inspect of ears, no icterus, no nasal drainage Neck: no carotid bruit, no jugular venous distention (JVD), no lymphadenopathy Chest: normal thorax Respiratory: clear to auscultation, normal air movement Cardiovascular: regular rate and rhythm, no diastolic murmur, no jugular venous distention (JVD), no rub, no systolic murmur Abdominal: soft, no hepatomegaly, no mass, no splenomegaly, no tenderness Genitourinary: grossly normal external Musculoskeletal: no joint tenderness, no swelling Extremities: normal pulses, no calf tenderness, no clubbing, no cyanosis, no edema Skin: no bruising, no jaundice, no rash Neurological: alert, No focal deficit laboratory and microbiology Laboratory Tests 06/06/24 05:09 Test 06/06/24 05:09 Range/Units Serum Glucose 132 H 74-106 mg/dL Problem List 1. Acute CVA Monitor, neurology consult 2. Acute on chronic systolic heart failure Monitor, cardiology consult, heparin gtt 3. Drug induced cardiomyopathy Monitor, echocardiogram, cardiology consult 4. Elevated troponin - demand ischemia Monitor EKG, cardiology consult 5. Hx of methamphetamine abuse Monitor, urine drug screen 6. Medical non-ncaa compliance internship, PPI 7. Acute hypoxic respiratory failure Monitor, supplemental O2, ventilator management per pulmonary 8. Pneumonia Monitor, antibiotics, pulmonary consult 9. Acute cystitis Monitor, antibiotics 10. Bacteremia Monitor, continue antibiotics, ID consult. [40] minutes of critical care time were spent in evaluating the patient, reviewing the diagnostic data, discussing with the family. Assessment/Plan Subjective Patient remains intubated and sedated. Objective Patient is status post bronchoscopy. Currently on antibiotics. Patient seen by ID. Patient has sepsis with pneumonia, UTI, and bacteremia. Plan Continue current treatment. ID recommendations appreciated. Ventilator management per pulmonary. Neurology recommendations appreciated. Dietary Evaluation Review Comments: 1) TF Glucerna 1.2Cal @ 70ml/hr x 24 hr along with Pro-stat 1 pk daily. Start @ 30ml/hr, increase 10ml/hr Q4H until goal rate is reached. Water flush 50ml Q4H TF goal volume along with Pro-stat & water flush provide 2016 kcal (100%), 116 gm protein (100%), and 1652ml free water 2) TPN if NPO>7 days 3) Advance diet as medically feasible 4) Continue current plan of care Expected Outcomes/Goals: To meet >75% estimated needs within 7 days Fu 2-3 days Plan discussed with: JACKIE Ruiz NP Jun 06, 2024 14:53
[2024-06-06] MEDS: VANCOMYCIN 500mg/100mL 100 ML IV ONE (16:13)
--- NOTE | 2024-06-06 22:16 | DVHPN2 ---
Progress Note - Dictate Date Seen: Jun 06, 2024 Medical Necessity Reason Pt with a Central, PICC or Fol: Yes The following are medically ne: Ramirez Catheter Reason for ramirez catheter: Strict I&O Subjective Patient seen and examined at bedside. Intubated on mechanical ventilator. Overnight events reviewed. vital signs Vital Sign Date Time Temp Pulse Resp B/P (MAP) Pulse Ox O2 Delivery O2 Flow Rate FiO2 06/06/24 22:00 30 06/06/24 21:45 100.6 06/06/24 20:00 85 18 105/77 (86) 98 06/06/24 16:00 Mechanical Ventilator+ Total Intake and Output 06/05/24 06/05/24 06/06/24 15:00 23:00 07:00 Intake Total 893.00 ml 1686.75 ml 563.50 ml Output Total 1250 ml 1200 ml Balance 893.00 ml 436.75 ml -636.50 ml medications Current Medications Medications Dose Ordered Sig/Lei Route Start Time Stop Time Status Last Admin Dose Admin Acetaminophen/ Hydrocodone Bitart 1 tab Q4HP PRN PO 05/29/24 20:45 Ondansetron HCl 4 mg Q4HP PRN IV 05/29/24 20:45 05/30/24 03:54 4 MG Acetaminophen 650 mg Q6HP PRN PO 05/29/24 20:45 06/06/24 21:45 650 MG Morphine Sulfate 2 mg Q4HPRN PRN IV 05/29/24 20:45 Nitroglycerin 0.4 mg Q5MINP PRN SL 05/29/24 20:45 Morphine Sulfate 2 mg Q30M PRN IV 05/29/24 20:45 Pantoprazole Sodium 40 mg DAILY IV 05/30/24 10:00 06/06/24 09:57 40 MG Furosemide 40 mg BIDD IV 05/30/24 18:00 06/06/24 18:20 40 MG Sacubitril/ Valsartan 1 tab BID PO 05/30/24 10:00 Hold 06/03/24 22:03 1 TAB Aspirin 81 mg DAILY PO 05/30/24 10:00 06/05/24 09:58 81 MG Atorvastatin Calcium 40 mg HS PO 05/30/24 22:00 06/06/24 21:45 40 MG Midazolam HCl 50 ml @ 1 mls/hr Q24H IV 05/30/24 19:00 06/06/24 00:35 6 MLS/HR Fentanyl Citrate 250 ml @ 2.5 mls/hr Q24H IV 05/30/24 19:00 06/05/24 18:56 17.5 MLS/HR Enoxaparin Sodium 90 mg Q12HR SC 05/31/24 22:00 06/06/24 21:45 90 MG Sodium Chloride 1,000 ml @ 50 mls/hr Q20H IV 05/31/24 12:30 06/06/24 21:48 50 MLS/HR Norepinephrine Bitartrate 250 ml @ 3.75 mls/hr Q24H IV 06/02/24 11:30 06/06/24 12:45 26.25 MLS/HR Sodium Chloride 10 ml QSHIFT@10,22 IV 06/02/24 22:00 06/06/24 21:45 10 ML Piperacillin Sod/ Tazobactam Sod 100 ml @ 25 mls/hr Q8HR IV 06/04/24 14:00 06/06/24 21:45 25 MLS/HR Diphenhydramine HCl 25 mg Q4HP PRN IV 06/04/24 10:45 06/04/24 13:28 25 MG Vancomycin HCl 0 ml @ 0 mls/hr UD IV 06/05/24 09:45 Enteral Nutritional Formula 1,000 ml 70ML/HR GT 06/05/24 10:15 Amino Acid Protein 30 ml DAILY PO 06/06/24 10:00 objective Gen.: Patient lying in bed in medical ICU. Intubated on mechanical ventilator. Head: Normocephalic, atraumatic. Eyes: PERRLA. Ears: Normal external anatomy. Throat: Endotracheal tube and orogastric tube in place. Neck: Supple, trachea midline. Chest: Transmitted breath sounds bilaterally. Decreased air entry bilaterally. No wheezing. Bibasilar crackles. Cardiovascular: Positive S1, positive S2. Regular rate and rhythm. Abdomen: Positive bowel sounds in all 4 quadrants. Soft, nontender, nondistended. : Ramirez in place. Normal external genitalia. Rectal: Deferred. Skin: Warm, dry. Intact. Extremities: 2+ radial pulses bilaterally. No lower extremity edema. Neuro: Off sedation. laboratory and microbiology Laboratory Tests 06/06/24 05:09 Test 06/06/24 05:09 Range/Units Serum Glucose 132 H 74-106 mg/dL Assessment/Plan Impression: Acute hypoxic respiratory failure On mechanical ventilator Pulmonary hypertension, RVSP 57 mmHg ( Echo with LVEF of 5% to 10%) Atelectasis Acute CVA Acute on chronic systolic heart failure Drug induced cardiomyopathy Elevated troponin Polysubstance abuse Medical non-compliance Polycythemia vera Events: Remains on vent support On AC mode; RR 16, VT 500, PEEP 5, FiO2 30% Improved FiO2 requirements Off Versed, Fentanyl On Precedex drip. Pressors for hemodynamic support On Levophed 12 mcg/min Titrate to keep mean arterial pressure greater than 65 mmHg CPAP with PS 12, PEEP of 5 - pt tolerated for 1 hour S/p therapeutic bronchoscopy with BAL on 06/05/24 for clearing of secretions. Please see procedure note for details Follow up BAL cultures Continue antibiotics Follow up blood cultures ID recommendations appreciated Polycythemia vera - Hematology recommendations appreciated. Maintain euvolemia w/ Lasix BID Monitor renal function Monitor electrolytes. Supplement as necessary. Monitor ins and outs. Poor EF Status post KI Cardiology recs appreciated ABG reviewed, compensated SBT/MANOLO. Labs and imaging reviewed. Rest of plan as noted below. Plan: s/p intubation on mechanical ventilator. On AC mode; RR 16, VT 500, PEEP 5, FiO2 30% Titrate FIO2 to keep O2 saturation above 90%. VAP bundle. Daily ABG and CXR while intubated Off sedation Pulmonary hypertension, RVSP 57 mmHg - Echo showing LVEF of 5% to 10%. On statin Cardiology recs appreciated Pressors as necessary for hemodynamic support Titrate to keep mean arterial pressure greater than 65 mmHg IV fluids with NS at 50 ml/hr. Diurese as tolerated w/ Lasix BID Monitor renal function Monitor electrolytes. Supplement as necessary. Monitor ins and outs. GI prophylaxis - Protonix. DVT prophylaxis - Lovenox SC. Prognosis: Poor given patient's multiple co-morbidities. Condition: Critical Rest of plan per hospitalist and other consultants. A total of 35 minutes of critical care time was spent reviewing the patient record, examining the patient, making a diagnostic and therapeutic plan, discussing this plan with the medical personnel, following up on diagnostic studies and following the patient for clinical stability excluding any and all procedures. At least 50% of this time was spent in direct, [id number] contact. Thank you, BRANDIN Albright, for allowing me to participate in this patient's care. Further recommendations will depend on the patient's clinical course. Please do not hesitate to contact me if you have any questions or concerns. This medical document was created using an electronic medical record system with [employer] system. Although these documentations are being carefully reviewed, there may still be some phonetic and typographical changes. The errors are purely typographical, due to imperfection on the software program, and do not reflect any compromise in the patient's medical care. Dietary Evaluation Review Comments: 1) TF Glucerna 1.2Cal @ 70ml/hr x 24 hr along with Pro-stat 1 pk daily. Start @ 30ml/hr, increase 10ml/hr Q4H until goal rate is reached. Water flush 50ml Q4H TF goal volume along with Pro-stat & water flush provide 2016 kcal (100%), 116 gm protein (100%), and 1652ml free water 2) TPN if NPO>7 days 3) Advance diet as medically feasible 4) Continue current plan of care Expected Outcomes/Goals: To meet >75% estimated needs within 7 days Fu 2-3 days Plan discussed with: Other (HONG Garcia) Critical Care Time(min): 35 NATALIO MÁRQUEZ MD Jun 06, 2024 22:16
[2024-06-07] VITALS (111 sets, daily range): BP systolic 78–132; BP diastolic 43–97; PULSE 72–108; RESP 14–30; TEMP 98.2–100.6; O2SAT 90–99
[2024-06-07 05:21] LABS: Basophils # (auto) 0.1 10 ^3/uL (0-0.2); Basophils % (auto) 0.4 % (0.0-2.0); Eosinophils # (auto) 0.1 10 ^3/uL (0-0.8); Eosinophils % (auto) 0.9 % (0.0-7.0); Hematocrit 59.2 % (41.0-53.0); Hemoglobin 20.2 g/dL (13.5-17.5); Lymphocytes % (auto) 7.3 % (10.0-50.0); Mean Corpuscular Hemoglobin 31.2 pg (28.0-32.0); Mean Corpuscular Hgb Conc. 34.2 g/dL (32.0-36.0); Mean Corpuscular Volume 91.4 fL (80.0-100.0); Monocytes # (auto) 0.9 10 ^3/uL (0-1.3); Monocytes % (auto) 6.6 % (0.0-12.0); Neutrophils # (auto) 11.2 10 ^3/uL (1.6-8.6); Neutrophils % (auto) 84.8 % (37.0-80.0); Nucleated Red Blood Cells % 1.2 %; Platelet Count (auto) 301 10^3/uL (140-450); Red Blood Cells 6.47 10^6/uL (4.5-5.90); Red Cell Distribution Width 14.7 % (11.8-14.3); White Blood Cell 13.2 10^3/uL (4.4-10.8)
[2024-06-07 05:37] LABS: Alanine Aminotransferase 24 U/L (7-40); Albumin 3.8 g/dL (3.2-4.8); Anion Gap 11 (5-15); BUN/Creatinine Ratio 13.7 (10.0-20.0); Blood Urea Nitrogen 17 mg/dL (9-23); Calcium 9.5 mg/dL (8.7-10.4); Carbon Dioxide 27 mmol/L (20-31); Chloride 98 mmol/L (98-107); Magnesium 2.1 mg/dL (1.6-2.6); Sodium 136 mmol/L (136-145)
[2024-06-07 05:42] LABS: Alkaline Phosphatase 145 U/L (46-116); Aspartate Aminotransferase 70 U/L (13-40); Bilirubin, Total 1.6 mg/dL (0.2-1.0); Glucose 130 mg/dL (74-106)
--- NOTE | 2024-06-07 06:39 | DVHPN2 ---
Progress Note - Dictate Date Seen: Jun 07, 2024 Medical Necessity Reason Pt with a Central, PICC or Fol: Yes The following are medically ne: Ramirez Catheter Reason for ramirez catheter: Strict I&O vital signs Vital Sign Date Time Temp Pulse Resp B/P (MAP) Pulse Ox O2 Delivery O2 Flow Rate FiO2 06/07/24 06:15 99.9 79 18 87/60 (69) 94 211.8 06/07/24 06:00 30 06/07/24 06:00 Mechanical Ventilator+ Total Intake and Output 06/06/24 06/06/24 06/07/24 15:00 23:00 07:00 Intake Total 853.514 ml 1148.271 ml 957.958 ml Output Total 1250 ml 1400 ml Balance 853.514 ml -101.729 ml -442.042 ml medications Current Medications Medications Dose Ordered Sig/Lei Route Start Time Stop Time Status Last Admin Dose Admin Acetaminophen/ Hydrocodone Bitart 1 tab Q4HP PRN PO 05/29/24 20:45 Ondansetron HCl 4 mg Q4HP PRN IV 05/29/24 20:45 05/30/24 03:54 4 MG Acetaminophen 650 mg Q6HP PRN PO 05/29/24 20:45 06/06/24 21:45 650 MG Morphine Sulfate 2 mg Q4HPRN PRN IV 05/29/24 20:45 Nitroglycerin 0.4 mg Q5MINP PRN SL 05/29/24 20:45 Morphine Sulfate 2 mg Q30M PRN IV 05/29/24 20:45 Pantoprazole Sodium 40 mg DAILY IV 05/30/24 10:00 06/06/24 09:57 40 MG Furosemide 40 mg BIDD IV 05/30/24 18:00 06/07/24 05:38 40 MG Sacubitril/ Valsartan 1 tab BID PO 05/30/24 10:00 Hold 06/03/24 22:03 1 TAB Aspirin 81 mg DAILY PO 05/30/24 10:00 06/05/24 09:58 81 MG Atorvastatin Calcium 40 mg HS PO 05/30/24 22:00 06/06/24 21:45 40 MG Midazolam HCl 50 ml @ 1 mls/hr Q24H IV 05/30/24 19:00 06/07/24 06:30 1 MLS/HR Fentanyl Citrate 250 ml @ 2.5 mls/hr Q24H IV 05/30/24 19:00 06/05/24 18:56 17.5 MLS/HR Enoxaparin Sodium 90 mg Q12HR SC 05/31/24 22:00 06/06/24 21:45 90 MG Sodium Chloride 1,000 ml @ 50 mls/hr Q20H IV 05/31/24 12:30 06/06/24 21:48 50 MLS/HR Norepinephrine Bitartrate 250 ml @ 3.75 mls/hr Q24H IV 06/02/24 11:30 06/06/24 23:33 18.75 MLS/HR Sodium Chloride 10 ml QSHIFT@10,22 IV 06/02/24 22:00 06/06/24 21:45 10 ML Piperacillin Sod/ Tazobactam Sod 100 ml @ 25 mls/hr Q8HR IV 06/04/24 14:00 06/07/24 05:38 25 MLS/HR Diphenhydramine HCl 25 mg Q4HP PRN IV 06/04/24 10:45 06/04/24 13:28 25 MG Vancomycin HCl 0 ml @ 0 mls/hr UD IV 06/05/24 09:45 Enteral Nutritional Formula 1,000 ml 70ML/HR GT 06/05/24 10:15 Amino Acid Protein 30 ml DAILY PO 06/06/24 10:00 laboratory and microbiology Laboratory Tests 06/07/24 04:38 Test 06/07/24 04:38 Range/Units Serum Glucose 130 H 74-106 mg/dL Assessment/Plan Intubated and in [facility]/ICU. He is found to have acute/subacute CVA Patient is a 43-year-old gentleman who presented with few weeks of worsening shortness of breath/generalized swelling/nausea/and some diarrhea. He is known to have systolic heart failure. He has ran out of his medications for the past few weeks. He mentions that he was on hospice before hand and he wanted to come off of it. He does have baseline history of methamphetamine abuse and mentions that he used it few days ago. He does have baseline history of noncompliance with medication and followups. Previously he was homeless. Now he says that she is renting a place. Cardiology was involved for cardiac aspects of care. It is of note that the patient does have chronic elevated troponin from prior admissions. Intubated, No JVD. Mucosa is pink and wet. Scattered crackles in the lungs is heard. Cardiac: Regular, no thrill. Systolic murmur 3/6 in apex is heard. History gallop is heard. Abdomen is soft and mildly distended. Bowel sound is positive. There is no abdominal tenderness. Questionable hepatomegaly can not be elicited. Extremities reveal 2+ edema bilaterally. Dorsalis pedis is 2+ bilateral. Past medical history includes diabetes mellitus, hypertension, systolic heart failure, polycythemia vera (as per patient), asthma, CKD, history of substance abuse cardiomyopathy, history of meth abuse and also history of chronic elevated troponin. Previously he was homeless. Previously he was on hospice. Echocardiogram of December 08, 2023 revealed four-chamber dilatation, ejection fraction of 5-10%, mild mitral regurgitation and tricuspid regurgitation. Hemoglobin: 19.5 - 18.1 - 18.2 - 17.2 - 18.9 - 20.1 - 19.2 - 19.3 - 18.6 - 20.2 Creatinine: 1.20 - 1.06 - 1.09 - 1.15 - 1.45 - 1.23 - 1.47 - 1.15 - 1.13 - 1.30 - 1.24 Potassium: 4.1 - 3.6 - 3.8 - 4.1 - 4.5 - 3.9 - 3.7 - 3.8 - 3.6 - 3.9 - 4.0 BNP: 641.20 Troponin (high sensitive): 529 - 502 - 526 - 486 - 422 - 436 - 437 D-dimer: 0.32 Urine tox was positive for Amphetamine and Benzodiazepine Chest x-ray revealed: IMPRESSION: Cardiomegaly with increased interstitial prominence which may be due to CHF and/or reactive airways disease. Repeat chest xry revealed: Endotracheal tube is in good position of the level of the clavicles. Nasogastric tube is in the stomach. There is cardiomegaly with an enlarged left ventricle. There is significant pulmonary vascular congestion. Impression congestive heart failure pattern. If patient has not had a recent cardiac echo I would recommend cardiac echo Repeat chest xry revealed: IMPRESSION: 1. congestive heart failure pattern. Repeat chest xry revealed: FINDINGS: Lines and Tubes: Endotracheal tube and enteric catheter in satisfactory position. Lungs: Patchy bilateral airspace disease Pleura: No effusion. No pneumothorax. Cardiomediastinal contours: Cardiomegaly Bones: Unremarkable IMPRESSION: Lines and tubes in satisfactory position. No significant interval change. Repeat chest xry revealed: IMPRESSION: Lines and tubes in satisfactory position. No significant interval change. Repeat chest xry revealed: IMPRESSION: Cardiomegaly with mild congestion. Repeat chest xry revealed: IMPRESSION: Lines and tubes in satisfactory position. No significant interval change. Repeat chest xry revealed: IMPRESSION: Cardiomegaly with mild congestion. Repeat chest xry revealed: IMPRESSION: 1. Mild pulmonary congestion. 2. Cardiomegaly. MRI of brain revealed: 1. Small focus of restricted diffusion in the anterior right centrum semiovale likely representing small acute to subacute infarct. There is no evidence of acute hemorrhage. Repeat MRI of brain revealed: IMPRESSION: 1. Redemonstration of subcentimeter focus of acute ischemia in the left cerebellar lobe. No intracranial hemorrhage. 2. Redemonstration of subcentimeter focus of DWI hyperintense signal in the right frontal centrum semiovale without corresponding abnormal ADC signal reflecting T2 shine through. No evidence of acute ischemia. 3. Subcentimeter foci abnormal signal in the bilateral cerebellar lobes may reflect chronic infarcts or underlying lesions. Further evaluation with MRI with IV contrast is recommended. 4. 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. CT of head revealed: IMPRESSION: 1. No acute intracranial process. Repeat CT of head revealed: IMPRESSION: No abnormality demonstrated. The very small acute/subacute infarct in right frontal lobe and very small old cortical infarct in left parietal lobe seen on the MRI study from earlier the same day are not evident on CT. Carotid ultrasound revealed: IMPRESSION: No hemodynamically significant stenoses or occlusions identified. Chest CT revealed: IMPRESSION: 1. Cardiomegaly. 2. Scattered coronary artery calcifications 3. Endotracheal tube in place terminating above the nicola. 4. Enteric tube in the stomach. Lower ext venous duplex revealed: IMPRESSION: No sonographic evidence of deep venous thrombosis in either lower extremity at this time. Right upper ext venous ultrasound revealed: IMPRESSION: No sonographic evidence of deep venous thrombosis in either upper extremity at this time. Renal Ultrasound revealed: IMPRESSION: 1. Left renal atrophy. No intrarenal calculi. Tele reveals sinus rhythm Echocardiogram revealed: Four-chamber dilatation was observed. Left ventricle: Left ventricle was significantly dilated with significantly reduced systolic function. Diffuse hypokinesis of left ventricle was seen. LVEF was 5-10%. LVEDP was assessed to be elevated. Right ventricle was dilated with reduced systolic function. Both atria were dilated. Aortic valve was not well visualized. There was mild aortic insufficiency. There was no aortic stenosis. There was trivial mitral regurgitation. There was mild tricuspid regurgitation. There was trivial pulmonary valve insufficiency. Right ventricular systolic pressure was assessed at 57 mm Hg. IVC was dilated with reduced respiratory variation. There was no pericardial effusion KI: Severe dilatation of LV with reduced LV systolic function. No Cardiac source for Emboli. Positive bubble study questions small PFO (PFO itself could not be visualized) Patient is a 43-year-old gentleman who presented with weeks of worsening shortness of breath cough/nausea and vomiting. Does have baseline history of systolic heart failure. Has been noncompliant with medication and followups. Acute on chronic systolic heart failure could have contributed to the clinical picture. Does have baseline history of methamphetamine abuse which could have contributed to the clinical picture. He is noncompliant with medication and followups which could have contributed to the clinical picture. Does have baseline history of elevated/chronically troponin. Abnormal troponin in a patient with end-stage systolic heart failure usually reflects demand physiology. Acute coronary syndrome is not considered at this point. Had AMS and later had respiratory failure. Intubated and brought to [facility]/ICU. He is found to have acute/subacute CVA. Is being followed by Neurology. KI performed: no source for Emboli. Still, Positive Bubble study questions PFO (PFO itself could not be visualized: maybe too small). Still, there was no recent DVT also (negative venous duplex). Acute on chronic systolic heart failure Drug-induced cardiomyopathy CKD Polycythemia vera removal Diabetes mellitus Noncompliant with medication and followups Substance abuse AMS Acute/subacute CVA Cardiac suggestion for management: Manage in ICU IV diuresis Follow-up electrolytes and kidney function tests and correct abnormalities. Keep potassium above 4 and magnesium above 2 Entresto: 24/26 mg p.o. b.i.d. (for now on hold secondary to hypotension and need for pressure support) Aspirin: 81 mg daily suggested Heparin drip versus therapeutic Lovenox is suggested at this point High potency statin (atorvastatin at 40 mg daily) suggested Does have baseline history of elevated/chronically troponin. Abnormal troponin (flat trend) in a patient with end-stage systolic heart failure usually reflects demand physiology. Acute coronary syndrome is not considered at this point. Recognizing old history of significant heart failure and noncompliance, outcome is poor. Consider restarting hospice Lifestyle and risk factor modifications. Neurology follow up Consider Hematology evaluation for Hemoconcentration / Polycythemia Vera Further evaluation and management depends on the above and clinical course A total of 75 minutes was spent reviewing the patient record, examining the patient, making a diagnostic and therapeutic plan, discussing this plan with medical personnel, following up on diagnostic studies and following the patient for clinical stability excluding any and all procedures. At least 50% of this time was spent in direct, [id number] contact. Thank you for allowing me to participate in this patient's care. Further recommendations will depend on patient's clinical course. Please do not hesitate to contact me if you have any questions or concerns. This medical document was created using electronic medical record system with [employer] computerized dictation system. Although this document has been carefully reviewed, there may still be some phonetic and typographical errors. These areas are purely typographical due to the imperfection of the software programs, and do not reflect any compromise in the patient's medical care. Dietary Evaluation Review Comments: 1) TF Glucerna 1.2Cal @ 70ml/hr x 24 hr along with Pro-stat 1 pk daily. Start @ 30ml/hr, increase 10ml/hr Q4H until goal rate is reached. Water flush 50ml Q4H TF goal volume along with Pro-stat & water flush provide 2016 kcal (100%), 116 gm protein (100%), and 1652ml free water 2) TPN if NPO>7 days 3) Advance diet as medically feasible 4) Continue current plan of care Expected Outcomes/Goals: To meet >75% estimated needs within 7 days Fu 2-3 days Plan discussed with: Other (nurse) GABRIEL LOPEZ MD Jun 07, 2024 06:39
--- NOTE | 2024-06-07 09:26 | DVHPN2 ---
Consult Progress Note Date Seen: Jun 05, 2024 Subjective Patient reports: Other (remains intubated on FIO2 30% , on and off levofed , tolerated dialysis yesterday , continuing to produce sputum ) Objective vital signs Vital Sign Date Time Temp Pulse Resp B/P (MAP) Pulse Ox O2 Delivery O2 Flow Rate FiO2 06/07/24 08:24 96/64 06/07/24 07:50 81 18 96 30 06/07/24 06:45 100.4 212.7 06/07/24 06:00 Mechanical Ventilator+ Total Intake and Output 06/06/24 06/06/24 06/07/24 15:00 23:00 07:00 Intake Total 853.514 ml 1148.271 ml 957.958 ml Output Total 1250 ml 1400 ml Balance 853.514 ml -101.729 ml -442.042 ml medications Current Medications Medications Dose Ordered Sig/Lei Route Start Time Stop Time Status Last Admin Dose Admin Acetaminophen/ Hydrocodone Bitart 1 tab Q4HP PRN PO 05/29/24 20:45 Ondansetron HCl 4 mg Q4HP PRN IV 05/29/24 20:45 05/30/24 03:54 4 MG Acetaminophen 650 mg Q6HP PRN PO 05/29/24 20:45 06/06/24 21:45 650 MG Morphine Sulfate 2 mg Q4HPRN PRN IV 05/29/24 20:45 Nitroglycerin 0.4 mg Q5MINP PRN SL 05/29/24 20:45 Morphine Sulfate 2 mg Q30M PRN IV 05/29/24 20:45 Pantoprazole Sodium 40 mg DAILY IV 05/30/24 10:00 06/06/24 09:57 40 MG Furosemide 40 mg BIDD IV 05/30/24 18:00 06/07/24 05:38 40 MG Sacubitril/ Valsartan 1 tab BID PO 05/30/24 10:00 Hold 06/03/24 22:03 1 TAB Aspirin 81 mg DAILY PO 05/30/24 10:00 06/05/24 09:58 81 MG Atorvastatin Calcium 40 mg HS PO 05/30/24 22:00 06/06/24 21:45 40 MG Midazolam HCl 50 ml @ 1 mls/hr Q24H IV 05/30/24 19:00 06/07/24 06:30 1 MLS/HR Fentanyl Citrate 250 ml @ 2.5 mls/hr Q24H IV 05/30/24 19:00 06/07/24 08:24 12.5 MLS/HR Enoxaparin Sodium 90 mg Q12HR SC 05/31/24 22:00 06/06/24 21:45 90 MG Sodium Chloride 1,000 ml @ 50 mls/hr Q20H IV 05/31/24 12:30 06/06/24 21:48 50 MLS/HR Norepinephrine Bitartrate 250 ml @ 3.75 mls/hr Q24H IV 06/02/24 11:30 06/06/24 23:33 18.75 MLS/HR Sodium Chloride 10 ml QSHIFT@10,22 IV 06/02/24 22:00 06/06/24 21:45 10 ML Piperacillin Sod/ Tazobactam Sod 100 ml @ 25 mls/hr Q8HR IV 06/04/24 14:00 06/07/24 05:38 25 MLS/HR Diphenhydramine HCl 25 mg Q4HP PRN IV 06/04/24 10:45 06/04/24 13:28 25 MG Vancomycin HCl 0 ml @ 0 mls/hr UD IV 06/05/24 09:45 Enteral Nutritional Formula 1,000 ml 70ML/HR GT 06/05/24 10:15 Amino Acid Protein 30 ml DAILY PO 06/06/24 10:00 Physical Exam: General: NAD Neck: Supple. No masses. HEENT: PERRL. Normal lids and conjunctiva. Moist mucous membranes. Oropharynx without lesions, exudates or excessive erythema. Normal appearance of the external aspects of the nose and ears. Heart: Regular rhythm, normal rate. No murmur. No lower extremity edema. Lungs: Normal respiratory effort. Clear to auscultation bilaterally. No wheezes. No crackles. Abdomen: Soft. Non-tender. Non-distended. No masses or abdominal hernia. Msk: No digital cyanosis. Normal strength and tone in all 4 limbs. Skin: Warm and dry, no rashes. Modeling likely ischemic disease. Neuro: Alert. No facial droop or slurred speech. Extra-ocular movements intact. Sensation intact to soft touch in all 4 limbs. Evidence of acute stroke (left-sided symptoms per MRI report). Psych: Appropriate mood. Full affect. Oriented to person, place, time, and situation laboratory and microbiology Laboratory Tests 06/07/24 04:38 Test 06/07/24 04:38 Range/Units Serum Glucose 130 H 74-106 mg/dL Problem List/Assessment/Plan Problems(with codes): (1) Congestive heart failure due to cardiomyopathy (2) Gram positive bacterial infection (3) CHF exacerbation (4) NSTEMI (non-ST elevated myocardial infarction) (5) Drug-induced cardiomyopathy (6) Aspiration pneumonia (7) Klebsiella pneumoniae pneumonia (8) Polycythemia vera Problem List/Assessment/Plan ASSESSMENT AND PLAN ID Problem List: - Septic shock - Acute hypoxic respiratory failure - Aspiration pneumonia (Klebsiella) - Gram-positive cocci bacteremia - Acute systolic and diastolic heart failure - [id number] myocardial infarction (NSTEMI) Type 2 - Ischemic stroke - Polysythemia vera - End-stage renal disease (on hemodialysis, possibly resolved) - Hypertension - Diabetes mellitus - Asthma - Intravenous drug use (amphetamines, benzodiazepines, ongoing) - Medication noncompliance - History of deep vein thrombosis (DVT) and pulmonary embolism (PE), not currently confirmed Assessment: This is a 43-year-old male with significant past medical history including congestive heart failure, hypertension, diabetes mellitus, end-stage renal disease (previously on hemodialysis), asthma, polysythemia vera, and ongoing intravenous drug use, presenting with septic shock, acute hypoxic respiratory failure, aspiration pneumonia, and a complicated hospital course. He was noted to have chest pain, shortness of breath, and recent code event. Imaging revealed acute ischemic stroke. Patient had recent blood clots in multiple locations and was previously medication noncompliant. Admitted for acute decompensated heart failure (cardiomyopathy, LVEF 5-10%), persistent fevers, and required emergent intubation for hypoxia. Sputum culture positive for gram-negative rods (Klebsiella); blood cultures preliminary growth gram-positive cocci. Initial antibiotics with ceftriaxone, transitioned to Zosyn, then vancomycin added due to persistent fevers and rising WBC. Patient has a central line in place. TTE reveals four chamber dilation, biventricular systolic dysfunction, no pericardial effusion. Labs notable for persistent leukocytosis, Hb as high as 19.5 (polycythemia vera), and improving chest imaging but ongoing fever. No current DVTs by Doppler. 06/05: underwent bronchoscopy by Dr Zapata today and there was a right and left lower lobe atelectasis due to mucus plugging in the L6-L10 and R6-R10. right lower lobe BAL performed and cultures sent Plan: - follow up on BAL culture results - follow up on GPC in blood culture - recommend repeating blood cultures at this time - jaunnet has a considerably poor prognosis , low EF , would recommend checking lactic acid to confirm patient is responding to antibiotic therapy - may need to be considered for Inotrope defer to cardiology - Continue vancomycin and Zosyn (piperacillin-tazobactam) - Monitor for persistent bacteremia; if persists, consider line exchange - Await and follow up on KI to evaluate for endocarditis - Repeat and monitor blood cultures to confirm clearance - Continue supportive care for acute hypoxic respiratory failure; monitor ventilator settings; target minimal FiO2 - Serial lactate and creatinine monitoring - Cardiology and primary service to continue management of heart failure and NSTEMI type 2 - Monitor skin for signs of ischemia or evolving lesions - Repeat imaging as clinically indicated - Assess for HIV and hepatitis status given ongoing IV drug use - Defer management of drug use and suspected resolved end-stage renal disease; re-evaluate dialysis need - Social work and case management for disposition planning (including possible hospice versus home care if patient preference changes) - Continue close hemodynamic and laboratory monitoring - Infectious Disease service to continue to follow Authorized and Performed by: Randi Barboza MD Total critical care time: Approximately 76 minutes Due to a high probability of clinically significant, life threatening deterioration, the patient required my highest level of preparedness to intervene emergently and I personally spent this critical care time directly and personally managing the patient. This critical care time included obtaining a history; examining the patient; pulse oximetry; ordering and review of studies; arranging urgent treatment with development of a management plan; evaluation of patient's response to treatment; frequent reassessment; and, discussions with other providers. This critical care time was performed to assess and manage the high probability of imminent, life-threatening deterioration that could result in multi-organ failure. It was exclusive of separately billable procedures and treating other patients and teaching time. Plan discussed with: Other Dietary Evaluation Review Comments: 1) TF Glucerna 1.2Cal @ 70ml/hr x 24 hr along with Pro-stat 1 pk daily. Start @ 30ml/hr, increase 10ml/hr Q4H until goal rate is reached. Water flush 50ml Q4H TF goal volume along with Pro-stat & water flush provide 2016 kcal (100%), 116 gm protein (100%), and 1652ml free water 2) TPN if NPO>7 days 3) Advance diet as medically feasible 4) Continue current plan of care Expected Outcomes/Goals: To meet >75% estimated needs within 7 days Fu 2-3 days RANDI BARBOZA MD Jun 07, 2024 09:26
--- NOTE | 2024-06-07 09:37 | DVHPN2 ---
Consult Progress Note Date Seen: Jun 06, 2024 Subjective Patient reports: Other (on 14 of levofed after bronchoscopy procedure yesterday and is on minimla vent , BP appears strong and levofed is coming down ) Objective vital signs Vital Sign Date Time Temp Pulse Resp B/P (MAP) Pulse Ox O2 Delivery O2 Flow Rate FiO2 06/07/24 08:24 96/64 06/07/24 07:50 81 18 96 30 06/07/24 06:45 100.4 212.7 06/07/24 06:00 Mechanical Ventilator+ Total Intake and Output 06/06/24 06/06/24 06/07/24 15:00 23:00 07:00 Intake Total 853.514 ml 1148.271 ml 957.958 ml Output Total 1250 ml 1400 ml Balance 853.514 ml -101.729 ml -442.042 ml medications Current Medications Medications Dose Ordered Sig/Lei Route Start Time Stop Time Status Last Admin Dose Admin Acetaminophen/ Hydrocodone Bitart 1 tab Q4HP PRN PO 05/29/24 20:45 Ondansetron HCl 4 mg Q4HP PRN IV 05/29/24 20:45 05/30/24 03:54 4 MG Acetaminophen 650 mg Q6HP PRN PO 05/29/24 20:45 06/06/24 21:45 650 MG Morphine Sulfate 2 mg Q4HPRN PRN IV 05/29/24 20:45 Nitroglycerin 0.4 mg Q5MINP PRN SL 05/29/24 20:45 Morphine Sulfate 2 mg Q30M PRN IV 05/29/24 20:45 Pantoprazole Sodium 40 mg DAILY IV 05/30/24 10:00 06/06/24 09:57 40 MG Furosemide 40 mg BIDD IV 05/30/24 18:00 06/07/24 05:38 40 MG Sacubitril/ Valsartan 1 tab BID PO 05/30/24 10:00 Hold 06/03/24 22:03 1 TAB Aspirin 81 mg DAILY PO 05/30/24 10:00 06/05/24 09:58 81 MG Atorvastatin Calcium 40 mg HS PO 05/30/24 22:00 06/06/24 21:45 40 MG Midazolam HCl 50 ml @ 1 mls/hr Q24H IV 05/30/24 19:00 06/07/24 06:30 1 MLS/HR Fentanyl Citrate 250 ml @ 2.5 mls/hr Q24H IV 05/30/24 19:00 06/07/24 08:24 12.5 MLS/HR Enoxaparin Sodium 90 mg Q12HR SC 05/31/24 22:00 06/06/24 21:45 90 MG Sodium Chloride 1,000 ml @ 50 mls/hr Q20H IV 05/31/24 12:30 06/06/24 21:48 50 MLS/HR Norepinephrine Bitartrate 250 ml @ 3.75 mls/hr Q24H IV 06/02/24 11:30 06/06/24 23:33 18.75 MLS/HR Sodium Chloride 10 ml QSHIFT@10,22 IV 06/02/24 22:00 06/06/24 21:45 10 ML Piperacillin Sod/ Tazobactam Sod 100 ml @ 25 mls/hr Q8HR IV 06/04/24 14:00 06/07/24 05:38 25 MLS/HR Diphenhydramine HCl 25 mg Q4HP PRN IV 06/04/24 10:45 06/04/24 13:28 25 MG Vancomycin HCl 0 ml @ 0 mls/hr UD IV 06/05/24 09:45 Enteral Nutritional Formula 1,000 ml 70ML/HR GT 06/05/24 10:15 Amino Acid Protein 30 ml DAILY PO 06/06/24 10:00 Physical Exam: General: NAD Neck: Supple. No masses. HEENT: PERRL. Normal lids and conjunctiva. Moist mucous membranes. Oropharynx without lesions, exudates or excessive erythema. Normal appearance of the external aspects of the nose and ears. Heart: Regular rhythm, normal rate. No murmur. No lower extremity edema. Lungs: Normal respiratory effort. Clear to auscultation bilaterally. No wheezes. No crackles. Abdomen: Soft. Non-tender. Non-distended. No masses or abdominal hernia. Msk: No digital cyanosis. Normal strength and tone in all 4 limbs. Skin: Warm and dry, no rashes. Modeling likely ischemic disease. Neuro: Alert. No facial droop or slurred speech. Extra-ocular movements intact. Sensation intact to soft touch in all 4 limbs. Evidence of acute stroke (left-sided symptoms per MRI report). Psych: Appropriate mood. Full affect. Oriented to person, place, time, and situation laboratory and microbiology Laboratory Tests 06/07/24 04:38 Test 06/07/24 04:38 Range/Units Serum Glucose 130 H 74-106 mg/dL Problem List/Assessment/Plan Problems(with codes): (1) Congestive heart failure due to cardiomyopathy (2) Gram positive bacterial infection (3) CHF exacerbation (4) NSTEMI (non-ST elevated myocardial infarction) (5) Aspiration pneumonia (6) Drug-induced cardiomyopathy Problem List/Assessment/Plan ASSESSMENT AND PLAN ID Problem List: - Septic shock - Acute hypoxic respiratory failure - Aspiration pneumonia (Klebsiella) - Gram-positive cocci bacteremia - Acute systolic and diastolic heart failure - [id number] myocardial infarction (NSTEMI) Type 2 - Ischemic stroke - Polysythemia vera - End-stage renal disease (on hemodialysis, possibly resolved) - Hypertension - Diabetes mellitus - Asthma - Intravenous drug use (amphetamines, benzodiazepines, ongoing) - Medication noncompliance - History of deep vein thrombosis (DVT) and pulmonary embolism (PE), not currently confirmed Assessment: This is a 43-year-old male with significant past medical history including congestive heart failure, hypertension, diabetes mellitus, end-stage renal disease (previously on hemodialysis), asthma, polysythemia vera, and ongoing intravenous drug use, presenting with septic shock, acute hypoxic respiratory failure, aspiration pneumonia, and a complicated hospital course. He was noted to have chest pain, shortness of breath, and recent code event. Imaging revealed acute ischemic stroke. Patient had recent blood clots in multiple locations and was previously medication noncompliant. Admitted for acute decompensated heart failure (cardiomyopathy, LVEF 5-10%), persistent fevers, and required emergent intubation for hypoxia. Sputum culture positive for gram-negative rods (Klebsiella); blood cultures preliminary growth gram-positive cocci. Initial antibiotics with ceftriaxone, transitioned to Zosyn, then vancomycin added due to persistent fevers and rising WBC. Patient has a central line in place. TTE reveals four chamber dilation, biventricular systolic dysfunction, no pericardial effusion. Labs notable for persistent leukocytosis, Hb as high as 19.5 (polycythemia vera), and improving chest imaging but ongoing fever. No current DVTs by Doppler. 06/05: underwent bronchoscopy by Dr Zapata today and there was a right and left lower lobe atelectasis due to mucus plugging in the L6-L10 and R6-R10. right lower lobe BAL performed and cultures sent 06/06: appears to be clinically improving , however is intermittently requiring pressers . lactic acid is at 2.7 , likely secondary to cardiogenic shock , low EF . preliminary cultures are growing gram negative rods , likely klebsiella Plan: - follow up on BAL culture results - follow up on GPC in blood culture - recommend repeating blood cultures at this time - odilon has a considerably poor prognosis , low EF , would recommend checking lactic acid to confirm patient is responding to antibiotic therapy - may need to be considered for Inotrope defer to cardiology - Continue vancomycin and Zosyn (piperacillin-tazobactam) - Monitor for persistent bacteremia; if persists, consider line exchange - Await and follow up on KI to evaluate for endocarditis - Repeat and monitor blood cultures to confirm clearance - Continue supportive care for acute hypoxic respiratory failure; monitor ventilator settings; target minimal FiO2 - Serial lactate and creatinine monitoring - Cardiology and primary service to continue management of heart failure and NSTEMI type 2 - Monitor skin for signs of ischemia or evolving lesions - Repeat imaging as clinically indicated - Assess for HIV and hepatitis status given ongoing IV drug use - Defer management of drug use and suspected resolved end-stage renal disease; re-evaluate dialysis need - Social work and case management for disposition planning (including possible hospice versus home care if patient preference changes) - Continue close hemodynamic and laboratory monitoring - Infectious Disease service to continue to follow Authorized and Performed by: Randi Barboza MD Total critical care time: Approximately 76 minutes Due to a high probability of clinically significant, life threatening deterioration, the patient required my highest level of preparedness to intervene emergently and I personally spent this critical care time directly and personally managing the patient. This critical care time included obtaining a history; examining the patient; pulse oximetry; ordering and review of studies; arranging urgent treatment with development of a management plan; evaluation of patient's response to treatment; frequent reassessment; and, discussions with other providers. This critical care time was performed to assess and manage the high probability of imminent, life-threatening deterioration that could result in multi-organ failure. It was exclusive of separately billable procedures and treating other patients and teaching time. Plan discussed with: Other Dietary Evaluation Review Comments: 1) TF Glucerna 1.2Cal @ 70ml/hr x 24 hr along with Pro-stat 1 pk daily. Start @ 30ml/hr, increase 10ml/hr Q4H until goal rate is reached. Water flush 50ml Q4H TF goal volume along with Pro-stat & water flush provide 2016 kcal (100%), 116 gm protein (100%), and 1652ml free water 2) TPN if NPO>7 days 3) Advance diet as medically feasible 4) Continue current plan of care Expected Outcomes/Goals: To meet >75% estimated needs within 7 days Fu 2-3 days RANDI BARBOZA MD Jun 07, 2024 09:37
--- NOTE | 2024-06-07 10:44 | DVHPN2 ---
Progress Note - Dictate Date Seen: Jun 07, 2024 Medical Necessity Reason Pt with a Central, PICC or Fol: Yes The following are medically ne: Ramirez Catheter Reason for ramirez catheter: Strict I&O vital signs Vital Sign Date Time Temp Pulse Resp B/P (MAP) Pulse Ox O2 Delivery O2 Flow Rate FiO2 06/07/24 10:30 100.2 81 17 103/74 (84) 97 212.4 06/07/24 10:00 Mechanical Ventilator+ 30 30 Total Intake and Output 06/06/24 06/06/24 06/07/24 15:00 23:00 07:00 Intake Total 853.514 ml 1148.271 ml 957.958 ml Output Total 1250 ml 1400 ml Balance 853.514 ml -101.729 ml -442.042 ml medications Current Medications Medications Dose Ordered Sig/Lei Route Start Time Stop Time Status Last Admin Dose Admin Acetaminophen/ Hydrocodone Bitart 1 tab Q4HP PRN PO 05/29/24 20:45 Ondansetron HCl 4 mg Q4HP PRN IV 05/29/24 20:45 05/30/24 03:54 4 MG Acetaminophen 650 mg Q6HP PRN PO 05/29/24 20:45 06/06/24 21:45 650 MG Morphine Sulfate 2 mg Q4HPRN PRN IV 05/29/24 20:45 Nitroglycerin 0.4 mg Q5MINP PRN SL 05/29/24 20:45 Morphine Sulfate 2 mg Q30M PRN IV 05/29/24 20:45 Pantoprazole Sodium 40 mg DAILY IV 05/30/24 10:00 06/07/24 09:44 40 MG Furosemide 40 mg BIDD IV 05/30/24 18:00 06/07/24 05:38 40 MG Sacubitril/ Valsartan 1 tab BID PO 05/30/24 10:00 Hold 06/03/24 22:03 1 TAB Aspirin 81 mg DAILY PO 05/30/24 10:00 06/07/24 09:45 81 MG Atorvastatin Calcium 40 mg HS PO 05/30/24 22:00 06/06/24 21:45 40 MG Midazolam HCl 50 ml @ 1 mls/hr Q24H IV 05/30/24 19:00 06/07/24 06:30 1 MLS/HR Fentanyl Citrate 250 ml @ 2.5 mls/hr Q24H IV 05/30/24 19:00 06/07/24 08:24 12.5 MLS/HR Enoxaparin Sodium 90 mg Q12HR SC 05/31/24 22:00 06/07/24 09:58 90 MG Sodium Chloride 1,000 ml @ 50 mls/hr Q20H IV 05/31/24 12:30 06/06/24 21:48 50 MLS/HR Norepinephrine Bitartrate 250 ml @ 3.75 mls/hr Q24H IV 06/02/24 11:30 06/06/24 23:33 18.75 MLS/HR Sodium Chloride 10 ml QSHIFT@10,22 IV 06/02/24 22:00 06/07/24 09:46 10 ML Piperacillin Sod/ Tazobactam Sod 100 ml @ 25 mls/hr Q8HR IV 06/04/24 14:00 06/07/24 05:38 25 MLS/HR Diphenhydramine HCl 25 mg Q4HP PRN IV 06/04/24 10:45 06/04/24 13:28 25 MG Vancomycin HCl 0 ml @ 0 mls/hr UD IV 06/05/24 09:45 Enteral Nutritional Formula 1,000 ml 70ML/HR GT 06/05/24 10:15 Amino Acid Protein 30 ml DAILY PO 06/06/24 10:00 objective General Appearance: alert, no distress HEENT: EOMI, PERRLA, normal external inspect of ears, no icterus, no nasal drainage Neck: no carotid bruit, no jugular venous distention (JVD), no lymphadenopathy Chest: normal thorax Respiratory: clear to auscultation, normal air movement Cardiovascular: regular rate and rhythm, no diastolic murmur, no jugular venous distention (JVD), no rub, no systolic murmur Abdominal: soft, no hepatomegaly, no mass, no splenomegaly, no tenderness Genitourinary: grossly normal external Musculoskeletal: no joint tenderness, no swelling Extremities: normal pulses, no calf tenderness, no clubbing, no cyanosis, no edema Skin: no bruising, no jaundice, no rash Neurological: alert, No focal deficit laboratory and microbiology Laboratory Tests 06/07/24 04:38 Test 06/07/24 04:38 Range/Units Serum Glucose 130 H 74-106 mg/dL Problem List 1. Acute CVA Monitor, neurology consult 2. Acute on chronic systolic heart failure Monitor, cardiology consult, heparin gtt 3. Drug induced cardiomyopathy Monitor, echocardiogram, cardiology consult 4. Elevated troponin - demand ischemia Monitor EKG, cardiology consult 5. Hx of methamphetamine abuse Monitor, urine drug screen 6. Medical non-tax compliance agent, PPI 7. Acute hypoxic respiratory failure Monitor, supplemental O2, ventilator management per pulmonary 8. Pneumonia Monitor, antibiotics, pulmonary consult 9. Acute cystitis Monitor, antibiotics 10. Bacteremia Monitor, continue antibiotics, ID consult. 11. Polycythemia vera Monitor, daily labs 12. IZZY with vasomotor nephropathy Monitor, monitor renal function 13. Metabolic encephalopathy Monitor, Neurology consult [40] minutes of critical care time were spent in evaluating the patient, reviewing the diagnostic data, discussing with the family. Assessment/Plan Subjective Patient is currently sedated, however, he is agitated and combative. Objective Ventilator management per pulmonary. Patient was admitted for sepsis related to pneumonia and UTI. Patient was positive for methamphetamines. Patient had a change in neuro status and became obtunded. MRI shows acute CVA. Patient was seen by neurology as well as cardiology. Plan Continue tube feeding as tolerated. Monitor renal function. Patient had a IZZY with vasomotor nephropathy. Neurology consult for metabolic encephalopathy. Monitor daily labs. Patient has polycythemia vera. Dietary Evaluation Review Comments: 1) TF Glucerna 1.2Cal @ 70ml/hr x 24 hr along with Pro-stat 1 pk daily. Start @ 30ml/hr, increase 10ml/hr Q4H until goal rate is reached. Water flush 50ml Q4H TF goal volume along with Pro-stat & water flush provide 2016 kcal (100%), 116 gm protein (100%), and 1652ml free water 2) TPN if NPO>7 days 3) Advance diet as medically feasible 4) Continue current plan of care Expected Outcomes/Goals: To meet >75% estimated needs within 7 days Fu 2-3 days Plan discussed with: Patient, Other [employer] Jun 07, 2024 10:44
[2024-06-07 11:40] LABS: Hepatitis A Ab IgM Negative; Hepatitis B Core IgM Negative (Negative); Hepatitis B Surface Antigen Negative (Negative); Hepatitis C Antibody Negative (Negative)
--- NOTE | 2024-06-07 16:56 | DVH ---
Bilateral Lower Extremity Arterial Duplex Clinical History: coolness mottlng Comparison: None Technique: Duplex Doppler evaluation including color Doppler and spectral/pulsed waveform analysis of the lower extremity arteries was performed. Findings: RIGHT: Peak systolic velocities are less than 150 cm/sec. The waveforms are multiphasic. LEFT: Peak systolic velocities are less than 150 cm/sec. The waveforms are multiphasic. IMPRESSION: No hemodynamically significant stenosis based on peak systolic velocity criteria. REFERENCE VALUES, [facility] ([facility]) vascular Imaging Lab Criteria: Peak systolic velocity ranges (in cm/sec) are as follows: <150 cm/s - <20 % stenosis 150-200 cm/s - 20-49% stenosis 200-300 cm/s - 50-75% stenosis >300 cm/s -> 75% stenosis
--- NOTE | 2024-06-07 18:10 | DVHPN2 ---
Progress Note - Dictate Date Seen: Jun 07, 2024 Medical Necessity Reason Pt with a Central, PICC or Fol: Yes The following are medically ne: Ramirez Catheter Reason for ramirez catheter: Strict I&O Subjective Mr. Castillo is a 43 years old right-handed gentleman with a history of hypertension, diabetes, coronary artery disease, heart attack, congestive heart failure, polycythemia vera, cardiomyopathy, asthma, he came to the [facility] Emergency room on 05/29/2024 with a chief complaint of shortness breath, chest pain. I have seen and examined the patient, I have talked to his nurse. His eyes are closed, nonresponsive painful stimuli But he was agitated, moving excessively with less sedation earlier today He does not not move the arms and legs Fentanyl 225 mcg/hour, Precedex 1.5mcg/Kg/Hr, Levo: 8 mcg/min Urinalysis, 05/30/2024: WBC: <1, urine leukocyte esterase: Negative UDS, 05/30/2024, amphetamine, benzo CBC, 05/30/2024: Respiratory acidosis, 06/03/2024: Acidosis WBC/HB/PLT/MCV, 05/30/2024: 10.3/18.1/230/93.8, 06/03/2024: 18.1/19.2/275/95 PT/INR/PTT, 05/30/2024: 12.03/1016/47 05/31/2024: 11.9/1.14/65.5 BMP, 05/30/2024: Unremarkable BUN/CR, 06/03/2024: 26/1.47 TBI/AST/ALT/AP, 05/29/2024: 2.1/46/25/133, 06/03/2024: 1.4/60/15/122 NH3 06/03/24: 30 Troponin one high sensitivity, 05/29/2024: 529, 05/30/2024: 502, 526, TG/HDL/LDL/HDL, 05/30/2024: 62/148/113/36 KI, 06/03/24: 1. Left ventricle: Significant dilatation of Left ventricle with LVEF of around 10% was observed. Diffuse hypokinesis of left ventricle was seen. There was no intraventricular thrombus. . 2. Right ventricle: RV was dilated with reduced systolic function. 3. Left atrium: LA enlarged 4. Right atrium: RA enlarged 5. Mitral valve: Mild Mitral regurgitation, no significant stenosis, normal functioning valve. No vegetation was seen on Mitral valve. 6. Left atrial appendage: No evidence of thrombus. 7. Aortic valve: It was trileaflet. There was no stenosis. There was trace insufficiency. There was no vegetation seen in Aortic valve. 8. Pulmonic valve: Trivial pulmonic insufficiency. No significant stenosis. No vegetation was seen. 9. Tricuspid valve: Mild tricuspid regurgitation. There was no vegetation on Tricuspid valve. 10. Interatrial septum: Negative color flow for shunt was observed. Some bubbles crossed to left atria in favor of small PFO. 11. Pericardium: No significant effusion. 12. Thoracic aorta: No significant plaquing. Echocardiogram, 05/30/2024: Four-chamber dilatation was observed. Left ventricle: Left ventricle was significantly dilated with significantly reduced systolic function. Diffuse hypokinesis of left ventricle was seen. LVEF was 5-10%. LVEDP was assessed to be elevated. Right ventricle was dilated with reduced systolic function. Both atria were dilated. Aortic valve was not well visualized. There was mild aortic insufficiency. There was no aortic stenosis. There was trivial mitral regurgitation. There was mild tricuspid regurgitation. There was trivial pulmonary valve insufficiency. Right ventricular systolic pressure was assessed at 57 mm Hg. IVC was dilated with reduced respiratory variation. There was no pericardial effusion Carotid Doppler, 05/30/2024: No hemodynamically significant stenoses or occlusions identified. CT head, 05/30/2024 1107: No acute intracranial process CT head, 05/30/2024 1856: No abnormality demonstrated. The very small acute/subacute infarct in right frontal lobe and very small old cortical infarct in left parietal lobe seen on the MRI study from earlier the same day are not evident on CT MRI head, 05/30/2024 1041: Small focus of restricted diffusion in the anterior right centrum semiovale likely representing small acute to subacute infarct. There is no evidence of acute hemorrhage (I saw a small DWI lesion in the left cerebellum hemisphere with ADC correlation) MRI head, 05/31/2024: 1. Redemonstration of subcentimeter focus of acute ischemia in the left cerebellar lobe. No intracranial hemorrhage. 2. Redemonstration of subcentimeter focus of DWI hyperintense signal in the right frontal centrum semiovale without corresponding abnormal ADC signal reflecting T2 shine through. No evidence of acute ischemia. 3. Subcentimeter foci abnormal signal in the bilateral cerebellar lobes may reflect chronic infarcts or underlying lesions. Further evaluation with MRI with IV contrast is recommended. 4. 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 vital signs Vital Sign Date Time Temp Pulse Resp B/P (MAP) Pulse Ox O2 Delivery O2 Flow Rate FiO2 06/07/24 17:51 30 06/07/24 17:51 77 06/07/24 17:51 18 97 Mechanical Ventilator+ 06/07/24 17:17 112/80 06/07/24 15:00 100.4 212.7 Total Intake and Output 06/06/24 06/06/24 06/07/24 15:00 23:00 07:00 Intake Total 853.514 ml 1148.271 ml 1071.596 ml Output Total 1250 ml 1400 ml Balance 853.514 ml -101.729 ml -328.404 ml medications Current Medications Medications Dose Ordered Sig/Lei Route Start Time Stop Time Status Last Admin Dose Admin Acetaminophen/ Hydrocodone Bitart 1 tab Q4HP PRN PO 05/29/24 20:45 Ondansetron HCl 4 mg Q4HP PRN IV 05/29/24 20:45 05/30/24 03:54 4 MG Acetaminophen 650 mg Q6HP PRN PO 05/29/24 20:45 06/06/24 21:45 650 MG Morphine Sulfate 2 mg Q4HPRN PRN IV 05/29/24 20:45 Nitroglycerin 0.4 mg Q5MINP PRN SL 05/29/24 20:45 Morphine Sulfate 2 mg Q30M PRN IV 05/29/24 20:45 Pantoprazole Sodium 40 mg DAILY IV 05/30/24 10:00 06/07/24 09:44 40 MG Furosemide 40 mg BIDD IV 05/30/24 18:00 06/07/24 17:17 40 MG Sacubitril/ Valsartan 1 tab BID PO 05/30/24 10:00 Hold 06/03/24 22:03 1 TAB Aspirin 81 mg DAILY PO 05/30/24 10:00 06/07/24 09:45 81 MG Atorvastatin Calcium 40 mg HS PO 05/30/24 22:00 06/06/24 21:45 40 MG Midazolam HCl 50 ml @ 1 mls/hr Q24H IV 05/30/24 19:00 06/07/24 17:16 2 MLS/HR Fentanyl Citrate 250 ml @ 2.5 mls/hr Q24H IV 05/30/24 19:00 06/07/24 08:24 12.5 MLS/HR Enoxaparin Sodium 90 mg Q12HR SC 05/31/24 22:00 06/07/24 09:58 90 MG Sodium Chloride 1,000 ml @ 50 mls/hr Q20H IV 05/31/24 12:30 06/06/24 21:48 50 MLS/HR Norepinephrine Bitartrate 250 ml @ 3.75 mls/hr Q24H IV 06/02/24 11:30 06/07/24 14:37 15 MLS/HR Sodium Chloride 10 ml QSHIFT@10,22 IV 06/02/24 22:00 06/07/24 09:46 10 ML Piperacillin Sod/ Tazobactam Sod 100 ml @ 25 mls/hr Q8HR IV 06/04/24 14:00 06/07/24 14:37 25 MLS/HR Diphenhydramine HCl 25 mg Q4HP PRN IV 06/04/24 10:45 06/04/24 13:28 25 MG Vancomycin HCl 0 ml @ 0 mls/hr UD IV 06/05/24 09:45 Enteral Nutritional Formula 1,000 ml 70ML/HR GT 06/05/24 10:15 Amino Acid Protein 30 ml DAILY PO 06/06/24 10:00 Vancomycin HCl 200 ml @ 160 mls/hr Q16H IV 06/07/24 20:00 objective The patient is well-nourished and well-developed with no distress. The patient is intubated MENTAL STATUS: Subjective CRANIAL NERVES: Pupils are equal, round and reactive. There are conjugated eye movement. No signs of facial weakness. He coughs excessively s SENSATION: Non-responses to pain stimuli. MOTOR: Normal tone in the upper and lower extremity. Normal muscle bulk. No fasciculations. He does not move the arms and legs REFLEXES: Deep tendon reflexes are symmetrical. No pathological reflexes. CEREBELLAR/COORDINATION: Deferred GAIT/STATION: deferred laboratory and microbiology Laboratory Tests 06/07/24 04:38 Test 06/07/24 04:38 Range/Units Serum Glucose 130 H 74-106 mg/dL Problem List Altered mental status More strokes Metabolic encephalopathy/hepatic encephalopathy ? Status epileptics Elevated troponin I/heart attack Multiple strokes Cardiomyopathy Congestive heart failure A spell of nonresponsiveness on 05/30/2024 ? Syncope triggered by coughing/arrhythmia ? Seizure activity Heart failure ? Small PFO Assessment/Plan Monitoring Supportive treatments ICU care EEG Stabilize vitals Respiratory support/vent management Lovenox 90 mg subQ b.i.d. Aspirin 81 mg daily Lipitor 40 mg daily IV antibiotics GI prophylax/Protonix More recommendation per clinical course This medical document was created using an electronic medical record system with [employer] dictation system. Although this document has been carefully reviewed, there may still be some phonetic and typographical errors. These areas are purely typographical due to imperfections of the software programs, and do not reflect any compromise in the patient's medical care Prognosis poor Dietary Evaluation Review Comments: 1) TF Glucerna 1.2Cal @ 70ml/hr x 24 hr along with Pro-stat 1 pk daily. Start @ 30ml/hr, increase 10ml/hr Q4H until goal rate is reached. Water flush 50ml Q4H TF goal volume along with Pro-stat & water flush provide 2016 kcal (100%), 116 gm protein (100%), and 1652ml free water 2) TPN if NPO>7 days 3) Advance diet as medically feasible 4) Continue current plan of care Expected Outcomes/Goals: To meet >75% estimated needs within 7 days Fu 2-3 days Plan discussed with: Other ZEKE REYNOLDS MD Jun 07, 2024 18:09
[2024-06-07] MEDS: VANCOMYCIN 1GM/200ML PM 200 ML IV SCH (20:18)
[2024-06-08] VITALS (107 sets, daily range): BP systolic 83–123; BP diastolic 23–85; PULSE 66–138; RESP 11–35; TEMP 97.3–100.2; O2SAT 91–100
[2024-06-08 05:08] LABS: Basophils # (auto) 0 10 ^3/uL (0-0.2); Basophils % (auto) 0.3 % (0.0-2.0); Eosinophils # (auto) 0.4 10 ^3/uL (0-0.8); Eosinophils % (auto) 3.7 % (0.0-7.0); Hematocrit 55.4 % (41.0-53.0); Lymphocytes # (auto) 1.1 10 ^3/uL (0.4-5.4); Lymphocytes % (auto) 9.7 % (10.0-50.0); Mean Corpuscular Hemoglobin 31.2 pg (28.0-32.0); Mean Corpuscular Hgb Conc. 34.3 g/dL (32.0-36.0); Monocytes # (auto) 0.8 10 ^3/uL (0-1.3); Monocytes % (auto) 7.2 % (0.0-12.0); Neutrophils # (auto) 8.9 10 ^3/uL (1.6-8.6); Neutrophils % (auto) 79.1 % (37.0-80.0); Nucleated Red Blood Cells % 0.2 %; Platelet Count (auto) 296 10^3/uL (140-450); Red Blood Cells 6.09 10^6/uL (4.5-5.90); Red Cell Distribution Width 14.5 % (11.8-14.3); White Blood Cell 11.2 10^3/uL (4.4-10.8)
[2024-06-08 05:50] LABS: Alanine Aminotransferase 24 U/L (7-40); Albumin 3.7 g/dL (3.2-4.8); Anion Gap 12 (5-15); BUN/Creatinine Ratio 16.5 (10.0-20.0); Blood Urea Nitrogen 18 mg/dL (9-23); Calcium 9.2 mg/dL (8.7-10.4); Carbon Dioxide 28 mmol/L (20-31); Chloride 99 mmol/L (98-107); Potassium 3.6 mmol/L (3.5-5.1); Sodium 139 mmol/L (136-145); Total Protein 7.6 g/dL (5.7-8.2)
[2024-06-08 05:51] LABS: Alkaline Phosphatase 136 U/L (46-116); Aspartate Aminotransferase 62 U/L (13-40); Bilirubin, Total 1.8 mg/dL (0.2-1.0); Glucose 122 mg/dL (74-106)
--- NOTE | 2024-06-08 06:17 | DVHPN2 ---
Progress Note - Dictate Date Seen: Jun 08, 2024 Medical Necessity Reason Pt with a Central, PICC or Fol: Yes The following are medically ne: Ramirez Catheter Reason for ramirez catheter: Strict I&O Subjective Seen and examined at the bedside within [facility]. Bedside RN has reported patient himself has continued to bite on ETT and has developed potential oral trauma with bleeding which Lovenox and Aspirin have been held. Bite block placed by RT to prevent further oral damage. Current HGB stable. Follow up Neurology recommendations. Remains on low-dose Levophed. Chart reviewed. vital signs Vital Sign Date Time Temp Pulse Resp B/P (MAP) Pulse Ox O2 Delivery O2 Flow Rate FiO2 06/08/24 05:41 114 24 120/84 (96) 95 30 06/08/24 04:00 98.1 208.6 06/08/24 04:00 Mechanical Ventilator+ Total Intake and Output 06/07/24 06/07/24 06/08/24 15:00 23:00 07:00 Intake Total 986.104 ml 1276.104 ml 804.858 ml Output Total 1275 ml Balance 986.104 ml 1.104 ml 804.858 ml medications Current Medications Medications Dose Ordered Sig/Lei Route Start Time Stop Time Status Last Admin Dose Admin Ondansetron HCl 4 mg Q4HP PRN IV 05/29/24 20:45 05/30/24 03:54 4 MG Acetaminophen 650 mg Q6HP PRN PO 05/29/24 20:45 06/06/24 21:45 650 MG Nitroglycerin 0.4 mg Q5MINP PRN SL 05/29/24 20:45 Pantoprazole Sodium 40 mg DAILY IV 05/30/24 10:00 06/07/24 09:44 40 MG Furosemide 40 mg BIDD IV 05/30/24 18:00 06/08/24 05:18 40 MG Sacubitril/ Valsartan 1 tab BID PO 05/30/24 10:00 Hold 06/03/24 22:03 1 TAB Aspirin 81 mg DAILY PO 05/30/24 10:00 06/07/24 09:45 81 MG Atorvastatin Calcium 40 mg HS PO 05/30/24 22:00 06/07/24 21:28 40 MG Midazolam HCl 50 ml @ 1 mls/hr Q24H IV 05/30/24 19:00 06/07/24 17:16 2 MLS/HR Fentanyl Citrate 250 ml @ 2.5 mls/hr Q24H IV 05/30/24 19:00 06/08/24 05:37 22.5 MLS/HR Enoxaparin Sodium 90 mg Q12HR SC 05/31/24 22:00 06/07/24 21:28 90 MG Sodium Chloride 1,000 ml @ 50 mls/hr Q20H IV 05/31/24 12:30 06/07/24 21:30 50 MLS/HR Norepinephrine Bitartrate 250 ml @ 3.75 mls/hr Q24H IV 06/02/24 11:30 06/07/24 14:37 15 MLS/HR Sodium Chloride 10 ml QSHIFT@10,22 IV 06/02/24 22:00 06/07/24 21:27 10 ML Piperacillin Sod/ Tazobactam Sod 100 ml @ 25 mls/hr Q8HR IV 06/04/24 14:00 06/08/24 05:18 25 MLS/HR Diphenhydramine HCl 25 mg Q4HP PRN IV 06/04/24 10:45 06/04/24 13:28 25 MG Vancomycin HCl 0 ml @ 0 mls/hr UD IV 06/05/24 09:45 Enteral Nutritional Formula 1,000 ml 70ML/HR GT 06/05/24 10:15 Amino Acid Protein 30 ml DAILY PO 06/06/24 10:00 Vancomycin HCl 200 ml @ 160 mls/hr Q16H IV 06/07/24 20:00 06/07/24 20:18 160 MLS/HR laboratory and microbiology Laboratory Tests 06/08/24 04:30 Test 06/08/24 04:30 Range/Units Serum Glucose 122 H 74-106 mg/dL Assessment/Plan Intubated and in [facility]/ICU. He is found to have acute/subacute CVA Patient is a 43-year-old gentleman who presented with few weeks of worsening shortness of breath/generalized swelling/nausea/and some diarrhea. He is known to have systolic heart failure. He has ran out of his medications for the past few weeks. He mentions that he was on hospice before hand and he wanted to come off of it. He does have baseline history of methamphetamine abuse and mentions that he used it few days ago. He does have baseline history of noncompliance with medication and followups. Previously he was homeless. Now he says that she is renting a place. Cardiology was involved for cardiac aspects of care. It is of note that the patient does have chronic elevated troponin from prior admissions. Intubated, No JVD. Mucosa is pink and wet. Scattered crackles in the lungs is heard. Cardiac: Regular, no thrill. Systolic murmur 3/6 in apex is heard. History gallop is heard. Abdomen is soft and mildly distended. Bowel sound is positive. There is no abdominal tenderness. Questionable hepatomegaly can not be elicited. Extremities reveal 2+ edema bilaterally. Dorsalis pedis is 2+ bilateral. Past medical history includes diabetes mellitus, hypertension, systolic heart failure, polycythemia vera (as per patient), asthma, CKD, history of substance abuse cardiomyopathy, history of meth abuse and also history of chronic elevated troponin. Previously he was homeless. Previously he was on hospice. Echocardiogram of December 08, 2023 revealed four-chamber dilatation, ejection fraction of 5-10%, mild mitral regurgitation and tricuspid regurgitation. Hemoglobin: 19.5 - 18.1 - 18.2 - 17.2 - 18.9 - 20.1 - 19.2 - 19.3 - 18.6 - 20.2 - 19.0 Creatinine: 1.20 - 1.06 - 1.09 - 1.15 - 1.45 - 1.23 - 1.47 - 1.15 - 1.13 - 1.30 - 1.24 - 1.09 Potassium: 4.1 - 3.6 - 3.8 - 4.1 - 4.5 - 3.9 - 3.7 - 3.8 - 3.6 - 3.9 - 4.0 - 3.6 BNP: 641.20 Troponin (high sensitive): 529 - 502 - 526 - 486 - 422 - 436 - 437 D-dimer: 0.32 Urine tox was positive for Amphetamine and Benzodiazepine Chest x-ray revealed: IMPRESSION: Cardiomegaly with increased interstitial prominence which may be due to CHF and/or reactive airways disease. Repeat chest xry revealed: Endotracheal tube is in good position of the level of the clavicles. Nasogastric tube is in the stomach. There is cardiomegaly with an enlarged left ventricle. There is significant pulmonary vascular congestion. Impression congestive heart failure pattern. If patient has not had a recent cardiac echo I would recommend cardiac echo Repeat chest xry revealed: IMPRESSION: 1. congestive heart failure pattern. Repeat chest xry revealed: FINDINGS: Lines and Tubes: Endotracheal tube and enteric catheter in satisfactory position. Lungs: Patchy bilateral airspace disease Pleura: No effusion. No pneumothorax. Cardiomediastinal contours: Cardiomegaly Bones: Unremarkable IMPRESSION: Lines and tubes in satisfactory position. No significant interval change. Repeat chest xry revealed: IMPRESSION: Lines and tubes in satisfactory position. No significant interval change. Repeat chest xry revealed: IMPRESSION: Cardiomegaly with mild congestion. Repeat chest xry revealed: IMPRESSION: Lines and tubes in satisfactory position. No significant interval change. Repeat chest xry revealed: IMPRESSION: Cardiomegaly with mild congestion. Repeat chest xry revealed: IMPRESSION: 1. Mild pulmonary congestion. 2. Cardiomegaly. Repeat chest xry revealed: IMPRESSION: Lines and tubes in satisfactory position. No significant interval change. MRI of brain revealed: 1. Small focus of restricted diffusion in the anterior right centrum semiovale likely representing small acute to subacute infarct. There is no evidence of acute hemorrhage. Repeat MRI of brain revealed: IMPRESSION: 1. Redemonstration of subcentimeter focus of acute ischemia in the left cerebellar lobe. No intracranial hemorrhage. 2. Redemonstration of subcentimeter focus of DWI hyperintense signal in the right frontal centrum semiovale without corresponding abnormal ADC signal reflecting T2 shine through. No evidence of acute ischemia. 3. Subcentimeter foci abnormal signal in the bilateral cerebellar lobes may reflect chronic infarcts or underlying lesions. Further evaluation with MRI with IV contrast is recommended. 4. 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. CT of head revealed: IMPRESSION: 1. No acute intracranial process. Repeat CT of head revealed: IMPRESSION: No abnormality demonstrated. The very small acute/subacute infarct in right frontal lobe and very small old cortical infarct in left parietal lobe seen on the MRI study from earlier the same day are not evident on CT. Carotid ultrasound revealed: IMPRESSION: No hemodynamically significant stenoses or occlusions identified. Chest CT revealed: IMPRESSION: 1. Cardiomegaly. 2. Scattered coronary artery calcifications 3. Endotracheal tube in place terminating above the nicola. 4. Enteric tube in the stomach. Lower ext venous duplex revealed: IMPRESSION: No sonographic evidence of deep venous thrombosis in either lower extremity at this time. Right upper ext venous ultrasound revealed: IMPRESSION: No sonographic evidence of deep venous thrombosis in either upper extremity at this time. Renal Ultrasound revealed: IMPRESSION: 1. Left renal atrophy. No intrarenal calculi. Tele reveals sinus rhythm Echocardiogram revealed: Four-chamber dilatation was observed. Left ventricle: Left ventricle was significantly dilated with significantly reduced systolic function. Diffuse hypokinesis of left ventricle was seen. LVEF was 5-10%. LVEDP was assessed to be elevated. Right ventricle was dilated with reduced systolic function. Both atria were dilated. Aortic valve was not well visualized. There was mild aortic insufficiency. There was no aortic stenosis. There was trivial mitral regurgitation. There was mild tricuspid regurgitation. There was trivial pulmonary valve insufficiency. Right ventricular systolic pressure was assessed at 57 mm Hg. IVC was dilated with reduced respiratory variation. There was no pericardial effusion KI: Severe dilatation of LV with reduced LV systolic function. No Cardiac source for Emboli. Positive bubble study questions small PFO (PFO itself could not be visualized) Patient is a 43-year-old gentleman who presented with weeks of worsening shortness of breath cough/nausea and vomiting. Does have baseline history of systolic heart failure. Has been noncompliant with medication and followups. Acute on chronic systolic heart failure could have contributed to the clinical picture. Does have baseline history of methamphetamine abuse which could have contributed to the clinical picture. He is noncompliant with medication and followups which could have contributed to the clinical picture. Does have baseline history of elevated/chronically troponin. Abnormal troponin in a patient with end-stage systolic heart failure usually reflects demand physiology. Acute coronary syndrome is not considered at this point. Had AMS and later had respiratory failure. Intubated and brought to [facility]/ICU. He is found to have acute/subacute CVA. Is being followed by Neurology. KI performed: no source for Emboli. Still, Positive Bubble study questions PFO (PFO itself could not be visualized: maybe too small). Still, there was no recent DVT also (negative venous duplex). Acute on chronic systolic heart failure Drug-induced cardiomyopathy CKD Polycythemia vera removal Diabetes mellitus Noncompliant with medication and followups Substance abuse AMS Acute/subacute CVA Cardiac suggestion for management: Manage in ICU IV diuresis Follow-up electrolytes and kidney function tests and correct abnormalities. Keep potassium above 4 and magnesium above 2 Entresto: 24/26 mg p.o. b.i.d. (for now on hold secondary to hypotension and need for pressure support) Aspirin: 81 mg daily suggested as tolerated Heparin drip versus therapeutic Lovenox is suggested at this point as tolerated High potency statin (atorvastatin at 40 mg daily) suggested Does have baseline history of elevated/chronically troponin. Abnormal troponin (flat trend) in a patient with end-stage systolic heart failure usually reflects demand physiology. Acute coronary syndrome is not considered at this point. Recognizing old history of significant heart failure and noncompliance, outcome is poor. Consider restarting hospice Lifestyle and risk factor modifications. Neurology follow up Consider Hematology evaluation for Hemoconcentration / Polycythemia Vera Further evaluation and management depends on the above and clinical course A total of 75 minutes was spent reviewing the patient record, examining the patient, making a diagnostic and therapeutic plan, discussing this plan with medical personnel, following up on diagnostic studies and following the patient for clinical stability excluding any and all procedures. At least 50% of this time was spent in direct, [id number] contact. Thank you for allowing me to participate in this patient's care. Further recommendations will depend on patient's clinical course. Please do not hesitate to contact me if you have any questions or concerns. This medical document was created using electronic medical record system with [employer] computerized dictation system. Although this document has been carefully reviewed, there may still be some phonetic and typographical errors. These areas are purely typographical due to the imperfection of the software programs, and do not reflect any compromise in the patient's medical care Dietary Evaluation Review Comments: 1) TF Glucerna 1.2Cal @ 70ml/hr x 24 hr along with Pro-stat 1 pk daily. Start @ 30ml/hr, increase 10ml/hr Q4H until goal rate is reached. Water flush 50ml Q4H TF goal volume along with Pro-stat & water flush provide 2016 kcal (100%), 116 gm protein (100%), and 1652ml free water 2) TPN if NPO>7 days 3) Advance diet as medically feasible 4) Continue current plan of care Expected Outcomes/Goals: To meet >75% estimated needs within 7 days Fu 2-3 days Plan discussed with: Other (Primary RN and Patient Family ) ADOLPH [email or web address] Jun 08, 2024 06:17
[2024-06-08 06:54] LABS: Base Excess 2.8 mmol/L (-2.0-3.0)
--- NOTE | 2024-06-08 07:23 | DVHPN2 ---
Progress Note - Dictate Date Seen: Jun 07, 2024 Medical Necessity Reason Pt with a Central, PICC or Fol: Yes The following are medically ne: Ramirez Catheter Reason for ramirez catheter: Strict I&O Subjective Patient seen and examined at bedside. Sedated, intubated on mechanical ventilator. Overnight events reviewed. vital signs Vital Sign Date Time Temp Pulse Resp B/P (MAP) Pulse Ox O2 Delivery O2 Flow Rate FiO2 06/08/24 06:45 99.1 76 16 97/63 (74) 95 210.4 06/08/24 06:00 Mechanical Ventilator+ 30 30 Total Intake and Output 06/07/24 06/07/24 06/08/24 15:00 23:00 07:00 Intake Total 986.104 ml 1276.104 ml 970.348 ml Output Total 1275 ml 1100 ml Balance 986.104 ml 1.104 ml -129.652 ml medications Current Medications Medications Dose Ordered Sig/Lei Route Start Time Stop Time Status Last Admin Dose Admin Ondansetron HCl 4 mg Q4HP PRN IV 05/29/24 20:45 05/30/24 03:54 4 MG Acetaminophen 650 mg Q6HP PRN PO 05/29/24 20:45 06/06/24 21:45 650 MG Nitroglycerin 0.4 mg Q5MINP PRN SL 05/29/24 20:45 Pantoprazole Sodium 40 mg DAILY IV 05/30/24 10:00 06/07/24 09:44 40 MG Furosemide 40 mg BIDD IV 05/30/24 18:00 06/08/24 05:18 40 MG Sacubitril/ Valsartan 1 tab BID PO 05/30/24 10:00 Hold 06/03/24 22:03 1 TAB Aspirin 81 mg DAILY PO 05/30/24 10:00 06/07/24 09:45 81 MG Atorvastatin Calcium 40 mg HS PO 05/30/24 22:00 06/07/24 21:28 40 MG Midazolam HCl 50 ml @ 1 mls/hr Q24H IV 05/30/24 19:00 06/08/24 06:35 4 MLS/HR Fentanyl Citrate 250 ml @ 2.5 mls/hr Q24H IV 05/30/24 19:00 06/08/24 05:37 22.5 MLS/HR Enoxaparin Sodium 90 mg Q12HR SC 05/31/24 22:00 06/07/24 21:28 90 MG Sodium Chloride 1,000 ml @ 50 mls/hr Q20H IV 05/31/24 12:30 06/07/24 21:30 50 MLS/HR Norepinephrine Bitartrate 250 ml @ 3.75 mls/hr Q24H IV 06/02/24 11:30 06/07/24 14:37 15 MLS/HR Sodium Chloride 10 ml QSHIFT@10,22 IV 06/02/24 22:00 06/07/24 21:27 10 ML Piperacillin Sod/ Tazobactam Sod 100 ml @ 25 mls/hr Q8HR IV 06/04/24 14:00 06/08/24 05:18 25 MLS/HR Diphenhydramine HCl 25 mg Q4HP PRN IV 06/04/24 10:45 06/04/24 13:28 25 MG Vancomycin HCl 0 ml @ 0 mls/hr UD IV 06/05/24 09:45 Enteral Nutritional Formula 1,000 ml 70ML/HR GT 06/05/24 10:15 Amino Acid Protein 30 ml DAILY PO 06/06/24 10:00 Vancomycin HCl 200 ml @ 160 mls/hr Q16H IV 06/07/24 20:00 06/07/24 20:18 160 MLS/HR objective Gen.: Patient lying in bed in medical ICU. Sedated, intubated on mechanical ventilator. Head: Normocephalic, atraumatic. Eyes: PERRLA. Ears: Normal external anatomy. Throat: Endotracheal tube and orogastric tube in place. Neck: Supple, trachea midline. Chest: Transmitted breath sounds bilaterally. Decreased air entry bilaterally. No wheezing. Bibasilar crackles. Cardiovascular: Positive S1, positive S2. Regular rate and rhythm. Abdomen: Positive bowel sounds in all 4 quadrants. Soft, nontender, nondistended. : Ramirez in place. Normal external genitalia. Rectal: Deferred. Skin: Warm, dry. Intact. Extremities: 2+ radial pulses bilaterally. No lower extremity edema. Neuro: Sedated. laboratory and microbiology Laboratory Tests 06/08/24 04:30 Test 06/08/24 04:30 Range/Units Serum Glucose 122 H 74-106 mg/dL Assessment/Plan Impression: Acute hypoxic respiratory failure On mechanical ventilator Pulmonary hypertension, RVSP 57 mmHg ( Echo with LVEF of 5% to 10%) Atelectasis Acute CVA Acute on chronic systolic heart failure Drug induced cardiomyopathy Elevated troponin Polysubstance abuse Medical non-compliance Polycythemia vera Events: Remains on vent support On AC mode; RR 15, VT 500, PEEP 5, FiO2 30% Sedated on Versed, Fentanyl. Patient agitated BLE arterial duplex showed no hemodynamically significant stenosis. Pressors for hemodynamic support On Levophed Titrate to keep mean arterial pressure greater than 65 mmHg Continue antibiotics Blood cultures show no growth after 24 hours BAL cultures showed Klebsiella pneumoniae. ID recommendations appreciated Polycythemia vera - Hematology recommendations appreciated. Tube feeds for nutritional support Maintain euvolemia w/ Lasix BID Monitor renal function Monitor electrolytes. Supplement as necessary. Monitor ins and outs. Poor EF Status post KI Cardiology recs appreciated ABG reviewed, alkalemia SBT/MANOLO. S/p therapeutic bronchoscopy with BAL on 06/05/24 for clearing of secretions. Please see procedure note for details Labs and imaging reviewed. Rest of plan as noted below. Plan: s/p intubation on mechanical ventilator. On AC mode; RR 15, VT 500, PEEP 5, FiO2 30% Titrate FIO2 to keep O2 saturation above 90%. VAP bundle. Daily ABG and CXR while intubated Off sedation Pulmonary hypertension, RVSP 57 mmHg - Echo showing LVEF of 5% to 10%. On statin Cardiology recs appreciated Pressors as necessary for hemodynamic support Titrate to keep mean arterial pressure greater than 65 mmHg IV fluids with NS at 50 ml/hr. Diurese as tolerated w/ Lasix BID Monitor renal function Monitor electrolytes. Supplement as necessary. Monitor ins and outs. GI prophylaxis - Protonix. DVT prophylaxis - Lovenox SC. Prognosis: Poor given patient's multiple co-morbidities. Condition: Critical Rest of plan per hospitalist and other consultants. A total of 35 minutes of critical care time was spent reviewing the patient record, examining the patient, making a diagnostic and therapeutic plan, discussing this plan with the medical personnel, following up on diagnostic studies and following the patient for clinical stability excluding any and all procedures. At least 50% of this time was spent in direct, [id number] contact. Thank you, BRANDIN Albright, for allowing me to participate in this patient's care. Further recommendations will depend on the patient's clinical course. Please do not hesitate to contact me if you have any questions or concerns. This medical document was created using an electronic medical record system with [employer] dictation system. Although these documentations are being carefully reviewed, there may still be some phonetic and typographical changes. The errors are purely typographical, due to imperfection on the software program, and do not reflect any compromise in the patient's medical care. Dietary Evaluation Review Comments: 1) TF Glucerna 1.2Cal @ 70ml/hr x 24 hr along with Pro-stat 1 pk daily. Start @ 30ml/hr, increase 10ml/hr Q4H until goal rate is reached. Water flush 50ml Q4H TF goal volume along with Pro-stat & water flush provide 2016 kcal (100%), 116 gm protein (100%), and 1652ml free water 2) TPN if NPO>7 days 3) Advance diet as medically feasible 4) Continue current plan of care Expected Outcomes/Goals: To meet >75% estimated needs within 7 days Fu 2-3 days Plan discussed with: Other (RN) Critical Care Time(min): 35 NATALIO MÁRQUEZ MD Jun 08, 2024 07:23
--- NOTE | 2024-06-08 07:58 | DVHPN2 ---
Progress Note - Dictate Date Seen: Jun 08, 2024 Medical Necessity Reason Pt with a Central, PICC or Fol: Yes The following are medically ne: Ramirez Catheter Reason for ramirez catheter: Strict I&O vital signs Vital Sign Date Time Temp Pulse Resp B/P (MAP) Pulse Ox O2 Delivery O2 Flow Rate FiO2 06/08/24 06:45 99.1 76 16 97/63 (74) 95 210.4 06/08/24 06:00 Mechanical Ventilator+ 30 30 Total Intake and Output 06/07/24 06/07/24 06/08/24 15:00 23:00 07:00 Intake Total 986.104 ml 1276.104 ml 970.348 ml Output Total 1275 ml 1100 ml Balance 986.104 ml 1.104 ml -129.652 ml medications Current Medications Medications Dose Ordered Sig/Lei Route Start Time Stop Time Status Last Admin Dose Admin Ondansetron HCl 4 mg Q4HP PRN IV 05/29/24 20:45 05/30/24 03:54 4 MG Acetaminophen 650 mg Q6HP PRN PO 05/29/24 20:45 06/06/24 21:45 650 MG Nitroglycerin 0.4 mg Q5MINP PRN SL 05/29/24 20:45 Pantoprazole Sodium 40 mg DAILY IV 05/30/24 10:00 06/07/24 09:44 40 MG Furosemide 40 mg BIDD IV 05/30/24 18:00 06/08/24 05:18 40 MG Sacubitril/ Valsartan 1 tab BID PO 05/30/24 10:00 Hold 06/03/24 22:03 1 TAB Aspirin 81 mg DAILY PO 05/30/24 10:00 06/07/24 09:45 81 MG Atorvastatin Calcium 40 mg HS PO 05/30/24 22:00 06/07/24 21:28 40 MG Midazolam HCl 50 ml @ 1 mls/hr Q24H IV 05/30/24 19:00 06/08/24 07:39 4 MLS/HR Fentanyl Citrate 250 ml @ 2.5 mls/hr Q24H IV 05/30/24 19:00 06/08/24 05:37 22.5 MLS/HR Enoxaparin Sodium 90 mg Q12HR SC 05/31/24 22:00 06/07/24 21:28 90 MG Sodium Chloride 1,000 ml @ 50 mls/hr Q20H IV 05/31/24 12:30 06/07/24 21:30 50 MLS/HR Norepinephrine Bitartrate 250 ml @ 3.75 mls/hr Q24H IV 06/02/24 11:30 06/07/24 14:37 15 MLS/HR Sodium Chloride 10 ml QSHIFT@10,22 IV 06/02/24 22:00 06/07/24 21:27 10 ML Piperacillin Sod/ Tazobactam Sod 100 ml @ 25 mls/hr Q8HR IV 06/04/24 14:00 06/08/24 05:18 25 MLS/HR Diphenhydramine HCl 25 mg Q4HP PRN IV 06/04/24 10:45 06/04/24 13:28 25 MG Vancomycin HCl 0 ml @ 0 mls/hr UD IV 06/05/24 09:45 Enteral Nutritional Formula 1,000 ml 70ML/HR GT 06/05/24 10:15 Amino Acid Protein 30 ml DAILY PO 06/06/24 10:00 Vancomycin HCl 200 ml @ 160 mls/hr Q16H IV 06/07/24 20:00 06/07/24 20:18 160 MLS/HR objective General Appearance: alert, no distress HEENT: EOMI, PERRLA, normal external inspect of ears, no icterus, no nasal drainage Neck: no carotid bruit, no jugular venous distention (JVD), no lymphadenopathy Chest: normal thorax Respiratory: clear to auscultation, normal air movement Cardiovascular: regular rate and rhythm, no diastolic murmur, no jugular venous distention (JVD), no rub, no systolic murmur Abdominal: soft, no hepatomegaly, no mass, no splenomegaly, no tenderness Genitourinary: grossly normal external Musculoskeletal: no joint tenderness, no swelling Extremities: normal pulses, no calf tenderness, no clubbing, no cyanosis, no edema Skin: no bruising, no jaundice, no rash Neurological: alert, No focal deficit laboratory and microbiology Laboratory Tests 06/08/24 04:30 Test 06/08/24 04:30 Range/Units Serum Glucose 122 H 74-106 mg/dL Problem List 1. Acute CVA Monitor, neurology consult 2. Acute on chronic systolic heart failure Monitor, cardiology consult, heparin gtt 3. Drug induced cardiomyopathy Monitor, echocardiogram, cardiology consult 4. Elevated troponin - demand ischemia Monitor EKG, cardiology consult 5. Hx of methamphetamine abuse Monitor, urine drug screen 6. Medical non-privacy compliance manager, PPI 7. Acute hypoxic respiratory failure Monitor, supplemental O2, ventilator management per pulmonary 8. Pneumonia Monitor, antibiotics, pulmonary consult 9. Acute cystitis Monitor, antibiotics 10. Bacteremia Monitor, continue antibiotics, ID consult. 11. Polycythemia vera Monitor, daily labs 12. IZZY with vasomotor nephropathy Monitor, monitor renal function 13. Metabolic encephalopathy Monitor, Neurology consult 14.Sepsis ID consult, IV antibiotics, monitoring [40] minutes of critical care time were spent in evaluating the patient, reviewing the diagnostic data, discussing with the family. Assessment/Plan Subjective Patient remains intubated and is currently agitated. Objective I spoke with rock cutter who plans to extubate patient today. Patient was admitted for sepsis related to bacteremia and UTI. Patient is currently on vancomycin and Zosyn. Patient is having low-grade fever. Patient has an IZZY with vasomotor nephropathy. Patient also has polycythemia vera no treatment indicated at this time. Plan Patient is scheduled to be extubated today. Continue IV antibiotics. Monitor neurostatus. Neurology is on board. Once extubated and patient is alert can do swallow eval. Dietary Evaluation Review Comments: 1) TF Glucerna 1.2Cal @ 70ml/hr x 24 hr along with Pro-stat 1 pk daily. Start @ 30ml/hr, increase 10ml/hr Q4H until goal rate is reached. Water flush 50ml Q4H TF goal volume along with Pro-stat & water flush provide 2016 kcal (100%), 116 gm protein (100%), and 1652ml free water 2) TPN if NPO>7 days 3) Advance diet as medically feasible 4) Continue current plan of care Expected Outcomes/Goals: To meet >75% estimated needs within 7 days Fu 2-3 days Plan discussed with: JACKIE Ruiz MUSIC SOUND LIGHT TECHNICIAN Jun 08, 2024 07:58
--- NOTE | 2024-06-08 08:15 | DVH ---
CHEST RADIOGRAPH Indication: Intubated Technique: Single frontal view of the chest was obtained COMPARISON: XY CHEST PORTABLE on DOS: 06/06/24, XY CHEST PORTABLE on DOS: 06/05/24, XY CHEST PORTABLE o n DOS: 06/04/24, XY CHEST PORTABLE on DOS: 06/03/24, XY CHEST PORTABLE on DOS: 06/02/24 FINDINGS: Lines and Tubes: Endotracheal tube, enteric catheter and right PICC in satisfactory position Lungs: Mild congestion Pleura: No effusion. No pneumothorax. Cardiomediastinal contours: Cardiomegaly Bones: Unremarkable IMPRESSION: Lines and tubes in satisfactory position. No significant interval change.
[2024-06-08] MEDS: MORPHINE SULFATE 4 MG/ML SYR/VIAL IV ONE (17:10)
[2024-06-08] MEDS: MORPHINE SULFATE 4 MG/ML SYR/VIAL ONE (17:13)
--- NOTE | 2024-06-08 22:22 | DVHPN2 ---
Progress Note - Dictate Date Seen: Jun 08, 2024 Medical Necessity Reason Pt with a Central, PICC or Fol: Yes The following are medically ne: Ramirez Catheter Reason for ramirez catheter: Strict I&O Subjective Mr. Castillo is a 43 years old right-handed gentleman with a history of hypertension, diabetes, coronary artery disease, heart attack, congestive heart failure, polycythemia vera, cardiomyopathy, asthma, he came to the [facility] Emergency room on 05/29/2024 with a chief complaint of shortness breath, chest pain. He was extubated on 06/08/2024 I have seen and examined the patient, I have talked to his nurse. He was extubated, weak, oriented to person, place, he knows year and the month, he was follow verbal commands, he was strong in all extremities But he is confused Urinalysis, 05/30/2024: WBC: <1, urine leukocyte esterase: Negative UDS, 05/30/2024, amphetamine, benzo CBC, 05/30/2024: Respiratory acidosis, 06/03/2024: Acidosis WBC/HB/PLT/MCV, 05/30/2024: 10.3/18.1/230/93.8, 06/03/2024: 18.1/19.2/275/95 PT/INR/PTT, 05/30/2024: 12.03/1016/47 05/31/2024: 11.9/1.14/65.5 BMP, 05/30/2024: Unremarkable BUN/CR, 06/03/2024: 26/1.47 TBI/AST/ALT/AP, 05/29/2024: 2.1/46/25/133, 06/03/2024: 1.4/60/15/122 NH3 06/03/24: 30 Troponin one high sensitivity, 05/29/2024: 529, 05/30/2024: 502, 526, TG/HDL/LDL/HDL, 05/30/2024: 62/148/113/36 KI, 06/03/24: 1. Left ventricle: Significant dilatation of Left ventricle with LVEF of around 10% was observed. Diffuse hypokinesis of left ventricle was seen. There was no intraventricular thrombus. . 2. Right ventricle: RV was dilated with reduced systolic function. 3. Left atrium: LA enlarged 4. Right atrium: RA enlarged 5. Mitral valve: Mild Mitral regurgitation, no significant stenosis, normal functioning valve. No vegetation was seen on Mitral valve. 6. Left atrial appendage: No evidence of thrombus. 7. Aortic valve: It was trileaflet. There was no stenosis. There was trace insufficiency. There was no vegetation seen in Aortic valve. 8. Pulmonic valve: Trivial pulmonic insufficiency. No significant stenosis. No vegetation was seen. 9. Tricuspid valve: Mild tricuspid regurgitation. There was no vegetation on Tricuspid valve. 10. Interatrial septum: Negative color flow for shunt was observed. Some bubbles crossed to left atria in favor of small PFO. 11. Pericardium: No significant effusion. 12. Thoracic aorta: No significant plaquing. Echocardiogram, 05/30/2024: Four-chamber dilatation was observed. Left ventricle: Left ventricle was significantly dilated with significantly reduced systolic function. Diffuse hypokinesis of left ventricle was seen. LVEF was 5-10%. LVEDP was assessed to be elevated. Right ventricle was dilated with reduced systolic function. Both atria were dilated. Aortic valve was not well visualized. There was mild aortic insufficiency. There was no aortic stenosis. There was trivial mitral regurgitation. There was mild tricuspid regurgitation. There was trivial pulmonary valve insufficiency. Right ventricular systolic pressure was assessed at 57 mm Hg. IVC was dilated with reduced respiratory variation. There was no pericardial effusion Carotid Doppler, 05/30/2024: No hemodynamically significant stenoses or occlusions identified. CT head, 05/30/2024 1107: No acute intracranial process CT head, 05/30/2024 1856: No abnormality demonstrated. The very small acute/subacute infarct in right frontal lobe and very small old cortical infarct in left parietal lobe seen on the MRI study from earlier the same day are not evident on CT MRI head, 05/30/2024 1041: Small focus of restricted diffusion in the anterior right centrum semiovale likely representing small acute to subacute infarct. There is no evidence of acute hemorrhage (I saw a small DWI lesion in the left cerebellum hemisphere with ADC correlation) MRI head, 05/31/2024: 1. Redemonstration of subcentimeter focus of acute ischemia in the left cerebellar lobe. No intracranial hemorrhage. 2. Redemonstration of subcentimeter focus of DWI hyperintense signal in the right frontal centrum semiovale without corresponding abnormal ADC signal reflecting T2 shine through. No evidence of acute ischemia. 3. Subcentimeter foci abnormal signal in the bilateral cerebellar lobes may reflect chronic infarcts or underlying lesions. Further evaluation with MRI with IV contrast is recommended. 4. 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 vital signs Vital Sign Date Time Temp Pulse Resp B/P (MAP) Pulse Ox O2 Delivery O2 Flow Rate FiO2 06/08/24 20:00 98.9 125 24 102/48 (66) 99 98.9 06/08/24 18:00 Cool Aerosol 10 30 30 Total Intake and Output 06/07/24 06/07/24 06/08/24 15:00 23:00 07:00 Intake Total 986.104 ml 1276.104 ml 1074.496 ml Output Total 1275 ml 1100 ml Balance 986.104 ml 1.104 ml -25.504 ml medications Current Medications Medications Dose Ordered Sig/Lei Route Start Time Stop Time Status Last Admin Dose Admin Ondansetron HCl 4 mg Q4HP PRN IV 05/29/24 20:45 05/30/24 03:54 4 MG Acetaminophen 650 mg Q6HP PRN PO 05/29/24 20:45 06/06/24 21:45 650 MG Nitroglycerin 0.4 mg Q5MINP PRN SL 05/29/24 20:45 Pantoprazole Sodium 40 mg DAILY IV 05/30/24 10:00 06/08/24 09:49 40 MG Furosemide 40 mg BIDD IV 05/30/24 18:00 06/08/24 18:19 40 MG Sacubitril/ Valsartan 1 tab BID PO 05/30/24 10:00 Hold 06/03/24 22:03 1 TAB Aspirin 81 mg DAILY PO 05/30/24 10:00 06/07/24 09:45 81 MG Atorvastatin Calcium 40 mg HS PO 05/30/24 22:00 06/08/24 21:21 40 MG Midazolam HCl 50 ml @ 1 mls/hr Q24H IV 05/30/24 19:00 06/08/24 15:37 11 MLS/HR Enoxaparin Sodium 90 mg Q12HR SC 05/31/24 22:00 06/08/24 21:33 90 MG Sodium Chloride 1,000 ml @ 50 mls/hr Q20H IV 05/31/24 12:30 06/08/24 21:33 50 MLS/HR Norepinephrine Bitartrate 250 ml @ 3.75 mls/hr Q24H IV 06/02/24 11:30 06/08/24 13:39 15 MLS/HR Sodium Chloride 10 ml QSHIFT@10,22 IV 06/02/24 22:00 06/08/24 21:33 10 ML Piperacillin Sod/ Tazobactam Sod 100 ml @ 25 mls/hr Q8HR IV 06/04/24 14:00 06/08/24 21:32 25 MLS/HR Diphenhydramine HCl 25 mg Q4HP PRN IV 06/04/24 10:45 06/04/24 13:28 25 MG Vancomycin HCl 0 ml @ 0 mls/hr UD IV 06/05/24 09:45 Enteral Nutritional Formula 1,000 ml 70ML/HR GT 06/05/24 10:15 Amino Acid Protein 30 ml DAILY PO 06/06/24 10:00 06/08/24 10:00 30 ML Vancomycin HCl 200 ml @ 160 mls/hr Q16H IV 06/07/24 20:00 06/08/24 12:04 160 MLS/HR objective The patient is well-nourished and well-developed with no distress. MENTAL STATUS: Subjective CRANIAL NERVES: Ppupils are equal round and reactive to light briskly, normal external eye movement, normal sensation and motor examination in the lateral trigeminal nerve distribution, no facial weakness. SENSATION: Okay to pinprick and light touch MOTOR: Normal tone in the upper and lower extremity. Normal muscle bulk. No fasciculations. He moves the arms and legs REFLEXES: Deep tendon reflexes are symmetrical. No pathological reflexes. CEREBELLAR/COORDINATION: Deferred GAIT/STATION: deferred laboratory and microbiology Laboratory Tests 06/08/24 04:30 Test 06/08/24 04:30 Range/Units Serum Glucose 122 H 74-106 mg/dL Problem List Altered mental status resolved Metabolic encephalopathy/hepatic encephalopathy Elevated troponin I/heart attack Multiple acute strokes Cardiomyopathy Congestive heart failure A spell of nonresponsiveness on 05/30/2024 ? Syncope triggered by coughing/arrhythmia ? Seizure activity Heart failure ? Small PFO Assessment/Plan Monitoring Supportive treatments ICU care Stabilize vitals Respiratory support Aspirin 81 mg daily Lipitor 40 mg daily IV antibiotics GI prophylax/Protonix More recommendation per clinical course This medical document was created using an electronic medical record system with [employer] computerized dictation system. Although this document has been carefully reviewed, there may still be some phonetic and typographical errors. These areas are purely typographical due to imperfections of the software programs, and do not reflect any compromise in the patient's medical care Prognosis poor Dietary Evaluation Review Comments: 1) TF Glucerna 1.2Cal @ 70ml/hr x 24 hr along with Pro-stat 1 pk daily. Start @ 30ml/hr, increase 10ml/hr Q4H until goal rate is reached. Water flush 50ml Q4H TF goal volume along with Pro-stat & water flush provide 2016 kcal (100%), 116 gm protein (100%), and 1652ml free water 2) TPN if NPO>7 days 3) Advance diet as medically feasible 4) Continue current plan of care Expected Outcomes/Goals: To meet >75% estimated needs within 7 days Fu 2-3 days Plan discussed with: Other ZEKE REYNOLDS MD Jun 08, 2024 22:22
--- NOTE | 2024-06-08 22:32 | DVHPN2 ---
Progress Note - Dictate Date Seen: Jun 08, 2024 Medical Necessity Reason Pt with a Central, PICC or Fol: Yes The following are medically ne: Ramirez Catheter Reason for ramirez catheter: Strict I&O Subjective Patient seen and examined at bedside. S/p extubation, on supplemental oxygen Overnight events reviewed. vital signs Vital Sign Date Time Temp Pulse Resp B/P (MAP) Pulse Ox O2 Delivery O2 Flow Rate FiO2 06/08/24 20:00 98.9 125 24 102/48 (66) 99 98.9 06/08/24 18:00 Cool Aerosol 10 30 30 Total Intake and Output 06/07/24 06/07/24 06/08/24 15:00 23:00 07:00 Intake Total 986.104 ml 1276.104 ml 1074.496 ml Output Total 1275 ml 1100 ml Balance 986.104 ml 1.104 ml -25.504 ml medications Current Medications Medications Dose Ordered Sig/Lei Route Start Time Stop Time Status Last Admin Dose Admin Ondansetron HCl 4 mg Q4HP PRN IV 05/29/24 20:45 05/30/24 03:54 4 MG Acetaminophen 650 mg Q6HP PRN PO 05/29/24 20:45 06/06/24 21:45 650 MG Nitroglycerin 0.4 mg Q5MINP PRN SL 05/29/24 20:45 Pantoprazole Sodium 40 mg DAILY IV 05/30/24 10:00 06/08/24 09:49 40 MG Furosemide 40 mg BIDD IV 05/30/24 18:00 06/08/24 18:19 40 MG Sacubitril/ Valsartan 1 tab BID PO 05/30/24 10:00 Hold 06/03/24 22:03 1 TAB Aspirin 81 mg DAILY PO 05/30/24 10:00 06/07/24 09:45 81 MG Atorvastatin Calcium 40 mg HS PO 05/30/24 22:00 06/08/24 21:21 40 MG Midazolam HCl 50 ml @ 1 mls/hr Q24H IV 05/30/24 19:00 06/08/24 15:37 11 MLS/HR Enoxaparin Sodium 90 mg Q12HR SC 05/31/24 22:00 06/08/24 21:33 90 MG Sodium Chloride 1,000 ml @ 50 mls/hr Q20H IV 05/31/24 12:30 06/08/24 21:33 50 MLS/HR Norepinephrine Bitartrate 250 ml @ 3.75 mls/hr Q24H IV 06/02/24 11:30 06/08/24 13:39 15 MLS/HR Sodium Chloride 10 ml QSHIFT@10,22 IV 06/02/24 22:00 06/08/24 21:33 10 ML Piperacillin Sod/ Tazobactam Sod 100 ml @ 25 mls/hr Q8HR IV 06/04/24 14:00 06/08/24 21:32 25 MLS/HR Diphenhydramine HCl 25 mg Q4HP PRN IV 06/04/24 10:45 06/04/24 13:28 25 MG Vancomycin HCl 0 ml @ 0 mls/hr UD IV 06/05/24 09:45 Enteral Nutritional Formula 1,000 ml 70ML/HR GT 06/05/24 10:15 Amino Acid Protein 30 ml DAILY PO 06/06/24 10:00 06/08/24 10:00 30 ML Vancomycin HCl 200 ml @ 160 mls/hr Q16H IV 06/07/24 20:00 06/08/24 12:04 160 MLS/HR objective Gen.: Patient lying in bed in no apparent distress. On supplemental oxygen. Head: Normocephalic, atraumatic. Eyes: EOMI/PERRLA. Ears: Normal hearing. Normal anatomy. Neck/trachea: Trachea midline, supple. Nose: Normal external anatomy. Mouth: Moist mucous membranes. Chest: Decreased air entry bilaterally. No wheezing or rhonchi. Cardiovascular: Positive S1, positive S2. Regular rate and rhythm. Abdomen: Positive bowel sounds in all 4 quadrants. Soft, non-tender, non- distended. : Deferred. Rectal: Deferred. Skin: Warm, dry. Intact. Extremities: 2+ radial pulses bilaterally. No lower extremity edema. Neuro: Awake, alert, oriented x3. No gross motor or sensory deficits. Cranial nerves II through XII intact. Gait not assessed. laboratory and microbiology Laboratory Tests 06/08/24 04:30 Test 06/08/24 04:30 Range/Units Serum Glucose 122 H 74-106 mg/dL Assessment/Plan Impression: Acute hypoxic respiratory failure Mechanical ventilation, s/p extubation Pulmonary hypertension, RVSP 57 mmHg ( Echo with LVEF of 5% to 10%) Atelectasis Acute CVA Acute on chronic systolic heart failure Drug induced cardiomyopathy Elevated troponin Polysubstance abuse Medical non-compliance Polycythemia vera Events: Remains on vent support Off Fentanyl Pressors for hemodynamic support On Levophed 8 mcg/min Titrate to keep mean arterial pressure greater than 65 mmHg Continue antibiotics ID recommendations appreciated Polycythemia vera - Hematology recommendations appreciated. Tube feeds for nutritional support Maintain euvolemia w/ Lasix Monitor renal function Monitor electrolytes. Supplement as necessary. Monitor ins and outs. CPAP - plan to extubate Patient subsequently underwent uneventful extubation this PM Extubated to aerosol Coolmist Poor EF Status post KI Cardiology recs appreciated S/p therapeutic bronchoscopy with BAL on 06/05/24 for clearing of secretions. Please see procedure note for details Labs and imaging reviewed. Rest of plan as noted below. Plan: S/p extubation On supplemental oxygen Titrate to keep O2 sats above 90%. Pulmonary hypertension, RVSP 57 mmHg - Echo showing LVEF of 5% to 10%. On statin Cardiology recs appreciated Pressors as necessary for hemodynamic support Titrate to keep mean arterial pressure greater than 65 mmHg IV fluids with NS at 50 ml/hr. Diurese as tolerated w/ Lasix BID Monitor renal function Monitor electrolytes. Supplement as necessary. Monitor ins and outs. GI prophylaxis - Protonix. DVT prophylaxis - Lovenox SC. Prognosis: Poor given patient's multiple co-morbidities. Condition: Critical Rest of plan per hospitalist and other consultants. A total of 35 minutes of critical care time was spent reviewing the patient record, examining the patient, making a diagnostic and therapeutic plan, discussing this plan with the medical personnel, following up on diagnostic studies and following the patient for clinical stability excluding any and all procedures. At least 50% of this time was spent in direct, xyxw-[id number] contact. Thank you, BRANDIN Albright, for allowing me to participate in this patient's care. Further recommendations will depend on the patient's clinical course. Please do not hesitate to contact me if you have any questions or concerns. This medical document was created using an electronic medical record system with [employer] system. Although these documentations are being carefully reviewed, there may still be some phonetic and typographical changes. The errors are purely typographical, due to imperfection on the software program, and do not reflect any compromise in the patient's medical care. Dietary Evaluation Review Comments: 1) TF Glucerna 1.2Cal @ 70ml/hr x 24 hr along with Pro-stat 1 pk daily. Start @ 30ml/hr, increase 10ml/hr Q4H until goal rate is reached. Water flush 50ml Q4H TF goal volume along with Pro-stat & water flush provide 2016 kcal (100%), 116 gm protein (100%), and 1652ml free water 2) TPN if NPO>7 days 3) Advance diet as medically feasible 4) Continue current plan of care Expected Outcomes/Goals: To meet >75% estimated needs within 7 days Fu 2-3 days Plan discussed with: Other (HONG Moore) Critical Care Time(min): 35 NATALIO MÁRQUEZ MD Jun 08, 2024 22:32
[2024-06-09] VITALS (36 sets, daily range): BP systolic 87–128; BP diastolic 46–73; PULSE 80–113; RESP 11–39; TEMP 97.9–98.7; O2SAT 91–100
[2024-06-09 04:57] LABS: Basophils # (auto) 0.1 10 ^3/uL (0-0.2); Basophils % (auto) 0.4 % (0.0-2.0); Eosinophils # (auto) 0.1 10 ^3/uL (0-0.8); Eosinophils % (auto) 1.1 % (0.0-7.0); Hematocrit 47.4 % (41.0-53.0); Hemoglobin 16.2 g/dL (13.5-17.5); Lymphocytes # (auto) 1.2 10 ^3/uL (0.4-5.4); Mean Corpuscular Hemoglobin 31.3 pg (28.0-32.0); Mean Corpuscular Hgb Conc. 34.2 g/dL (32.0-36.0); Mean Corpuscular Volume 91.5 fL (80.0-100.0); Monocytes % (auto) 8.1 % (0.0-12.0); Neutrophils # (auto) 10.5 10 ^3/uL (1.6-8.6); Neutrophils % (auto) 81.4 % (37.0-80.0); Platelet Count (auto) 275 10^3/uL (140-450); Red Blood Cells 5.18 10^6/uL (4.5-5.90); Red Cell Distribution Width 14.4 % (11.8-14.3); White Blood Cell 12.9 10^3/uL (4.4-10.8)
[2024-06-09 05:11] LABS: Alanine Aminotransferase 26 U/L (7-40); Albumin 3.6 g/dL (3.2-4.8); Anion Gap 11 (5-15); BUN/Creatinine Ratio 15.9 (10.0-20.0); Blood Urea Nitrogen 18 mg/dL (9-23); Calcium 9.1 mg/dL (8.7-10.4); Carbon Dioxide 29 mmol/L (20-31); Chloride 100 mmol/L (98-107); Glucose 87 mg/dL (74-106); Sodium 140 mmol/L (136-145); Total Protein 7.1 g/dL (5.7-8.2)
[2024-06-09 05:13] LABS: Alkaline Phosphatase 134 U/L (46-116); Aspartate Aminotransferase 80 U/L (13-40); Bilirubin, Total 2.4 mg/dL (0.2-1.0); Potassium 3.4 mmol/L (3.5-5.1)
--- NOTE | 2024-06-09 06:31 | DVHPN2 ---
Progress Note - Dictate Date Seen: Jun 09, 2024 Medical Necessity Reason Pt with a Central, PICC or Fol: Yes The following are medically ne: Ramirez Catheter Reason for ramirez catheter: Strict I&O vital signs Vital Sign Date Time Temp Pulse Resp B/P (MAP) Pulse Ox O2 Delivery O2 Flow Rate FiO2 06/09/24 06:11 98/62 06/09/24 04:00 106 06/09/24 04:00 17 100 Nasal Cannula* 4 36 06/09/24 00:00 98.2 98.2 Total Intake and Output 06/08/24 06/08/24 06/09/24 15:00 23:00 07:00 Intake Total 1057.444 ml 213 ml Output Total 1525 ml Balance 1057.444 ml -1312 ml medications Current Medications Medications Dose Ordered Sig/Lei Route Start Time Stop Time Status Last Admin Dose Admin Ondansetron HCl 4 mg Q4HP PRN IV 05/29/24 20:45 05/30/24 03:54 4 MG Acetaminophen 650 mg Q6HP PRN PO 05/29/24 20:45 06/08/24 22:45 650 MG Nitroglycerin 0.4 mg Q5MINP PRN SL 05/29/24 20:45 Pantoprazole Sodium 40 mg DAILY IV 05/30/24 10:00 06/08/24 09:49 40 MG Furosemide 40 mg BIDD IV 05/30/24 18:00 06/09/24 06:11 40 MG Sacubitril/ Valsartan 1 tab BID PO 05/30/24 10:00 Hold 06/03/24 22:03 1 TAB Aspirin 81 mg DAILY PO 05/30/24 10:00 06/07/24 09:45 81 MG Atorvastatin Calcium 40 mg HS PO 05/30/24 22:00 06/08/24 21:21 40 MG Midazolam HCl 50 ml @ 1 mls/hr Q24H IV 05/30/24 19:00 06/08/24 15:37 11 MLS/HR Enoxaparin Sodium 90 mg Q12HR SC 05/31/24 22:00 06/08/24 21:33 90 MG Sodium Chloride 1,000 ml @ 50 mls/hr Q20H IV 05/31/24 12:30 06/08/24 21:33 50 MLS/HR Norepinephrine Bitartrate 250 ml @ 3.75 mls/hr Q24H IV 06/02/24 11:30 06/08/24 13:39 15 MLS/HR Sodium Chloride 10 ml QSHIFT@10,22 IV 06/02/24 22:00 06/08/24 21:33 10 ML Piperacillin Sod/ Tazobactam Sod 100 ml @ 25 mls/hr Q8HR IV 06/04/24 14:00 06/09/24 06:10 25 MLS/HR Diphenhydramine HCl 25 mg Q4HP PRN IV 06/04/24 10:45 06/09/24 02:03 25 MG Vancomycin HCl 0 ml @ 0 mls/hr UD IV 06/05/24 09:45 Enteral Nutritional Formula 1,000 ml 70ML/HR GT 06/05/24 10:15 Amino Acid Protein 30 ml DAILY PO 06/06/24 10:00 06/08/24 10:00 30 ML Vancomycin HCl 200 ml @ 160 mls/hr Q16H IV 06/07/24 20:00 06/09/24 03:46 160 MLS/HR objective General Appearance: alert, no distress HEENT: EOMI, PERRLA, normal external inspect of ears, no icterus, no nasal drainage Neck: no carotid bruit, no jugular venous distention (JVD), no lymphadenopathy Chest: normal thorax Respiratory: clear to auscultation, normal air movement Cardiovascular: regular rate and rhythm, no diastolic murmur, no jugular venous distention (JVD), no rub, no systolic murmur Abdominal: soft, no hepatomegaly, no mass, no splenomegaly, no tenderness Genitourinary: grossly normal external Musculoskeletal: no joint tenderness, no swelling Extremities: normal pulses, no calf tenderness, no clubbing, no cyanosis, no edema Skin: no bruising, no jaundice, no rash Neurological: alert, No focal deficit laboratory and microbiology Laboratory Tests 06/09/24 04:39 Test 06/09/24 04:39 Range/Units Serum Glucose 87 74-106 mg/dL Problem List 1. Acute CVA Monitor, neurology consult 2. Acute on chronic systolic heart failure Monitor, cardiology consult, heparin gtt 3. Drug induced cardiomyopathy Monitor, echocardiogram, cardiology consult 4. Elevated troponin - demand ischemia Monitor EKG, cardiology consult 5. Hx of methamphetamine abuse Monitor, urine drug screen 6. 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 Acute hypoxic respiratory failure Monitor, supplemental O2, ventilator management per pulmonary 8. Pneumonia Monitor, antibiotics, pulmonary consult 9. Acute cystitis Monitor, antibiotics 10. Bacteremia Monitor, continue antibiotics, ID consult. 11. Polycythemia vera Monitor, daily labs 12. IZZY with vasomotor nephropathy Monitor, monitor renal function 13. Metabolic encephalopathy Monitor, Neurology consult 14.Sepsis ID consult, IV antibiotics, monitoring [40] minutes of critical care time were spent in evaluating the patient, reviewing the diagnostic data, discussing with the family. Assessment/Plan Subjective: Patient is awake and alert. Objective: Patient is extubated yesterday. Currently on three liters nasal cannula. Patient awaiting for speech evaluation. Currently NPO patient was found to have acute CVA. Neurology has been consulted. Patient has acute on chronic systolic heart failure. Patient also had mildly elevated troponin levels. Patient was septic with pneumonia and a UTI. Currently on vancomycin and Zosyn. Plan: Continue diuretics for CHF exacerbation. Continue antibiotics for sepsis with septic shock. Monitor neuro status. Weaned down O2 waiting for speech eval. Dietary Evaluation Review Comments: 1) TF Glucerna 1.2Cal @ 70ml/hr x 24 hr along with Pro-stat 1 pk daily. Start @ 30ml/hr, increase 10ml/hr Q4H until goal rate is reached. Water flush 50ml Q4H TF goal volume along with Pro-stat & water flush provide 2016 kcal (100%), 116 gm protein (100%), and 1652ml free water 2) TPN if NPO>7 days 3) Advance diet as medically feasible 4) Continue current plan of care Expected Outcomes/Goals: To meet >75% estimated needs within 7 days Fu 2-3 days Plan discussed with: Patient, Other JACKIE DILLON SPRAYER LEATHER Jun 09, 2024 06:31
[2024-06-09] MEDS: POTASSIUM CHL 20MEQ/50ML 50 ML IV SCH (09:35)
--- NOTE | 2024-06-09 12:02 | DVHINCON2 ---
Date of service: Jun 09, [address] Albright Reason for Consultation Abnormal bilirubin and liver enzyme History of Present Illness This 43-year-old presented with complaints of shortness of breath productive cough and chest pain she had episode nausea vomiting at as non-STEMI and has been intubated he was found to have abnormal liver enzymes and hence the reason for the GI consult Patient denied any history of any alcohol abuse but has got history of methamphetamine use Has got history of diabetes congestive heart failure kidney problems HI and asthma No history of any gallbladder or biliary tract disease or hepatitis Past Medical History Polycythemia vera hypertension congestive heart failure diabetes asthma cardiomyopathy Past Surgical History None Family History None Social History History of drug abuse denies alcohol Allergies: Coded Allergies: Penicillins (Verified Allergy, Unknown, 02/11/23) Uncoded Allergies: IV CONTRAST (Allergy, Severe, HIVES AND VOMITING. , 06/01/24) Home Meds Reported Medications Potassium Chloride (K-Tabs) 10 Meq Tab, 1 TAB PO DAILY 02/11/23 Spironolactone (Spironolactone) 25 Mg Tab, 1 TAB PO DAILY 02/11/23 Furosemide (Furosemide) 40 Mg Tab, 1 TAB PO BID 02/11/23 Lisinopril (Lisinopril) 2.5 Mg Tab, 1 TAB PO DAILY 02/11/23 Current Medications Current Medications Medications (Trade) Dose Ordered Sig/Lei Route PRN Reason Start Time Stop Time Status Last Admin Potassium Chloride 50 ml @ 25 mls/hr Q2H IV 06/09/24 09:15 06/09/24 13:14 06/09/24 11:26 Review of Systems Noncontributory Vital Signs Vital Signs Date Time Temp Pulse Resp B/P (MAP) Pulse Ox O2 Delivery O2 Flow Rate FiO2 06/09/24 10:00 96 06/09/24 08:00 25 99 Nasal Cannula* 4 36 06/09/24 08:00 90/54 (66) 06/09/24 04:00 97.9 97.9 Physical Exam Moderately built and nourished male who has just been extubated after the can start failure and HI from which he recovered now Asking for clear liquid diet HEENT no pallor no icterus Lungs clear Cardiovascular Abdomen is soft nontender no masses bowel sounds normal Extremities no edema Neuro grossly intact Labs/Diagnostic Data Labs Test 06/09/24 04:39 06/08/24 10:59 06/08/24 06:47 06/07/24 04:38 Range/Units White Blood Count 12.9 H 4.4-10.8 10^3/uL Red Blood Count 5.18 4.5-5.90 10^6/uL Hemoglobin 16.2 13.5-17.5 g/dL Hematocrit 47.4 # 41.0-53.0 % Mean Corpuscular Volume 91.5 80.0-100.0 fL Mean Corpuscular Hemoglobin 31.3 28.0-32.0 pg Mean Corpuscular Hemoglobin Concent 34.2 32.0-36.0 g/dL Red Cell Distribution Width 14.4 H 11.8-14.3 % Platelet Count 275 140-450 10^3/uL Mean Platelet Volume 8.2 6.9-10.8 fL Neutrophils (%) (Auto) 81.4 H 37.0-80.0 % Lymphocytes (%) (Auto) 9.0 L 10.0-50.0 % Monocytes (%) (Auto) 8.1 0.0-12.0 % Eosinophils (%) (Auto) 1.1 0.0-7.0 % Basophils (%) (Auto) 0.4 0.0-2.0 % Neutrophils # (Auto) 10.5 H 1.6-8.6 10 ^3/uL Lymphocytes # (Auto) 1.2 0.4-5.4 10 ^3/uL Monocytes # (Auto) 1.0 0-1.3 10 ^3/uL Eosinophils # (Auto) 0.1 0-0.8 10 ^3/uL Basophils # (Auto) 0.1 0-0.2 10 ^3/uL Nucleated Red Blood Cells 0.0 % Sodium Level 140 136-145 mmol/L Potassium Level 3.4 L 3.5-5.1 mmol/L Chloride Level 100 98-107 mmol/L Carbon Dioxide Level 29 20-31 mmol/L Anion Gap 11 5-15 Blood Urea Nitrogen 18 9-23 mg/dL Creatinine 1.13 0.700-1.30 mg/dL Glomerular Filtration Rate Calc 84 >90 mL/min BUN/Creatinine Ratio 15.9 10.0-20.0 Serum Glucose 87 74-106 mg/dL Calcium Level 9.1 8.7-10.4 mg/dL Magnesium Level 2.0 1.6-2.6 mg/dL Total Bilirubin 2.4 H 0.2-1.0 mg/dL Aspartate Amino Transferase (AST) 80 H 13-40 U/L Alanine Aminotransferase (ALT) 26 7-40 U/L Alkaline Phosphatase 134 H 46-116 U/L Total Protein 7.1 5.7-8.2 g/dL Albumin 3.6 3.2-4.8 g/dL Lactic Acid Level 0.7 0.4-2.0 mmol/L Blood Gas Specimen Type Arterial Blood Gas Sample Site Right radial Blood Gas Patient Temperature 37.0 Arterial Blood Date Drawn [id number] Arterial Blood pH 7.446 7.350-7.450 Arterial Blood Partial Pressure CO2 40.1 35.0-48.0 mmHg Arterial Blood Partial Pressure O2 112.9 H 83.0-108.0 mmHg Arterial Blood HCO3 27.0 21.0-28.0 mmol/L Arterial Blood Oxygen Saturation 97.7 94.0-98.0 % Arterial Blood Base Excess 2.8 -2.0-3.0 mmol/L Arterial Blood Oxyhemoglobin 96.8 94.0-98.0 % Arterial Blood Carboxyhemoglobin 0.3 L 0.5-1.5 % Arterial Blood Methemoglobin 0.6 0.0-1.5 % Bishnu Test Modified Blood Gas Total Hemoglobin 20.50 *H 13.5-17.5 g/dL Blood Gas Set Respiration Rate 16.0 Blood Gas Modality Vent - ac FiO2 % 30.0 Blood Gas Tidal Volume 500.0 Blood Gas PEEP or CPAP 5.0 Blood Gas Critical Value Read Back yes Blood Gas Notified Whom kady reid md Blood Gas Notified Time [id number] Blood Gas Notified By ирина gerber machine sprayer Random Vancomycin Level 6.1 5-10 ug/mL Test 06/06/24 05:09 06/03/24 17:56 06/03/24 10:20 06/02/24 07:22 Range/Units Phosphorus Level 3.8 2.4-5.1 mg/dL Hepatitis A IgM Antibody Negative Hepatitis B Surface Antigen Negative Negative Hepatitis B Core IgM Antibody Negative Negative Hepatitis C Antibody Negative Negative HIV (1&2) Antibody Negative Negative POC Glucose 148 H 70-106 mg/dl Ammonia 30 11-32 umol/L Blood Gas Comments hgb out of amr range Test 06/01/24 04:20 05/31/24 19:25 05/31/24 10:30 05/31/24 03:31 Range/Units Platelet Estimate Adequate Urine Color [place] H Yellow Urine Clarity Ex.turbid Clear Urine pH 5.5 5.0-9.0 Urine Specific [place] 1.019 1.001-1.035 Urine Protein 2+ H Negative Urine Ketones Negative Negative Urine Blood 3+ H Negative /uL Urine Nitrite Negative Negative Urine Bilirubin Negative Negative Urine Urobilinogen 4 H Negative mg/dL Urine Leukocyte Esterase Negative Negative /uL Urine RBC 417 0 - 3 /hpf Urine Microscopic WBC 145 H 0-3 /HPF Urine Squamous Epithelial Cells None seen <5 /hpf Urine Bacteria None seen None Seen /hpf Urine Mucus Few None Seen Urine Yeast (Budding) Occasional None Seen /hpf Urine Glucose Normal Normal mg/dL Urine Opiates Screen Neg NEGATIVE Urine Fentanyl Screen Pos NEGATIVE Urine Barbiturates Screen Neg NEGATIVE Urine Phencyclidine Screen Neg NEGATIVE Urine Amphetamines Screen Pos NEGATIVE Urine Benzodiazepines Screen Pos NEGATIVE Urine Cocaine Screen Neg NEGATIVE Urine Cannabinoids Screen Neg NEGATIVE Prothrombin Time 11.9 H 9.3-11.8 sec Prothrombin Time INR 1.14 0.9-1.15 Activated Partial Thromboplast Time 65.5 H 24.5-34.5 SEC Hemoglobin A1c 6.1 H <5.7 % A1C Test 05/31/24 00:55 05/30/24 22:12 05/30/24 20:10 05/30/24 05:30 Range/Units Troponin I High Sensitivity 437 *H </=54 ng/L D-Dimer, Quantitative 0.32 0.0-0.49 mg/L FEU Urine Hyaline Casts Mod 0 - 2 /lpf Triglycerides Level 62 < 150 mg/dL Cholesterol Level 148 < 200 mg/dL LDL Cholesterol 113 H < 100 mg/dL HDL Cholesterol 36 L 40-59 mg/dL Test 05/29/24 18:21 Range/Units B-Type Natriuretic Peptide 641.20 0-100 pg/mL Microbiology Date/Time Source Procedure Growth Status 06/06/24 13:12 Blood Blood Culture - Preliminary NO GROWTH AFTER 48 HOURS OF INCUBATION. Resulted 06/05/24 18:38 Bronchial Washings Gram Stain - Final Complete 06/05/24 18:38 Respiratory Culture - Final Klebsiella pneumoniae Complete 06/04/24 15:40 Urine - [place] Urine Culture - Final Complete 05/30/24 20:10 Nose MRSA Screen - Final Complete Assessment 43-year-old with abdominal liver enzymes bilirubin 2.1 and AST is increased as well as minimally alkaline phosphatase Patient was hypotensive and had a HI NSTEMI history of diabetes asthma congesti ve heart failure hypertension No history of any hepatitis or gallbladder or biliary tract disease Clinical impression Mildly elevated liver enzymes Properly from NAFLD from diabetes or mild ischemia from the hypotension cardiac problems and STEMI Possibility of gallbladder and biliary tract disease can not be excluded Plan/Recommendation We will recommend to follow the liver functions Ultrasound of the gallbladder in the liver if not done recently If abnormal liver enzymes persist may need further evaluation as necessary Thank you Dr. Best Plan discussed with: Patient BEKAH BEST MD Jun 09, 2024 12:02
--- NOTE | 2024-06-09 13:58 | DVHPN2 ---
Progress Note - Dictate Date Seen: Jun 09, 2024 Medical Necessity Reason Pt with a Central, PICC or Fol: Yes The following are medically ne: Ramirez Catheter Reason for ramirez catheter: Strict I&O Subjective Seen and examined at the bedside within [facility]. Status post extubation (06/08/2024). Remains on Lovenox and Aspirin. Chart reviewed. vital signs Vital Sign Date Time Temp Pulse Resp B/P (MAP) Pulse Ox O2 Delivery O2 Flow Rate FiO2 06/09/24 12:00 98.0 92 29 112/69 (83) 100 98.0 06/09/24 12:00 Nasal Cannula* 4 36 Total Intake and Output 06/08/24 06/08/24 06/09/24 15:00 23:00 07:00 Intake Total 1057.444 ml 213 ml 450 ml Output Total 1525 ml 1475 ml Balance 1057.444 ml -1312 ml -1025 ml medications Current Medications Medications Dose Ordered Sig/Lei Route Start Time Stop Time Status Last Admin Dose Admin Ondansetron HCl 4 mg Q4HP PRN IV 05/29/24 20:45 05/30/24 03:54 4 MG Acetaminophen 650 mg Q6HP PRN PO 05/29/24 20:45 06/08/24 22:45 650 MG Nitroglycerin 0.4 mg Q5MINP PRN SL 05/29/24 20:45 Pantoprazole Sodium 40 mg DAILY IV 05/30/24 10:00 06/09/24 09:34 40 MG Furosemide 40 mg BIDD IV 05/30/24 18:00 06/09/24 06:11 40 MG Sacubitril/ Valsartan 1 tab BID PO 05/30/24 10:00 Hold 06/03/24 22:03 1 TAB Aspirin 81 mg DAILY PO 05/30/24 10:00 06/09/24 09:35 81 MG Atorvastatin Calcium 40 mg HS PO 05/30/24 22:00 06/08/24 21:21 40 MG Midazolam HCl 50 ml @ 1 mls/hr Q24H IV 05/30/24 19:00 06/08/24 15:37 11 MLS/HR Enoxaparin Sodium 90 mg Q12HR SC 05/31/24 22:00 06/09/24 09:34 90 MG Sodium Chloride 1,000 ml @ 50 mls/hr Q20H IV 05/31/24 12:30 06/08/24 21:33 50 MLS/HR Norepinephrine Bitartrate 250 ml @ 3.75 mls/hr Q24H IV 06/02/24 11:30 06/08/24 13:39 15 MLS/HR Sodium Chloride 10 ml QSHIFT@10,22 IV 06/02/24 22:00 06/09/24 09:43 10 ML Piperacillin Sod/ Tazobactam Sod 100 ml @ 25 mls/hr Q8HR IV 06/04/24 14:00 06/09/24 13:38 25 MLS/HR Diphenhydramine HCl 25 mg Q4HP PRN IV 06/04/24 10:45 06/09/24 02:03 25 MG Vancomycin HCl 0 ml @ 0 mls/hr UD IV 06/05/24 09:45 Enteral Nutritional Formula 1,000 ml 70ML/HR GT 06/05/24 10:15 Amino Acid Protein 30 ml DAILY PO 06/06/24 10:00 06/08/24 10:00 30 ML Vancomycin HCl 200 ml @ 160 mls/hr Q16H IV 06/07/24 20:00 06/09/24 03:46 160 MLS/HR laboratory and microbiology Laboratory Tests 06/09/24 04:39 Test 06/09/24 04:39 Range/Units Serum Glucose 87 74-106 mg/dL Assessment/Plan Intubated and in [facility]/ICU. He is found to have acute/subacute CVA Patient is a 43-year-old gentleman who presented with few weeks of worsening shortness of breath/generalized swelling/nausea/and some diarrhea. He is known to have systolic heart failure. He has ran out of his medications for the past few weeks. He mentions that he was on hospice before hand and he wanted to come off of it. He does have baseline history of methamphetamine abuse and mentions that he used it few days ago. He does have baseline history of noncompliance with medication and followups. Previously he was homeless. Now he says that she is renting a place. Cardiology was involved for cardiac aspects of care. It is of note that the patient does have chronic elevated troponin from prior admissions. Intubated, No JVD. Mucosa is pink and wet. Scattered crackles in the lungs is heard. Cardiac: Regular, no thrill. Systolic murmur 3/6 in apex is heard. History gallop is heard. Abdomen is soft and mildly distended. Bowel sound is positive. There is no abdominal tenderness. Questionable hepatomegaly can not be elicited. Extremities reveal 2+ edema bilaterally. Dorsalis pedis is 2+ bilateral. Past medical history includes diabetes mellitus, hypertension, systolic heart failure, polycythemia vera (as per patient), asthma, CKD, history of substance abuse cardiomyopathy, history of meth abuse and also history of chronic elevated troponin. Previously he was homeless. Previously he was on hospice. Echocardiogram of December 08, 2023 revealed four-chamber dilatation, ejection fraction of 5-10%, mild mitral regurgitation and tricuspid regurgitation. Hemoglobin: 19.5 - 18.1 - 18.2 - 17.2 - 18.9 - 20.1 - 19.2 - 19.3 - 18.6 - 20.2 - 19.0 - 16.2 Creatinine: 1.20 - 1.06 - 1.09 - 1.15 - 1.45 - 1.23 - 1.47 - 1.15 - 1.13 - 1.30 - 1.24 - 1.09 - 1.13 Potassium: 4.1 - 3.6 - 3.8 - 4.1 - 4.5 - 3.9 - 3.7 - 3.8 - 3.6 - 3.9 - 4.0 - 3.6 - 3.4 BNP: 641.20 Troponin (high sensitive): 529 - 502 - 526 - 486 - 422 - 436 - 437 D-dimer: 0.32 Urine tox was positive for Amphetamine and Benzodiazepine Chest x-ray revealed: IMPRESSION: Cardiomegaly with increased interstitial prominence which may be due to CHF and/or reactive airways disease. Repeat chest xry revealed: Endotracheal tube is in good position of the level of the clavicles. Nasogastric tube is in the stomach. There is cardiomegaly with an enlarged left ventricle. There is significant pulmonary vascular congestion. Impression congestive heart failure pattern. If patient has not had a recent cardiac echo I would recommend cardiac echo Repeat chest xry revealed: IMPRESSION: 1. congestive heart failure pattern. Repeat chest xry revealed: FINDINGS: Lines and Tubes: Endotracheal tube and enteric catheter in satisfactory position. Lungs: Patchy bilateral airspace disease Pleura: No effusion. No pneumothorax. Cardiomediastinal contours: Cardiomegaly Bones: Unremarkable IMPRESSION: Lines and tubes in satisfactory position. No significant interval change. Repeat chest xry revealed: IMPRESSION: Lines and tubes in satisfactory position. No significant interval change. Repeat chest xry revealed: IMPRESSION: Cardiomegaly with mild congestion. Repeat chest xry revealed: IMPRESSION: Lines and tubes in satisfactory position. No significant interval change. Repeat chest xry revealed: IMPRESSION: Cardiomegaly with mild congestion. Repeat chest xry revealed: IMPRESSION: 1. Mild pulmonary congestion. 2. Cardiomegaly. Repeat chest xry revealed: IMPRESSION: Lines and tubes in satisfactory position. No significant interval change. MRI of brain revealed: 1. Small focus of restricted diffusion in the anterior right centrum semiovale likely representing small acute to subacute infarct. There is no evidence of acute hemorrhage. Repeat MRI of brain revealed: IMPRESSION: 1. Redemonstration of subcentimeter focus of acute ischemia in the left cerebellar lobe. No intracranial hemorrhage. 2. Redemonstration of subcentimeter focus of DWI hyperintense signal in the right frontal centrum semiovale without corresponding abnormal ADC signal reflecting T2 shine through. No evidence of acute ischemia. 3. Subcentimeter foci abnormal signal in the bilateral cerebellar lobes may reflect chronic infarcts or underlying lesions. Further evaluation with MRI with IV contrast is recommended. 4. 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. CT of head revealed: IMPRESSION: 1. No acute intracranial process. Repeat CT of head revealed: IMPRESSION: No abnormality demonstrated. The very small acute/subacute infarct in right frontal lobe and very small old cortical infarct in left parietal lobe seen on the MRI study from earlier the same day are not evident on CT. Carotid ultrasound revealed: IMPRESSION: No hemodynamically significant stenoses or occlusions identified. Chest CT revealed: IMPRESSION: 1. Cardiomegaly. 2. Scattered coronary artery calcifications 3. Endotracheal tube in place terminating above the nicola. 4. Enteric tube in the stomach. Lower ext venous duplex revealed: IMPRESSION: No sonographic evidence of deep venous thrombosis in either lower extremity at this time. Right upper ext venous ultrasound revealed: IMPRESSION: No sonographic evidence of deep venous thrombosis in either upper extremity at this time. Renal Ultrasound revealed: IMPRESSION: 1. Left renal atrophy. No intrarenal calculi. Tele reveals sinus rhythm Echocardiogram revealed: Four-chamber dilatation was observed. Left ventricle: Left ventricle was significantly dilated with significantly reduced systolic function. Diffuse hypokinesis of left ventricle was seen. LVEF was 5-10%. LVEDP was assessed to be elevated. Right ventricle was dilated with reduced systolic function. Both atria were dilated. Aortic valve was not well visualized. There was mild aortic insufficiency. There was no aortic stenosis. There was trivial mitral regurgitation. There was mild tricuspid regurgitation. There was trivial pulmonary valve insufficiency. Right ventricular systolic pressure was assessed at 57 mm Hg. IVC was dilated with reduced respiratory variation. There was no pericardial effusion KI: Severe dilatation of LV with reduced LV systolic function. No Cardiac source for Emboli. Positive bubble study questions small PFO (PFO itself could not be visualized) Patient is a 43-year-old gentleman who presented with weeks of worsening shortness of breath cough/nausea and vomiting. Does have baseline history of systolic heart failure. Has been noncompliant with medication and followups. Acute on chronic systolic heart failure could have contributed to the clinical picture. Does have baseline history of methamphetamine abuse which could have contributed to the clinical picture. He is noncompliant with medication and followups which could have contributed to the clinical picture. Does have baseline history of elevated/chronically troponin. Abnormal troponin in a patient with end-stage systolic heart failure usually reflects demand physiology. Acute coronary syndrome is not considered at this point. Had AMS and later had respiratory failure. Intubated and brought to [facility]/ICU. He is found to have acute/subacute CVA. Is being followed by Neurology. KI performed: no source for Emboli. Still, Positive Bubble study questions PFO (PFO itself could not be visualized: maybe too small). Still, there was no recent DVT also (negative venous duplex). Acute on chronic systolic heart failure Drug-induced cardiomyopathy CKD Polycythemia vera removal Diabetes mellitus Noncompliant with medication and followups Substance abuse AMS Acute/subacute CVA Cardiac suggestion for management: Manage in ICU IV diuresis Follow-up electrolytes and kidney function tests and correct abnormalities. Keep potassium above 4 and magnesium above 2 Entresto: 24/26 mg p.o. b.i.d. (for now on hold secondary to hypotension and need for pressure support) Aspirin: 81 mg daily suggested as tolerated Heparin drip versus therapeutic Lovenox is suggested at this point as tolerated High potency statin (atorvastatin at 40 mg daily) suggested Does have baseline history of elevated/chronically troponin. Abnormal troponin (flat trend) in a patient with end-stage systolic heart failure usually reflects demand physiology. Acute coronary syndrome is not considered at this point. Recognizing old history of significant heart failure and noncompliance, outcome is poor. Consider restarting hospice Lifestyle and risk factor modifications. Neurology follow up Consider Hematology evaluation for Hemoconcentration / Polycythemia Vera Further evaluation and management depends on the above and clinical course A total of 75 minutes was spent reviewing the patient record, examining the patient, making a diagnostic and therapeutic plan, discussing this plan with medical personnel, following up on diagnostic studies and following the patient for clinical stability excluding any and all procedures. At least 50% of this time was spent in direct, [id number] contact. Thank you for allowing me to participate in this patient's care. Further recommendations will depend on patient's clinical course. Please do not hesitate to contact me if you have any questions or concerns. This medical document was created using electronic medical record system with [employer] computerized dictation system. Although this document has been carefully reviewed, there may still be some phonetic and typographical errors. These areas are purely typographical due to the imperfection of the software programs, and do not reflect any compromise in the patient's medical care Dietary Evaluation Review Comments: 1) TF Glucerna 1.2Cal @ 70ml/hr x 24 hr along with Pro-stat 1 pk daily. Start @ 30ml/hr, increase 10ml/hr Q4H until goal rate is reached. Water flush 50ml Q4H TF goal volume along with Pro-stat & water flush provide 2016 kcal (100%), 116 gm protein (100%), and 1652ml free water 2) TPN if NPO>7 days 3) Advance diet as medically feasible 4) Continue current plan of care Expected Outcomes/Goals: To meet >75% estimated needs within 7 days Fu 2-3 days Plan discussed with: Other (Patient and Primary RN ) ADOLPH HOROWITZ Jun 09, 2024 13:58
[2024-06-09] MEDS: ZOLPIDEM TARTRATE 5 MG TAB PO PRN (20:08)
--- NOTE | 2024-06-09 21:54 | DVHPN2 ---
Consult Progress Note Date Seen: Jun 08, 2024 Subjective Patient reports: Other Objective vital signs Vital Sign Date Time Temp Pulse Resp B/P (MAP) Pulse Ox O2 Delivery O2 Flow Rate FiO2 06/09/24 20:00 98.5 85 29 110/73 (85) 99 98.5 06/09/24 18:00 Nasal Cannula* 2 28 Total Intake and Output 06/08/24 06/08/24 06/09/24 15:00 23:00 07:00 Intake Total 1057.444 ml 213 ml 550 ml Output Total 1525 ml 1475 ml Balance 1057.444 ml -1312 ml -925 ml medications Current Medications Medications Dose Ordered Sig/Lei Route Start Time Stop Time Status Last Admin Dose Admin Ondansetron HCl 4 mg Q4HP PRN IV 05/29/24 20:45 06/09/24 16:33 4 MG Acetaminophen 650 mg Q6HP PRN PO 05/29/24 20:45 06/08/24 22:45 650 MG Nitroglycerin 0.4 mg Q5MINP PRN SL 05/29/24 20:45 Pantoprazole Sodium 40 mg DAILY IV 05/30/24 10:00 06/09/24 09:34 40 MG Furosemide 40 mg BIDD IV 05/30/24 18:00 06/09/24 18:03 40 MG Sacubitril/ Valsartan 1 tab BID PO 05/30/24 10:00 Hold 06/03/24 22:03 1 TAB Aspirin 81 mg DAILY PO 05/30/24 10:00 06/09/24 09:35 81 MG Atorvastatin Calcium 40 mg HS PO 05/30/24 22:00 06/09/24 20:08 40 MG Midazolam HCl 50 ml @ 1 mls/hr Q24H IV 05/30/24 19:00 06/08/24 15:37 11 MLS/HR Enoxaparin Sodium 90 mg Q12HR SC 05/31/24 22:00 06/09/24 20:08 90 MG Sodium Chloride 1,000 ml @ 50 mls/hr Q20H IV 05/31/24 12:30 06/08/24 21:33 50 MLS/HR Norepinephrine Bitartrate 250 ml @ 3.75 mls/hr Q24H IV 06/02/24 11:30 06/08/24 13:39 15 MLS/HR Sodium Chloride 10 ml QSHIFT@10,22 IV 06/02/24 22:00 06/09/24 20:04 10 ML Piperacillin Sod/ Tazobactam Sod 100 ml @ 25 mls/hr Q8HR IV 06/04/24 14:00 06/09/24 20:08 25 MLS/HR Diphenhydramine HCl 25 mg Q4HP PRN IV 06/04/24 10:45 06/09/24 02:03 25 MG Vancomycin HCl 0 ml @ 0 mls/hr UD IV 06/05/24 09:45 Enteral Nutritional Formula 1,000 ml 70ML/HR GT 06/05/24 10:15 Amino Acid Protein 30 ml DAILY PO 06/06/24 10:00 06/08/24 10:00 30 ML Vancomycin HCl 200 ml @ 160 mls/hr Q16H IV 06/07/24 20:00 06/09/24 20:04 160 MLS/HR Zolpidem Tartrate 5 mg HSPRN PRN PO 06/09/24 19:15 06/09/24 20:08 5 MG Physical Exam: General: NAD Neck: Supple. No masses. HEENT: PERRL. Normal lids and conjunctiva. Moist mucous membranes. Oropharynx without lesions, exudates or excessive erythema. Normal appearance of the external aspects of the nose and ears. Heart: Regular rhythm, normal rate. No murmur. No lower extremity edema. Lungs: Normal respiratory effort. Clear to auscultation bilaterally. No wheezes. No crackles. Abdomen: Soft. Non-tender. Non-distended. No masses or abdominal hernia. Msk: No digital cyanosis. Normal strength and tone in all 4 limbs. Skin: Warm and dry, no rashes. Modeling likely ischemic disease. Neuro: Alert. No facial droop or slurred speech. Extra-ocular movements intact. Sensation intact to soft touch in all 4 limbs. Evidence of acute stroke (left-sided symptoms per MRI report). Psych: Appropriate mood. Full affect. Oriented to person, place, time, and situation laboratory and microbiology Laboratory Tests 06/09/24 04:39 Test 06/09/24 04:39 Range/Units Serum Glucose 87 74-106 mg/dL Problem List/Assessment/Plan Problems(with codes): (1) Drug-induced cardiomyopathy (2) NSTEMI (non-ST elevated myocardial infarction) (3) CHF exacerbation (4) Gram positive bacterial infection (5) Congestive heart failure due to cardiomyopathy Problem List/Assessment/Plan ASSESSMENT AND PLAN ID Problem List: - Septic shock - Acute hypoxic respiratory failure - Aspiration pneumonia (Klebsiella) - Gram-positive cocci bacteremia - Acute systolic and diastolic heart failure - [id number] myocardial infarction (NSTEMI) Type 2 - Ischemic stroke - Polysythemia vera - End-stage renal disease (on hemodialysis, possibly resolved) - Hypertension - Diabetes mellitus - Asthma - Intravenous drug use (amphetamines, benzodiazepines, ongoing) - Medication noncompliance - History of deep vein thrombosis (DVT) and pulmonary embolism (PE), not currently confirmed Assessment: This is a 43-year-old male with significant past medical history including congestive heart failure, hypertension, diabetes mellitus, end-stage renal disease (previously on hemodialysis), asthma, polysythemia vera, and ongoing intravenous drug use, presenting with septic shock, acute hypoxic respiratory failure, aspiration pneumonia, and a complicated hospital course. He was noted to have chest pain, shortness of breath, and recent code event. Imaging revealed acute ischemic stroke. Patient had recent blood clots in multiple locations and was previously medication noncompliant. Admitted for acute decompensated heart failure (cardiomyopathy, LVEF 5-10%), persistent fevers, and required emergent intubation for hypoxia. Sputum culture positive for gram-negative rods (Klebsiella); blood cultures preliminary growth gram-positive cocci. Initial antibiotics with ceftriaxone, transitioned to Zosyn, then vancomycin added due to persistent fevers and rising WBC. Patient has a central line in place. TTE reveals four chamber dilation, biventricular systolic dysfunction, no pericardial effusion. Labs notable for persistent leukocytosis, Hb as high as 19.5 (polycythemia vera), and improving chest imaging but ongoing fever. No current DVTs by Doppler. 06/05: underwent bronchoscopy by Dr Zapata today and there was a right and left lower lobe atelectasis due to mucus plugging in the L6-L10 and R6-R10. right lower lobe BAL performed and cultures sent 06/06: appears to be clinically improving , however is intermittently requiring pressers . lactic acid is at 2.7 , likely secondary to cardiogenic shock , low EF . preliminary cultures are growing gram negative rods , likely klebsiella 06/07: patient is being diuresed , still on pressures but coming down 06/08: patient is coming down on presser needs and improved volume status . blood cultures are positive for staph epidermitis and staph hominids in the same bottle , likely consistent with skin wanda contamination and most recent BAL culture is positive for klebsiella and ammonia that is mckeon sensitive . repeat blood cultures are no growth to date Plan: - follow up on BAL culture results - follow up on GPC in blood culture - recommend repeating blood cultures at this time - odilon has a considerably poor prognosis , low EF , would recommend checking lactic acid to confirm patient is responding to antibiotic therapy - may need to be considered for Inotrope defer to cardiology - Continue vancomycin and Zosyn (piperacillin-tazobactam) - Monitor for persistent bacteremia; if persists, consider line exchange - Await and follow up on KI to evaluate for endocarditis - Repeat and monitor blood cultures to confirm clearance - Continue supportive care for acute hypoxic respiratory failure; monitor ventilator settings; target minimal FiO2 - Serial lactate and creatinine monitoring - Cardiology and primary service to continue management of heart failure and NSTEMI type 2 - Monitor skin for signs of ischemia or evolving lesions - Repeat imaging as clinically indicated - Assess for HIV and hepatitis status given ongoing IV drug use - Defer management of drug use and suspected resolved end-stage renal disease; re-evaluate dialysis need - Social work and case management for disposition planning (including possible hospice versus home care if patient preference changes) - Continue close hemodynamic and laboratory monitoring - Infectious Disease service to continue to follow Authorized and Performed by: Randi Barboza MD Total critical care time: Approximately 76 minutes Due to a high probability of clinically significant, life threatening deterioration, the patient required my highest level of preparedness to intervene emergently and I personally spent this critical care time directly and personally managing the patient. This critical care time included obtaining a history; examining the patient; pulse oximetry; ordering and review of studies; arranging urgent treatment with development of a management plan; evaluation of patient's response to treatment; frequent reassessment; and, discussions with other providers. This critical care time was performed to assess and manage the high probability of imminent, life-threatening deterioration that could result in multi-organ failure. It was exclusive of separately billable procedures and treating other patients and teaching time. Plan discussed with: Other Dietary Evaluation Review Comments: 1) TF Glucerna 1.2Cal @ 70ml/hr x 24 hr along with Pro-stat 1 pk daily. Start @ 30ml/hr, increase 10ml/hr Q4H until goal rate is reached. Water flush 50ml Q4H TF goal volume along with Pro-stat & water flush provide 2016 kcal (100%), 116 gm protein (100%), and 1652ml free water 2) TPN if NPO>7 days 3) Advance diet as medically feasible 4) Continue current plan of care Expected Outcomes/Goals: To meet >75% estimated needs within 7 days Fu 2-3 days RANDI BARBOZA MD Jun 09, 2024 21:54
--- NOTE | 2024-06-09 21:54 | DVHPN2 ---
Consult Progress Note Date Seen: Jun 07, 2024 Subjective Patient reports: Feels better (on minimal vent and is being diureset , less volume overloaded generally ) Objective vital signs Vital Sign Date Time Temp Pulse Resp B/P (MAP) Pulse Ox O2 Delivery O2 Flow Rate FiO2 06/09/24 20:00 98.5 85 29 110/73 (85) 99 98.5 06/09/24 18:00 Nasal Cannula* 2 28 Total Intake and Output 06/08/24 06/08/24 06/09/24 15:00 23:00 07:00 Intake Total 1057.444 ml 213 ml 550 ml Output Total 1525 ml 1475 ml Balance 1057.444 ml -1312 ml -925 ml medications Current Medications Medications Dose Ordered Sig/Lei Route Start Time Stop Time Status Last Admin Dose Admin Ondansetron HCl 4 mg Q4HP PRN IV 05/29/24 20:45 06/09/24 16:33 4 MG Acetaminophen 650 mg Q6HP PRN PO 05/29/24 20:45 06/08/24 22:45 650 MG Nitroglycerin 0.4 mg Q5MINP PRN SL 05/29/24 20:45 Pantoprazole Sodium 40 mg DAILY IV 05/30/24 10:00 06/09/24 09:34 40 MG Furosemide 40 mg BIDD IV 05/30/24 18:00 06/09/24 18:03 40 MG Sacubitril/ Valsartan 1 tab BID PO 05/30/24 10:00 Hold 06/03/24 22:03 1 TAB Aspirin 81 mg DAILY PO 05/30/24 10:00 06/09/24 09:35 81 MG Atorvastatin Calcium 40 mg HS PO 05/30/24 22:00 06/09/24 20:08 40 MG Midazolam HCl 50 ml @ 1 mls/hr Q24H IV 05/30/24 19:00 06/08/24 15:37 11 MLS/HR Enoxaparin Sodium 90 mg Q12HR SC 05/31/24 22:00 06/09/24 20:08 90 MG Sodium Chloride 1,000 ml @ 50 mls/hr Q20H IV 05/31/24 12:30 06/08/24 21:33 50 MLS/HR Norepinephrine Bitartrate 250 ml @ 3.75 mls/hr Q24H IV 06/02/24 11:30 06/08/24 13:39 15 MLS/HR Sodium Chloride 10 ml QSHIFT@10,22 IV 06/02/24 22:00 06/09/24 20:04 10 ML Piperacillin Sod/ Tazobactam Sod 100 ml @ 25 mls/hr Q8HR IV 06/04/24 14:00 06/09/24 20:08 25 MLS/HR Diphenhydramine HCl 25 mg Q4HP PRN IV 06/04/24 10:45 06/09/24 02:03 25 MG Vancomycin HCl 0 ml @ 0 mls/hr UD IV 06/05/24 09:45 Enteral Nutritional Formula 1,000 ml 70ML/HR GT 06/05/24 10:15 Amino Acid Protein 30 ml DAILY PO 06/06/24 10:00 06/08/24 10:00 30 ML Vancomycin HCl 200 ml @ 160 mls/hr Q16H IV 06/07/24 20:00 06/09/24 20:04 160 MLS/HR Zolpidem Tartrate 5 mg HSPRN PRN PO 06/09/24 19:15 06/09/24 20:08 5 MG Physical Exam: General: NAD Neck: Supple. No masses. HEENT: PERRL. Normal lids and conjunctiva. Moist mucous membranes. Oropharynx without lesions, exudates or excessive erythema. Normal appearance of the external aspects of the nose and ears. Heart: Regular rhythm, normal rate. No murmur. No lower extremity edema. Lungs: Normal respiratory effort. Clear to auscultation bilaterally. No wheezes. No crackles. Abdomen: Soft. Non-tender. Non-distended. No masses or abdominal hernia. Msk: No digital cyanosis. Normal strength and tone in all 4 limbs. Skin: Warm and dry, no rashes. Modeling likely ischemic disease. Neuro: Alert. No facial droop or slurred speech. Extra-ocular movements intact. Sensation intact to soft touch in all 4 limbs. Evidence of acute stroke (left-sided symptoms per MRI report). Psych: Appropriate mood. Full affect. Oriented to person, place, time, and situation laboratory and microbiology Laboratory Tests 06/09/24 04:39 Test 06/09/24 04:39 Range/Units Serum Glucose 87 74-106 mg/dL Problem List/Assessment/Plan Problems(with codes): (1) Gram positive bacterial infection (2) Congestive heart failure due to cardiomyopathy (3) CHF exacerbation (4) NSTEMI (non-ST elevated myocardial infarction) (5) Drug-induced cardiomyopathy Problem List/Assessment/Plan ASSESSMENT AND PLAN ID Problem List: - Septic shock - Acute hypoxic respiratory failure - Aspiration pneumonia (Klebsiella) - Gram-positive cocci bacteremia - Acute systolic and diastolic heart failure - [id number] myocardial infarction (NSTEMI) Type 2 - Ischemic stroke - Polysythemia vera - End-stage renal disease (on hemodialysis, possibly resolved) - Hypertension - Diabetes mellitus - Asthma - Intravenous drug use (amphetamines, benzodiazepines, ongoing) - Medication noncompliance - History of deep vein thrombosis (DVT) and pulmonary embolism (PE), not currently confirmed Assessment: This is a 43-year-old male with significant past medical history including congestive heart failure, hypertension, diabetes mellitus, end-stage renal disease (previously on hemodialysis), asthma, polysythemia vera, and ongoing intravenous drug use, presenting with septic shock, acute hypoxic respiratory failure, aspiration pneumonia, and a complicated hospital course. He was noted to have chest pain, shortness of breath, and recent code event. Imaging revealed acute ischemic stroke. Patient had recent blood clots in multiple locations and was previously medication noncompliant. Admitted for acute decompensated heart failure (cardiomyopathy, LVEF 5-10%), persistent fevers, and required emergent intubation for hypoxia. Sputum culture positive for gram-negative rods (Klebsiella); blood cultures preliminary growth gram-positive cocci. Initial antibiotics with ceftriaxone, transitioned to Zosyn, then vancomycin added due to persistent fevers and rising WBC. Patient has a central line in place. TTE reveals four chamber dilation, biventricular systolic dysfunction, no pericardial effusion. Labs notable for persistent leukocytosis, Hb as high as 19.5 (polycythemia vera), and improving chest imaging but ongoing fever. No current DVTs by Doppler. 06/05: underwent bronchoscopy by Dr Zapata today and there was a right and left lower lobe atelectasis due to mucus plugging in the L6-L10 and R6-R10. right lower lobe BAL performed and cultures sent 06/06: appears to be clinically improving , however is intermittently requiring pressers . lactic acid is at 2.7 , likely secondary to cardiogenic shock , low EF . preliminary cultures are growing gram negative rods , likely klebsiella 06/07: patient is being diuresed , still on pressures but coming down Plan: - follow up on BAL culture results - follow up on GPC in blood culture - recommend repeating blood cultures at this time - odilon has a considerably poor prognosis , low EF , would recommend checking lactic acid to confirm patient is responding to antibiotic therapy - may need to be considered for Inotrope defer to cardiology - Continue vancomycin and Zosyn (piperacillin-tazobactam) - Monitor for persistent bacteremia; if persists, consider line exchange - Await and follow up on KI to evaluate for endocarditis - Repeat and monitor blood cultures to confirm clearance - Continue supportive care for acute hypoxic respiratory failure; monitor ventilator settings; target minimal FiO2 - Serial lactate and creatinine monitoring - Cardiology and primary service to continue management of heart failure and NSTEMI type 2 - Monitor skin for signs of ischemia or evolving lesions - Repeat imaging as clinically indicated - Assess for HIV and hepatitis status given ongoing IV drug use - Defer management of drug use and suspected resolved end-stage renal disease; re-evaluate dialysis need - Social work and case management for disposition planning (including possible hospice versus home care if patient preference changes) - Continue close hemodynamic and laboratory monitoring - Infectious Disease service to continue to follow Authorized and Performed by: Randi Barboza MD Total critical care time: Approximately 76 minutes Due to a high probability of clinically significant, life threatening deterioration, the patient required my highest level of preparedness to intervene emergently and I personally spent this critical care time directly and personally managing the patient. This critical care time included obtaining a history; examining the patient; pulse oximetry; ordering and review of studies; arranging urgent treatment with development of a management plan; evaluation of patient's response to treatment; frequent reassessment; and, discussions with other providers. This critical care time was performed to assess and manage the high probability of imminent, life-threatening deterioration that could result in multi-organ failure. It was exclusive of separately billable procedures and treating other patients and teaching time. Plan discussed with: Other Dietary Evaluation Review Comments: 1) TF Glucerna 1.2Cal @ 70ml/hr x 24 hr along with Pro-stat 1 pk daily. Start @ 30ml/hr, increase 10ml/hr Q4H until goal rate is reached. Water flush 50ml Q4H TF goal volume along with Pro-stat & water flush provide 2016 kcal (100%), 116 gm protein (100%), and 1652ml free water 2) TPN if NPO>7 days 3) Advance diet as medically feasible 4) Continue current plan of care Expected Outcomes/Goals: To meet >75% estimated needs within 7 days Fu 2-3 days RANDI BARBOZA MD Jun 09, 2024 21:54
--- NOTE | 2024-06-09 21:55 | DVHPN2 ---
Consult Progress Note Date Seen: Jun 09, 2024 Subjective Patient reports: Other (afebrile and not havign any diarrhea , is on room air and mentating well . no longer tachycardi and BP support needs are coming down ) Objective vital signs Vital Sign Date Time Temp Pulse Resp B/P (MAP) Pulse Ox O2 Delivery O2 Flow Rate FiO2 06/09/24 20:00 98.5 85 29 110/73 (85) 99 98.5 06/09/24 18:00 Nasal Cannula* 2 28 Total Intake and Output 06/08/24 06/08/24 06/09/24 15:00 23:00 07:00 Intake Total 1057.444 ml 213 ml 550 ml Output Total 1525 ml 1475 ml Balance 1057.444 ml -1312 ml -925 ml medications Current Medications Medications Dose Ordered Sig/Lei Route Start Time Stop Time Status Last Admin Dose Admin Ondansetron HCl 4 mg Q4HP PRN IV 05/29/24 20:45 06/09/24 16:33 4 MG Acetaminophen 650 mg Q6HP PRN PO 05/29/24 20:45 06/08/24 22:45 650 MG Nitroglycerin 0.4 mg Q5MINP PRN SL 05/29/24 20:45 Pantoprazole Sodium 40 mg DAILY IV 05/30/24 10:00 06/09/24 09:34 40 MG Furosemide 40 mg BIDD IV 05/30/24 18:00 06/09/24 18:03 40 MG Sacubitril/ Valsartan 1 tab BID PO 05/30/24 10:00 Hold 06/03/24 22:03 1 TAB Aspirin 81 mg DAILY PO 05/30/24 10:00 06/09/24 09:35 81 MG Atorvastatin Calcium 40 mg HS PO 05/30/24 22:00 06/09/24 20:08 40 MG Midazolam HCl 50 ml @ 1 mls/hr Q24H IV 05/30/24 19:00 06/08/24 15:37 11 MLS/HR Enoxaparin Sodium 90 mg Q12HR SC 05/31/24 22:00 06/09/24 20:08 90 MG Sodium Chloride 1,000 ml @ 50 mls/hr Q20H IV 05/31/24 12:30 06/08/24 21:33 50 MLS/HR Norepinephrine Bitartrate 250 ml @ 3.75 mls/hr Q24H IV 06/02/24 11:30 06/08/24 13:39 15 MLS/HR Sodium Chloride 10 ml QSHIFT@10,22 IV 06/02/24 22:00 06/09/24 20:04 10 ML Piperacillin Sod/ Tazobactam Sod 100 ml @ 25 mls/hr Q8HR IV 06/04/24 14:00 06/09/24 20:08 25 MLS/HR Diphenhydramine HCl 25 mg Q4HP PRN IV 06/04/24 10:45 06/09/24 02:03 25 MG Vancomycin HCl 0 ml @ 0 mls/hr UD IV 06/05/24 09:45 Enteral Nutritional Formula 1,000 ml 70ML/HR GT 06/05/24 10:15 Amino Acid Protein 30 ml DAILY PO 06/06/24 10:00 06/08/24 10:00 30 ML Vancomycin HCl 200 ml @ 160 mls/hr Q16H IV 06/07/24 20:00 06/09/24 20:04 160 MLS/HR Zolpidem Tartrate 5 mg HSPRN PRN PO 06/09/24 19:15 06/09/24 20:08 5 MG Physical Exam: General: NAD Neck: Supple. No masses. HEENT: PERRL. Normal lids and conjunctiva. Moist mucous membranes. Oropharynx without lesions, exudates or excessive erythema. Normal appearance of the external aspects of the nose and ears. Heart: Regular rhythm, normal rate. No murmur. No lower extremity edema. Lungs: Normal respiratory effort. Clear to auscultation bilaterally. No wheezes. No crackles. Abdomen: Soft. Non-tender. Non-distended. No masses or abdominal hernia. Msk: No digital cyanosis. Normal strength and tone in all 4 limbs. Skin: Warm and dry, no rashes. Modeling likely ischemic disease. Neuro: Alert. No facial droop or slurred speech. Extra-ocular movements intact. Sensation intact to soft touch in all 4 limbs. Evidence of acute stroke (left-sided symptoms per MRI report). Psych: Appropriate mood. Full affect. Oriented to person, place, time, and situation laboratory and microbiology Laboratory Tests 06/09/24 04:39 Test 06/09/24 04:39 Range/Units Serum Glucose 87 74-106 mg/dL Problem List/Assessment/Plan Problems(with codes): (1) CHF exacerbation (2) Gram positive bacterial infection (3) Congestive heart failure due to cardiomyopathy (4) Drug-induced cardiomyopathy (5) NSTEMI (non-ST elevated myocardial infarction) (6) Aspiration pneumonia (7) Klebsiella pneumoniae pneumonia Problem List/Assessment/Plan ASSESSMENT AND PLAN ID Problem List: - Septic shock - Acute hypoxic respiratory failure - Aspiration pneumonia (Klebsiella) - Gram-positive cocci bacteremia - Acute systolic and diastolic heart failure - [id number] myocardial infarction (NSTEMI) Type 2 - Ischemic stroke - Polysythemia vera - End-stage renal disease (on hemodialysis, possibly resolved) - Hypertension - Diabetes mellitus - Asthma - Intravenous drug use (amphetamines, benzodiazepines, ongoing) - Medication noncompliance - History of deep vein thrombosis (DVT) and pulmonary embolism (PE), not currently confirmed Assessment: This is a 43-year-old male with significant past medical history including congestive heart failure, hypertension, diabetes mellitus, end-stage renal disease (previously on hemodialysis), asthma, polysythemia vera, and ongoing intravenous drug use, presenting with septic shock, acute hypoxic respiratory failure, aspiration pneumonia, and a complicated hospital course. He was noted to have chest pain, shortness of breath, and recent code event. Imaging revealed acute ischemic stroke. Patient had recent blood clots in multiple locations and was previously medication noncompliant. Admitted for acute decompensated heart failure (cardiomyopathy, LVEF 5-10%), persistent fevers, and required emergent intubation for hypoxia. Sputum culture positive for gram-negative rods (Klebsiella); blood cultures preliminary growth gram-positive cocci. Initial antibiotics with ceftriaxone, transitioned to Zosyn, then vancomycin added due to persistent fevers and rising WBC. Patient has a central line in place. TTE reveals four chamber dilation, biventricular systolic dysfunction, no pericardial effusion. Labs notable for persistent leukocytosis, Hb as high as 19.5 (polycythemia vera), and improving chest imaging but ongoing fever. No current DVTs by Doppler. 06/05: underwent bronchoscopy by Dr Zapata today and there was a right and left lower lobe atelectasis due to mucus plugging in the L6-L10 and R6-R10. right lower lobe BAL performed and cultures sent 06/06: appears to be clinically improving , however is intermittently requiring pressers . lactic acid is at 2.7 , likely secondary to cardiogenic shock , low EF . preliminary cultures are growing gram negative rods , likely klebsiella 06/07: patient is being diuresed , still on pressures but coming down 06/08: patient is coming down on presser needs and improved volume status . blood cultures are positive for staph epidermitis and staph hominids in the same bottle , likely consistent with skin wanda contamination and most recent BAL culture is positive for klebsiella and ammonia that is mckeon sensitive . repeat blood cultures are no growth to date 06/09: blood presser needs are coming down Plan: - STOP vancomycin and Zosyn at this time - Start Ceftriaxone to treat ongoing pneumonia - follow up on BAL culture results - follow up on GPC in blood culture - recommend repeating blood cultures at this time - odilon has a considerably poor prognosis , low EF , would recommend checking lactic acid to confirm patient is responding to antibiotic therapy - may need to be considered for Inotrope defer to cardiology - Monitor for persistent bacteremia; if persists, consider line exchange - Await and follow up on KI to evaluate for endocarditis - Repeat and monitor blood cultures to confirm clearance - Continue supportive care for acute hypoxic respiratory failure; monitor ventilator settings; target minimal FiO2 - Serial lactate and creatinine monitoring - Cardiology and primary service to continue management of heart failure and NSTEMI type 2 - Monitor skin for signs of ischemia or evolving lesions - Repeat imaging as clinically indicated - Assess for HIV and hepatitis status given ongoing IV drug use - Defer management of drug use and suspected resolved end-stage renal disease; re-evaluate dialysis need - Social work and case management for disposition planning (including possible hospice versus home care if patient preference changes) - Continue close hemodynamic and laboratory monitoring - Infectious Disease service to continue to follow Authorized and Performed by: Randi Barboza MD Total critical care time: Approximately 76 minutes Due to a high probability of clinically significant, life threatening deterioration, the patient required my highest level of preparedness to intervene emergently and I personally spent this critical care time directly and personally managing the patient. This critical care time included obtaining a history; examining the patient; pulse oximetry; ordering and review of studies; arranging urgent treatment with development of a management plan; evaluation of patient's response to treatment; frequent reassessment; and, discussions with other providers. This critical care time was performed to assess and manage the high probability of imminent, life-threatening deterioration that could result in multi-organ failure. It was exclusive of separately billable procedures and treating other patients and teaching time. Plan discussed with: Other Dietary Evaluation Review Comments: 1) TF Glucerna 1.2Cal @ 70ml/hr x 24 hr along with Pro-stat 1 pk daily. Start @ 30ml/hr, increase 10ml/hr Q4H until goal rate is reached. Water flush 50ml Q4H TF goal volume along with Pro-stat & water flush provide 2016 kcal (100%), 116 gm protein (100%), and 1652ml free water 2) TPN if NPO>7 days 3) Advance diet as medically feasible 4) Continue current plan of care Expected Outcomes/Goals: To meet >75% estimated needs within 7 days Fu 2-3 days RANDI BARBOZA MD Jun 09, 2024 21:55
--- NOTE | 2024-06-09 23:53 | DVHPN2 ---
Progress Note - Dictate Date Seen: Jun 09, 2024 Medical Necessity Reason Pt with a Central, PICC or Fol: Yes The following are medically ne: Ramirez Catheter Reason for ramirez catheter: Strict I&O Subjective Patient seen and examined at bedside. Remains on supplemental oxygen Overnight events reviewed. vital signs Vital Sign Date Time Temp Pulse Resp B/P (MAP) Pulse Ox O2 Delivery O2 Flow Rate FiO2 06/09/24 23:37 81 06/09/24 23:37 Nasal Cannula* 2 28 06/09/24 20:00 100 06/09/24 20:00 98.5 29 110/73 (85) 98.5 Total Intake and Output 06/08/24 06/08/24 06/09/24 15:00 23:00 07:00 Intake Total 1057.444 ml 213 ml 550 ml Output Total 1525 ml 1475 ml Balance 1057.444 ml -1312 ml -925 ml medications Current Medications Medications Dose Ordered Sig/Lei Route Start Time Stop Time Status Last Admin Dose Admin Ondansetron HCl 4 mg Q4HP PRN IV 05/29/24 20:45 06/09/24 22:29 4 MG Acetaminophen 650 mg Q6HP PRN PO 05/29/24 20:45 06/08/24 22:45 650 MG Nitroglycerin 0.4 mg Q5MINP PRN SL 05/29/24 20:45 Pantoprazole Sodium 40 mg DAILY IV 05/30/24 10:00 06/09/24 09:34 40 MG Furosemide 40 mg BIDD IV 05/30/24 18:00 06/09/24 18:03 40 MG Sacubitril/ Valsartan 1 tab BID PO 05/30/24 10:00 Hold 06/03/24 22:03 1 TAB Aspirin 81 mg DAILY PO 05/30/24 10:00 06/09/24 09:35 81 MG Atorvastatin Calcium 40 mg HS PO 05/30/24 22:00 06/09/24 20:08 40 MG Midazolam HCl 50 ml @ 1 mls/hr Q24H IV 05/30/24 19:00 06/08/24 15:37 11 MLS/HR Enoxaparin Sodium 90 mg Q12HR SC 05/31/24 22:00 06/09/24 20:08 90 MG Sodium Chloride 1,000 ml @ 50 mls/hr Q20H IV 05/31/24 12:30 06/08/24 21:33 50 MLS/HR Norepinephrine Bitartrate 250 ml @ 3.75 mls/hr Q24H IV 06/02/24 11:30 06/08/24 13:39 15 MLS/HR Sodium Chloride 10 ml QSHIFT@10,22 IV 06/02/24 22:00 06/09/24 20:04 10 ML Piperacillin Sod/ Tazobactam Sod 100 ml @ 25 mls/hr Q8HR IV 06/04/24 14:00 06/09/24 20:08 25 MLS/HR Diphenhydramine HCl 25 mg Q4HP PRN IV 06/04/24 10:45 06/09/24 02:03 25 MG Vancomycin HCl 0 ml @ 0 mls/hr UD IV 06/05/24 09:45 Enteral Nutritional Formula 1,000 ml 70ML/HR GT 06/05/24 10:15 Amino Acid Protein 30 ml DAILY PO 06/06/24 10:00 06/08/24 10:00 30 ML Vancomycin HCl 200 ml @ 160 mls/hr Q16H IV 06/07/24 20:00 06/09/24 20:04 160 MLS/HR Zolpidem Tartrate 5 mg HSPRN PRN PO 06/09/24 19:15 06/09/24 20:08 5 MG objective Gen.: Patient lying in bed in no apparent distress. On supplemental oxygen. Head: Normocephalic, atraumatic. Eyes: EOMI/PERRLA. Ears: Normal hearing. Normal anatomy. Neck/trachea: Trachea midline, supple. Nose: Normal external anatomy. Mouth: Moist mucous membranes. Chest: Decreased air entry bilaterally. No wheezing or rhonchi. Cardiovascular: Positive S1, positive S2. Regular rate and rhythm. Abdomen: Positive bowel sounds in all 4 quadrants. Soft, non-tender, non- distended. : Deferred. Rectal: Deferred. Skin: Warm, dry. Intact. Extremities: 2+ radial pulses bilaterally. No lower extremity edema. Neuro: Awake, alert, oriented x3. No gross motor or sensory deficits. Cranial nerves II through XII intact. Gait not assessed. laboratory and microbiology Laboratory Tests 06/09/24 04:39 Test 06/09/24 04:39 Range/Units Serum Glucose 87 74-106 mg/dL Assessment/Plan Impression: Acute hypoxic respiratory failure Mechanical ventilation, s/p extubation Pulmonary hypertension, RVSP 57 mmHg ( Echo with LVEF of 5% to 10%) Atelectasis Acute CVA Acute on chronic systolic heart failure Drug induced cardiomyopathy Elevated troponin Polysubstance abuse Medical non-compliance Polycythemia vera Events: Remains on supplemental oxygen, 2 LPM NC Taper O2 as tolerated Patient with nausea/vomiting - vomited blood. Off Levophed, hemodynamically stable. Pain control Avoid oversedation Ambien PRN insomnia Monitor hemoglobin Continue antibiotics ID recommendations appreciated Tube feeds for nutritional support Maintain euvolemia w/ Lasix Monitor renal function Monitor electrolytes. Supplement as necessary. Monitor ins and outs. Polycythemia vera - Hematology recommendations appreciated. Poor EF Status post KI Cardiology recs appreciated S/p therapeutic bronchoscopy with BAL on 06/05/24 for clearing of secretions. Please see procedure note for details Labs and imaging reviewed. Rest of plan as noted below. Plan: S/p extubation on 06/08/24 On supplemental oxygen Titrate to keep O2 sats above 92%. Pulmonary hypertension, RVSP 57 mmHg - Echo showing LVEF of 5% to 10%. On statin Cardiology recs appreciated Pressors as necessary for hemodynamic support Titrate to keep mean arterial pressure greater than 65 mmHg IV fluids with NS at 50 ml/hr. Diurese as tolerated w/ Lasix BID Monitor renal function Monitor electrolytes. Supplement as necessary. Monitor ins and outs. GI prophylaxis - Protonix. DVT prophylaxis - Lovenox SC. Prognosis: Poor given patient's multiple co-morbidities. Condition: Critical Rest of plan per hospitalist and other consultants. A total of 35 minutes of critical care time was spent reviewing the patient record, examining the patient, making a diagnostic and therapeutic plan, discussing this plan with the medical personnel, following up on diagnostic studies and following the patient for clinical stability excluding any and all procedures. At least 50% of this time was spent in direct, [id number] contact. Thank you, BRANDIN Albright, for allowing me to participate in this patient's care. Further recommendations will depend on the patient's clinical course. Please do not hesitate to contact me if you have any questions or concerns. This medical document was created using an electronic medical record system with [employer] dictation system. Although these documentations are being carefully reviewed, there may still be some phonetic and typographical changes. The errors are purely typographical, due to imperfection on the software program, and do not reflect any compromise in the patient's medical care. Dietary Evaluation Review Comments: 1) TF Glucerna 1.2Cal @ 70ml/hr x 24 hr along with Pro-stat 1 pk daily. Start @ 30ml/hr, increase 10ml/hr Q4H until goal rate is reached. Water flush 50ml Q4H TF goal volume along with Pro-stat & water flush provide 2016 kcal (100%), 116 gm protein (100%), and 1652ml free water 2) TPN if NPO>7 days 3) Advance diet as medically feasible 4) Continue current plan of care Expected Outcomes/Goals: To meet >75% estimated needs within 7 days Fu 2-3 days Plan discussed with: Other (RN Roxana) Critical Care Time(min): 35 NATALIO MÁRQUEZ MD Jun 09, 2024 23:53
[2024-06-10] VITALS (33 sets, daily range): BP systolic 100–119; BP diastolic 58–77; PULSE 80–102; RESP 13–39; TEMP 97.8–98.8; O2SAT 90–100
[2024-06-10 06:15] LABS: Basophils # (auto) 0 10 ^3/uL (0-0.2); Basophils % (auto) 0.2 % (0.0-2.0); Eosinophils # (auto) 0.1 10 ^3/uL (0-0.8); Eosinophils % (auto) 0.6 % (0.0-7.0); Hematocrit 45.8 % (41.0-53.0); Hemoglobin 15.8 g/dL (13.5-17.5); Lymphocytes # (auto) 0.8 10 ^3/uL (0.4-5.4); Lymphocytes % (auto) 7.7 % (10.0-50.0); Mean Corpuscular Hemoglobin 31.2 pg (28.0-32.0); Mean Corpuscular Hgb Conc. 34.5 g/dL (32.0-36.0); Mean Corpuscular Volume 90.4 fL (80.0-100.0); Monocytes # (auto) 0.7 10 ^3/uL (0-1.3); Monocytes % (auto) 6.6 % (0.0-12.0); Neutrophils # (auto) 9.3 10 ^3/uL (1.6-8.6); Neutrophils % (auto) 84.9 % (37.0-80.0); Nucleated Red Blood Cells % 0.1 %; Platelet Count (auto) 326 10^3/uL (140-450); Red Blood Cells 5.07 10^6/uL (4.5-5.90); Red Cell Distribution Width 14.4 % (11.8-14.3)
[2024-06-10 06:28] LABS: Alanine Aminotransferase 30 U/L (7-40); Albumin 3.5 g/dL (3.2-4.8); Anion Gap 13 (5-15); BUN/Creatinine Ratio 16.3 (10.0-20.0); Blood Urea Nitrogen 13 mg/dL (9-23); Carbon Dioxide 25 mmol/L (20-31); Chloride 101 mmol/L (98-107); Glucose 104 mg/dL (74-106); Sodium 139 mmol/L (136-145); Total Protein 7.1 g/dL (5.7-8.2)
[2024-06-10 06:41] LABS: Alkaline Phosphatase 148 U/L (46-116); Aspartate Aminotransferase 99 U/L (13-40); Bilirubin, Total 1.8 mg/dL (0.2-1.0); Calcium 8.5 mg/dL (8.7-10.4)
--- NOTE | 2024-06-10 07:50 | DVHPN2 ---
Progress Note - Dictate Date Seen: Jun 10, 2024 Medical Necessity Reason Pt with a Central, PICC or Fol: Yes The following are medically ne: Ramirez Catheter Reason for ramirez catheter: Strict I&O vital signs Vital Sign Date Time Temp Pulse Resp B/P (MAP) Pulse Ox O2 Delivery O2 Flow Rate FiO2 06/10/24 06:01 114/71 06/10/24 06:00 92 20 99 06/10/24 06:00 Room Air* 0 21 06/10/24 04:00 98.8 98.8 Total Intake and Output 06/09/24 06/09/24 06/10/24 14:59 22:59 06:59 Intake Total 200 ml 1070 ml 680 ml Output Total 1876 ml 1300 ml Balance 200 ml -806 ml -620 ml medications Current Medications Medications Dose Ordered Sig/Lei Route Start Time Stop Time Status Last Admin Dose Admin Ondansetron HCl 4 mg Q4HP PRN IV 05/29/24 20:45 06/10/24 06:02 4 MG Acetaminophen 650 mg Q6HP PRN PO 05/29/24 20:45 06/08/24 22:45 650 MG Nitroglycerin 0.4 mg Q5MINP PRN SL 05/29/24 20:45 Pantoprazole Sodium 40 mg DAILY IV 05/30/24 10:00 06/09/24 09:34 40 MG Furosemide 40 mg BIDD IV 05/30/24 18:00 06/10/24 06:01 40 MG Sacubitril/ Valsartan 1 tab BID PO 05/30/24 10:00 Hold 06/03/24 22:03 1 TAB Aspirin 81 mg DAILY PO 05/30/24 10:00 06/09/24 09:35 81 MG Atorvastatin Calcium 40 mg HS PO 05/30/24 22:00 06/09/24 20:08 40 MG Midazolam HCl 50 ml @ 1 mls/hr Q24H IV 05/30/24 19:00 06/08/24 15:37 11 MLS/HR Enoxaparin Sodium 90 mg Q12HR SC 05/31/24 22:00 06/09/24 20:08 90 MG Sodium Chloride 1,000 ml @ 50 mls/hr Q20H IV 05/31/24 12:30 06/08/24 21:33 50 MLS/HR Norepinephrine Bitartrate 250 ml @ 3.75 mls/hr Q24H IV 06/02/24 11:30 06/08/24 13:39 15 MLS/HR Sodium Chloride 10 ml QSHIFT@10,22 IV 06/02/24 22:00 06/09/24 20:04 10 ML Piperacillin Sod/ Tazobactam Sod 100 ml @ 25 mls/hr Q8HR IV 06/04/24 14:00 06/10/24 06:02 25 MLS/HR Diphenhydramine HCl 25 mg Q4HP PRN IV 06/04/24 10:45 06/09/24 02:03 25 MG Vancomycin HCl 0 ml @ 0 mls/hr UD IV 06/05/24 09:45 Enteral Nutritional Formula 1,000 ml 70ML/HR GT 06/05/24 10:15 Amino Acid Protein 30 ml DAILY PO 06/06/24 10:00 06/08/24 10:00 30 ML Vancomycin HCl 200 ml @ 160 mls/hr Q16H IV 06/07/24 20:00 06/09/24 20:04 160 MLS/HR Zolpidem Tartrate 5 mg HSPRN PRN PO 06/09/24 19:15 06/09/24 20:08 5 MG objective General Appearance: alert, no distress HEENT: EOMI, PERRLA, normal external inspect of ears, no icterus, no nasal drainage Neck: no carotid bruit, no jugular venous distention (JVD), no lymphadenopathy Chest: normal thorax Respiratory: clear to auscultation, normal air movement Cardiovascular: regular rate and rhythm, no diastolic murmur, no jugular venous distention (JVD), no rub, no systolic murmur Abdominal: soft, no hepatomegaly, no mass, no splenomegaly, no tenderness Genitourinary: grossly normal external Musculoskeletal: no joint tenderness, no swelling Extremities: normal pulses, no calf tenderness, no clubbing, no cyanosis, no edema Skin: no bruising, no jaundice, no rash Neurological: alert, No focal deficit laboratory and microbiology Laboratory Tests 06/10/24 05:42 Test 06/10/24 05:42 Range/Units Serum Glucose 104 74-106 mg/dL Problem List 1. Acute CVA Monitor, neurology consult 2. Acute on chronic systolic heart failure Monitor, cardiology consult, heparin gtt 3. Drug induced cardiomyopathy Monitor, echocardiogram, cardiology consult 4. Elevated troponin - demand ischemia Monitor EKG, cardiology consult 5. Hx of methamphetamine abuse Monitor, urine drug screen 6. Medical non-compliance consultant, PPI 7. Acute hypoxic respiratory failure Monitor, supplemental O2, ventilator management per pulmonary 8. Pneumonia Monitor, antibiotics, pulmonary consult 9. Acute cystitis Monitor, antibiotics 10. Bacteremia Monitor, continue antibiotics, ID consult. 11. Polycythemia vera Monitor, daily labs 12. IZZY with vasomotor nephropathy Monitor, monitor renal function 13. Metabolic encephalopathy Monitor, Neurology consult 14.Sepsis ID consult, IV antibiotics, monitoring [40] minutes of critical care time were spent in evaluating the patient, reviewing the diagnostic data, discussing with the family. Assessment/Plan Subjective: Patient is awake and alert. Objective: Patient is more awake and alert. Patient is slow to talk. Patient is pending speech eval and physical therapy. Plan: Patient is stable for downgrade to telemetry floor. Is currently on room air. Monitor I&Os and start full liquid diet. Dietary Evaluation Review Comments: 1) TF Glucerna 1.2Cal @ 70ml/hr x 24 hr along with Pro-stat 1 pk daily. Start @ 30ml/hr, increase 10ml/hr Q4H until goal rate is reached. Water flush 50ml Q4H TF goal volume along with Pro-stat & water flush provide 2016 kcal (100%), 116 gm protein (100%), and 1652ml free water 2) TPN if NPO>7 days 3) Advance diet as medically feasible 4) Continue current plan of care Expected Outcomes/Goals: To meet >75% estimated needs within 7 days Fu 2-3 days Plan discussed with: Patient, Other JACKIE DILLON [employer] TECHNICIAN Jun 10, 2024 07:50
[2024-06-10] MEDS ORDERED: POTASSIUM CHL 20MEQ/100ML 100 ML IV SCH (08:00)
[2024-06-10] MEDS: POTASSIUM CHL 20MEQ/50ML 50 ML IV SCH (08:45)
--- NOTE | 2024-06-10 09:25 | DVHPN2 ---
Progress Note - Dictate Date Seen: Jun 10, 2024 Medical Necessity Reason Pt with a Central, PICC or Fol: Yes The following are medically ne: Ramirez Catheter Reason for ramirez catheter: Strict I&O vital signs Vital Sign Date Time Temp Pulse Resp B/P (MAP) Pulse Ox O2 Delivery O2 Flow Rate FiO2 06/10/24 08:00 98.6 85 35 104/77 (86) 98 98.6 06/10/24 06:00 Room Air* 0 21 Total Intake and Output 06/09/24 06/09/24 06/10/24 15:00 23:00 07:00 Intake Total 100 ml 1145 ml 605 ml Output Total 1876 ml 1300 ml Balance 100 ml -731 ml -695 ml medications Current Medications Medications Dose Ordered Sig/Lei Route Start Time Stop Time Status Last Admin Dose Admin Ondansetron HCl 4 mg Q4HP PRN IV 05/29/24 20:45 06/10/24 06:02 4 MG Acetaminophen 650 mg Q6HP PRN PO 05/29/24 20:45 06/08/24 22:45 650 MG Nitroglycerin 0.4 mg Q5MINP PRN SL 05/29/24 20:45 Pantoprazole Sodium 40 mg DAILY IV 05/30/24 10:00 06/09/24 09:34 40 MG Furosemide 40 mg BIDD IV 05/30/24 18:00 06/10/24 06:01 40 MG Sacubitril/ Valsartan 1 tab BID PO 05/30/24 10:00 Hold 06/03/24 22:03 1 TAB Aspirin 81 mg DAILY PO 05/30/24 10:00 06/09/24 09:35 81 MG Atorvastatin Calcium 40 mg HS PO 05/30/24 22:00 06/09/24 20:08 40 MG Midazolam HCl 50 ml @ 1 mls/hr Q24H IV 05/30/24 19:00 06/08/24 15:37 11 MLS/HR Sodium Chloride 1,000 ml @ 50 mls/hr Q20H IV 05/31/24 12:30 06/08/24 21:33 50 MLS/HR Norepinephrine Bitartrate 250 ml @ 3.75 mls/hr Q24H IV 06/02/24 11:30 06/08/24 13:39 15 MLS/HR Sodium Chloride 10 ml QSHIFT@10,22 IV 06/02/24 22:00 06/09/24 20:04 10 ML Piperacillin Sod/ Tazobactam Sod 100 ml @ 25 mls/hr Q8HR IV 06/04/24 14:00 06/10/24 06:02 25 MLS/HR Diphenhydramine HCl 25 mg Q4HP PRN IV 06/04/24 10:45 06/09/24 02:03 25 MG Vancomycin HCl 0 ml @ 0 mls/hr UD IV 06/05/24 09:45 Enteral Nutritional Formula 1,000 ml 70ML/HR GT 06/05/24 10:15 Amino Acid Protein 30 ml DAILY PO 06/06/24 10:00 06/08/24 10:00 30 ML Vancomycin HCl 200 ml @ 160 mls/hr Q16H IV 06/07/24 20:00 06/09/24 20:04 160 MLS/HR Zolpidem Tartrate 5 mg HSPRN PRN PO 06/09/24 19:15 06/09/24 20:08 5 MG Potassium Chloride 100 ml @ 50 mls/hr Q2H IV 06/10/24 08:00 06/10/24 13:59 UNV Potassium Chloride 50 ml @ 25 mls/hr Q2H IV 06/10/24 08:45 06/10/24 14:44 06/10/24 08:45 25 MLS/HR Enoxaparin Sodium 40 mg DAILY SC 06/10/24 10:00 UNV laboratory and microbiology Laboratory Tests 06/10/24 05:42 Test 06/10/24 05:42 Range/Units Serum Glucose 104 74-106 mg/dL Assessment/Plan Extubated. Lying flat in bed and not in acute distress. Not on pressor support. Patient is a 43-year-old gentleman who presented with few weeks of worsening shortness of breath/generalized swelling/nausea/and some diarrhea. He is known to have systolic heart failure. He has ran out of his medications for the past few weeks. He mentions that he was on hospice before hand and he wanted to come off of it. He does have baseline history of methamphetamine abuse and mentions that he used it few days ago. He does have baseline history of noncompliance with medication and followups. Previously he was homeless. Now he says that she is renting a place. Cardiology was involved for cardiac aspects of care. It is of note that the patient does have chronic elevated troponin from prior admissions. No JVD. Mucosa is pink and wet. Scattered crackles in the lungs is heard. Cardiac: Regular, no thrill. Systolic murmur 3/6 in apex is heard. History gallop is heard. Abdomen is soft and mildly distended. Bowel sound is positive. There is no abdominal tenderness. Questionable hepatomegaly can not be elicited. Extremities reveal 2+ edema bilaterally. Dorsalis pedis is 2+ bilateral. Past medical history includes diabetes mellitus, hypertension, systolic heart failure, polycythemia vera (as per patient), asthma, CKD, history of substance abuse cardiomyopathy, history of meth abuse and also history of chronic elevated troponin. Previously he was homeless. Previously he was on hospice. Echocardiogram of December 08, 2023 revealed four-chamber dilatation, ejection fraction of 5-10%, mild mitral regurgitation and tricuspid regurgitation. Hemoglobin: 19.5 - 18.1 - 18.2 - 17.2 - 18.9 - 20.1 - 19.2 - 19.3 - 18.6 - 20.2 - 19.0 - 16.2 - 15.8 Creatinine: 1.20 - 1.06 - 1.09 - 1.15 - 1.45 - 1.23 - 1.47 - 1.15 - 1.13 - 1.30 - 1.24 - 1.09 - 1.13 - 0.08 Potassium: 4.1 - 3.6 - 3.8 - 4.1 - 4.5 - 3.9 - 3.7 - 3.8 - 3.6 - 3.9 - 4.0 - 3.6 - 3.4 - 3.0 BNP: 641.20 Troponin (high sensitive): 529 - 502 - 526 - 486 - 422 - 436 - 437 D-dimer: 0.32 Urine tox was positive for Amphetamine and Benzodiazepine Chest x-ray revealed: IMPRESSION: Cardiomegaly with increased interstitial prominence which may be due to CHF and/or reactive airways disease. Repeat chest xry revealed: Endotracheal tube is in good position of the level of the clavicles. Nasogastric tube is in the stomach. There is cardiomegaly with an enlarged left ventricle. There is significant pulmonary vascular congestion. Impression congestive heart failure pattern. If patient has not had a recent cardiac echo I would recommend cardiac echo Repeat chest xry revealed: IMPRESSION: 1. congestive heart failure pattern. Repeat chest xry revealed: FINDINGS: Lines and Tubes: Endotracheal tube and enteric catheter in satisfactory position. Lungs: Patchy bilateral airspace disease Pleura: No effusion. No pneumothorax. Cardiomediastinal contours: Cardiomegaly Bones: Unremarkable IMPRESSION: Lines and tubes in satisfactory position. No significant interval change. Repeat chest xry revealed: IMPRESSION: Lines and tubes in satisfactory position. No significant interval change. Repeat chest xry revealed: IMPRESSION: Cardiomegaly with mild congestion. Repeat chest xry revealed: IMPRESSION: Lines and tubes in satisfactory position. No significant interval change. Repeat chest xry revealed: IMPRESSION: Cardiomegaly with mild congestion. Repeat chest xry revealed: IMPRESSION: 1. Mild pulmonary congestion. 2. Cardiomegaly. MRI of brain revealed: 1. Small focus of restricted diffusion in the anterior right centrum semiovale likely representing small acute to subacute infarct. There is no evidence of acute hemorrhage. Repeat MRI of brain revealed: IMPRESSION: 1. Redemonstration of subcentimeter focus of acute ischemia in the left cerebellar lobe. No intracranial hemorrhage. 2. Redemonstration of subcentimeter focus of DWI hyperintense signal in the right frontal centrum semiovale without corresponding abnormal ADC signal reflecting T2 shine through. No evidence of acute ischemia. 3. Subcentimeter foci abnormal signal in the bilateral cerebellar lobes may reflect chronic infarcts or underlying lesions. Further evaluation with MRI with IV contrast is recommended. 4. 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. CT of head revealed: IMPRESSION: 1. No acute intracranial process. Repeat CT of head revealed: IMPRESSION: No abnormality demonstrated. The very small acute/subacute infarct in right frontal lobe and very small old cortical infarct in left parietal lobe seen on the MRI study from earlier the same day are not evident on CT. Carotid ultrasound revealed: IMPRESSION: No hemodynamically significant stenoses or occlusions identified. Chest CT revealed: IMPRESSION: 1. Cardiomegaly. 2. Scattered coronary artery calcifications 3. Endotracheal tube in place terminating above the nicola. 4. Enteric tube in the stomach. Lower ext venous duplex revealed: IMPRESSION: No sonographic evidence of deep venous thrombosis in either lower extremity at this time. Right upper ext venous ultrasound revealed: IMPRESSION: No sonographic evidence of deep venous thrombosis in either upper extremity at this time. Renal Ultrasound revealed: IMPRESSION: 1. Left renal atrophy. No intrarenal calculi. Tele reveals sinus rhythm Echocardiogram revealed: Four-chamber dilatation was observed. Left ventricle: Left ventricle was significantly dilated with significantly reduced systolic function. Diffuse hypokinesis of left ventricle was seen. LVEF was 5-10%. LVEDP was assessed to be elevated. Right ventricle was dilated with reduced systolic function. Both atria were dilated. Aortic valve was not well visualized. There was mild aortic insufficiency. There was no aortic stenosis. There was trivial mitral regurgitation. There was mild tricuspid regurgitation. There was trivial pulmonary valve insufficiency. Right ventricular systolic pressure was assessed at 57 mm Hg. IVC was dilated with reduced respiratory variation. There was no pericardial effusion KI: Severe dilatation of LV with reduced LV systolic function. No Cardiac source for Emboli. Positive bubble study questions small PFO (PFO itself could not be visualized) Patient is a 43-year-old gentleman who presented with weeks of worsening shortness of breath cough/nausea and vomiting. Does have baseline history of systolic heart failure. Has been noncompliant with medication and followups. Acute on chronic systolic heart failure could have contributed to the clinical picture. Does have baseline history of methamphetamine abuse which could have contributed to the clinical picture. He is noncompliant with medication and followups which could have contributed to the clinical picture. Does have baseline history of elevated/chronically troponin. Abnormal troponin in a patient with end-stage systolic heart failure usually reflects demand physiology. Acute coronary syndrome is not considered at this point. Had AMS and later had respiratory failure. Intubated and brought to [facility]/ICU. He is found to have acute/subacute CVA. Is being followed by Neurology. KI performed: no source for Emboli. Still, Positive Bubble study questions PFO (PFO itself could not be visualized: maybe too small). Still, there was no recent DVT also (negative venous duplex). Acute on chronic systolic heart failure Drug-induced cardiomyopathy CKD Polycythemia vera removal Diabetes mellitus Noncompliant with medication and followups Substance abuse AMS Acute/subacute CVA Cardiac suggestion for management: Manage in ICU IV diuresis Follow-up electrolytes and kidney function tests and correct abnormalities. Keep potassium above 4 and magnesium above 2 Entresto: 24/26 mg p.o. b.i.d. (for now on hold secondary to recent hypotension and need for pressure support) Aspirin: 81 mg daily suggested Prophylactic Lovenox at this time High potency statin (atorvastatin at 40 mg daily) suggested Does have baseline history of elevated/chronically troponin. Abnormal troponin (flat trend) in a patient with end-stage systolic heart failure usually reflects demand physiology. Acute coronary syndrome is not considered at this point. Recognizing old history of significant heart failure and noncompliance, outcome is poor. Consider restarting hospice Lifestyle and risk factor modifications. Neurology follow up Consider Hematology evaluation for Hemoconcentration / Polycythemia Vera Further evaluation and management depends on the above and clinical course A total of 75 minutes was spent reviewing the patient record, examining the patient, making a diagnostic and therapeutic plan, discussing this plan with medical personnel, following up on diagnostic studies and following the patient for clinical stability excluding any and all procedures. At least 50% of this time was spent in direct, [id number] contact. Thank you for allowing me to participate in this patient's care. Further recommendations will depend on patient's clinical course. Please do not hesitate to contact me if you have any questions or concerns. This medical document was created using electronic medical record system with [employer] computerized dictation system. Although this document has been carefully reviewed, there may still be some phonetic and typographical errors. These areas are purely typographical due to the imperfection of the software programs, and do not reflect any compromise in the patient's medical care. Dietary Evaluation Review Comments: 1) TF Glucerna 1.2Cal @ 70ml/hr x 24 hr along with Pro-stat 1 pk daily. Start @ 30ml/hr, increase 10ml/hr Q4H until goal rate is reached. Water flush 50ml Q4H TF goal volume along with Pro-stat & water flush provide 2016 kcal (100%), 116 gm protein (100%), and 1652ml free water 2) TPN if NPO>7 days 3) Advance diet as medically feasible 4) Continue current plan of care Expected Outcomes/Goals: To meet >75% estimated needs within 7 days Fu 2-3 days Plan discussed with: Other (nurse) GABRIEL LOPEZ MD Jun 10, 2024 09:25
[2024-06-10] MEDS: ENOXAPARIN SOD 40 MG/0.4 ML SYRINGE SC SCH (10:23)
--- NOTE | 2024-06-10 10:48 | DVHPN2 ---
Progress Note - Dictate Date Seen: Jun 10, 2024 Medical Necessity Reason Pt with a Central, PICC or Fol: Yes The following are medically ne: Ramirez Catheter Reason for ramirez catheter: Strict I&O Subjective Mr. Castillo is a 43 years old right-handed gentleman with a history of hypertension, diabetes, coronary artery disease, heart attack, congestive heart failure, polycythemia vera, cardiomyopathy, asthma, he came to the [facility] Emergency room on 05/29/2024 with a chief complaint of shortness breath, chest pain. He was extubated on 06/08/2024 I have seen and examined the patient, I have talked to his nurse. He was awake, oriented x3, good social skills, follow commands He was hematuria, GI bleeding Lovenox treatment modified Urinalysis, 05/30/2024: WBC: <1, urine leukocyte esterase: Negative UDS, 05/30/2024, amphetamine, benzo CBC, 05/30/2024: Respiratory acidosis, 06/03/2024: Acidosis WBC/HB/PLT/MCV, 05/30/2024: 10.3/18.1/230/93.8, 06/03/2024: 18.1/19.2/275/95 PT/INR/PTT, 05/30/2024: 12.03/1016/47 05/31/2024: 11.9/1.14/65.5 BMP, 05/30/2024: Unremarkable BUN/CR, 06/03/2024: 26/1.47 TBI/AST/ALT/AP, 05/29/2024: 2.1/46/25/133, 06/03/2024: 1.4/60/15/122 NH3 06/03/24: 30 Troponin one high sensitivity, 05/29/2024: 529, 05/30/2024: 502, 526, TG/HDL/LDL/HDL, 05/30/2024: 62/148/113/36 KI, 06/03/24: 1. Left ventricle: Significant dilatation of Left ventricle with LVEF of around 10% was observed. Diffuse hypokinesis of left ventricle was seen. There was no intraventricular thrombus. . 2. Right ventricle: RV was dilated with reduced systolic function. 3. Left atrium: LA enlarged 4. Right atrium: RA enlarged 5. Mitral valve: Mild Mitral regurgitation, no significant stenosis, normal functioning valve. No vegetation was seen on Mitral valve. 6. Left atrial appendage: No evidence of thrombus. 7. Aortic valve: It was trileaflet. There was no stenosis. There was trace insufficiency. There was no vegetation seen in Aortic valve. 8. Pulmonic valve: Trivial pulmonic insufficiency. No significant stenosis. No vegetation was seen. 9. Tricuspid valve: Mild tricuspid regurgitation. There was no vegetation on Tricuspid valve. 10. Interatrial septum: Negative color flow for shunt was observed. Some bubbles crossed to left atria in favor of small PFO. 11. Pericardium: No significant effusion. 12. Thoracic aorta: No significant plaquing. Echocardiogram, 05/30/2024: Four-chamber dilatation was observed. Left ventricle: Left ventricle was significantly dilated with significantly reduced systolic function. Diffuse hypokinesis of left ventricle was seen. LVEF was 5-10%. LVEDP was assessed to be elevated. Right ventricle was dilated with reduced systolic function. Both atria were dilated. Aortic valve was not well visualized. There was mild aortic insufficiency. There was no aortic stenosis. There was trivial mitral regurgitation. There was mild tricuspid regurgitation. There was trivial pulmonary valve insufficiency. Right ventricular systolic pressure was assessed at 57 mm Hg. IVC was dilated with reduced respiratory variation. There was no pericardial effusion Carotid Doppler, 05/30/2024: No hemodynamically significant stenoses or occlusions identified. CT head, 05/30/2024 1107: No acute intracranial process CT head, 05/30/2024 1856: No abnormality demonstrated. The very small acute/subacute infarct in right frontal lobe and very small old cortical infarct in left parietal lobe seen on the MRI study from earlier the same day are not evident on CT MRI head, 05/30/2024 1041: Small focus of restricted diffusion in the anterior right centrum semiovale likely representing small acute to subacute infarct. There is no evidence of acute hemorrhage (I saw a small DWI lesion in the left cerebellum hemisphere with ADC correlation) MRI head, 05/31/2024: 1. Redemonstration of subcentimeter focus of acute ischemia in the left cerebellar lobe. No intracranial hemorrhage. 2. Redemonstration of subcentimeter focus of DWI hyperintense signal in the right frontal centrum semiovale without corresponding abnormal ADC signal reflecting T2 shine through. No evidence of acute ischemia. 3. Subcentimeter foci abnormal signal in the bilateral cerebellar lobes may reflect chronic infarcts or underlying lesions. Further evaluation with MRI with IV contrast is recommended. 4. 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 vital signs Vital Sign Date Time Temp Pulse Resp B/P (MAP) Pulse Ox O2 Delivery O2 Flow Rate FiO2 06/10/24 08:00 97 Room Air* 0 21 06/10/24 08:00 98.6 85 35 104/77 (86) 98.6 Total Intake and Output 06/09/24 06/09/24 06/10/24 15:00 23:00 07:00 Intake Total 100 ml 1145 ml 605 ml Output Total 1876 ml 1300 ml Balance 100 ml -731 ml -695 ml medications Current Medications Medications Dose Ordered Sig/Lei Route Start Time Stop Time Status Last Admin Dose Admin Ondansetron HCl 4 mg Q4HP PRN IV 05/29/24 20:45 06/10/24 06:02 4 MG Acetaminophen 650 mg Q6HP PRN PO 05/29/24 20:45 06/08/24 22:45 650 MG Nitroglycerin 0.4 mg Q5MINP PRN SL 05/29/24 20:45 Pantoprazole Sodium 40 mg DAILY IV 05/30/24 10:00 06/10/24 10:23 40 MG Furosemide 40 mg BIDD IV 05/30/24 18:00 06/10/24 06:01 40 MG Sacubitril/ Valsartan 1 tab BID PO 05/30/24 10:00 Hold 06/03/24 22:03 1 TAB Aspirin 81 mg DAILY PO 05/30/24 10:00 06/10/24 10:23 81 MG Atorvastatin Calcium 40 mg HS PO 05/30/24 22:00 06/09/24 20:08 40 MG Midazolam HCl 50 ml @ 1 mls/hr Q24H IV 05/30/24 19:00 06/08/24 15:37 11 MLS/HR Sodium Chloride 1,000 ml @ 50 mls/hr Q20H IV 05/31/24 12:30 06/08/24 21:33 50 MLS/HR Norepinephrine Bitartrate 250 ml @ 3.75 mls/hr Q24H IV 06/02/24 11:30 06/08/24 13:39 15 MLS/HR Sodium Chloride 10 ml QSHIFT@10,22 IV 06/02/24 22:00 06/10/24 10:23 10 ML Piperacillin Sod/ Tazobactam Sod 100 ml @ 25 mls/hr Q8HR IV 06/04/24 14:00 06/10/24 06:02 25 MLS/HR Diphenhydramine HCl 25 mg Q4HP PRN IV 06/04/24 10:45 06/09/24 02:03 25 MG Vancomycin HCl 0 ml @ 0 mls/hr UD IV 06/05/24 09:45 Enteral Nutritional Formula 1,000 ml 70ML/HR GT 06/05/24 10:15 Amino Acid Protein 30 ml DAILY PO 06/06/24 10:00 06/08/24 10:00 30 ML Vancomycin HCl 200 ml @ 160 mls/hr Q16H IV 06/07/24 20:00 06/09/24 20:04 160 MLS/HR Zolpidem Tartrate 5 mg HSPRN PRN PO 06/09/24 19:15 06/09/24 20:08 5 MG Potassium Chloride 100 ml @ 50 mls/hr Q2H IV 06/10/24 08:00 06/10/24 13:59 UNV Potassium Chloride 50 ml @ 25 mls/hr Q2H IV 06/10/24 08:45 06/10/24 14:44 06/10/24 10:44 25 MLS/HR Enoxaparin Sodium 40 mg DAILY SC 06/10/24 10:00 06/10/24 10:23 40 MG objective The patient is well-nourished and well-developed with no distress. MENTAL STATUS: Subjective CRANIAL NERVES: Ppupils are equal round and reactive to light briskly, normal external eye movement, normal sensation and motor examination in the lateral trigeminal nerve distribution, no facial weakness. SENSATION: Okay to pinprick and light touch MOTOR: Normal tone in the upper and lower extremity. Normal muscle bulk. No fasciculations. He moves the arms and legs REFLEXES: Deep tendon reflexes are symmetrical. No pathological reflexes. CEREBELLAR/COORDINATION: Deferred GAIT/STATION: deferred laboratory and microbiology Laboratory Tests 06/10/24 05:42 Test 06/10/24 05:42 Range/Units Serum Glucose 104 74-106 mg/dL Problem List Altered mental status resolved Metabolic encephalopathy/hepatic encephalopathy Elevated troponin I/heart attack Multiple acute strokes Cardiomyopathy Congestive heart failure A spell of nonresponsiveness on 05/30/2024 ? Syncope triggered by coughing/arrhythmia ? Seizure activity Heart failure ? Small PFO Hematuria GI bleeding Assessment/Plan Monitoring Supportive treatments ICU care Stabilize vitals Respiratory support Aspirin 81 mg daily Lipitor 40 mg daily Lovenox 40 mg subQ daily IV antibiotics GI prophylax/Protonix More recommendation per clinical course This medical document was created using an electronic medical record system with ViS dictation system. Although this document has been carefully reviewed, there may still be some phonetic and typographical errors. These areas are purely typographical due to imperfections of the software programs, and do not reflect any compromise in the patient's medical care Prognosis poor Dietary Evaluation Review Comments: 1) TF Glucerna 1.2Cal @ 70ml/hr x 24 hr along with Pro-stat 1 pk daily. Start @ 30ml/hr, increase 10ml/hr Q4H until goal rate is reached. Water flush 50ml Q4H TF goal volume along with Pro-stat & water flush provide 2016 kcal (100%), 116 gm protein (100%), and 1652ml free water 2) TPN if NPO>7 days 3) Advance diet as medically feasible 4) Continue current plan of care Expected Outcomes/Goals: To meet >75% estimated needs within 7 days Fu 2-3 days Plan discussed with: Other ZEKE REYNOLDS MD Jun 10, 2024 10:48
--- NOTE | 2024-06-10 17:30 | DVHPN2 ---
Progress Note Date Seen: Jun 10, 2024 Resident Creating Document: OSIEL ENRIQUEZ RESIDENT Medical Necessity Reason Pt with a Central, PICC or Fol: Yes The following are medically ne: Ramirez Catheter Reason for ramirez catheter: Strict I&O Subjective Review of Systems Patient seen and examined at the bedside. No active complaints. Swallow eval done today and was diet as tolerated. Patient reports: No new complaints, Feels better Objective vital signs Vital Sign Date Time Temp Pulse Resp B/P (MAP) Pulse Ox O2 Delivery O2 Flow Rate FiO2 06/10/24 16:58 97.8 90 16 118/71 (87) 90 97.8 06/10/24 14:00 Room Air* 0 21 Total Intake and Output 06/09/24 06/09/24 06/10/24 15:00 23:00 07:00 Intake Total 100 ml 1145 ml 605 ml Output Total 1876 ml 1300 ml Balance 100 ml -731 ml -695 ml medications Current Medications Medications Dose Ordered Sig/Lei Route Start Time Stop Time Status Last Admin Dose Admin Ondansetron HCl 4 mg Q4HP PRN IV 05/29/24 20:45 06/10/24 06:02 4 MG Acetaminophen 650 mg Q6HP PRN PO 05/29/24 20:45 06/08/24 22:45 650 MG Nitroglycerin 0.4 mg Q5MINP PRN SL 05/29/24 20:45 Pantoprazole Sodium 40 mg DAILY IV 05/30/24 10:00 06/10/24 10:23 40 MG Furosemide 40 mg BIDD IV 05/30/24 18:00 06/10/24 06:01 40 MG Sacubitril/ Valsartan 1 tab BID PO 05/30/24 10:00 Hold 06/03/24 22:03 1 TAB Aspirin 81 mg DAILY PO 05/30/24 10:00 06/10/24 10:23 81 MG Atorvastatin Calcium 40 mg HS PO 05/30/24 22:00 06/09/24 20:08 40 MG Sodium Chloride 1,000 ml @ 50 mls/hr Q20H IV 05/31/24 12:30 06/10/24 12:34 50 MLS/HR Sodium Chloride 10 ml QSHIFT@ IV 06/02/24 22:00 06/10/24 10:23 10 ML Diphenhydramine HCl 25 mg Q4HP PRN IV 06/04/24 10:45 06/09/24 02:03 25 MG Vancomycin HCl 0 ml @ 0 mls/hr UD IV 06/05/24 09:45 Cancel Amino Acid Protein 30 ml DAILY PO 06/06/24 10:00 06/08/24 10:00 30 ML Zolpidem Tartrate 5 mg HSPRN PRN PO 06/09/24 19:15 06/09/24 20:08 5 MG Potassium Chloride 100 ml @ 50 mls/hr Q2H IV 06/10/24 08:00 06/10/24 13:59 UNV Enoxaparin Sodium 40 mg DAILY SC 06/10/24 10:00 06/10/24 10:23 40 MG Ceftriaxone Sodium/Dextrose 50 ml @ 50 mls/hr DAILY IV 06/11/24 10:00 Examination Pt is lying on bed General Appearance: Drowsy, Oriented X3, Cooperative, mild e distress HEENT: Atraumatic, Mucous membranes moist/pink Respiratory: Clear to auscultation, Normal air movement, No added sounds Cardiovascular: Regular rate, Normal S1, Normal S2, No murmurs Abdominal: Active bowel sounds, Soft, no distention, no tenderness Extremities: No edema, Normal pulses, No tenderness/swelling Skin: No Significant rash, except past surgical scars Neuro: Normal speech, sensorimotor deficits none Nurse was there as sharperone during examination laboratory and microbiology Laboratory Tests 06/10/24 05:42 Test 06/10/24 05:42 Range/Units Serum Glucose 104 74-106 mg/dL Microbiology Date/Time Source Procedure Growth Status 06/06/24 13:12 Blood Blood Culture - Preliminary NO GROWTH AFTER 72 HOURS OF INCUBATION. Resulted 06/05/24 18:38 Bronchial Washings Gram Stain - Final Complete 06/05/24 18:38 Respiratory Culture - Final Klebsiella pneumoniae Complete 06/04/24 15:40 Urine - Ramirez Port Urine Culture - Final Complete 05/30/24 20:10 Nose MRSA Screen - Final Complete Labs and/or images reviewed: Labs reviewed by me, Image(s) reviewed by me Problem List/Assessment/Plan Problem List/Assessment/Plan Transaminitis Hypotensive NSTEMI Type 2 DM Systolic heart failure ? NAFLD from diabetes or mild ischemia from the hypotension cardiac problems and STEMI Possibility of gallbladder and biliary tract disease can not be excluded Bacteremia Aspiration pneumonia Plan: -swallow eval -advanced diet as tolerated We will recommend to follow the liver functions Ultrasound of the gallbladder in the liver if not done recently If abnormal liver enzymes persist may need further evaluation as necessary Thank you for allowing us participating in patient care. Case discussed with Dr. Zuleta. We will continue following. Plan discussed with: Patient Dietary Evaluation Review Comments: 1) TF Glucerna 1.2Cal @ 70ml/hr x 24 hr along with Pro-stat 1 pk daily. Start @ 30ml/hr, increase 10ml/hr Q4H until goal rate is reached. Water flush 50ml Q4H TF goal volume along with Pro-stat & water flush provide 2016 kcal (100%), 116 gm protein (100%), and 1652ml free water 2) TPN if NPO>7 days 3) Advance diet as medically feasible 4) Continue current plan of care Expected Outcomes/Goals: To meet >75% estimated needs within 7 days Fu 2-3 days OSIEL ENRIQUEZ RESIDENT Jun 10, 2024 17:30
[2024-06-10] MEDS ORDERED: PROMETHAZINE HCL 6.25 MG/5 ML ORAL SYRUP PO PRN (21:15)
--- NOTE | 2024-06-10 22:48 | DVHPN2 ---
Consult Progress Note Date Seen: Jun 10, 2024 Subjective Patient reports: Other (off all pressers and breathign well on room air , has clear lungs ) Objective vital signs Vital Sign Date Time Temp Pulse Resp B/P (MAP) Pulse Ox O2 Delivery O2 Flow Rate FiO2 06/10/24 21:00 98.4 91 17 119/60 (79) 93 98.4 06/10/24 14:00 Room Air* 0 21 Total Intake and Output 06/09/24 06/09/24 06/10/24 15:00 23:00 07:00 Intake Total 100 ml 1145 ml 605 ml Output Total 1876 ml 1300 ml Balance 100 ml -731 ml -695 ml medications Current Medications Medications Dose Ordered Sig/Lei Route Start Time Stop Time Status Last Admin Dose Admin Ondansetron HCl 4 mg Q4HP PRN IV 05/29/24 20:45 06/10/24 20:01 4 MG Acetaminophen 650 mg Q6HP PRN PO 05/29/24 20:45 06/08/24 22:45 650 MG Nitroglycerin 0.4 mg Q5MINP PRN SL 05/29/24 20:45 Pantoprazole Sodium 40 mg DAILY IV 05/30/24 10:00 06/10/24 10:23 40 MG Furosemide 40 mg BIDD IV 05/30/24 18:00 06/10/24 06:01 40 MG Sacubitril/ Valsartan 1 tab BID PO 05/30/24 10:00 Hold 06/03/24 22:03 1 TAB Aspirin 81 mg DAILY PO 05/30/24 10:00 06/10/24 10:23 81 MG Atorvastatin Calcium 40 mg HS PO 05/30/24 22:00 06/09/24 20:08 40 MG Sodium Chloride 1,000 ml @ 50 mls/hr Q20H IV 05/31/24 12:30 06/10/24 12:34 50 MLS/HR Sodium Chloride 10 ml QSHIFT@10,22 IV 06/02/24 22:00 06/10/24 10:23 10 ML Diphenhydramine HCl 25 mg Q4HP PRN IV 06/04/24 10:45 06/09/24 02:03 25 MG Vancomycin HCl 0 ml @ 0 mls/hr UD IV 06/05/24 09:45 Cancel Amino Acid Protein 30 ml DAILY PO 06/06/24 10:00 06/08/24 10:00 30 ML Zolpidem Tartrate 5 mg HSPRN PRN PO 06/09/24 19:15 06/09/24 20:08 5 MG Potassium Chloride 100 ml @ 50 mls/hr Q2H IV 06/10/24 08:00 06/10/24 13:59 UNV Enoxaparin Sodium 40 mg DAILY SC 06/10/24 10:00 06/10/24 10:23 40 MG Ceftriaxone Sodium/Dextrose 50 ml @ 50 mls/hr DAILY IV 06/11/24 10:00 Promethazine HCl 12.5 mg Q6HP PRN PO 06/10/24 21:15 Physical Exam: General: NAD Neck: Supple. No masses. HEENT: PERRL. Normal lids and conjunctiva. Moist mucous membranes. Oropharynx without lesions, exudates or excessive erythema. Normal appearance of the external aspects of the nose and ears. Heart: Regular rhythm, normal rate. No murmur. No lower extremity edema. Lungs: Normal respiratory effort. Clear to auscultation bilaterally. No wheezes. No crackles. Abdomen: Soft. Non-tender. Non-distended. No masses or abdominal hernia. Msk: No digital cyanosis. Normal strength and tone in all 4 limbs. Skin: Warm and dry, no rashes. Modeling likely ischemic disease. Neuro: Alert. No facial droop or slurred speech. Extra-ocular movements intact. Sensation intact to soft touch in all 4 limbs. Evidence of acute stroke (left-sided symptoms per MRI report). Psych: Appropriate mood. Full affect. Oriented to person, place, time, and situation laboratory and microbiology Laboratory Tests 06/10/24 05:42 Test 06/10/24 05:42 Range/Units Serum Glucose 104 74-106 mg/dL Problem List/Assessment/Plan Problems(with codes): (1) Congestive heart failure due to cardiomyopathy (2) Gram positive bacterial infection (3) CHF exacerbation (4) NSTEMI (non-ST elevated myocardial infarction) (5) Drug-induced cardiomyopathy (6) Aspiration pneumonia (7) Klebsiella pneumoniae pneumonia Problem List/Assessment/Plan ASSESSMENT AND PLAN ID Problem List: - Septic shock - Acute hypoxic respiratory failure - Aspiration pneumonia (Klebsiella) - Gram-positive cocci bacteremia - Acute systolic and diastolic heart failure - [id number] myocardial infarction (NSTEMI) Type 2 - Ischemic stroke - Polysythemia vera - End-stage renal disease (on hemodialysis, possibly resolved) - Hypertension - Diabetes mellitus - Asthma - Intravenous drug use (amphetamines, benzodiazepines, ongoing) - Medication noncompliance - History of deep vein thrombosis (DVT) and pulmonary embolism (PE), not currently confirmed Assessment: This is a 43-year-old male with significant past medical history including congestive heart failure, hypertension, diabetes mellitus, end-stage renal disease (previously on hemodialysis), asthma, polysythemia vera, and ongoing intravenous drug use, presenting with septic shock, acute hypoxic respiratory failure, aspiration pneumonia, and a complicated hospital course. He was noted to have chest pain, shortness of breath, and recent code event. Imaging revealed acute ischemic stroke. Patient had recent blood clots in multiple locations and was previously medication noncompliant. Admitted for acute decompensated heart failure (cardiomyopathy, LVEF 5-10%), persistent fevers, and required emergent intubation for hypoxia. Sputum culture positive for gram-negative rods (Klebsiella); blood cultures preliminary growth gram-positive cocci. Initial antibiotics with ceftriaxone, transitioned to Zosyn, then vancomycin added due to persistent fevers and rising WBC. Patient has a central line in place. TTE reveals four chamber dilation, biventricular systolic dysfunction, no pericardial effusion. Labs notable for persistent leukocytosis, Hb as high as 19.5 (polycythemia vera), and improving chest imaging but ongoing fever. No current DVTs by Doppler. 06/05: underwent bronchoscopy by Dr Zapata today and there was a right and left lower lobe atelectasis due to mucus plugging in the L6-L10 and R6-R10. right lower lobe BAL performed and cultures sent 06/06: appears to be clinically improving , however is intermittently requiring pressers . lactic acid is at 2.7 , likely secondary to cardiogenic shock , low EF . preliminary cultures are growing gram negative rods , likely klebsiella 06/07: patient is being diuresed , still on pressures but coming down 06/08: patient is coming down on presser needs and improved volume status . blood cultures are positive for staph epidermitis and staph hominids in the same bottle , likely consistent with skin wanda contamination and most recent BAL culture is positive for klebsiella and ammonia that is mckeon sensitive . repeat blood cultures are no growth to date 06/09: blood presser needs are coming down 06/10: Continues to improve clinically , leukocytosis is resolved. Chest xray of 06/08 shows no significant changes , mild congestions on the lungs Plan: - Continue Ceftriaxone to treat ongoing pneumonia - follow up on BAL culture results - follow up on GPC in blood culture - recommend repeating blood cultures at this time - odilon has a considerably poor prognosis , low EF , would recommend checking lactic acid to confirm patient is responding to antibiotic therapy - may need to be considered for Inotrope defer to cardiology - Monitor for persistent bacteremia; if persists, consider line exchange - Await and follow up on KI to evaluate for endocarditis - Repeat and monitor blood cultures to confirm clearance - Continue supportive care for acute hypoxic respiratory failure; monitor ventilator settings; target minimal FiO2 - Serial lactate and creatinine monitoring - Cardiology and primary service to continue management of heart failure and NSTEMI type 2 - Monitor skin for signs of ischemia or evolving lesions - Repeat imaging as clinically indicated - Assess for HIV and hepatitis status given ongoing IV drug use - Defer management of drug use and suspected resolved end-stage renal disease; re-evaluate dialysis need - Social work and case management for disposition planning (including possible hospice versus home care if patient preference changes) - Continue close hemodynamic and laboratory monitoring - Infectious Disease service to continue to follow Authorized and Performed by: Randi Barboza MD Total critical care time: Approximately 76 minutes Due to a high probability of clinically significant, life threatening deterioration, the patient required my highest level of preparedness to intervene emergently and I personally spent this critical care time directly and personally managing the patient. This critical care time included obtaining a history; examining the patient; pulse oximetry; ordering and review of studies; arranging urgent treatment with development of a management plan; evaluation of patient's response to treatment; frequent reassessment; and, discussions with other providers. This critical care time was performed to assess and manage the high probability of imminent, life-threatening deterioration that could result in multi-organ failure. It was exclusive of separately billable procedures and treating other patients and teaching time. Plan discussed with: Other Dietary Evaluation Review Comments: 1) TF Glucerna 1.2Cal @ 70ml/hr x 24 hr along with Pro-stat 1 pk daily. Start @ 30ml/hr, increase 10ml/hr Q4H until goal rate is reached. Water flush 50ml Q4H TF goal volume along with Pro-stat & water flush provide 2016 kcal (100%), 116 gm protein (100%), and 1652ml free water 2) TPN if NPO>7 days 3) Advance diet as medically feasible 4) Continue current plan of care Expected Outcomes/Goals: To meet >75% estimated needs within 7 days Fu 2-3 days RANDI BARBOZA MD Jun 10, 2024 22:48
[2024-06-11] VITALS (8 sets, daily range): BP systolic 106–143; BP diastolic 50–88; PULSE 80–98; RESP 17–19; TEMP 97.6–98.9; O2SAT 92–96
[2024-06-11 08:01] LABS: Basophils # (auto) 0 10 ^3/uL (0-0.2); Basophils % (auto) 0.3 % (0.0-2.0); Eosinophils # (auto) 0.1 10 ^3/uL (0-0.8); Eosinophils % (auto) 0.5 % (0.0-7.0); Nucleated Red Blood Cells % 0.1 %
[2024-06-11 08:03] LABS: Hematocrit 52.7 % (41.0-53.0); Hemoglobin 17.6 g/dL (13.5-17.5); Lymphocytes # (auto) 1.1 10 ^3/uL (0.4-5.4); Lymphocytes % (auto) 8.9 % (10.0-50.0); Mean Corpuscular Hgb Conc. 33.4 g/dL (32.0-36.0); Mean Corpuscular Volume 92.6 fL (80.0-100.0); Monocytes # (auto) 1.3 10 ^3/uL (0-1.3); Monocytes % (auto) 10.5 % (0.0-12.0); Neutrophils # (auto) 9.6 10 ^3/uL (1.6-8.6); Neutrophils % (auto) 79.8 % (37.0-80.0); Platelet Count (auto) 457 10^3/uL (140-450); Red Blood Cells 5.69 10^6/uL (4.5-5.90); Red Cell Distribution Width 14.6 % (11.8-14.3)
--- NOTE | 2024-06-11 08:04 | DVHPN2 ---
Progress Note - Dictate Date Seen: Jun 11, 2024 Medical Necessity Reason Pt with a Central, PICC or Fol: Yes The following are medically ne: Ramirez Catheter Reason for ramirez catheter: Strict I&O vital signs Vital Sign Date Time Temp Pulse Resp B/P (MAP) Pulse Ox O2 Delivery O2 Flow Rate FiO2 06/11/24 04:35 98.9 98 18 122/62 (82) 92 98.9 06/10/24 20:00 Nasal Cannula* 2 28 Total Intake and Output 06/10/24 06/10/24 06/11/24 15:00 23:00 07:00 Intake Total 350 ml 600 ml Output Total 1250 ml 450 ml Balance 350 ml -1250 ml 150 ml medications Current Medications Medications Dose Ordered Sig/Lei Route Start Time Stop Time Status Last Admin Dose Admin Ondansetron HCl 4 mg Q4HP PRN IV 05/29/24 20:45 06/10/24 20:01 4 MG Acetaminophen 650 mg Q6HP PRN PO 05/29/24 20:45 06/08/24 22:45 650 MG Nitroglycerin 0.4 mg Q5MINP PRN SL 05/29/24 20:45 Pantoprazole Sodium 40 mg DAILY IV 05/30/24 10:00 06/10/24 10:23 40 MG Furosemide 40 mg BIDD IV 05/30/24 18:00 06/10/24 06:01 40 MG Sacubitril/ Valsartan 1 tab BID PO 05/30/24 10:00 Hold 06/03/24 22:03 1 TAB Aspirin 81 mg DAILY PO 05/30/24 10:00 06/10/24 10:23 81 MG Atorvastatin Calcium 40 mg HS PO 05/30/24 22:00 06/10/24 22:40 40 MG Sodium Chloride 1,000 ml @ 50 mls/hr Q20H IV 05/31/24 12:30 06/10/24 12:34 50 MLS/HR Sodium Chloride 10 ml QSHIFT@10,22 IV 06/02/24 22:00 06/10/24 22:00 10 ML Diphenhydramine HCl 25 mg Q4HP PRN IV 06/04/24 10:45 06/09/24 02:03 25 MG Vancomycin HCl 0 ml @ 0 mls/hr UD IV 06/05/24 09:45 Cancel Amino Acid Protein 30 ml DAILY PO 06/06/24 10:00 06/08/24 10:00 30 ML Zolpidem Tartrate 5 mg HSPRN PRN PO 06/09/24 19:15 06/09/24 20:08 5 MG Potassium Chloride 100 ml @ 50 mls/hr Q2H IV 06/10/24 08:00 06/10/24 13:59 UNV Enoxaparin Sodium 40 mg DAILY SC 06/10/24 10:00 06/10/24 10:23 40 MG Ceftriaxone Sodium/Dextrose 50 ml @ 50 mls/hr DAILY IV 06/11/24 10:00 Promethazine HCl 12.5 mg Q6HP PRN PO 06/10/24 21:15 laboratory and microbiology Test 06/11/24 07:12 Range/Units Serum Glucose Pending Assessment/Plan Extubated. Lying flat in bed and not in acute distress. Not on pressor support. Patient is a 43-year-old gentleman who presented with few weeks of worsening shortness of breath/generalized swelling/nausea/and some diarrhea. He is known to have systolic heart failure. He has ran out of his medications for the past few weeks. He mentions that he was on hospice before hand and he wanted to come off of it. He does have baseline history of methamphetamine abuse and mentions that he used it few days ago. He does have baseline history of noncompliance with medication and followups. Previously he was homeless. Now he says that she is renting a place. Cardiology was involved for cardiac aspects of care. It is of note that the patient does have chronic elevated troponin from prior admissions. No JVD. Mucosa is pink and wet. Scattered crackles in the lungs is heard. Cardiac: Regular, no thrill. Systolic murmur 3/6 in apex is heard. History gallop is heard. Abdomen is soft and mildly distended. Bowel sound is positive. There is no abdominal tenderness. Questionable hepatomegaly can not be elicited. Extremities reveal 2+ edema bilaterally. Dorsalis pedis is 2+ bilateral. Past medical history includes diabetes mellitus, hypertension, systolic heart failure, polycythemia vera (as per patient), asthma, CKD, history of substance abuse cardiomyopathy, history of meth abuse and also history of chronic elevated troponin. Previously he was homeless. Previously he was on hospice. Echocardiogram of December 08, 2023 revealed four-chamber dilatation, ejection fraction of 5-10%, mild mitral regurgitation and tricuspid regurgitation. BNP: 641.20 Troponin (high sensitive): 529 - 502 - 526 - 486 - 422 - 436 - 437 D-dimer: 0.32 Urine tox was positive for Amphetamine and Benzodiazepine Chest x-ray revealed: IMPRESSION: Cardiomegaly with increased interstitial prominence which may be due to CHF and/or reactive airways disease. Repeat chest xry revealed: Endotracheal tube is in good position of the level of the clavicles. Nasogastric tube is in the stomach. There is cardiomegaly with an enlarged left ventricle. There is significant pulmonary vascular congestion. Impression congestive heart failure pattern. If patient has not had a recent c ardiac echo I would recommend cardiac echo Repeat chest xry revealed: IMPRESSION: 1. congestive heart failure pattern. Repeat chest xry revealed: FINDINGS: Lines and Tubes: Endotracheal tube and enteric catheter in satisfactory position. Lungs: Patchy bilateral airspace disease Pleura: No effusion. No pneumothorax. Cardiomediastinal contours: Cardiomegaly Bones: Unremarkable IMPRESSION: Lines and tubes in satisfactory position. No significant interval change. Repeat chest xry revealed: IMPRESSION: Lines and tubes in satisfactory position. No significant interval change. Repeat chest xry revealed: IMPRESSION: Cardiomegaly with mild congestion. Repeat chest xry revealed: IMPRESSION: Lines and tubes in satisfactory position. No significant interval change. Repeat chest xry revealed: IMPRESSION: Cardiomegaly with mild congestion. Repeat chest xry revealed: IMPRESSION: 1. Mild pulmonary congestion. 2. Cardiomegaly. MRI of brain revealed: 1. Small focus of restricted diffusion in the anterior right centrum semiovale likely representing small acute to subacute infarct. There is no evidence of acute hemorrhage. Repeat MRI of brain revealed: IMPRESSION: 1. Redemonstration of subcentimeter focus of acute ischemia in the left cerebellar lobe. No intracranial hemorrhage. 2. Redemonstration of subcentimeter focus of DWI hyperintense signal in the right frontal centrum semiovale without corresponding abnormal ADC signal reflecting T2 shine through. No evidence of acute ischemia. 3. Subcentimeter foci abnormal signal in the bilateral cerebellar lobes may reflect chronic infarcts or underlying lesions. Further evaluation with MRI with IV contrast is recommended. 4. 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. CT of head revealed: IMPRESSION: 1. No acute intracranial process. Repeat CT of head revealed: IMPRESSION: No abnormality demonstrated. The very small acute/subacute infarct in right frontal lobe and very small old cortical infarct in left parietal lobe seen on the MRI study from earlier the same day are not evident on CT. Carotid ultrasound revealed: IMPRESSION: No hemodynamically significant stenoses or occlusions identified. Chest CT revealed: IMPRESSION: 1. Cardiomegaly. 2. Scattered coronary artery calcifications 3. Endotracheal tube in place terminating above the nicola. 4. Enteric tube in the stomach. Lower ext venous duplex revealed: IMPRESSION: No sonographic evidence of deep ve nous thrombosis in either lower extremity at this time. Right upper ext venous ultrasound revealed: IMPRESSION: No sonographic evidence of deep venous thrombosis in either upper extremity at this time. Renal Ultrasound revealed: IMPRESSION: 1. Left renal atrophy. No intrarenal calculi. Tele reveals sinus rhythm Echocardiogram revealed: Four-chamber dilatation was observed. Left ventricle: Left ventricle was significantly dilated with significantly reduced systolic function. Diffuse hypokinesis of left ventricle was seen. LVEF was 5-10%. LVEDP was assessed to be elevated. Right ventricle was dilated with reduced systolic function. Both atria were dilated. Aortic valve was not well visual ized. There was mild aortic insufficiency. There was no aortic stenosis. There was trivial mitral regurgitation. There was mild tricuspid regurgitation. There was trivial pulmonary valve insufficiency. Right ventricular systolic pressure was assessed at 57 mm Hg. IVC was dilated with reduced respiratory variation. There was no pericardial effusion KI: Severe dilatation of LV with reduced LV systolic function. No Cardiac source for Emboli. Positive bubble study questions small PFO (PFO itself could not be visualized) Patient is a 43-year-old gentleman who presented with weeks of worsening short ness of breath cough/nausea and vomiting. Does have baseline history of systolic heart failure. Has been noncompliant with medication and followups. Acute on chronic systolic heart failure could have contributed to the clinical picture. Does have baseline history of methamphetamine abuse which could have contributed to the clinical picture. He is noncompliant with medication and followups which could have contributed to the clinical picture. Does have baseline history of elevated/chronically troponin. Abnormal troponin in a patient with end-stage systolic heart failure usually reflects demand physiology. Acute coronary syndrome is not considered at this point. Had AMS and later had respiratory failure. Intubated and brought to [facility]/ICU. He is found to have acute/subacute CVA. Is being followed by Neurology. KI performed: no source for Emboli. Still, Positive Bubble study questions PFO (PFO itself could not be visualized: maybe too small). Still, there was no recent DVT also (negative venous duplex). Acute on chronic systolic heart failure Drug-induced cardiomyopathy CKD Polycythemia vera removal Diabetes mellitus Noncompliant with medication and followups Substance abuse AMS Acute/subacute CVA Cardiac suggestion for management: Manage in tele Diuresis Follow-up electrolytes and kidney function tests and correct abnormalities. Keep potassium above 4 and magnesium above 2 Entresto: 24/26 mg p.o. b.i.d. Aspirin: 81 mg daily suggested Prophylactic Lovenox at this time High potency statin (atorvastatin at 40 mg daily) suggested Does have baseline history of elevated/chronically troponin. Abnormal troponin (flat trend) in a patient with end-stage systolic heart failure usually reflects demand physiology. Acute coronary syndrome is not considered at this point. Recognizing old history of significant heart failure and noncompliance, outcome is poor. Consider restarting hospice Lifestyle and risk factor modifications. Neurology follow up Consider Hematology evaluation for Hemoconcentration / Polycythemia Vera Further evaluation and management depends on the above and clinical course A total of 55 minutes was spent reviewing the patient record, examining the patient, making a diagnostic and therapeutic plan, discussing this plan with medical personnel, following up on diagnostic studies and following the patient for clinical stability excluding any and all procedures. At least 50% of this time was spent in direct, [id number] contact. Thank you for allowing me to participate in this patient's care. Further recommendations will depend on patient's clinical course. Please do not hesitate to contact me if you have any questions or concerns. This medical document was created using electronic medical record system with [employer] dictation system. Although this document has been carefully reviewed, there may still be some phonetic and typographical errors. These areas are purely typographical due to the imperfection of the software programs, and do not reflect any compromise in the patient's medical care. Dietary Evaluation Review Comments: 1) TF Glucerna 1.2Cal @ 70ml/hr x 24 hr along with Pro-stat 1 pk daily. Start @ 30ml/hr, increase 10ml/hr Q4H until goal rate is reached. Water flush 50ml Q4H TF goal volume along with Pro-stat & water flush provide 2016 kcal (100%), 116 gm protein (100%), and 1652ml free water 2) TPN if NPO>7 days 3) Advance diet as medically feasible 4) Continue current plan of care Expected Outcomes/Goals: To meet >75% estimated needs within 7 days Fu 2-3 days Plan discussed with: Other (nurse) GABRIEL LOPEZ MD Jun 11, 2024 08:04
[2024-06-11 08:10] LABS: Anion Gap 11 (5-15); BUN/Creatinine Ratio 16.3 (10.0-20.0); Blood Urea Nitrogen 13 mg/dL (9-23); Calcium 9.3 mg/dL (8.7-10.4); Carbon Dioxide 24 mmol/L (20-31); Chloride 99 mmol/L (98-107); Magnesium 2.3 mg/dL (1.6-2.6)
[2024-06-11 08:11] LABS: Albumin 3.9 g/dL (3.2-4.8)
[2024-06-11 08:16] LABS: Alanine Aminotransferase 41 U/L (7-40); Alkaline Phosphatase 184 U/L (46-116); Aspartate Aminotransferase 100 U/L (13-40); Bilirubin, Total 1.7 mg/dL (0.2-1.0); Glucose 116 mg/dL (74-106); Potassium 3.2 mmol/L (3.5-5.1); Sodium 134 mmol/L (136-145)
--- NOTE | 2024-06-11 09:46 | DVHPN2 ---
Progress Note - Dictate Date Seen: Jun 11, 2024 Medical Necessity Reason Pt with a Central, PICC or Fol: Yes The following are medically ne: Ramirez Catheter Reason for ramirez catheter: Strict I&O vital signs Vital Sign Date Time Temp Pulse Resp B/P (MAP) Pulse Ox O2 Delivery O2 Flow Rate FiO2 06/11/24 04:35 98.9 98 18 122/62 (82) 92 98.9 06/10/24 20:00 Nasal Cannula* 2 28 Total Intake and Output 06/10/24 06/10/24 06/11/24 15:00 23:00 07:00 Intake Total 350 ml 600 ml Output Total 1250 ml 450 ml Balance 350 ml -1250 ml 150 ml medications Current Medications Medications Dose Ordered Sig/Lei Route Start Time Stop Time Status Last Admin Dose Admin Ondansetron HCl 4 mg Q4HP PRN IV 05/29/24 20:45 06/10/24 20:01 4 MG Acetaminophen 650 mg Q6HP PRN PO 05/29/24 20:45 06/08/24 22:45 650 MG Nitroglycerin 0.4 mg Q5MINP PRN SL 05/29/24 20:45 Pantoprazole Sodium 40 mg DAILY IV 05/30/24 10:00 06/10/24 10:23 40 MG Furosemide 40 mg BIDD IV 05/30/24 18:00 06/10/24 06:01 40 MG Sacubitril/ Valsartan 1 tab BID PO 05/30/24 10:00 Hold 06/03/24 22:03 1 TAB Aspirin 81 mg DAILY PO 05/30/24 10:00 06/10/24 10:23 81 MG Atorvastatin Calcium 40 mg HS PO 05/30/24 22:00 06/10/24 22:40 40 MG Sodium Chloride 1,000 ml @ 50 mls/hr Q20H IV 05/31/24 12:30 06/10/24 12:34 50 MLS/HR Sodium Chloride 10 ml QSHIFT@10,22 IV 06/02/24 22:00 06/10/24 22:00 10 ML Diphenhydramine HCl 25 mg Q4HP PRN IV 06/04/24 10:45 06/09/24 02:03 25 MG Vancomycin HCl 0 ml @ 0 mls/hr UD IV 06/05/24 09:45 Cancel Amino Acid Protein 30 ml DAILY PO 06/06/24 10:00 06/08/24 10:00 30 ML Zolpidem Tartrate 5 mg HSPRN PRN PO 06/09/24 19:15 06/09/24 20:08 5 MG Potassium Chloride 100 ml @ 50 mls/hr Q2H IV 06/10/24 08:00 06/10/24 13:59 UNV Enoxaparin Sodium 40 mg DAILY SC 06/10/24 10:00 06/10/24 10:23 40 MG Ceftriaxone Sodium/Dextrose 50 ml @ 50 mls/hr DAILY IV 06/11/24 10:00 Promethazine HCl 12.5 mg Q6HP PRN PO 06/10/24 21:15 Potassium Chloride 100 ml @ 50 mls/hr Q2H IV 06/11/24 09:45 06/11/24 13:44 UNV objective General Appearance: alert, no distress HEENT: EOMI, PERRLA, normal external inspect of ears, no icterus, no nasal drainage Neck: no carotid bruit, no jugular venous distention (JVD), no lymphadenopathy Chest: normal thorax Respiratory: clear to auscultation, normal air movement Cardiovascular: regular rate and rhythm, no diastolic murmur, no jugular venous distention (JVD), no rub, no systolic murmur Abdominal: soft, no hepatomegaly, no mass, no splenomegaly, no tenderness Genitourinary: grossly normal external Musculoskeletal: no joint tenderness, no swelling Extremities: normal pulses, no calf tenderness, no clubbing, no cyanosis, no edema Skin: no bruising, no jaundice, no rash Neurological: alert, No focal deficit laboratory and microbiology Laboratory Tests 06/11/24 07:12 Test 06/11/24 07:12 Range/Units Serum Glucose 116 H 74-106 mg/dL Problem List 1. Acute CVA Monitor, neurology consult 2. Acute on chronic systolic heart failure Monitor, cardiology consult, heparin gtt 3. Drug induced cardiomyopathy Monitor, echocardiogram, cardiology consult 4. Elevated troponin - demand ischemia Monitor EKG, cardiology consult 5. Hx of methamphetamine abuse Monitor, urine drug screen 6. 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 Acute hypoxic respiratory failure Monitor, supplemental O2, ventilator management per pulmonary 8. Pneumonia Monitor, antibiotics, pulmonary consult 9. Acute cystitis Monitor, antibiotics 10. Bacteremia Monitor, continue antibiotics, ID consult. 11. Polycythemia vera Monitor, daily labs 12. IZZY with vasomotor nephropathy Monitor, monitor renal function 13. Metabolic encephalopathy Monitor, Neurology consult 14.Sepsis ID consult, IV antibiotics, monitoring [40] minutes of critical care time were spent in evaluating the patient, reviewing the diagnostic data, discussing with the family. Assessment/Plan Subjective: Patient is more awake and alert. Objective: Patient is having more coordination to his upper extremities. Patient's speech is also slowly improving. Patient did pass a swallow eval. He was advanced to regular diet. Patient was admitted for severe sepsis related to pneumonia and UTI. Patient was found to have an acute CVA. Patient has a history of polycythemia. Patient is also a current drug abuser. Patient has IZZY with vasomotor nephropathy and resolving metabolic encephalopathy. Patient's T. bili is also improving. Potassium is 3.2. Patient is still having persistent nausea. Plan: Continue current treatment. Replace electrolytes. Awaiting physical therapy evaluation. Phenergan was added today. Awaiting GI input. Patient is having bowel movements. Neurology recommendations appreciated. Dietary Evaluation Review Comments: 1) TF Glucerna 1.2Cal @ 70ml/hr x 24 hr along with Pro-stat 1 pk daily. Start @ 30ml/hr, increase 10ml/hr Q4H until goal rate is reached. Water flush 50ml Q4H TF goal volume along with Pro-stat & water flush provide 2016 kcal (100%), 116 gm protein (100%), and 1652ml free water 2) TPN if NPO>7 days 3) Advance diet as medically feasible 4) Continue current plan of care Expected Outcomes/Goals: To meet >75% estimated needs within 7 days Fu 2-3 days Plan discussed with: Patient, Other WILMAJACKIE M INDUSTRIAL SAFETY AND HEALTH MANAGER Jun 11, 2024 09:46
[2024-06-11] MEDS: cefTRIAXone 2GM/50ML D5W 50 ML IV SCH (10:02)
[2024-06-11] MEDS: POTASSIUM CHL 20MEQ/50ML 50 ML IV SCH (12:57)
[2024-06-11] MEDS: SODIUM CHLORIDE 0.9% 1,000 ML IV SCH (13:59)
--- NOTE | 2024-06-11 14:05 | DVHPN2 ---
Progress Note Date Seen: Jun 11, 2024 Resident Creating Document: OSIEL ENRIQUEZ RESIDENT Medical Necessity Reason Pt with a Central, PICC or Fol: Yes The following are medically ne: Ramirez Catheter Reason for ramirez catheter: Strict I&O Subjective Review of Systems Patient seen and examined at the bedside. Today patient reported having vomiting after eating food. No new complaints reported at this time. Objective vital signs Vital Sign Date Time Temp Pulse Resp B/P (MAP) Pulse Ox O2 Delivery O2 Flow Rate FiO2 06/11/24 09:00 97.9 80 19 130/50 (76) 96 97.9 06/11/24 08:00 Room Air* 0 21 Total Intake and Output 06/10/24 06/10/24 06/11/24 15:00 23:00 07:00 Intake Total 350 ml 600 ml Output Total 1250 ml 450 ml Balance 350 ml -1250 ml 150 ml medications Current Medications Medications Dose Ordered Sig/Lei Route Start Time Stop Time Status Last Admin Dose Admin Ondansetron HCl 4 mg Q4HP PRN IV 05/29/24 20:45 06/11/24 10:38 4 MG Acetaminophen 650 mg Q6HP PRN PO 05/29/24 20:45 06/08/24 22:45 650 MG Nitroglycerin 0.4 mg Q5MINP PRN SL 05/29/24 20:45 Pantoprazole Sodium 40 mg DAILY IV 05/30/24 10:00 06/11/24 10:02 40 MG Furosemide 40 mg BIDD IV 05/30/24 18:00 06/10/24 06:01 40 MG Sacubitril/ Valsartan 1 tab BID PO 05/30/24 10:00 Hold 06/03/24 22:03 1 TAB Aspirin 81 mg DAILY PO 05/30/24 10:00 06/11/24 10:03 81 MG Atorvastatin Calcium 40 mg HS PO 05/30/24 22:00 06/10/24 22:40 40 MG Sodium Chloride 10 ml QSHIFT@ IV 06/02/24 22:00 06/11/24 10:03 10 ML Diphenhydramine HCl 25 mg Q4HP PRN IV 06/04/24 10:45 06/09/24 02:03 25 MG Vancomycin HCl 0 ml @ 0 mls/hr UD IV 06/05/24 09:45 Cancel Amino Acid Protein 30 ml DAILY PO 06/06/24 10:00 06/08/24 10:00 30 ML Zolpidem Tartrate 5 mg HSPRN PRN PO 06/09/24 19:15 06/09/24 20:08 5 MG Potassium Chloride 100 ml @ 50 mls/hr Q2H IV 06/10/24 08:00 06/10/24 13:59 UNV Enoxaparin Sodium 40 mg DAILY SC 06/10/24 10:00 06/11/24 10:03 40 MG Ceftriaxone Sodium/Dextrose 50 ml @ 50 mls/hr DAILY IV 06/11/24 10:00 06/11/24 10:02 50 MLS/HR Promethazine HCl 12.5 mg Q6HP PRN PO 06/10/24 21:15 Sodium Chloride 1,000 ml @ 50 mls/hr Q20H IV 06/11/24 13:59 Examination Pt is lying on bed General Appearance: drowsy, Oriented X3, Cooperative, Not in acute distress HEENT: Atraumatic, Mucous membranes moist/pink Respiratory: Clear to auscultation, Normal air movement, No added sounds Cardiovascular: Regular rate, Normal S1, Normal S2, No murmurs Abdominal: Active bowel sounds, Soft, no distention, no tenderness Extremities: No edema, Normal pulses, No tenderness/swelling Skin: No Significant rash, except past surgical scars Neuro: Normal speech, sensorimotor deficits none Psych/Mental Status: Mental status NL, Mood NL Nurse was there as sharperone during examination laboratory and microbiology Laboratory Tests 06/11/24 07:12 Test 06/11/24 07:12 Range/Units Serum Glucose 116 H 74-106 mg/dL Microbiology Date/Time Source Procedure Growth Status 06/06/24 13:12 Blood Blood Culture - Final NO GROWTH AFTER 5 DAYS OF INCUBATION. Complete 06/05/24 18:38 Bronchial Washings Gram Stain - Final Complete 06/05/24 18:38 Respiratory Culture - Final Klebsiella pneumoniae Complete 06/04/24 15:40 Urine - Ramirez [place] Urine Culture - Final Complete 05/30/24 20:10 Nose MRSA Screen - Final Complete Labs and/or images reviewed: Labs reviewed by me, Image(s) reviewed by me Problem List/Assessment/Plan Problem List/Assessment/Plan Transaminitis Hypotensive NSTEMI Type 2 DM Systolic heart failure ? NAFLD from diabetes or mild ischemia from the hypotension cardiac problems and STEMI Possibility of gallbladder and biliary tract disease can not be excluded Bacteremia Aspiration pneumonia Plan: -swallow eval done -advanced diet as tolerated - We will recommend to follow the liver functions - Ultrasound of the gallbladder in the liver if not done recently - If abnormal liver enzymes persist may need further evaluation as necessary Thank you so much for the opportunity to consult on your patient. GI team will follow the patient Case an action plan discussed with Dr. Latoya Zuleta. Complex care planning needed total 49 minutes of detailed discussion. The patient and caregiver team agreed to the plan. Plan discussed with: Patient Dietary Evaluation Review Comments: 1) TF Glucerna 1.2Cal @ 70ml/hr x 24 hr along with Pro-stat 1 pk daily. Start @ 30ml/hr, increase 10ml/hr Q4H until goal rate is reached. Water flush 50ml Q4H TF goal volume along with Pro-stat & water flush provide 2016 kcal (100%), 116 gm protein (100%), and 1652ml free water 2) TPN if NPO>7 days 3) Advance diet as medically feasible 4) Continue current plan of care Expected Outcomes/Goals: To meet >75% estimated needs within 7 days Fu 2-3 days OSIEL ENRIQUEZ RESIDENT Jun 11, 2024 14:05
[2024-06-11] MEDS: SUCRALFATE 1 GM/10 ML ORAL SUSP PO SCH (21:20)
--- NOTE | 2024-06-11 22:57 | DVHPN2 ---
Progress Note - Dictate Date Seen: Jun 11, 2024 Medical Necessity Reason Pt with a Central, PICC or Fol: Yes The following are medically ne: Ramirez Catheter Reason for ramirez catheter: Strict I&O Subjective Patient seen and examined at bedside. Breathing comfortably on room air. Overnight events reviewed. vital signs Vital Sign Date Time Temp Pulse Resp B/P (MAP) Pulse Ox O2 Delivery O2 Flow Rate FiO2 06/11/24 21:00 97.6 88 19 106/77 (87) 96 97.6 06/11/24 08:00 Room Air* 0 21 Total Intake and Output 06/10/24 06/10/24 06/11/24 15:00 23:00 07:00 Intake Total 350 ml 600 ml Output Total 1250 ml 450 ml Balance 350 ml -1250 ml 150 ml medications Current Medications Medications Dose Ordered Sig/Lei Route Start Time Stop Time Status Last Admin Dose Admin Ondansetron HCl 4 mg Q4HP PRN IV 05/29/24 20:45 06/11/24 10:38 4 MG Acetaminophen 650 mg Q6HP PRN PO 05/29/24 20:45 06/08/24 22:45 650 MG Nitroglycerin 0.4 mg Q5MINP PRN SL 05/29/24 20:45 Pantoprazole Sodium 40 mg DAILY IV 05/30/24 10:00 06/11/24 10:02 40 MG Furosemide 40 mg BIDD IV 05/30/24 18:00 06/11/24 17:28 40 MG Sacubitril/ Valsartan 1 tab BID PO 05/30/24 10:00 Hold 06/03/24 22:03 1 TAB Aspirin 81 mg DAILY PO 05/30/24 10:00 06/11/24 10:03 81 MG Atorvastatin Calcium 40 mg HS PO 05/30/24 22:00 06/11/24 21:20 40 MG Sodium Chloride 10 ml QSHIFT@, IV 06/02/24 22:00 06/11/24 22:26 10 ML Diphenhydramine HCl 25 mg Q4HP PRN IV 06/04/24 10:45 06/09/24 02:03 25 MG Vancomycin HCl 0 ml @ 0 mls/hr UD IV 06/05/24 09:45 Cancel Amino Acid Protein 30 ml DAILY PO 06/06/24 10:00 06/08/24 10:00 30 ML Zolpidem Tartrate 5 mg HSPRN PRN PO 06/09/24 19:15 06/11/24 21:20 5 MG Potassium Chloride 100 ml @ 50 mls/hr Q2H IV 06/10/24 08:00 06/10/24 13:59 UNV Enoxaparin Sodium 40 mg DAILY SC 06/10/24 10:00 06/11/24 10:03 40 MG Ceftriaxone Sodium/Dextrose 50 ml @ 50 mls/hr DAILY IV 06/11/24 10:00 06/11/24 10:02 50 MLS/HR Promethazine HCl 12.5 mg Q6HP PRN PO 06/10/24 21:15 Sodium Chloride 1,000 ml @ 50 mls/hr Q20H IV 06/11/24 13:59 Sucralfate 1 gm BID@0600,2200 PO 06/11/24 22:00 06/11/24 21:20 1 GM objective Gen.: Patient lying in bed in no apparent distress. On room air. Head: Normocephalic, atraumatic. Eyes: EOMI/PERRLA. Ears: Normal hearing. Normal anatomy. Neck/trachea: Trachea midline, supple. Nose: Normal external anatomy. Mouth: Moist mucous membranes. Chest: Decreased air entry bilaterally. No wheezing or rhonchi. Cardiovascular: Positive S1, positive S2. Regular rate and rhythm. Abdomen: Positive bowel sounds in all 4 quadrants. Soft, non-tender, non- distended. : Deferred. Rectal: Deferred. Skin: Warm, dry. Intact. Extremities: 2+ radial pulses bilaterally. No lower extremity edema. Neuro: Awake, alert, oriented x3. No gross motor or sensory deficits. Cranial nerves II through XII intact. Gait not assessed. laboratory and microbiology Laboratory Tests 06/11/24 07:12 Test 06/11/24 07:12 Range/Units Serum Glucose 116 H 74-106 mg/dL Assessment/Plan Impression: Acute hypoxic respiratory failure Mechanical ventilation, s/p extubation Pulmonary hypertension, RVSP 57 mmHg ( Echo with LVEF of 5% to 10%) Atelectasis Acute CVA Acute on chronic systolic heart failure Drug induced cardiomyopathy Elevated troponin Polysubstance abuse Medical non-compliance Polycythemia vera Events: Breathing comfortably on room air. Supplemental oxygen PRN Patient with episode of vomiting - Zofran PRN No hemoptysis. Ambien PRN insomnia Monitor hemoglobin Continue antibiotics ID recommendations appreciated Incentive spirometry Tube feeds for nutritional support Maintain euvolemia w/ Lasix Monitor renal function Monitor electrolytes. Supplement as necessary. Potassium supplementation Monitor ins and outs. Polycythemia vera - Hematology recommendations appreciated. Poor EF Status post KI Cardiology recs appreciated S/p therapeutic bronchoscopy with BAL on 06/05/24 for clearing of secretions. Please see procedure note for details Labs and imaging reviewed. Rest of plan as noted below. Plan: S/p extubation on 06/08/24 Supplemental oxygen PRN Titrate to keep O2 sats above 92%. Pulmonary hypertension, RVSP 57 mmHg - Echo showing LVEF of 5% to 10%. On statin Cardiology recs appreciated Pressors as necessary for hemodynamic support Titrate to keep mean arterial pressure greater than 65 mmHg IV fluids with NS at 50 ml/hr. Diurese as tolerated w/ Lasix BID Monitor renal function Monitor electrolytes. Supplement as necessary. Monitor ins and outs. GI prophylaxis - Protonix. DVT prophylaxis - Lovenox SC. Prognosis: Poor given patient's multiple co-morbidities. Rest of plan per hospitalist and other consultants. Thank you, BRANDIN Albright, for allowing me to participate in this patient's care. Further recommendations will depend on the patient's clinical course. Please do not hesitate to contact me if you have any questions or concerns. This medical document was created using an electronic medical record system with [employer] dictation system. Although these documentations are being carefully reviewed, there may still be some phonetic and typographical changes. The errors are purely typographical, due to imperfection on the software program, and do not reflect any compromise in the patient's medical care. Dietary Evaluation Review Comments: 1) TF Glucerna 1.2Cal @ 70ml/hr x 24 hr along with Pro-stat 1 pk daily. Start @ 30ml/hr, increase 10ml/hr Q4H until goal rate is reached. Water flush 50ml Q4H TF goal volume along with Pro-stat & water flush provide 2016 kcal (100%), 116 gm protein (100%), and 1652ml free water 2) TPN if NPO>7 days 3) Advance diet as medically feasible 4) Continue current plan of care Expected Outcomes/Goals: To meet >75% estimated needs within 7 days Fu 2-3 days Plan discussed with: Patient, Other (HONG Muller) NATALIO MÁRQUEZ MD Jun 11, 2024 22:57
[2024-06-12] VITALS (7 sets, daily range): BP systolic 98–120; BP diastolic 60–82; PULSE 50–100; RESP 17–19; TEMP 97.6–98; O2SAT 95–99
[2024-06-12 06:15] LABS: Eosinophils # (auto) 0.1 10 ^3/uL (0-0.8); Lymphocytes # (auto) 1.3 10 ^3/uL (0.4-5.4); Monocytes # (auto) 0.9 10 ^3/uL (0-1.3); Neutrophils # (auto) 7.6 10 ^3/uL (1.6-8.6)
[2024-06-12 06:17] LABS: Basophils # (auto) 0.1 10 ^3/uL (0-0.2); Basophils % (auto) 0.6 % (0.0-2.0); Hematocrit 54.1 % (41.0-53.0); Hemoglobin 18.8 g/dL (13.5-17.5); Lymphocytes % (auto) 12.6 % (10.0-50.0); Mean Corpuscular Hemoglobin 31.1 pg (28.0-32.0); Mean Corpuscular Hgb Conc. 34.8 g/dL (32.0-36.0); Mean Corpuscular Volume 89.4 fL (80.0-100.0); Monocytes % (auto) 9.4 % (0.0-12.0); Neutrophils % (auto) 76.4 % (37.0-80.0); Nucleated Red Blood Cells % 0.1 %; Platelet Count (auto) 540 10^3/uL (140-450); Red Blood Cells 6.05 10^6/uL (4.5-5.90); Red Cell Distribution Width 14.3 % (11.8-14.3); White Blood Cell 9.9 10^3/uL (4.4-10.8)
[2024-06-12 06:35] LABS: Anion Gap 11 (5-15); Calcium 9.6 mg/dL (8.7-10.4); Carbon Dioxide 25 mmol/L (20-31); Chloride 99 mmol/L (98-107)
[2024-06-12 06:36] LABS: BUN/Creatinine Ratio 17.1 (10.0-20.0); Blood Urea Nitrogen 13 mg/dL (9-23); Magnesium 2.2 mg/dL (1.6-2.6)
[2024-06-12 06:37] LABS: Albumin 4.1 g/dL (3.2-4.8)
[2024-06-12 06:43] LABS: Alanine Aminotransferase 48 U/L (7-40); Alkaline Phosphatase 181 U/L (46-116); Aspartate Aminotransferase 104 U/L (13-40); Bilirubin, Total 1.4 mg/dL (0.2-1.0); Glucose 119 mg/dL (74-106); Potassium 2.7 mmol/L (3.5-5.1); Sodium 135 mmol/L (136-145); Total Protein 8.3 g/dL (5.7-8.2)
--- NOTE | 2024-06-12 06:54 | DVHPN2 ---
Progress Note - Dictate Date Seen: Jun 12, 2024 Medical Necessity Reason Pt with a Central, PICC or Fol: Yes The following are medically ne: Ramirez Catheter Reason for ramirez catheter: Strict I&O vital signs Vital Sign Date Time Temp Pulse Resp B/P (MAP) Pulse Ox O2 Delivery O2 Flow Rate FiO2 06/12/24 05:00 97.9 100 19 120/82 (95) 97 97.9 06/11/24 20:00 Room Air* 0 21 Total Intake and Output 06/11/24 06/11/24 06/12/24 15:00 23:00 07:00 Intake Total 100 ml 765 ml Output Total 750 ml Balance 100 ml 15 ml medications Current Medications Medications Dose Ordered Sig/Lei Route Start Time Stop Time Status Last Admin Dose Admin Ondansetron HCl 4 mg Q4HP PRN IV 05/29/24 20:45 06/11/24 10:38 4 MG Acetaminophen 650 mg Q6HP PRN PO 05/29/24 20:45 06/08/24 22:45 650 MG Nitroglycerin 0.4 mg Q5MINP PRN SL 05/29/24 20:45 Pantoprazole Sodium 40 mg DAILY IV 05/30/24 10:00 06/11/24 10:02 40 MG Furosemide 40 mg BIDD IV 05/30/24 18:00 06/11/24 17:28 40 MG Sacubitril/ Valsartan 1 tab BID PO 05/30/24 10:00 Hold 06/03/24 22:03 1 TAB Aspirin 81 mg DAILY PO 05/30/24 10:00 06/11/24 10:03 81 MG Atorvastatin Calcium 40 mg HS PO 05/30/24 22:00 06/11/24 21:20 40 MG Sodium Chloride 10 ml QSHIFT@10,22 IV 06/02/24 22:00 06/11/24 22:26 10 ML Diphenhydramine HCl 25 mg Q4HP PRN IV 06/04/24 10:45 06/09/24 02:03 25 MG Vancomycin HCl 0 ml @ 0 mls/hr UD IV 06/05/24 09:45 Cancel Amino Acid Protein 30 ml DAILY PO 06/06/24 10:00 06/08/24 10:00 30 ML Zolpidem Tartrate 5 mg HSPRN PRN PO 06/09/24 19:15 06/11/24 21:20 5 MG Potassium Chloride 100 ml @ 50 mls/hr Q2H IV 06/10/24 08:00 06/10/24 13:59 UNV Enoxaparin Sodium 40 mg DAILY SC 06/10/24 10:00 06/11/24 10:03 40 MG Ceftriaxone Sodium/Dextrose 50 ml @ 50 mls/hr DAILY IV 06/11/24 10:00 06/11/24 10:02 50 MLS/HR Promethazine HCl 12.5 mg Q6HP PRN PO 06/10/24 21:15 Sodium Chloride 1,000 ml @ 50 mls/hr Q20H IV 06/11/24 13:59 Sucralfate 1 gm BID@0600,2200 PO 06/11/24 22:00 06/11/24 21:20 1 GM laboratory and microbiology Laboratory Tests 06/12/24 04:49 Test 06/12/24 04:49 Range/Units Serum Glucose 119 H 74-106 mg/dL Assessment/Plan Extubated. Lying flat in bed and not in acute distress. Not on pressor support. Patient is a 43-year-old gentleman who presented with few weeks of worsening shortness of breath/generalized swelling/nausea/and some diarrhea. He is known to have systolic heart failure. He has ran out of his medications for the past few weeks. He mentions that he was on hospice before hand and he wanted to come off of it. He does have baseline history of methamphetamine abuse and mentions that he used it few days ago. He does have baseline history of noncompliance with medication and followups. Previously he was homeless. Now he says that she is renting a place. Cardiology was involved for cardiac aspects of care. It is of note that the patient does have chronic elevated troponin from prior admissions. No JVD. Mucosa is pink and wet. Scattered crackles in the lungs is heard. Cardiac: Regular, no thrill. Systolic murmur 3/6 in apex is heard. History gallop is heard. Abdomen is soft and mildly distended. Bowel sound is positive. There is no abdominal tenderness. Questionable hepatomegaly can not be elicited. Extremities reveal 2+ edema bilaterally. Dorsalis pedis is 2+ bilateral. Past medical history includes diabetes mellitus, hypertension, systolic heart failure, polycythemia vera (as per patient), asthma, CKD, history of substance abuse cardiomyopathy, history of meth abuse and also history of chronic elevated troponin. Previously he was homeless. Previously he was on hospice. Echocardiogram of December 08, 2023 revealed four-chamber dilatation, ejection fraction of 5-10%, mild mitral regurgitation and tricuspid regurgitation. BNP: 641.20 Troponin (high sensitive): 529 - 502 - 526 - 486 - 422 - 436 - 437 D-dimer: 0.32 Urine tox was positive for Amphetamine and Benzodiazepine Chest x-ray revealed: IMPRESSION: Cardiomegaly with increased interstitial prominence which may be due to CHF and/or reactive airways disease. Repeat chest xry revealed: Endotracheal tube is in good position of the level of the clavicles. Nasogastric tube is in the stomach. There is cardiomegaly with an enlarged left ventricle. There is significant pulmonary vascular congestion. Impression congestive heart failure pattern. If patient has not had a recent cardiac echo I would recommend cardiac echo Repeat chest xry revealed: IMPRESSION: 1. congestive heart failure pattern. Repeat chest xry revealed: FINDINGS: Lines and Tubes: Endotracheal tube and enteric catheter in satisfactory position. Lungs: Patchy bilateral airspace disease Pleura: No effusion. No pneumothorax. Cardiomediastinal contours: Cardiomegaly Bones: Unremarkable IMPRESSION: Lines and tubes in satisfactory position. No significant interval change. Repeat chest xry revealed: IMPRESSION: Lines and tubes in satisfactory position. No significant interval change. Repeat chest xry revealed: IMPRESSION: Cardiomegaly with mild congestion. Repeat chest xry revealed: IMPRESSION: Lines and tubes in satisfactory position. No significant interval change. Repeat chest xry revealed: IMPRESSION: Cardiomegaly with mild congestion. Repeat chest xry revealed: IMPRESSION: 1. Mild pulmonary congestion. 2. Cardiomegaly. MRI of brain revealed: 1. Small focus of restricted diffusion in the anterior right centrum semiovale likely representing small acute to subacute infarct. There is no evidence of acute hemorrhage. Repeat MRI of brain revealed: IMPRESSION: 1. Redemonstration of subcentimeter focus of acute ischemia in the left cerebellar lobe. No intracranial hemorrhage. 2. Redemonstration of subcentimeter focus of DWI hyperintense signal in the right frontal centrum semiovale without corresponding abnormal ADC signal reflecting T2 shine through. No evidence of acute ischemia. 3. Subcentimeter foci abnormal signal in the bilateral cerebellar lobes may reflect chronic infarcts or underlying lesions. Further evaluation with MRI with IV contrast is recommended. 4. 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. CT of head revealed: IMPRESSION: 1. No acute intracranial process. Repeat CT of head revealed: IMPRESSION: No abnormality demonstrated. The very small acute/subacute infarct in right frontal lobe and very small old cortical infarct in left parietal lobe seen on the MRI study from earlier the same day are not evident on CT. Carotid ultrasound revealed: IMPRESSION: No hemodynamically significant stenoses or occlusions identified. Chest CT revealed: IMPRESSION: 1. Cardiomegaly. 2. Scattered coronary artery calcifications 3. Endotracheal tube in place terminating above the nicola. 4. Enteric tube in the stomach. Lower ext venous duplex revealed: IMPRESSION: No sonographic evidence of deep venous thrombosis in either lower extremity at this time. Right upper ext venous ultrasound revealed: IMPRESSION: No sonographic evidence of deep venous thrombosis in either upper extremity at this time. Renal Ultrasound revealed: IMPRESSION: 1. Left renal atrophy. No intrarenal calculi. Tele reveals sinus rhythm Echocardiogram revealed: Four-chamber dilatation was observed. Left ventricle: Left ventricle was significantly dilated with significantly reduced systolic function. Diffuse hypokinesis of left ventricle was seen. LVEF was 5-10%. LVEDP was assessed to be elevated. Right ventricle was dilated with reduced systolic function. Both atria were dilated. Aortic valve was not well visualized. There was mild aortic insufficiency. There was no aortic stenosis. There was trivial mitral regurgitation. There was mild tricuspid regurgitation. There was trivial pulmonary valve insufficiency. Right ventricular systolic pressure was assessed at 57 mm Hg. IVC was dilated with reduced respiratory variation. There was no pericardial effusion KI: Severe dilatation of LV with reduced LV systolic function. No Cardiac source for Emboli. Positive bubble study questions small PFO (PFO itself could not be visualized) Patient is a 43-year-old gentleman who presented with weeks of worsening shortness of breath cough/nausea and vomiting. Does have baseline history of systolic heart failure. Has been noncompliant with medication and followups. Acute on chronic systolic heart failure could have contributed to the clinical picture. Does have baseline history of methamphetamine abuse which could have contributed to the clinical picture. He is noncompliant with medication and followups which could have contributed to the clinical picture. Does have baseline history of elevated/chronically troponin. Abnormal troponin in a patient with end-stage systolic heart failure usually reflects demand physiology. Acute coronary syndrome is not considered at this point. Had AMS and later had respiratory failure. Intubated and brought to [facility]/ICU. He is found to have acute/subacute CVA. Is being followed by Neurology. KI performed: no source for Emboli. Still, Positive Bubble study questions PFO (PFO itself could not be visualized: maybe too small). Still, there was no recent DVT also (negative venous duplex). Acute on chronic systolic heart failure Drug-induced cardiomyopathy CKD Polycythemia vera removal Diabetes mellitus Noncompliant with medication and followups Substance abuse AMS Acute/subacute CVA Cardiac suggestion for management: Manage in tele Diuresis Follow-up electrolytes and kidney function tests and correct abnormalities. Keep potassium above 4 and magnesium above 2 Entresto: 24/26 mg p.o. b.i.d. Aspirin: 81 mg daily suggested Prophylactic Lovenox at this time High potency statin (atorvastatin at 40 mg daily) suggested Does have baseline history of elevated/chronically troponin. Abnormal troponin (flat trend) in a patient with end-stage systolic heart failure usually reflects demand physiology. Acute coronary syndrome is not considered at this point. [facility] Request for life vest Recognizing old history of significant heart failure and noncompliance, outcome is poor. Consider restarting hospice Lifestyle and risk factor modifications. Neurology follow up Consider Hematology evaluation for Hemoconcentration / Polycythemia Vera Further evaluation and management depends on the above and clinical course A total of 55 minutes was spent reviewing the patient record, examining the patient, making a diagnostic and therapeutic plan, discussing this plan with medical personnel, following up on diagnostic studies and following the patient for clinical stability excluding any and all procedures. At least 50% of this time was spent in direct, [id number] contact. Thank you for allowing me to participate in this patient's care. Further recommendations will depend on patient's clinical course. Please do not hesitate to contact me if you have any questions or concerns. This medical document was created using electronic medical record system with [employer] dictation system. Although this document has been carefully reviewed, there may still be some phonetic and typographical errors. These areas are purely typographical due to the imperfection of the software programs, and do not reflect any compromise in the patient's medical care. Dietary Evaluation Review Comments: 1) TF Glucerna 1.2Cal @ 70ml/hr x 24 hr along with Pro-stat 1 pk daily. Start @ 30ml/hr, increase 10ml/hr Q4H until goal rate is reached. Water flush 50ml Q4H TF goal volume along with Pro-stat & water flush provide 2016 kcal (100%), 116 gm protein (100%), and 1652ml free water 2) TPN if NPO>7 days 3) Advance diet as medically feasible 4) Continue current plan of care Expected Outcomes/Goals: To meet >75% estimated needs within 7 days Fu 2-3 days Plan discussed with: Patient, Other (nurse) GABRIEL LOPEZ MD Jun 12, 2024 06:54
--- NOTE | 2024-06-12 11:58 | DVHPN2 ---
Progress Note Date Seen: Jun 12, 2024 Resident Creating Document: OSIEL ENRIQUEZ RESIDENT Medical Necessity Reason Pt with a Central, PICC or Fol: Yes The following are medically ne: Ramirez Catheter Reason for ramirez catheter: Strict I&O Subjective Review of Systems Patient seen and examined at the bedside. Patient reported improvement in his nausea and vomiting since yesterday. Patient is able to eat meals today. Patient reports: Feels better Objective vital signs Vital Sign Date Time Temp Pulse Resp B/P (MAP) Pulse Ox O2 Delivery O2 Flow Rate FiO2 06/12/24 08:32 97.6 50 18 113/78 (90) 95 97.6 06/12/24 08:00 Room Air* 0 21 Total Intake and Output 06/11/24 06/11/24 06/12/24 15:00 23:00 07:00 Intake Total 100 ml 765 ml Output Total 750 ml Balance 100 ml 15 ml medications Current Medications Medications Dose Ordered Sig/Lei Route Start Time Stop Time Status Last Admin Dose Admin Ondansetron HCl 4 mg Q4HP PRN IV 05/29/24 20:45 06/11/24 10:38 4 MG Acetaminophen 650 mg Q6HP PRN PO 05/29/24 20:45 06/08/24 22:45 650 MG Nitroglycerin 0.4 mg Q5MINP PRN SL 05/29/24 20:45 Pantoprazole Sodium 40 mg DAILY IV 05/30/24 10:00 06/12/24 09:13 40 MG Furosemide 40 mg BIDD IV 05/30/24 18:00 06/11/24 17:28 40 MG Sacubitril/ Valsartan 1 tab BID PO 05/30/24 10:00 Hold 06/03/24 22:03 1 TAB Aspirin 81 mg DAILY PO 05/30/24 10:00 06/12/24 09:13 81 MG Atorvastatin Calcium 40 mg HS PO 05/30/24 22:00 06/11/24 21:20 40 MG Sodium Chloride 10 ml QSHIFT@10,22 IV 06/02/24 22:00 06/12/24 09:13 10 ML Diphenhydramine HCl 25 mg Q4HP PRN IV 06/04/24 10:45 06/09/24 02:03 25 MG Vancomycin HCl 0 ml @ 0 mls/hr UD IV 06/05/24 09:45 Cancel Amino Acid Protein 30 ml DAILY PO 06/06/24 10:00 06/08/24 10:00 30 ML Zolpidem Tartrate 5 mg HSPRN PRN PO 06/09/24 19:15 06/11/24 21:20 5 MG Potassium Chloride 100 ml @ 50 mls/hr Q2H IV 06/10/24 08:00 06/10/24 13:59 UNV Enoxaparin Sodium 40 mg DAILY SC 06/10/24 10:00 06/12/24 09:14 40 MG Ceftriaxone Sodium/Dextrose 50 ml @ 50 mls/hr DAILY IV 06/11/24 10:00 06/12/24 09:13 50 MLS/HR Promethazine HCl 12.5 mg Q6HP PRN PO 06/10/24 21:15 Sodium Chloride 1,000 ml @ 50 mls/hr Q20H IV 06/11/24 13:59 06/12/24 09:14 50 MLS/HR Sucralfate 1 gm BID@0600,2200 PO 06/11/24 22:00 06/12/24 06:52 1 GM Examination Pt is lying on bed General Appearance: Alert, Oriented X3, Cooperative, Not in acute distress HEENT: Atraumatic, Mucous membranes moist/pink Respiratory: Clear to auscultation, Normal air movement, No added sounds Cardiovascular: Regular rate, Normal S1, Normal S2, No murmurs Abdominal: Active bowel sounds, Soft, no distention, no tenderness Extremities: No edema, Normal pulses, No tenderness/swelling Skin: No Significant rash, except past surgical scars Neuro: Normal speech, sensorimotor deficits none Psych/Mental Status: Mental status NL, Mood NL Nurse was there as sharperone during examination laboratory and microbiology Laboratory Tests 06/12/24 04:49 Test 06/12/24 04:49 Range/Units Serum Glucose 119 H 74-106 mg/dL Microbiology Date/Time Source Procedure Growth Status 06/06/24 13:12 Blood Blood Culture - Final NO GROWTH AFTER 5 DAYS OF INCUBATION. Complete 06/05/24 18:38 Bronchial Washings Gram Stain - Final Complete 06/05/24 18:38 Respiratory Culture - Final Klebsiella pneumoniae Complete 06/04/24 15:40 Urine - Ramirez [place] Urine Culture - Final Complete 05/30/24 20:10 Nose MRSA Screen - Final Complete Labs and/or images reviewed: Labs reviewed by me, Image(s) reviewed by me Problem List/Assessment/Plan Problem List/Assessment/Plan Transaminitis Hypotensive NSTEMI Type 2 DM Systolic heart failure ? NAFLD from diabetes or mild ischemia from the hypotension cardiac problems and STEMI Possibility of gallbladder and biliary tract disease can not be excluded Bacteremia Aspiration pneumonia Plan: -swallow eval done -advanced diet as tolerated - We will recommend to follow the liver functions - Ultrasound of the gallbladder in the liver if not done recently - If abnormal liver enzymes persist may need further evaluation as necessary Thank you so much for the opportunity to consult on your patient. GI team will follow the patient Case an action plan discussed with Dr. Latoya Zuleta. Complex care planning needed total 49 minutes of detailed discussion. The patient and caregiver team agreed to the plan. Plan discussed with: Patient Dietary Evaluation Review Comments: 1) TF Glucerna 1.2Cal @ 70ml/hr x 24 hr along with Pro-stat 1 pk daily. Start @ 30ml/hr, increase 10ml/hr Q4H until goal rate is reached. Water flush 50ml Q4H TF goal volume along with Pro-stat & water flush provide 2016 kcal (100%), 116 gm protein (100%), and 1652ml free water 2) TPN if NPO>7 days 3) Advance diet as medically feasible 4) Continue current plan of care Expected Outcomes/Goals: To meet >75% estimated needs within 7 days Fu 2-3 days OSIEL ENRIQUEZ RESIDENT Jun 12, 2024 11:58
--- NOTE | 2024-06-12 14:04 | DVHPN2 ---
Progress Note - Dictate Date Seen: Jun 12, 2024 Medical Necessity Reason Pt with a Central, PICC or Fol: Yes The following are medically ne: Ramirez Catheter Reason for ramirez catheter: Strict I&O vital signs Vital Sign Date Time Temp Pulse Resp B/P (MAP) Pulse Ox O2 Delivery O2 Flow Rate FiO2 06/12/24 13:00 98.0 76 19 107/75 (86) 96 98.0 06/12/24 08:00 Room Air* 0 21 Total Intake and Output 06/11/24 06/11/24 06/12/24 15:00 23:00 07:00 Intake Total 100 ml 765 ml Output Total 750 ml Balance 100 ml 15 ml medications Current Medications Medications Dose Ordered Sig/Lei Route Start Time Stop Time Status Last Admin Dose Admin Ondansetron HCl 4 mg Q4HP PRN IV 05/29/24 20:45 06/11/24 10:38 4 MG Acetaminophen 650 mg Q6HP PRN PO 05/29/24 20:45 06/08/24 22:45 650 MG Nitroglycerin 0.4 mg Q5MINP PRN SL 05/29/24 20:45 Pantoprazole Sodium 40 mg DAILY IV 05/30/24 10:00 06/12/24 09:13 40 MG Furosemide 40 mg BIDD IV 05/30/24 18:00 06/11/24 17:28 40 MG Sacubitril/ Valsartan 1 tab BID PO 05/30/24 10:00 Hold 06/03/24 22:03 1 TAB Aspirin 81 mg DAILY PO 05/30/24 10:00 06/12/24 09:13 81 MG Atorvastatin Calcium 40 mg HS PO 05/30/24 22:00 06/11/24 21:20 40 MG Sodium Chloride 10 ml QSHIFT@10,22 IV 06/02/24 22:00 06/12/24 09:13 10 ML Diphenhydramine HCl 25 mg Q4HP PRN IV 06/04/24 10:45 06/12/24 12:47 25 MG Vancomycin HCl 0 ml @ 0 mls/hr UD IV 06/05/24 09:45 Cancel Amino Acid Protein 30 ml DAILY PO 06/06/24 10:00 06/08/24 10:00 30 ML Zolpidem Tartrate 5 mg HSPRN PRN PO 06/09/24 19:15 06/11/24 21:20 5 MG Potassium Chloride 100 ml @ 50 mls/hr Q2H IV 06/10/24 08:00 06/10/24 13:59 UNV Enoxaparin Sodium 40 mg DAILY SC 06/10/24 10:00 06/12/24 09:14 40 MG Ceftriaxone Sodium/Dextrose 50 ml @ 50 mls/hr DAILY IV 06/11/24 10:00 06/12/24 09:13 50 MLS/HR Promethazine HCl 12.5 mg Q6HP PRN PO 06/10/24 21:15 Sodium Chloride 1,000 ml @ 50 mls/hr Q20H IV 06/11/24 13:59 06/12/24 09:14 50 MLS/HR Sucralfate 1 gm BID@0600,2200 PO 06/11/24 22:00 06/12/24 06:52 1 GM objective General Appearance: alert, no distress HEENT: EOMI, PERRLA, normal external inspect of ears, no icterus, no nasal drainage Neck: no carotid bruit, no jugular venous distention (JVD), no lymphadenopathy Chest: normal thorax Respiratory: clear to auscultation, normal air movement Cardiovascular: regular rate and rhythm, no diastolic murmur, no jugular venous distention (JVD), no rub, no systolic murmur Abdominal: soft, no hepatomegaly, no mass, no splenomegaly, no tenderness Genitourinary: grossly normal external Musculoskeletal: no joint tenderness, no swelling Extremities: normal pulses, no calf tenderness, no clubbing, no cyanosis, no edema Skin: no bruising, no jaundice, no rash Neurological: alert, No focal deficit laboratory and microbiology Laboratory Tests 06/12/24 04:49 Test 06/12/24 04:49 Range/Units Serum Glucose 119 H 74-106 mg/dL Problem List 1. Acute CVA Monitor, neurology consult 2. Acute on chronic systolic heart failure Monitor, cardiology consult, heparin gtt 3. Drug induced cardiomyopathy Monitor, echocardiogram, cardiology consult 4. Elevated troponin - demand ischemia Monitor EKG, cardiology consult 5. Hx of methamphetamine abuse Monitor, urine drug screen 6. Medical non-manager compliance, PPI 7. Acute hypoxic respiratory failure Monitor, supplemental O2, ventilator management per pulmonary 8. Pneumonia Monitor, antibiotics, pulmonary consult 9. Acute cystitis Monitor, antibiotics 10. Bacteremia Monitor, continue antibiotics, ID consult. 11. Polycythemia vera Monitor, daily labs 12. IZZY with vasomotor nephropathy Monitor, monitor renal function 13. Metabolic encephalopathy Monitor, Neurology consult 14.Sepsis ID consult, IV antibiotics, monitoring [40] minutes of critical care time were spent in evaluating the patient, reviewing the diagnostic data, discussing with the family. Assessment/Plan Subjective: Patient is awake and alert. Objective: I spoke with patient and patients father at bedside. Patient is very emotional today and wants to discharge home. Patient was admitted for sepsis related to pneumonia and UTI. Patient also had bacteremia. Patient was found to have an acute mental status change and had an acute CVA. Patient has polycythemia vera and resolving metabolic encephalopathy. Patient was positive for methamphetamines. Patient has cardiomyopathy; EF is estimated at approximately 10%. Patient was seen by cardiology. Patient will need left heart cath, possibly on Monday, and arrangements for a LifeVest. GI evaluated patient for transaminitis. Patient has been improving total bilirubin. Plan: Continue current treatment. Patient is having severe anxiety and wanting to discharge home. I did order Ativan IV x1 and educated patients father. Continue antibiotics. Discharge planning once heart cath has been done. Continue physical therapy. Patient is slowly progressing. Patient was advanced to regular diet. Dietary Evaluation Review Comments: 1) TF Glucerna 1.2Cal @ 70ml/hr x 24 hr along with Pro-stat 1 pk daily. Start @ 30ml/hr, increase 10ml/hr Q4H until goal rate is reached. Water flush 50ml Q4H TF goal volume along with Pro-stat & water flush provide 2016 kcal (100%), 116 gm protein (100%), and 1652ml free water 2) TPN if NPO>7 days 3) Advance diet as medically feasible 4) Continue current plan of care Expected Outcomes/Goals: To meet >75% estimated needs within 7 days Fu 2-3 days Plan discussed with: Patient, Other JACKIE DILLON [employer] Jun 12, 2024 14:04
[2024-06-12] MEDS ORDERED: ZOLPIDEM TARTRATE 5 MG TAB PO PRN (15:00)
[2024-06-12] MEDS: LORazepam 2MG/ML-1ML VIAL IV ONE (15:11)
--- NOTE | 2024-06-12 20:55 | DVHPN2 ---
Progress Note - Dictate Date Seen: Jun 12, 2024 Medical Necessity Reason Pt with a Central, PICC or Fol: Yes The following are medically ne: Ramirez Catheter Reason for ramirez catheter: Strict I&O Subjective Mr. Castillo is a 43 years old right-handed gentleman with a history of hypertension, diabetes, coronary artery disease, heart attack, congestive heart failure, polycythemia vera, cardiomyopathy, asthma, he came to the [facility] Emergency room on 05/29/2024 with a chief complaint of shortness breath, chest pain. He was extubated on 06/08/2024 I have seen and examined the patient, I have talked to his nurse. He was awake, oriented x3, good social skills Nurse reports anxious earlier today Urinalysis, 05/30/2024: WBC: <1, urine leukocyte esterase: Negative UDS, 05/30/2024, amphetamine, benzo CBC, 05/30/2024: Respiratory acidosis, 06/03/2024: Acidosis WBC/HB/PLT/MCV, 05/30/2024: 10.3/18.1/230/93.8, 06/03/2024: 18.1/19.2/275/95 PT/INR/PTT, 05/30/2024: 12.03/1016/47 05/31/2024: 11.9/1.14/65.5 BMP, 05/30/2024: Unremarkable BUN/CR, 06/03/2024: 26/1.47 TBI/AST/ALT/AP, 05/29/2024: 2.1/46/25/133, 06/03/2024: 1.4/60/15/122 NH3 06/03/24: 30 Troponin one high sensitivity, 05/29/2024: 529, 05/30/2024: 502, 526, TG/HDL/LDL/HDL, 05/30/2024: 62/148/113/36 KI, 06/03/24: 1. Left ventricle: Significant dilatation of Left ventricle with LVEF of around 10% was observed. Diffuse hypokinesis of left ventricle was seen. There was no intraventricular thrombus. . 2. Right ventricle: RV was dilated with reduced systolic function. 3. Left atrium: LA enlarged 4. Right atrium: RA enlarged 5. Mitral valve: Mild Mitral regurgitation, no significant stenosis, normal functioning valve. No vegetation was seen on Mitral valve. 6. Left atrial appendage: No evidence of thrombus. 7. Aortic valve: It was trileaflet. There was no stenosis. There was trace insufficiency. There was no vegetation seen in Aortic valve. 8. Pulmonic valve: Trivial pulmonic insufficiency. No significant stenosis. No vegetation was seen. 9. Tricuspid valve: Mild tricuspid regurgitation. There was no vegetation on Tricuspid valve. 10. Interatrial septum: Negative color flow for shunt was observed. Some bubbles crossed to left atria in favor of small PFO. 11. Pericardium: No significant effusion. 12. Thoracic aorta: No significant plaquing. Echocardiogram, 05/30/2024: Four-chamber dilatation was observed. Left ventricle: Left ventricle was significantly dilated with significantly reduced systolic function. Diffuse hypokinesis of left ventricle was seen. LVEF was 5-10%. LVEDP was assessed to be elevated. Right ventricle was dilated with reduced systolic function. Both atria were dilated. Aortic valve was not well visualized. There was mild aortic insufficiency. There was no aortic stenosis. There was trivial mitral regurgitation. There was mild tricuspid regurgitation. There was trivial pulmonary valve insufficiency. Right ventricular systolic pressure was assessed at 57 mm Hg. IVC was dilated with reduced respiratory variation. There was no pericardial effusion Carotid Doppler, 05/30/2024: No hemodynamically significant stenoses or occlusions identified. CT head, 05/30/2024 1107: No acute intracranial process CT head, 05/30/2024 1856: No abnormality demonstrated. The very small acute/subacute infarct in right frontal lobe and very small old cortical infarct in left parietal lobe seen on the MRI study from earlier the same day are not evident on CT MRI head, 05/30/2024 1041: Small focus of restricted diffusion in the anterior right centrum semiovale likely representing small acute to subacute infarct. There is no evidence of acute hemorrhage (I saw a small DWI lesion in the left cerebellum hemisphere with ADC correlation) MRI head, 05/31/2024: 1. Redemonstration of subcentimeter focus of acute ischemia in the left cerebellar lobe. No intracranial hemorrhage. 2. Redemonstration of subcentimeter focus of DWI hyperintense signal in the right frontal centrum semiovale without corresponding abnormal ADC signal reflecting T2 shine through. No evidence of acute ischemia. 3. Subcentimeter foci abnormal signal in the bilateral cerebellar lobes may reflect chronic infarcts or underlying lesions. Further evaluation with MRI with IV contrast is recommended. 4. 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 vital signs Vital Sign Date Time Temp Pulse Resp B/P (MAP) Pulse Ox O2 Delivery O2 Flow Rate FiO2 06/12/24 16:58 100/64 06/12/24 16:37 98.0 100 17 99 98.0 06/12/24 08:00 Room Air* 0 21 Total Intake and Output 06/11/24 06/11/24 06/12/24 15:00 23:00 07:00 Intake Total 100 ml 765 ml Output Total 750 ml Balance 100 ml 15 ml medications Current Medications Medications Dose Ordered Sig/Lei Route Start Time Stop Time Status Last Admin Dose Admin Ondansetron HCl 4 mg Q4HP PRN IV 05/29/24 20:45 06/11/24 10:38 4 MG Acetaminophen 650 mg Q6HP PRN PO 05/29/24 20:45 06/08/24 22:45 650 MG Nitroglycerin 0.4 mg Q5MINP PRN SL 05/29/24 20:45 Pantoprazole Sodium 40 mg DAILY IV 05/30/24 10:00 06/12/24 09:13 40 MG Furosemide 40 mg BIDD IV 05/30/24 18:00 06/11/24 17:28 40 MG Aspirin 81 mg DAILY PO 05/30/24 10:00 06/12/24 09:13 81 MG Atorvastatin Calcium 40 mg HS PO 05/30/24 22:00 06/11/24 21:20 40 MG Sodium Chloride 10 ml QSHIFT@10,22 IV 06/02/24 22:00 06/12/24 09:13 10 ML Diphenhydramine HCl 25 mg Q4HP PRN IV 06/04/24 10:45 06/12/24 12:47 25 MG Vancomycin HCl 0 ml @ 0 mls/hr UD IV 06/05/24 09:45 Cancel Amino Acid Protein 30 ml DAILY PO 06/06/24 10:00 06/08/24 10:00 30 ML Zolpidem Tartrate 5 mg HSPRN PRN PO 06/09/24 19:15 06/11/24 21:20 5 MG Potassium Chloride 100 ml @ 50 mls/hr Q2H IV 06/10/24 08:00 06/10/24 13:59 UNV Enoxaparin Sodium 40 mg DAILY SC 06/10/24 10:00 06/12/24 09:14 40 MG Ceftriaxone Sodium/Dextrose 50 ml @ 50 mls/hr DAILY IV 06/11/24 10:00 06/12/24 09:13 50 MLS/HR Promethazine HCl 12.5 mg Q6HP PRN PO 06/10/24 21:15 Sodium Chloride 1,000 ml @ 50 mls/hr Q20H IV 06/11/24 13:59 06/12/24 09:14 50 MLS/HR Sucralfate 1 gm BID@0600,2200 PO 06/11/24 22:00 06/12/24 06:52 1 GM Lorazepam 1 mg Q8HP PRN PO 06/12/24 15:00 Zolpidem Tartrate 5 mg HSPRN PRN PO 06/12/24 15:00 Sacubitril/ Valsartan 1 tab BID PO 06/12/24 22:00 objective The patient is well-nourished and well-developed with no distress. MENTAL STATUS: Subjective CRANIAL NERVES: Ppupils are equal round and reactive to light briskly, normal external eye movement, normal sensation and motor examination in the lateral trigeminal nerve distribution, no facial weakness. SENSATION: Okay to pinprick and light touch MOTOR: Normal tone in the upper and lower extremity. Normal muscle bulk. No fasciculations. He moves the arms and legs REFLEXES: Deep tendon reflexes are symmetrical. No pathological reflexes. CEREBELLAR/COORDINATION: Deferred GAIT/STATION: deferred laboratory and microbiology Laboratory Tests 06/12/24 04:49 Test 06/12/24 04:49 Range/Units Serum Glucose 119 H 74-106 mg/dL Problem List Altered mental status resolved Metabolic encephalopathy/hepatic encephalopathy Elevated troponin I/heart attack Multiple acute strokes Cardiomyopathy Congestive heart failure A spell of nonresponsiveness on 05/30/2024 ? Syncope triggered by coughing/arrhythmia ? Seizure activity Heart failure ? Small PFO ? Anxiety Substance abuse Assessment/Plan Monitoring Supportive treatments Aspirin 81 mg daily Lipitor 40 mg daily Lovenox 40 mg subQ daily IV antibiotics Ativan as needed for anxiety GI prophylax/Protonix More recommendation per clinical course This medical document was created using an electronic medical record system with [employer] dictation system. Although this document has been carefully reviewed, there may still be some phonetic and typographical errors. These areas are purely typographical due to imperfections of the software programs, and do not reflect any compromise in the patient's medical care Prognosis poor Dietary Evaluation Review Comments: 1) TF Glucerna 1.2Cal @ 70ml/hr x 24 hr along with Pro-stat 1 pk daily. Start @ 30ml/hr, increase 10ml/hr Q4H until goal rate is reached. Water flush 50ml Q4H TF goal volume along with Pro-stat & water flush provide 2016 kcal (100%), 116 gm protein (100%), and 1652ml free water 2) TPN if NPO>7 days 3) Advance diet as medically feasible 4) Continue current plan of care Expected Outcomes/Goals: To meet >75% estimated needs within 7 days Fu 2-3 days Plan discussed with: Other ZEKE REYNOLDS MD Jun 12, 2024 20:55
--- NOTE | 2024-06-12 21:53 | DVHPN2 ---
Progress Note - Dictate Date Seen: Jun 12, 2024 Medical Necessity Reason Pt with a Central, PICC or Fol: Yes The following are medically ne: Ramirez Catheter Reason for ramirez catheter: Strict I&O Subjective Patient seen and examined at bedside. Breathing comfortably on room air. Overnight events reviewed. vital signs Vital Sign Date Time Temp Pulse Resp B/P (MAP) Pulse Ox O2 Delivery O2 Flow Rate FiO2 06/12/24 16:58 100/64 06/12/24 16:37 98.0 100 17 99 98.0 06/12/24 08:00 Room Air* 0 21 Total Intake and Output 06/11/24 06/11/24 06/12/24 15:00 23:00 07:00 Intake Total 100 ml 765 ml Output Total 750 ml Balance 100 ml 15 ml medications Current Medications Medications Dose Ordered Sig/Lei Route Start Time Stop Time Status Last Admin Dose Admin Ondansetron HCl 4 mg Q4HP PRN IV 05/29/24 20:45 06/11/24 10:38 4 MG Acetaminophen 650 mg Q6HP PRN PO 05/29/24 20:45 06/08/24 22:45 650 MG Nitroglycerin 0.4 mg Q5MINP PRN SL 05/29/24 20:45 Pantoprazole Sodium 40 mg DAILY IV 05/30/24 10:00 06/12/24 09:13 40 MG Furosemide 40 mg BIDD IV 05/30/24 18:00 06/11/24 17:28 40 MG Aspirin 81 mg DAILY PO 05/30/24 10:00 06/12/24 09:13 81 MG Atorvastatin Calcium 40 mg HS PO 05/30/24 22:00 06/11/24 21:20 40 MG Sodium Chloride 10 ml QSHIFT@10,22 IV 06/02/24 22:00 06/12/24 09:13 10 ML Diphenhydramine HCl 25 mg Q4HP PRN IV 06/04/24 10:45 06/12/24 12:47 25 MG Vancomycin HCl 0 ml @ 0 mls/hr UD IV 06/05/24 09:45 Cancel Amino Acid Protein 30 ml DAILY PO 06/06/24 10:00 06/08/24 10:00 30 ML Zolpidem Tartrate 5 mg HSPRN PRN PO 06/09/24 19:15 06/11/24 21:20 5 MG Potassium Chloride 100 ml @ 50 mls/hr Q2H IV 06/10/24 08:00 06/10/24 13:59 UNV Enoxaparin Sodium 40 mg DAILY SC 06/10/24 10:00 06/12/24 09:14 40 MG Ceftriaxone Sodium/Dextrose 50 ml @ 50 mls/hr DAILY IV 06/11/24 10:00 06/12/24 09:13 50 MLS/HR Promethazine HCl 12.5 mg Q6HP PRN PO 06/10/24 21:15 Sodium Chloride 1,000 ml @ 50 mls/hr Q20H IV 06/11/24 13:59 06/12/24 09:14 50 MLS/HR Sucralfate 1 gm BID@0600,2200 PO 06/11/24 22:00 06/12/24 06:52 1 GM Lorazepam 1 mg Q8HP PRN PO 06/12/24 15:00 Zolpidem Tartrate 5 mg HSPRN PRN PO 06/12/24 15:00 Sacubitril/ Valsartan 1 tab BID PO 06/12/24 22:00 objective Gen.: Patient lying in bed in no apparent distress. On room air. Head: Normocephalic, atraumatic. Eyes: EOMI/PERRLA. Ears: Normal hearing. Normal anatomy. Neck/trachea: Trachea midline, supple. Nose: Normal external anatomy. Mouth: Moist mucous membranes. Chest: Decreased air entry bilaterally. No wheezing or rhonchi. Cardiovascular: Positive S1, positive S2. Regular rate and rhythm. Abdomen: Positive bowel sounds in all 4 quadrants. Soft, non-tender, non- distended. : Deferred. Rectal: Deferred. Skin: Warm, dry. Intact. Extremities: 2+ radial pulses bilaterally. No lower extremity edema. Neuro: Awake, alert, oriented x3. No gross motor or sensory deficits. Cranial nerves II through XII intact. Gait not assessed. laboratory and microbiology Laboratory Tests 06/12/24 04:49 Test 06/12/24 04:49 Range/Units Serum Glucose 119 H 74-106 mg/dL Assessment/Plan Impression: Acute hypoxic respiratory failure Mechanical ventilation, s/p extubation Pulmonary hypertension, RVSP 57 mmHg ( Echo with LVEF of 5% to 10%) Atelectasis Acute CVA Acute on chronic systolic heart failure Drug induced cardiomyopathy Elevated troponin Polysubstance abuse Medical non-compliance Polycythemia vera Events: Breathing comfortably on room air. Supplemental oxygen PRN Patient is improved Ambien PRN insomnia Ativan for anxiolytic Monitor hemoglobin Continue antibiotics ID recommendations appreciated Incentive spirometry Tube feeds for nutritional support Diuretics held due to low BP. Monitor renal function Monitor electrolytes. Supplement as necessary. Monitor ins and outs. Polycythemia vera - Hematology recommendations appreciated. Poor EF Status post KI Cardiology recs appreciated S/p therapeutic bronchoscopy with BAL on 06/05/24 for clearing of secretions. Please see procedure note for details Labs and imaging reviewed. Rest of plan as noted below. Plan: S/p extubation on 06/08/24 Supplemental oxygen PRN Titrate to keep O2 sats above 92%. Pulmonary hypertension, RVSP 57 mmHg - Echo showing LVEF of 5% to 10%. On statin Cardiology recs appreciated Pressors as necessary for hemodynamic support Titrate to keep mean arterial pressure greater than 65 mmHg IV fluids with NS at 50 ml/hr. Monitor renal function Monitor electrolytes. Supplement as necessary. Monitor ins and outs. GI prophylaxis - Protonix. DVT prophylaxis - Lovenox SC. Prognosis: Poor given patient's multiple co-morbidities. Rest of plan per hospitalist and other consultants. Thank you, BRANDIN Albright, for allowing me to participate in this patient's care. Further recommendations will depend on the patient's clinical course. Please do not hesitate to contact me if you have any questions or concerns. This medical document was created using an electronic medical record system with [employer] dictation system. Although these documentations are being carefully reviewed, there may still be some phonetic and typographical changes. The errors are purely typographical, due to imperfection on the software program, and do not reflect any compromise in the patient's medical care. Dietary Evaluation Review Comments: 1) TF Glucerna 1.2Cal @ 70ml/hr x 24 hr along with Pro-stat 1 pk daily. Start @ 30ml/hr, increase 10ml/hr Q4H until goal rate is reached. Water flush 50ml Q4H TF goal volume along with Pro-stat & water flush provide 2016 kcal (100%), 116 gm protein (100%), and 1652ml free water 2) TPN if NPO>7 days 3) Advance diet as medically feasible 4) Continue current plan of care Expected Outcomes/Goals: To meet >75% estimated needs within 7 days Fu 2-3 days Plan discussed with: Patient, Other (HONG [place]) NATALIO MÁRQUEZ MD Jun 12, 2024 21:53
[2024-06-12] MEDS: SACUBITRIL-VALSARTAN 24mg/26mg TAB PO SCH (22:13)
--- NOTE | 2024-06-12 22:21 | DVHPN2 ---
Consult Progress Note Date Seen: Jun 11, 2024 Subjective Patient reports: Other (transferred to the floor , breathing on room air , mentating well , no signs of sputum production and lungs sound clear ) Objective vital signs Vital Sign Date Time Temp Pulse Resp B/P (MAP) Pulse Ox O2 Delivery O2 Flow Rate FiO2 06/12/24 21:00 97.8 98 18 98/60 (73) 95 97.8 06/12/24 08:00 Room Air* 0 21 Total Intake and Output 06/11/24 06/11/24 06/12/24 15:00 23:00 07:00 Intake Total 100 ml 765 ml Output Total 750 ml Balance 100 ml 15 ml medications Current Medications Medications Dose Ordered Sig/Lei Route Start Time Stop Time Status Last Admin Dose Admin Ondansetron HCl 4 mg Q4HP PRN IV 05/29/24 20:45 06/11/24 10:38 4 MG Acetaminophen 650 mg Q6HP PRN PO 05/29/24 20:45 06/08/24 22:45 650 MG Nitroglycerin 0.4 mg Q5MINP PRN SL 05/29/24 20:45 Pantoprazole Sodium 40 mg DAILY IV 05/30/24 10:00 06/12/24 09:13 40 MG Furosemide 40 mg BIDD IV 05/30/24 18:00 06/11/24 17:28 40 MG Aspirin 81 mg DAILY PO 05/30/24 10:00 06/12/24 09:13 81 MG Atorvastatin Calcium 40 mg HS PO 05/30/24 22:00 06/12/24 22:13 40 MG Sodium Chloride 10 ml QSHIFT@10,22 IV 06/02/24 22:00 06/12/24 22:10 10 ML Diphenhydramine HCl 25 mg Q4HP PRN IV 06/04/24 10:45 06/12/24 12:47 25 MG Vancomycin HCl 0 ml @ 0 mls/hr UD IV 06/05/24 09:45 Cancel Amino Acid Protein 30 ml DAILY PO 06/06/24 10:00 06/08/24 10:00 30 ML Zolpidem Tartrate 5 mg HSPRN PRN PO 06/09/24 19:15 06/11/24 21:20 5 MG Potassium Chloride 100 ml @ 50 mls/hr Q2H IV 06/10/24 08:00 06/10/24 13:59 UNV Enoxaparin Sodium 40 mg DAILY SC 06/10/24 10:00 06/12/24 09:14 40 MG Ceftriaxone Sodium/Dextrose 50 ml @ 50 mls/hr DAILY IV 06/11/24 10:00 06/12/24 09:13 50 MLS/HR Promethazine HCl 12.5 mg Q6HP PRN PO 06/10/24 21:15 Sodium Chloride 1,000 ml @ 50 mls/hr Q20H IV 06/11/24 13:59 06/12/24 22:10 50 MLS/HR Sucralfate 1 gm BID@0600,2200 PO 06/11/24 22:00 06/12/24 22:13 1 GM Lorazepam 1 mg Q8HP PRN PO 06/12/24 15:00 Zolpidem Tartrate 5 mg HSPRN PRN PO 06/12/24 15:00 Sacubitril/ Valsartan 1 tab BID PO 06/12/24 22:00 06/12/24 22:13 1 TAB Physical Exam: General: NAD Neck: Supple. No masses. HEENT: PERRL. Normal lids and conjunctiva. Moist mucous membranes. Oropharynx without lesions, exudates or excessive erythema. Normal appearance of the external aspects of the nose and ears. Heart: Regular rhythm, normal rate. No murmur. No lower extremity edema. Lungs: Normal respiratory effort. Clear to auscultation bilaterally. No wheezes. No crackles. Abdomen: Soft. Non-tender. Non-distended. No masses or abdominal hernia. Msk: No digital cyanosis. Normal strength and tone in all 4 limbs. Skin: Warm and dry, no rashes. Modeling likely ischemic disease. Neuro: Alert. No facial droop or slurred speech. Extra-ocular movements intact. Sensation intact to soft touch in all 4 limbs. Evidence of acute stroke (left-sided symptoms per MRI report). Psych: Appropriate mood. Full affect. Oriented to person, place, time, and situation laboratory and microbiology Laboratory Tests 06/12/24 04:49 Test 06/12/24 04:49 Range/Units Serum Glucose 119 H 74-106 mg/dL Problem List/Assessment/Plan Problems(with codes): (1) Congestive heart failure due to cardiomyopathy (2) Gram positive bacterial infection (3) CHF exacerbation (4) NSTEMI (non-ST elevated myocardial infarction) (5) Drug-induced cardiomyopathy (6) Aspiration pneumonia Problem List/Assessment/Plan ASSESSMENT AND PLAN ID Problem List: - Septic shock - Acute hypoxic respiratory failure - Aspiration pneumonia (Klebsiella) - Gram-positive cocci bacteremia - Acute systolic and diastolic heart failure - [id number] myocardial infarction (NSTEMI) Type 2 - Ischemic stroke - Polysythemia vera - End-stage renal disease (on hemodialysis, possibly resolved) - Hypertension - Diabetes mellitus - Asthma - Intravenous drug use (amphetamines, benzodiazepines, ongoing) - Medication noncompliance - History of deep vein thrombosis (DVT) and pulmonary embolism (PE), not currently confirmed Assessment: This is a 43-year-old male with significant past medical history including congestive heart failure, hypertension, diabetes mellitus, end-stage renal disease (previously on hemodialysis), asthma, polysythemia vera, and ongoing intravenous drug use, presenting with septic shock, acute hypoxic respiratory failure, aspiration pneumonia, and a complicated hospital course. He was noted to have chest pain, shortness of breath, and recent code event. Imaging revealed acute ischemic stroke. Patient had recent blood clots in multiple locations and was previously medication noncompliant. Admitted for acute decompensated heart failure (cardiomyopathy, LVEF 5-10%), persistent fevers, and required emergent intubation for hypoxia. Sputum culture positive for gram-negative rods (Klebsiella); blood cultures preliminary growth gram-positive cocci. Initial antibiotics with ceftriaxone, transitioned to Zosyn, then vancomycin added due to persistent fevers and rising WBC. Patient has a central line in place. TTE reveals four chamber dilation, biventricular systolic dysfunction, no pericardial effusion. Labs notable for persistent leukocytosis, Hb as high as 19.5 (polycythemia vera), and improving chest imaging but ongoing fever. No current DVTs by Doppler. 06/05: underwent bronchoscopy by Dr Zapata today and there was a right and left lower lobe atelectasis due to mucus plugging in the L6-L10 and R6-R10. right lower lobe BAL performed and cultures sent 06/06: appears to be clinically improving , however is intermittently requiring pressers . lactic acid is at 2.7 , likely secondary to cardiogenic shock , low EF . preliminary cultures are growing gram negative rods , likely klebsiella 06/07: patient is being diuresed , still on pressures but coming down 06/08: patient is coming down on presser needs and improved volume status . blood cultures are positive for staph epidermitis and staph hominids in the same bottle , likely consistent with skin wanda contamination and most recent BAL culture is positive for klebsiella and ammonia that is mckeon sensitive . repeat blood cultures are no growth to date 06/09: blood presser needs are coming down 06/10: Continues to improve clinically , leukocytosis is resolved. Chest xray of 06/08 shows no significant changes , mild congestions on the lungs 06/11: Chest xray has no significant interval changes with mild congestion in the lungs . whitecount remains elevated at 12 and patient is negative for HIV and hepatitis. GPC and blood cultures is staph epidermitis and staph ominous is likely consistent with skin wanda contaminant Plan: - recommend continue IV ceftriaxone to complete a 2 week coarse in setting of severe aspiration pneumonia with propensity to progress through abbesses throughout the body , end of therapy date is 06/15/24 - Continue Ceftriaxone to treat ongoing pneumonia - follow up on GPC in blood culture - recommend repeating blood cultures at this time - patient has a considerably poor prognosis , low EF , would recommend checking lactic acid to confirm patient is responding to antibiotic therapy - may need to be considered for Inotrope defer to cardiology - Repeat and monitor blood cultures to confirm clearance - Continue supportive care for acute hypoxic respiratory failure; monitor ventilator settings; target minimal FiO2 - Serial lactate and creatinine monitoring - Cardiology and primary service to continue management of heart failure and NSTEMI type 2 - Monitor skin for signs of ischemia or evolving lesions - Repeat imaging as clinically indicated - Defer management of drug use and suspected resolved end-stage renal disease; re-evaluate dialysis need - Social work and case management for disposition planning (including possible hospice versus home care if patient preference changes) - Continue close hemodynamic and laboratory monitoring - Infectious Disease service to continue to follow Plan discussed with: Other Dietary Evaluation Review Comments: 1) TF Glucerna 1.2Cal @ 70ml/hr x 24 hr along with Pro-stat 1 pk daily. Start @ 30ml/hr, increase 10ml/hr Q4H until goal rate is reached. Water flush 50ml Q4H TF goal volume along with Pro-stat & water flush provide 2016 kcal (100%), 116 gm protein (100%), and 1652ml free water 2) TPN if NPO>7 days 3) Advance diet as medically feasible 4) Continue current plan of care Expected Outcomes/Goals: To meet >75% estimated needs within 7 days Fu 2-3 days RANDI GLOVER MD Jun 12, 2024 22:21
--- NOTE | 2024-06-12 22:24 | DVHPN2 ---
Consult Progress Note Date Seen: Jun 12, 2024 Subjective Patient reports: Feels better, Other Objective vital signs Vital Sign Date Time Temp Pulse Resp B/P (MAP) Pulse Ox O2 Delivery O2 Flow Rate FiO2 06/12/24 21:00 97.8 98 18 98/60 (73) 95 97.8 06/12/24 08:00 Room Air* 0 21 Total Intake and Output 06/11/24 06/11/24 06/12/24 15:00 23:00 07:00 Intake Total 100 ml 765 ml Output Total 750 ml Balance 100 ml 15 ml medications Current Medications Medications Dose Ordered Sig/Lei Route Start Time Stop Time Status Last Admin Dose Admin Ondansetron HCl 4 mg Q4HP PRN IV 05/29/24 20:45 06/11/24 10:38 4 MG Acetaminophen 650 mg Q6HP PRN PO 05/29/24 20:45 06/08/24 22:45 650 MG Nitroglycerin 0.4 mg Q5MINP PRN SL 05/29/24 20:45 Pantoprazole Sodium 40 mg DAILY IV 05/30/24 10:00 06/12/24 09:13 40 MG Furosemide 40 mg BIDD IV 05/30/24 18:00 06/11/24 17:28 40 MG Aspirin 81 mg DAILY PO 05/30/24 10:00 06/12/24 09:13 81 MG Atorvastatin Calcium 40 mg HS PO 05/30/24 22:00 06/12/24 22:13 40 MG Sodium Chloride 10 ml QSHIFT@10,22 IV 06/02/24 22:00 06/12/24 22:10 10 ML Diphenhydramine HCl 25 mg Q4HP PRN IV 06/04/24 10:45 06/12/24 12:47 25 MG Vancomycin HCl 0 ml @ 0 mls/hr UD IV 06/05/24 09:45 Cancel Amino Acid Protein 30 ml DAILY PO 06/06/24 10:00 06/08/24 10:00 30 ML Zolpidem Tartrate 5 mg HSPRN PRN PO 06/09/24 19:15 06/11/24 21:20 5 MG Potassium Chloride 100 ml @ 50 mls/hr Q2H IV 06/10/24 08:00 06/10/24 13:59 UNV Enoxaparin Sodium 40 mg DAILY SC 06/10/24 10:00 06/12/24 09:14 40 MG Ceftriaxone Sodium/Dextrose 50 ml @ 50 mls/hr DAILY IV 06/11/24 10:00 06/12/24 09:13 50 MLS/HR Promethazine HCl 12.5 mg Q6HP PRN PO 06/10/24 21:15 Sodium Chloride 1,000 ml @ 50 mls/hr Q20H IV 06/11/24 13:59 06/12/24 22:10 50 MLS/HR Sucralfate 1 gm BID@0600,2200 PO 06/11/24 22:00 06/12/24 22:13 1 GM Lorazepam 1 mg Q8HP PRN PO 06/12/24 15:00 Zolpidem Tartrate 5 mg HSPRN PRN PO 06/12/24 15:00 Sacubitril/ Valsartan 1 tab BID PO 06/12/24 22:00 06/12/24 22:13 1 TAB Physical Exam: General: NAD Neck: Supple. No masses. HEENT: PERRL. Normal lids and conjunctiva. Moist mucous membranes. Oropharynx without lesions, exudates or excessive erythema. Normal appearance of the external aspects of the nose and ears. Heart: Regular rhythm, normal rate. No murmur. No lower extremity edema. Lungs: Normal respiratory effort. Clear to auscultation bilaterally. No wheezes. No crackles. Abdomen: Soft. Non-tender. Non-distended. No masses or abdominal hernia. Msk: No digital cyanosis. Normal strength and tone in all 4 limbs. Skin: Warm and dry, no rashes. Modeling likely ischemic disease. Neuro: Alert. No facial droop or slurred speech. Extra-ocular movements intact. Sensation intact to soft touch in all 4 limbs. Evidence of acute stroke (left-sided symptoms per MRI report). Psych: Appropriate mood. Full affect. Oriented to person, place, time, and situation laboratory and microbiology Laboratory Tests 06/12/24 04:49 Test 06/12/24 04:49 Range/Units Serum Glucose 119 H 74-106 mg/dL Problem List/Assessment/Plan Problems(with codes): (1) Congestive heart failure due to cardiomyopathy (2) Gram positive bacterial infection (3) CHF exacerbation (4) NSTEMI (non-ST elevated myocardial infarction) (5) Drug-induced cardiomyopathy (6) Aspiration pneumonia Problem List/Assessment/Plan ASSESSMENT AND PLAN ID Problem List: - Septic shock - Acute hypoxic respiratory failure - Aspiration pneumonia (Klebsiella) - Gram-positive cocci bacteremia - Acute systolic and diastolic heart failure - [id number] myocardial infarction (NSTEMI) Type 2 - Ischemic stroke - Polysythemia vera - End-stage renal disease (on hemodialysis, possibly resolved) - Hypertension - Diabetes mellitus - Asthma - Intravenous drug use (amphetamines, benzodiazepines, ongoing) - Medication noncompliance - History of deep vein thrombosis (DVT) and pulmonary embolism (PE), not currently confirmed Assessment: This is a 43-year-old male with significant past medical history including congestive heart failure, hypertension, diabetes mellitus, end-stage renal disease (previously on hemodialysis), asthma, polysythemia vera, and ongoing intravenous drug use, presenting with septic shock, acute hypoxic respiratory failure, aspiration pneumonia, and a complicated hospital course. He was noted to have chest pain, shortness of breath, and recent code event. Imaging revealed acute ischemic stroke. Patient had recent blood clots in multiple locations and was previously medication noncompliant. Admitted for acute decompensated heart failure (cardiomyopathy, LVEF 5-10%), persistent fevers, and required emergent intubation for hypoxia. Sputum culture positive for gram-negative rods (Klebsiella); blood cultures preliminary growth gram-positive cocci. Initial antibiotics with ceftriaxone, transitioned to Zosyn, then vancomycin added due to persistent fevers and rising WBC. Patient has a central line in place. TTE reveals four chamber dilation, biventricular systolic dysfunction, no pericardial effusion. Labs notable for persistent leukocytosis, Hb as high as 19.5 (polycythemia vera), and improving chest imaging but ongoing fever. No current DVTs by Doppler. 06/05: underwent bronchoscopy by Dr Zapata today and there was a right and left lower lobe atelectasis due to mucus plugging in the L6-L10 and R6-R10. right lower lobe BAL performed and cultures sent 06/06: appears to be clinically improving , however is intermittently requiring pressers . lactic acid is at 2.7 , likely secondary to cardiogenic shock , low EF . preliminary cultures are growing gram negative rods , likely klebsiella 06/07: patient is being diuresed , still on pressures but coming down 06/08: patient is coming down on presser needs and improved volume status . blood cultures are positive for staph epidermitis and staph hominids in the same bottle , likely consistent with skin wanda contamination and most recent BAL culture is positive for klebsiella and ammonia that is mckeon sensitive . repeat blood cultures are no growth to date 06/09: blood presser needs are coming down 06/10: Continues to improve clinically , leukocytosis is resolved. Chest xray of 06/08 shows no significant changes , mild congestions on the lungs 06/11: Chest xray has no significant interval changes with mild congestion in the lungs . whitecount remains elevated at 12 and patient is negative for HIV and hepatitis. GPC and blood cultures is staph epidermitis and staph ominous is likely consistent with skin wanda contaminant 06/12: Pneumonia appears to be resolved Plan: - continue IV ceftriaxone to 06/15/24 and then stop all antibiotics - continue heparin drip - defer to cardiology on timing of left heart cath to further evaluate acute heart failure - Continue Ceftriaxone to treat ongoing pneumonia - follow up on GPC in blood culture - recommend repeating blood cultures at this time - patient has a considerably poor prognosis , low EF , would recommend checking lactic acid to confirm patient is responding to antibiotic therapy - may need to be considered for Inotrope defer to cardiology - Repeat and monitor blood cultures to confirm clearance - Continue supportive care for acute hypoxic respiratory failure; monitor ventilator settings; target minimal FiO2 - Serial lactate and creatinine monitoring - Cardiology and primary service to continue management of heart failure and NSTEMI type 2 - Monitor skin for signs of ischemia or evolving lesions - Repeat imaging as clinically indicated - Defer management of drug use and suspected resolved end-stage renal disease; re-evaluate dialysis need - Social work and case management for disposition planning (including possible hospice versus home care if patient preference changes) - Continue close hemodynamic and laboratory monitoring - Infectious Disease service to continue to follow Plan discussed with: Other Dietary Evaluation Review Comments: 1) TF Glucerna 1.2Cal @ 70ml/hr x 24 hr along with Pro-stat 1 pk daily. Start @ 30ml/hr, increase 10ml/hr Q4H until goal rate is reached. Water flush 50ml Q4H TF goal volume along with Pro-stat & water flush provide 2016 kcal (100%), 116 gm protein (100%), and 1652ml free water 2) TPN if NPO>7 days 3) Advance diet as medically feasible 4) Continue current plan of care Expected Outcomes/Goals: To meet >75% estimated needs within 7 days Fu 2-3 days RANDI GLOVER MD Jun 12, 2024 22:24
[2024-06-13 01:00] VITALS: BP 103/68; PULSE 86; RESP 18; TEMP 97.8; O2SAT 97
[2024-06-13 05:00] VITALS: BP 100/75; PULSE 91; RESP 17; TEMP 98; O2SAT 98
--- NOTE | 2024-06-13 07:19 | DVHPN2 ---
Progress Note - Dictate Medical Necessity Reason Pt with a Central, PICC or Fol: Yes The following are medically ne: Ramirez Catheter Reason for ramirez catheter: Strict I&O vital signs Vital Sign Date Time Temp Pulse Resp B/P (MAP) Pulse Ox O2 Delivery O2 Flow Rate FiO2 06/13/24 05:59 122/87 06/13/24 05:00 98.0 91 17 98 98.0 06/12/24 20:00 Room Air* 0 21 Total Intake and Output 06/12/24 06/12/24 06/13/24 15:00 23:00 07:00 Intake Total 50 ml 1020 ml 500 ml Output Total 900 ml 2700 ml Balance 50 ml 120 ml -2200 ml medications Current Medications Medications Dose Ordered Sig/Lei Route Start Time Stop Time Status Last Admin Dose Admin Ondansetron HCl 4 mg Q4HP PRN IV 05/29/24 20:45 06/11/24 10:38 4 MG Acetaminophen 650 mg Q6HP PRN PO 05/29/24 20:45 06/08/24 22:45 650 MG Nitroglycerin 0.4 mg Q5MINP PRN SL 05/29/24 20:45 Pantoprazole Sodium 40 mg DAILY IV 05/30/24 10:00 06/12/24 09:13 40 MG Furosemide 40 mg BIDD IV 05/30/24 18:00 06/11/24 17:28 40 MG Aspirin 81 mg DAILY PO 05/30/24 10:00 06/12/24 09:13 81 MG Atorvastatin Calcium 40 mg HS PO 05/30/24 22:00 06/12/24 22:13 40 MG Sodium Chloride 10 ml QSHIFT@10,22 IV 06/02/24 22:00 06/12/24 22:10 10 ML Diphenhydramine HCl 25 mg Q4HP PRN IV 06/04/24 10:45 06/12/24 12:47 25 MG Vancomycin HCl 0 ml @ 0 mls/hr UD IV 06/05/24 09:45 Cancel Amino Acid Protein 30 ml DAILY PO 06/06/24 10:00 06/08/24 10:00 30 ML Zolpidem Tartrate 5 mg HSPRN PRN PO 06/09/24 19:15 06/13/24 02:13 5 MG Potassium Chloride 100 ml @ 50 mls/hr Q2H IV 06/10/24 08:00 06/10/24 13:59 UNV Enoxaparin Sodium 40 mg DAILY SC 06/10/24 10:00 06/12/24 09:14 40 MG Ceftriaxone Sodium/Dextrose 50 ml @ 50 mls/hr DAILY IV 06/11/24 10:00 06/12/24 09:13 50 MLS/HR Promethazine HCl 12.5 mg Q6HP PRN PO 06/10/24 21:15 Sodium Chloride 1,000 ml @ 50 mls/hr Q20H IV 06/11/24 13:59 06/12/24 22:10 50 MLS/HR Sucralfate 1 gm BID@0600,2200 PO 06/11/24 22:00 06/13/24 05:52 1 GM Lorazepam 1 mg Q8HP PRN PO 06/12/24 15:00 Zolpidem Tartrate 5 mg HSPRN PRN PO 06/12/24 15:00 Sacubitril/ Valsartan 1 tab BID PO 06/12/24 22:00 06/12/24 22:13 1 TAB objective General Appearance: alert, no distress HEENT: EOMI, PERRLA, normal external inspect of ears, no icterus, no nasal drainage Neck: no carotid bruit, no jugular venous distention (JVD), no lymphadenopathy Chest: normal thorax Respiratory: clear to auscultation, normal air movement Cardiovascular: regular rate and rhythm, no diastolic murmur, no jugular venous distention (JVD), no rub, no systolic murmur Abdominal: soft, no hepatomegaly, no mass, no splenomegaly, no tenderness Genitourinary: grossly normal external Musculoskeletal: no joint tenderness, no swelling Extremities: normal pulses, no calf tenderness, no clubbing, no cyanosis, no edema Skin: no bruising, no jaundice, no rash Neurological: alert, No focal deficit laboratory and microbiology Laboratory Tests 06/12/24 04:49 Test 06/12/24 04:49 Range/Units Serum Glucose 119 H 74-106 mg/dL Problem List 1. Acute CVA Monitor, neurology consult 2. Acute on chronic systolic heart failure Monitor, cardiology consult, heparin gtt 3. Drug induced cardiomyopathy Monitor, echocardiogram, cardiology consult 4. Elevated troponin - demand ischemia Monitor EKG, cardiology consult 5. Hx of methamphetamine abuse Monitor, urine drug screen 6. 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 Acute hypoxic respiratory failure Monitor, supplemental O2, ventilator management per pulmonary 8. Pneumonia Monitor, antibiotics, pulmonary consult 9. Acute cystitis Monitor, antibiotics 10. Bacteremia Monitor, continue antibiotics, ID consult. 11. Polycythemia vera Monitor, daily labs 12. IZZY with vasomotor nephropathy Monitor, monitor renal function 13. Metabolic encephalopathy Monitor, Neurology consult 14.Sepsis ID consult, IV antibiotics, monitoring [40] minutes of critical care time were spent in evaluating the patient, reviewing the diagnostic data, discussing with the family. Assessment/Plan Subjective: Patient is awake and alert. Objective: I spoke with patient and patients father at bedside. Patient is very emotional today and wants to discharge home. Patient was admitted for sepsis related to pneumonia and UTI. Patient also had bacteremia. Patient was found to have an acute mental status change and had an acute CVA. Patient has polycythemia vera and resolving metabolic encephalopathy. Patient was positive for methamphetamines. Patient has cardiomyopathy; EF is estimated at approximately 10%. Patient was seen by cardiology. Patient will need left heart cath, possibly on Monday, and arrangements for a LifeVest. GI evaluated patient for transaminitis. Patient has been improving total bilirubin. Plan: Continue current treatment. Patient is having severe anxiety and wanting to discharge home. I did order Ativan IV x1 and educated patients father. Continue antibiotics. Discharge planning once heart cath has been done. Continue physical therapy. Patient is slowly progressing. Patient was advanced to regular diet. Dietary Evaluation Review Comments: 1) TF Glucerna 1.2Cal @ 70ml/hr x 24 hr along with Pro-stat 1 pk daily. Start @ 30ml/hr, increase 10ml/hr Q4H until goal rate is reached. Water flush 50ml Q4H TF goal volume along with Pro-stat & water flush provide 2016 kcal (100%), 116 gm protein (100%), and 1652ml free water 2) TPN if NPO>7 days 3) Advance diet as medically feasible 4) Continue current plan of care Expected Outcomes/Goals: To meet >75% estimated needs within 7 days Fu 2-3 days JACKIE DILLON BRAIN SURGEON Jun 13, 2024 07:19
--- NOTE | 2024-06-13 07:33 | DVHPN2 ---
Progress Note - Dictate Date Seen: Jun 13, 2024 Medical Necessity Reason Pt with a Central, PICC or Fol: Yes The following are medically ne: Ramirez Catheter Reason for ramirez catheter: Strict I&O vital signs Vital Sign Date Time Temp Pulse Resp B/P (MAP) Pulse Ox O2 Delivery O2 Flow Rate FiO2 06/13/24 05:59 122/87 06/13/24 05:00 98.0 91 17 98 98.0 06/12/24 20:00 Room Air* 0 21 Total Intake and Output 06/12/24 06/12/24 06/13/24 15:00 23:00 07:00 Intake Total 50 ml 1020 ml 500 ml Output Total 900 ml 2700 ml Balance 50 ml 120 ml -2200 ml medications Current Medications Medications Dose Ordered Sig/Lei Route Start Time Stop Time Status Last Admin Dose Admin Ondansetron HCl 4 mg Q4HP PRN IV 05/29/24 20:45 06/11/24 10:38 4 MG Acetaminophen 650 mg Q6HP PRN PO 05/29/24 20:45 06/08/24 22:45 650 MG Nitroglycerin 0.4 mg Q5MINP PRN SL 05/29/24 20:45 Pantoprazole Sodium 40 mg DAILY IV 05/30/24 10:00 06/12/24 09:13 40 MG Furosemide 40 mg BIDD IV 05/30/24 18:00 06/11/24 17:28 40 MG Aspirin 81 mg DAILY PO 05/30/24 10:00 06/12/24 09:13 81 MG Atorvastatin Calcium 40 mg HS PO 05/30/24 22:00 06/12/24 22:13 40 MG Sodium Chloride 10 ml QSHIFT@10,22 IV 06/02/24 22:00 06/12/24 22:10 10 ML Diphenhydramine HCl 25 mg Q4HP PRN IV 06/04/24 10:45 06/12/24 12:47 25 MG Vancomycin HCl 0 ml @ 0 mls/hr UD IV 06/05/24 09:45 Cancel Amino Acid Protein 30 ml DAILY PO 06/06/24 10:00 06/08/24 10:00 30 ML Zolpidem Tartrate 5 mg HSPRN PRN PO 06/09/24 19:15 06/13/24 02:13 5 MG Potassium Chloride 100 ml @ 50 mls/hr Q2H IV 06/10/24 08:00 06/10/24 13:59 UNV Enoxaparin Sodium 40 mg DAILY SC 06/10/24 10:00 06/12/24 09:14 40 MG Ceftriaxone Sodium/Dextrose 50 ml @ 50 mls/hr DAILY IV 06/11/24 10:00 06/12/24 09:13 50 MLS/HR Promethazine HCl 12.5 mg Q6HP PRN PO 06/10/24 21:15 Sodium Chloride 1,000 ml @ 50 mls/hr Q20H IV 06/11/24 13:59 06/12/24 22:10 50 MLS/HR Sucralfate 1 gm BID@0600,2200 PO 06/11/24 22:00 06/13/24 05:52 1 GM Lorazepam 1 mg Q8HP PRN PO 06/12/24 15:00 Zolpidem Tartrate 5 mg HSPRN PRN PO 06/12/24 15:00 Sacubitril/ Valsartan 1 tab BID PO 06/12/24 22:00 06/12/24 22:13 1 TAB laboratory and microbiology Laboratory Tests 06/12/24 04:49 Test 06/12/24 04:49 Range/Units Serum Glucose 119 H 74-106 mg/dL Assessment/Plan Extubated. Lying flat in bed and not in acute distress. Not on pressor support. Patient is a 43-year-old gentleman who presented with few weeks of worsening shortness of breath/generalized swelling/nausea/and some diarrhea. He is known to have systolic heart failure. He has ran out of his medications for the past few weeks. He mentions that he was on hospice before hand and he wanted to come off of it. He does have baseline history of methamphetamine abuse and mentions that he used it few days ago. He does have baseline history of noncompliance with medication and followups. Previously he was homeless. Now he says that she is renting a place. Cardiology was involved for cardiac aspects of care. It is of note that the patient does have chronic elevated troponin from prior admissions. No JVD. Mucosa is pink and wet. Scattered crackles in the lungs is heard. Cardiac: Regular, no thrill. Systolic murmur 3/6 in apex is heard. History gallop is heard. Abdomen is soft and mildly distended. Bowel sound is positive. There is no abdominal tenderness. Questionable hepatomegaly can not be elicited. Extremities reveal 2+ edema bilaterally. Dorsalis pedis is 2+ bilateral. Past medical history includes diabetes mellitus, hypertension, systolic heart failure, polycythemia vera (as per patient), asthma, CKD, history of substance abuse cardiomyopathy, history of meth abuse and also history of chronic elevated troponin. Previously he was homeless. Previously he was on hospice. Echocardiogram of December 08, 2023 revealed four-chamber dilatation, ejection fraction of 5-10%, mild mitral regurgitation and tricuspid regurgitation. BNP: 641.20 Troponin (high sensitive): 529 - 502 - 526 - 486 - 422 - 436 - 437 D-dimer: 0.32 Urine tox was positive for Amphetamine and Benzodiazepine Chest x-ray revealed: IMPRESSION: Cardiomegaly with increased interstitial prominence which may be due to CHF and/or reactive airways disease. Repeat chest xry revealed: Endotracheal tube is in good position of the level of the clavicles. Nasogastric tube is in the stomach. There is cardiomegaly with an enlarged left ventricle. There is significant pulmonary vascular congestion. Impression congestive heart failure pattern. If patient has not had a recent cardiac echo I would recommend cardiac echo Repeat chest xry revealed: IMPRESSION: 1. congestive heart failure pattern. Repeat chest xry revealed: FINDINGS: Lines and Tubes: Endotracheal tube and enteric catheter in satisfactory position. Lungs: Patchy bilateral airspace disease Pleura: No effusion. No pneumothorax. Cardiomediastinal contours: Cardiomegaly Bones: Unremarkable IMPRESSION: Lines and tubes in satisfactory position. No significant interval change. Repeat chest xry revealed: IMPRESSION: Lines and tubes in satisfactory position. No significant interval change. Repeat chest xry revealed: IMPRESSION: Cardiomegaly with mild congestion. Repeat chest xry revealed: IMPRESSION: Lines and tubes in satisfactory position. No significant interval change. Repeat chest xry revealed: IMPRESSION: Cardiomegaly with mild congestion. Repeat chest xry revealed: IMPRESSION: 1. Mild pulmonary congestion. 2. Cardiomegaly. MRI of brain revealed: 1. Small focus of restricted diffusion in the anterior right centrum semiovale likely representing small acute to subacute infarct. There is no evidence of acute hemorrhage. Repeat MRI of brain revealed: IMPRESSION: 1. Redemonstration of subcentimeter focus of acute ischemia in the left cerebellar lobe. No intracranial hemorrhage. 2. Redemonstration of subcentimeter focus of DWI hyperintense signal in the right frontal centrum semiovale without corresponding abnormal ADC signal reflecting T2 shine through. No evidence of acute ischemia. 3. Subcentimeter foci abnormal signal in the bilateral cerebellar lobes may reflect chronic infarcts or underlying lesions. Further evaluation with MRI with IV contrast is recommended. 4. 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. CT of head revealed: IMPRESSION: 1. No acute intracranial process. Repeat CT of head revealed: IMPRESSION: No abnormality demonstrated. The very small acute/subacute infarct in right frontal lobe and very small old cortical infarct in left parietal lobe seen on the MRI study from earlier the same day are not evident on CT. Carotid ultrasound revealed: IMPRESSION: No hemodynamically significant stenoses or occlusions identified. Chest CT revealed: IMPRESSION: 1. Cardiomegaly. 2. Scattered coronary artery calcifications 3. Endotracheal tube in place terminating above the nicola. 4. Enteric tube in the stomach. Lower ext venous duplex revealed: IMPRESSION: No sonographic evidence of deep venous thrombosis in either lower extremity at this time. Right upper ext venous ultrasound revealed: IMPRESSION: No sonographic evidence of deep venous thrombosis in either upper extremity at this time. Renal Ultrasound revealed: IMPRESSION: 1. Left renal atrophy. No intrarenal calculi. Tele reveals sinus rhythm Echocardiogram revealed: Four-chamber dilatation was observed. Left ventricle: Left ventricle was significantly dilated with significantly reduced systolic function. Diffuse hypokinesis of left ventricle was seen. LVEF was 5-10%. LVEDP was assessed to be elevated. Right ventricle was dilated with reduced systolic function. Both atria were dilated. Aortic valve was not well visualized. There was mild aortic insufficiency. There was no aortic stenosis. There was trivial mitral regurgitation. There was mild tricuspid regurgitation. There was trivial pulmonary valve insufficiency. Right ventricular systolic pressure was assessed at 57 mm Hg. IVC was dilated with reduced respiratory variation. There was no pericardial effusion KI: Severe dilatation of LV with reduced LV systolic function. No Cardiac source for Emboli. Positive bubble study questions small PFO (PFO itself could not be visualized) Patient is a 43-year-old gentleman who presented with weeks of worsening shortness of breath cough/nausea and vomiting. Does have baseline history of systolic heart failure. Has been noncompliant with medication and followups. Acute on chronic systolic heart failure could have contributed to the clinical picture. Does have baseline history of methamphetamine abuse which could have contributed to the clinical picture. He is noncompliant with medication and followups which could have contributed to the clinical picture. Does have baseline history of elevated/chronically troponin. Abnormal troponin in a patient with end-stage systolic heart failure usually reflects demand physiology. Acute coronary syndrome is not considered at this point. Had AMS and later had respiratory failure. Intubated and brought to [facility]/ICU. He is found to have acute/subacute CVA. Is being followed by Neurology. KI performed: no source for Emboli. Still, Positive Bubble study questions PFO (PFO itself could not be visualized: maybe too small). Still, there was no recent DVT also (negative venous duplex). Acute on chronic systolic heart failure Drug-induced cardiomyopathy CKD Polycythemia vera removal Diabetes mellitus Noncompliant with medication and followups Substance abuse AMS Acute/subacute CVA Cardiac suggestion for management: Manage in tele Diuresis Follow-up electrolytes and kidney function tests and correct abnormalities. Keep potassium above 4 and magnesium above 2 Entresto: 24/26 mg p.o. b.i.d. Aspirin: 81 mg daily suggested Prophylactic Lovenox at this time High potency statin (atorvastatin at 40 mg daily) suggested Does have baseline history of elevated/chronically troponin. Abnormal troponin (flat trend) in a patient with end-stage systolic heart failure usually reflects demand physiology. Acute coronary syndrome is not considered at this point. [facility] tentatively on Monday Life vest Recognizing old history of significant heart failure and noncompliance, outcome is poor. Consider restarting hospice Lifestyle and risk factor modifications. Neurology follow up Consider Hematology evaluation for Hemoconcentration / Polycythemia Vera Further evaluation and management depends on the above and clinical course A total of 55 minutes was spent reviewing the patient record, examining the patient, making a diagnostic and therapeutic plan, discussing this plan with medical personnel, following up on diagnostic studies and following the patient for clinical stability excluding any and all procedures. At least 50% of this time was spent in direct, [id number] contact. Thank you for allowing me to participate in this patient's care. Further recommendations will depend on patient's clinical course. Please do not hesitate to contact me if you have any questions or concerns. This medical document was created using electronic medical record system with MModal computerized dictation system. Although this document has been carefully reviewed, there may still be some phonetic and typographical errors. These areas are purely typographical due to the imperfection of the software programs, and do not reflect any compromise in the patient's medical care. Dietary Evaluation Review Comments: 1) TF Glucerna 1.2Cal @ 70ml/hr x 24 hr along with Pro-stat 1 pk daily. Start @ 30ml/hr, increase 10ml/hr Q4H until goal rate is reached. Water flush 50ml Q4H TF goal volume along with Pro-stat & water flush provide 2016 kcal (100%), 116 gm protein (100%), and 1652ml free water 2) TPN if NPO>7 days 3) Advance diet as medically feasible 4) Continue current plan of care Expected Outcomes/Goals: To meet >75% estimated needs within 7 days Fu 2-3 days Plan discussed with: Patient, Other (nurse) GABRIEL LOPEZ MD Jun 13, 2024 07:33
[2024-06-13 08:00] VITALS: PULSE 81; RESP 17; O2SAT 95
[2024-06-13 08:18] LABS: Basophils # (auto) 0.1 10 ^3/uL (0-0.2); Basophils % (auto) 0.6 % (0.0-2.0); Eosinophils # (auto) 0.2 10 ^3/uL (0-0.8); Lymphocytes # (auto) 1.4 10 ^3/uL (0.4-5.4); Mean Corpuscular Volume 89.8 fL (80.0-100.0); Nucleated Red Blood Cells % 0.1 %; White Blood Cell 10.2 10^3/uL (4.4-10.8)
[2024-06-13 08:20] LABS: Eosinophils % (auto) 1.9 % (0.0-7.0); Hematocrit 55.2 % (41.0-53.0); Lymphocytes % (auto) 14.2 % (10.0-50.0); Mean Corpuscular Hemoglobin 30.9 pg (28.0-32.0); Mean Corpuscular Hgb Conc. 34.4 g/dL (32.0-36.0); Monocytes # (auto) 0.8 10 ^3/uL (0-1.3); Monocytes % (auto) 8.2 % (0.0-12.0); Neutrophils # (auto) 7.7 10 ^3/uL (1.6-8.6); Neutrophils % (auto) 75.1 % (37.0-80.0); Platelet Count (auto) 511 10^3/uL (140-450); Red Blood Cells 6.15 10^6/uL (4.5-5.90); Red Cell Distribution Width 14.3 % (11.8-14.3)
[2024-06-13 08:21] LABS: Chloride 103 mmol/L (98-107); Sodium 137 mmol/L (136-145)
[2024-06-13 08:22] LABS: Anion Gap 10 (5-15); Calcium 9.1 mg/dL (8.7-10.4); Carbon Dioxide 24 mmol/L (20-31)
[2024-06-13 08:27] LABS: BUN/Creatinine Ratio 14.9 (10.0-20.0); Blood Urea Nitrogen 10 mg/dL (9-23); Magnesium 2.1 mg/dL (1.6-2.6)
[2024-06-13 08:29] LABS: Phosphorus 2.9 mg/dL (2.4-5.1)
[2024-06-13 08:31] LABS: Glucose 144 mg/dL (74-106); Potassium 3.1 mmol/L (3.5-5.1)
[2024-06-13 08:35] VITALS: BP 114/87; PULSE 52; RESP 17; TEMP 97.6; O2SAT 99
[2024-06-13] MEDS: LORazepam 0.5 MG TAB PO PRN (09:44)
--- NOTE | 2024-06-13 10:50 | DVHPN2 ---
Progress Note Date Seen: Jun 13, 2024 Resident Creating Document: OSIEL ENRIQUEZ RESIDENT Medical Necessity Reason Pt with a Central, PICC or Fol: Yes The following are medically ne: Ramirez Catheter Reason for ramirez catheter: Strict I&O Subjective Review of Systems Patient seen and examined at the bedside. Patient reported no active GI complaints but patient is reporting that he has been anxious and depressed so patient may benefit from tele psychiatric consultation. Changes from previous H/P or p: No Changes Objective vital signs Vital Sign Date Time Temp Pulse Resp B/P (MAP) Pulse Ox O2 Delivery O2 Flow Rate FiO2 06/13/24 08:35 97.6 52 17 114/87 (96) 99 97.6 06/12/24 20:00 Room Air* 0 21 Total Intake and Output 06/12/24 06/12/24 06/13/24 14:59 22:59 06:59 Intake Total 50 ml 1020 ml 500 ml Output Total 900 ml 2700 ml Balance 50 ml 120 ml -2200 ml medications Current Medications Medications Dose Ordered Sig/Lei Route Start Time Stop Time Status Last Admin Dose Admin Ondansetron HCl 4 mg Q4HP PRN IV 05/29/24 20:45 06/11/24 10:38 4 MG Acetaminophen 650 mg Q6HP PRN PO 05/29/24 20:45 06/08/24 22:45 650 MG Nitroglycerin 0.4 mg Q5MINP PRN SL 05/29/24 20:45 Pantoprazole Sodium 40 mg DAILY IV 05/30/24 10:00 06/13/24 09:30 40 MG Furosemide 40 mg BIDD IV 05/30/24 18:00 06/11/24 17:28 40 MG Aspirin 81 mg DAILY PO 05/30/24 10:00 06/13/24 09:31 81 MG Atorvastatin Calcium 40 mg HS PO 05/30/24 22:00 06/12/24 22:13 40 MG Sodium Chloride 10 ml QSHIFT@10,22 IV 06/02/24 22:00 06/13/24 09:32 10 ML Diphenhydramine HCl 25 mg Q4HP PRN IV 06/04/24 10:45 06/12/24 12:47 25 MG Vancomycin HCl 0 ml @ 0 mls/hr UD IV 06/05/24 09:45 Cancel Amino Acid Protein 30 ml DAILY PO 06/06/24 10:00 06/08/24 10:00 30 ML Zolpidem Tartrate 5 mg HSPRN PRN PO 06/09/24 19:15 06/13/24 02:13 5 MG Potassium Chloride 100 ml @ 50 mls/hr Q2H IV 06/10/24 08:00 06/10/24 13:59 UNV Enoxaparin Sodium 40 mg DAILY SC 06/10/24 10:00 06/13/24 09:32 40 MG Ceftriaxone Sodium/Dextrose 50 ml @ 50 mls/hr DAILY IV 06/11/24 10:00 06/13/24 09:32 50 MLS/HR Promethazine HCl 12.5 mg Q6HP PRN PO 06/10/24 21:15 Sodium Chloride 1,000 ml @ 50 mls/hr Q20H IV 06/11/24 13:59 06/12/24 22:10 50 MLS/HR Sucralfate 1 gm BID@0600,2200 PO 06/11/24 22:00 06/13/24 05:52 1 GM Lorazepam 1 mg Q8HP PRN PO 06/12/24 15:00 06/13/24 09:44 1 MG Zolpidem Tartrate 5 mg HSPRN PRN PO 06/12/24 15:00 Sacubitril/ Valsartan 1 tab BID PO 06/12/24 22:00 06/13/24 09:31 1 TAB Examination Pt is lying on bed General Appearance: Alert, Oriented X3, Cooperative, Not in acute distress HEENT: Atraumatic, Mucous membranes moist/pink Respiratory: Clear to auscultation, Normal air movement, No added sounds Cardiovascular: Regular rate, Normal S1, Normal S2, No murmurs Abdominal: Active bowel sounds, Soft, no distention, no tenderness Extremities: No edema, Normal pulses, No tenderness/swelling Skin: No Significant rash, except past surgical scars Neuro: Normal speech, sensorimotor deficits none Psych/Mental Status: Mental status NL, Mood NL Nurse was there as sharperone during examination laboratory and microbiology Laboratory Tests 06/13/24 07:49 Test 06/13/24 07:49 Range/Units Serum Glucose 144 H 74-106 mg/dL Microbiology Date/Time Source Procedure Growth Status 06/06/24 13:12 Blood Blood Culture - Final NO GROWTH AFTER 5 DAYS OF INCUBATION. Complete 06/05/24 18:38 Bronchial Washings Gram Stain - Final Complete 06/05/24 18:38 Respiratory Culture - Final Klebsiella pneumoniae Complete 06/04/24 15:40 Urine - Ramirez [place] Urine Culture - Final Complete 05/30/24 20:10 Nose MRSA Screen - Final Complete Labs and/or images reviewed: Labs reviewed by me, Image(s) reviewed by me Problem List/Assessment/Plan Problem List/Assessment/Plan Transaminitis Hypotensive NSTEMI Type 2 DM Systolic heart failure ? NAFLD from diabetes or mild ischemia from the hypotension cardiac problems and STEMI Possibility of gallbladder and biliary tract disease can not be excluded Bacteremia Aspiration pneumonia Plan: -swallow eval done -advanced diet as tolerated - We will recommend to follow the liver functions - Ultrasound of the gallbladder in the liver if not done recently - If abnormal liver enzymes persist may need further evaluation as necessary -patient feeling depressed and anxious, not able to sleep patient would be benefit from tele psychiatric consult with a possible strong medications. -patient is likely scheduled for coronary angiogram tomorrow. Thank you so much for the opportunity to consult on your patient. GI team will follow the patient Case an action plan discussed with Dr. Latoya Zuleta. Complex care planning needed total 49 minutes of detailed discussion. The patient and caregiver team agreed to the plan. Plan discussed with: Patient Dietary Evaluation Review Comments: 1) TF Glucerna 1.2Cal @ 70ml/hr x 24 hr along with Pro-stat 1 pk daily. Start @ 30ml/hr, increase 10ml/hr Q4H until goal rate is reached. Water flush 50ml Q4H TF goal volume along with Pro-stat & water flush provide 2016 kcal (100%), 116 gm protein (100%), and 1652ml free water 2) TPN if NPO>7 days 3) Advance diet as medically feasible 4) Continue current plan of care Expected Outcomes/Goals: To meet >75% estimated needs within 7 days Fu 2-3 days OSIEL ENRIQUEZ RESIDENT Jun 13, 2024 10:50
[2024-06-13 13:00] VITALS: BP 112/89; PULSE 81; RESP 17; TEMP 98.1; O2SAT 97
[2024-06-13] MEDS: POTASSIUM CHL 20MEQ/50ML 50 ML IV SCH (15:04)
[2024-06-13] MEDS ORDERED: SODIUM CHLORIDE 0.9% 1,000 ML IV SCH (18:30)
--- NOTE | 2024-06-13 20:30 | DVHDS2 ---
Discharge Summary Date of Admission May 29, 2024 at 20:35 Date of Discharge: Jun 13, 2024 Labs/Diagnostic Data: Laboratory Results Test 06/13/24 07:49 06/12/24 04:49 06/09/24 19:10 06/08/24 10:59 White Blood Count 10.2 10^3/uL (4.4-10.8) Red Blood Count 6.15 10^6/uL (4.5-5.90) Hemoglobin 19.0 g/dL (13.5-17.5) Hematocrit 55.2 % (41.0-53.0) Mean Corpuscular Volume 89.8 fL (80.0-100.0) Mean Corpuscular Hemoglobin 30.9 pg (28.0-32.0) Mean Corpuscular Hemoglobin Concent 34.4 g/dL (32.0-36.0) Red Cell Distribution Width 14.3 % (11.8-14.3) Platelet Count 511 10^3/uL (140-450) Mean Platelet Volume 7.6 fL (6.9-10.8) Neutrophils (%) (Auto) 75.1 % (37.0-80.0) Lymphocytes (%) (Auto) 14.2 % (10.0-50.0) Monocytes (%) (Auto) 8.2 % (0.0-12.0) Eosinophils (%) (Auto) 1.9 % (0.0-7.0) Basophils (%) (Auto) 0.6 % (0.0-2.0) Neutrophils # (Auto) 7.7 10 ^3/uL (1.6-8.6) Lymphocytes # (Auto) 1.4 10 ^3/uL (0.4-5.4) Monocytes # (Auto) 0.8 10 ^3/uL (0-1.3) Eosinophils # (Auto) 0.2 10 ^3/uL (0-0.8) Basophils # (Auto) 0.1 10 ^3/uL (0-0.2) Nucleated Red Blood Cells 0.1 % Sodium Level 137 mmol/L (136-145) Potassium Level 3.1 mmol/L (3.5-5.1) Chloride Level 103 mmol/L (98-107) Carbon Dioxide Level 24 mmol/L (20-31) Anion Gap 10 (5-15) Blood Urea Nitrogen 10 mg/dL (9-23) Creatinine 0.67 mg/dL (0.700-1.30) Glomerular Filtration Rate Calc 120 mL/min (>90) BUN/Creatinine Ratio 14.9 (10.0-20.0) Serum Glucose 144 mg/dL (74-106) Calcium Level 9.1 mg/dL (8.7-10.4) Phosphorus Level 2.9 mg/dL (2.4-5.1) Magnesium Level 2.1 mg/dL (1.6-2.6) Total Bilirubin 1.4 mg/dL (0.2-1.0) Aspartate Amino Transferase (AST) 104 U/L (13-40) Alanine Aminotransferase (ALT) 48 U/L (7-40) Alkaline Phosphatase 181 U/L (46-116) Total Protein 8.3 g/dL (5.7-8.2) Albumin 4.1 g/dL (3.2-4.8) Vancomycin Level Trough 6.2 ug/mL (5-10) Lactic Acid Level 0.7 mmol/L (0.4-2.0) Test 06/08/24 06:47 06/07/24 04:38 06/06/24 05:09 06/03/24 17:56 Blood Gas Specimen Type Arterial Blood Gas Sample Site Right radial Blood Gas Patient Temperature 37.0 Arterial Blood Date Drawn [id number] Arterial Blood pH 7.446 (7.350-7.450) Arterial Blood Partial Pressure CO2 40.1 mmHg (35.0-48.0) Arterial Blood Partial Pressure O2 112.9 mmHg (83.0-108.0) Arterial Blood HCO3 27.0 mmol/L (21.0-28.0) Arterial Blood Oxygen Saturation 97.7 % (94.0-98.0) Arterial Blood Base Excess 2.8 mmol/L (-2.0-3.0) Arterial Blood Oxyhemoglobin 96.8 % (94.0-98.0) Arterial Blood Carboxyhemoglobin 0.3 % (0.5-1.5) Arterial Blood Methemoglobin 0.6 % (0.0-1.5) Bishnu Test Modified Blood Gas Total Hemoglobin 20.50 g/dL (13.5-17.5) Blood Gas Set Respiration Rate 16.0 Blood Gas Modality Vent - ac FiO2 % 30.0 Blood Gas Tidal Volume 500.0 Blood Gas PEEP or CPAP 5.0 Blood Gas Critical Value Read Back yes Blood Gas Notified Whom kady reid md Blood Gas Notified Time [id number] Blood Gas Notified By ирина gerber interpersonal communications professor Random Vancomycin Level 6.1 ug/mL (5-10) Hepatitis A IgM Antibody Negative Hepatitis B Surface Antigen Negative (Negative) Hepatitis B Core IgM Antibody Negative (Negative) Hepatitis C Antibody Negative (Negative) HIV (1&2) Antibody Negative (Negative) POC Glucose 148 mg/dl (70-106) Test 06/03/24 10:20 06/02/24 07:22 06/01/24 04:20 05/31/24 19:25 Ammonia 30 umol/L (11-32) Blood Gas Comments hgb out of amr range Platelet Estimate Adequate Urine Color [place] (Yellow) Urine Clarity Ex.turbid (Clear) Urine pH 5.5 (5.0-9.0) Urine Specific [place] 1.019 (1.001-1.035) Urine Protein 2+ (Negative) Urine Ketones Negative (Negative) Urine Blood 3+ /uL (Negative) Urine Nitrite Negative (Negative) Urine Bilirubin Negative (Negative) Urine Urobilinogen 4 mg/dL (Negative) Urine Leukocyte Esterase Negative /uL (Negative) Urine RBC 417 /hpf (0 - 3) Urine Microscopic WBC 145 /HPF (0-3) Urine Squamous Epithelial Cells None seen /hpf (<5) Urine Bacteria None seen /hpf (None Seen) Urine Mucus Few (None Seen) Urine Yeast (Budding) Occasional /hpf (None Urine Glucose Normal mg/dL (Normal) Urine Opiates Screen Neg (NEGATIVE) Urine Fentanyl Screen Pos (NEGATIVE) Urine Barbiturates Screen Neg (NEGATIVE) Urine Phencyclidine Screen Neg (NEGATIVE) Urine Amphetamines Screen Pos (NEGATIVE) Urine Benzodiazepines Screen Pos (NEGATIVE) Urine Cocaine Screen Neg (NEGATIVE) Urine Cannabinoids Screen Neg (NEGATIVE) Test 05/31/24 10:30 05/31/24 03:31 05/31/24 00:55 05/30/24 22:12 Prothrombin Time 11.9 sec (9.3-11.8) Prothrombin Time INR 1.14 (0.9-1.15) Activated Partial Thromboplast Time 65.5 SEC (24.5-34.5) Hemoglobin A1c 6.1 % A1C (<5.7) Troponin I High Sensitivity 437 ng/L (</=54) D-Dimer, Quantitative 0.32 mg/L FEU (0.0-0.49) Test 05/30/24 20:10 05/30/24 05:30 05/29/24 18:21 Urine Hyaline Casts Mod /lpf (0 - 2) Triglycerides Level 62 mg/dL (< 150) Cholesterol Level 148 mg/dL (< 200) LDL Cholesterol 113 mg/dL (< 100) HDL Cholesterol 36 mg/dL (40-59) B-Type Natriuretic Peptide 641.20 pg/mL (0-100) Other Laboratory Tests 06/13/24 07:49 Brief Hx & Hospital Course: 43 year old male patient with hx of CHF, DM, ESRD, ME, HTN, and asthma c/o midsternal chest pain with associated SOB x 2 days that has been worsening. Patient sts to have a productive cough. Patient reports having nausea and vomiting. While in the emergency department the patient was evaluated by the provider, As per provider: Labs, vital signs, and imagining monitored. Patient was admitted on 05/29/2024 for sepsis with septic shock. Patient was found to have pneumonia and a UTI. Patient also has a pertinent history for polycythemia. Patient had metabolic encephalopathy. Patient had an acute change in mental status in the emergency room. Neurology was consulted and a stat MRI was done which found that patient had an acute CVA. Patient has a history of prior cardiomyopathy with medical noncompliance and methamphetamine abuse. He was positive for methamphetamines on this admission. Patient was seen by cardiology. Patient did have elevated troponin levels. They were planning for heart cath this Monday however patient left AGAINST MEDICAL ADVICE. Echocardiogram was done and estimated EF was 5 to 10%. Patient was also awaiting a LifeVest for cardiomyopathy with a low ejection fraction. Patient was found to have bacteremia as well as pneumonia and UTI. Patient was seen by infectious disease. Patient was emergently intubated during his change in mental status in the emergency room. He was successfully extubated and placed on room air. I did advise strongly against leaving AGAINST MEDICAL ADVICE. Patient's significant other was at the bedside. Patient states he was aware and he will client. Campos catheter was removed upon patient request and PICC line was also discontinued. Patient left under the care of his significant other. The patient decided they wanted to leave AMA. The patient was informed about the risk of leaving. And was informed about the risk that are involved if they left without any treatment which may include . The patient was okay with it and decided to leave without any intervention. The patient was told to return for any worsening symptoms. Condition at Discharge: Unstable Final Diagnosis/Problems List Acute CVA Acute on chronic systolic heart failure Drug induced cardiomyopathy Elevated troponin - demand ischemia Hx of methamphetamine abuse Medical non-compliance Acute hypoxic respiratory failure Pneumonia Acute cystitis Bacteremia Polycythemia vera IZZY with vasomotor nephropathy Metabolic encephalopathy Sepsis Discharge Disposition: AMA Discharge Statement: "Patient was advised to return to the ER or call 911 if any headaches, dizziness, shortness of breath, chest pain, abdominal pain, bleeding, fevers, or worsening of medical condition. Patient was counseled about treatment plan, medications, possible side effects, patientverbalized understanding. All questions were answered to the best of my ability. This discharge took greater then 30 minutes in planning, reviewing documentation, counseling the patient, and discussing with other team members." ASSESSMENT ASSESSMENT Assessment JACKIE DILLON NP Jun 13, 2024 20:30
--- NOTE | 2024-06-13 21:08 | DVHPN2 ---
Progress Note - Dictate Date Seen: Jun 13, 2024 Medical Necessity Reason Pt with a Central, PICC or Fol: Yes The following are medically ne: Ramirez Catheter Reason for ramirez catheter: Strict I&O Subjective Patient seen and examined at bedside. Breathing comfortably on room air. Overnight events reviewed. vital signs Vital Sign Date Time Temp Pulse Resp B/P (MAP) Pulse Ox O2 Delivery O2 Flow Rate FiO2 06/13/24 13:00 98.1 81 17 112/89 (97) 97 98.1 06/13/24 08:00 Room Air* 0 21 Total Intake and Output 06/12/24 06/12/24 06/13/24 15:00 23:00 07:00 Intake Total 50 ml 1020 ml 500 ml Output Total 900 ml 2700 ml Balance 50 ml 120 ml -2200 ml medications Current Medications Medications Dose Ordered Sig/Lei Route Start Time Stop Time Status Last Admin Dose Admin Vancomycin HCl 0 ml @ 0 mls/hr UD IV 06/05/24 09:45 Cancel Potassium Chloride 100 ml @ 50 mls/hr Q2H IV 06/10/24 08:00 06/10/24 13:59 UNV objective Gen.: Patient lying in bed in no apparent distress. On room air. Head: Normocephalic, atraumatic. Eyes: EOMI/PERRLA. Ears: Normal hearing. Normal anatomy. Neck/trachea: Trachea midline, supple. Nose: Normal external anatomy. Mouth: Moist mucous membranes. Chest: Decreased air entry bilaterally. No wheezing or rhonchi. Cardiovascular: Positive S1, positive S2. Regular rate and rhythm. Abdomen: Positive bowel sounds in all 4 quadrants. Soft, non-tender, non- distended. : Deferred. Rectal: Deferred. Skin: Warm, dry. Intact. Extremities: 2+ radial pulses bilaterally. No lower extremity edema. Neuro: Awake, alert, oriented x3. No gross motor or sensory deficits. Cranial nerves II through XII intact. Gait not assessed. laboratory and microbiology Laboratory Tests 06/13/24 07:49 Test 06/13/24 07:49 Range/Units Serum Glucose 144 H 74-106 mg/dL Assessment/Plan Impression: Acute hypoxic respiratory failure Mechanical ventilation, s/p extubation Pulmonary hypertension, RVSP 57 mmHg ( Echo with LVEF of 5% to 10%) Atelectasis Acute CVA Acute on chronic systolic heart failure Drug induced cardiomyopathy Elevated troponin Polysubstance abuse Medical non-compliance Polycythemia vera Events: Breathing comfortably on room air. Supplemental oxygen PRN Patient is improved No hemoptysis Awaiting LifeVest Continue antibiotics ID recommendations appreciated Incentive spirometry Tube feeds for nutritional support Ambien PRN insomnia Ativan for anxiolytic Monitor hemoglobin Diuretics held due to low BP Monitor renal function Monitor electrolytes. Supplement as necessary. Potassium supplementation Monitor ins and outs. Polycythemia vera - Hematology recommendations appreciated. Poor EF Status post KI Cardiology recs appreciated Disposition per hospitalist. S/p therapeutic bronchoscopy with BAL on 06/05/24 for clearing of secretions. Please see procedure note for details Labs and imaging reviewed. Rest of plan as noted below. Plan: S/p extubation on 06/08/24 Supplemental oxygen PRN Titrate to keep O2 sats above 92%. Pulmonary hypertension, RVSP 57 mmHg - Echo showing LVEF of 5% to 10%. On statin Cardiology recs appreciated Pressors as necessary for hemodynamic support Titrate to keep mean arterial pressure greater than 65 mmHg Maintain euvolemia Monitor renal function Monitor electrolytes. Supplement as necessary. Monitor ins and outs. GI prophylaxis - Protonix. DVT prophylaxis - Lovenox SC. Prognosis: Poor given patient's multiple co-morbidities. Rest of plan per hospitalist and other consultants. Thank you, BRANDIN Albright, for allowing me to participate in this patient's care. Further recommendations will depend on the patient's clinical course. Please do not hesitate to contact me if you have any questions or concerns. This medical document was created using an electronic medical record system with [employer] dictation system. Although these documentations are being carefully reviewed, there may still be some phonetic and typographical changes. The errors are purely typographical, due to imperfection on the software program, and do not reflect any compromise in the patient's medical care. Dietary Evaluation Review Comments: 1) TF Glucerna 1.2Cal @ 70ml/hr x 24 hr along with Pro-stat 1 pk daily. Start @ 30ml/hr, increase 10ml/hr Q4H until goal rate is reached. Water flush 50ml Q4H TF goal volume along with Pro-stat & water flush provide 2016 kcal (100%), 116 gm protein (100%), and 1652ml free water 2) TPN if NPO>7 days 3) Advance diet as medically feasible 4) Continue current plan of care Expected Outcomes/Goals: To meet >75% estimated needs within 7 days Fu 2-3 days Plan discussed with: Patient, Other (HONG Lopez) NATALIO MÁRQUEZ MD Jun 13, 2024 21:08
[2024-06-14] MEDS ORDERED: POTASSIUM CHL 20 Meq TABLET PO SCH (10:00)
--- NOTE | 2024-06-14 14:05 | DVHPN2 ---
Consult Progress Note Date Seen: Jun 13, 2024 Subjective Patient reports: Other Objective vital signs Vital Sign Date Time Temp Pulse Resp B/P (MAP) Pulse Ox O2 Delivery O2 Flow Rate FiO2 06/13/24 13:00 98.1 81 17 112/89 (97) 97 98.1 06/13/24 08:00 Room Air* 0 21 Total Intake and Output 06/13/24 06/13/24 06/14/24 15:00 23:00 07:00 Intake Total 50 ml Balance 50 ml medications Current Medications Medications Dose Ordered Sig/Lei Route Start Time Stop Time Status Last Admin Dose Admin Vancomycin HCl 0 ml @ 0 mls/hr UD IV 06/05/24 09:45 Cancel Potassium Chloride 100 ml @ 50 mls/hr Q2H IV 06/10/24 08:00 06/10/24 13:59 UNV Physical Exam: General: NAD Neck: Supple. No masses. HEENT: PERRL. Normal lids and conjunctiva. Moist mucous membranes. Oropharynx without lesions, exudates or excessive erythema. Normal appearance of the external aspects of the nose and ears. Heart: Regular rhythm, normal rate. No murmur. No lower extremity edema. Lungs: Normal respiratory effort. Clear to auscultation bilaterally. No wheezes. No crackles. Abdomen: Soft. Non-tender. Non-distended. No masses or abdominal hernia. Msk: No digital cyanosis. Normal strength and tone in all 4 limbs. Skin: Warm and dry, no rashes. Modeling likely ischemic disease. Neuro: Alert. No facial droop or slurred speech. Extra-ocular movements intact. Sensation intact to soft touch in all 4 limbs. Evidence of acute stroke (left-sided symptoms per MRI report). Psych: Appropriate mood. Full affect. Oriented to person, place, time, and situation laboratory and microbiology Laboratory Tests 06/13/24 07:49 Test 06/13/24 07:49 Range/Units Serum Glucose 144 H 74-106 mg/dL Problem List/Assessment/Plan Problems(with codes): (1) Congestive heart failure due to cardiomyopathy (2) Gram positive bacterial infection (3) CHF exacerbation (4) NSTEMI (non-ST elevated myocardial infarction) (5) Drug-induced cardiomyopathy (6) Aspiration pneumonia Problem List/Assessment/Plan ASSESSMENT AND PLAN ID Problem List: - Septic shock - Acute hypoxic respiratory failure - Aspiration pneumonia (Klebsiella) - Gram-positive cocci bacteremia - Acute systolic and diastolic heart failure - [id number] myocardial infarction (NSTEMI) Type 2 - Ischemic stroke - Polysythemia vera - End-stage renal disease (on hemodialysis, possibly resolved) - Hypertension - Diabetes mellitus - Asthma - Intravenous drug use (amphetamines, benzodiazepines, ongoing) - Medication noncompliance - History of deep vein thrombosis (DVT) and pulmonary embolism (PE), not currently confirmed Assessment: This is a 43-year-old male with significant past medical history including congestive heart failure, hypertension, diabetes mellitus, end-stage renal disease (previously on hemodialysis), asthma, polysythemia vera, and ongoing intravenous drug use, presenting with septic shock, acute hypoxic respiratory failure, aspiration pneumonia, and a complicated hospital course. He was noted to have chest pain, shortness of breath, and recent code event. Imaging revealed acute ischemic stroke. Patient had recent blood clots in multiple locations and was previously medication noncompliant. Admitted for acute decompensated heart failure (cardiomyopathy, LVEF 5-10%), persistent fevers, and required emergent intubation for hypoxia. Sputum culture positive for gram-negative rods (Klebsiella); blood cultures preliminary growth gram-positive cocci. Initial antibiotics with ceftriaxone, transitioned to Zosyn, then vancomycin added due to persistent fevers and rising WBC. Patient has a central line in place. TTE reveals four chamber dilation, biventricular systolic dysfunction, no pericardial effusion. Labs notable for persistent leukocytosis, Hb as high as 19.5 (polycythemia vera), and improving chest imaging but ongoing fever. No current DVTs by Doppler. 06/05: underwent bronchoscopy by Dr Zapata today and there was a right and left lower lobe atelectasis due to mucus plugging in the L6-L10 and R6-R10. right lower lobe BAL performed and cultures sent 06/06: appears to be clinically improving , however is intermittently requiring pressers . lactic acid is at 2.7 , likely secondary to cardiogenic shock , low EF . preliminary cultures are growing gram negative rods , likely klebsiella 06/07: patient is being diuresed , still on pressures but coming down 06/08: patient is coming down on presser needs and improved volume status . blood cultures are positive for staph epidermitis and staph hominids in the same bottle , likely consistent with skin wanda contamination and most recent BAL culture is positive for klebsiella and ammonia that is mckeon sensitive . repeat blood cultures are no growth to date 06/09: blood presser needs are coming down 06/10: Continues to improve clinically , leukocytosis is resolved. Chest xray of 06/08 shows no significant changes , mild congestions on the lungs 06/11: Chest xray has no significant interval changes with mild congestion in the lungs . whitecount remains elevated at 12 and patient is negative for HIV and hepatitis. GPC and blood cultures is staph epidermitis and staph ominous is likely consistent with skin wanda contaminant 06/13: Has a KI performed in preparation for a left heart cath , showing no source of an emboli or vegetations. there is a positive bubble study which could possibly explain why patient is having evidence of stroke, but no recent DVT in lower extremities on Doppler ultrasound. pending left heart cath , remains on heparin drip Plan: - recommend continue IV ceftriaxone to complete a 2 week coarse in setting of severe aspiration pneumonia with propensity to progress through abbesses throughout the body , end of therapy date is 06/15/24 - Continue Ceftriaxone to treat ongoing pneumonia - follow up on GPC in blood culture - recommend repeating blood cultures at this time - patient has a considerably poor prognosis , low EF , would recommend checking lactic acid to confirm patient is responding to antibiotic therapy - may need to be considered for Inotrope defer to cardiology - Repeat and monitor blood cultures to confirm clearance - Continue supportive care for acute hypoxic respiratory failure; monitor ventilator settings; target minimal FiO2 - Serial lactate and creatinine monitoring - Cardiology and primary service to continue management of heart failure and NSTEMI type 2 - Monitor skin for signs of ischemia or evolving lesions - Repeat imaging as clinically indicated - Defer management of drug use and suspected resolved end-stage renal disease; re-evaluate dialysis need - Social work and case management for disposition planning (including possible hospice versus home care if patient preference changes) - Continue close hemodynamic and laboratory monitoring - Infectious Disease service to continue to follow Plan discussed with: Other Dietary Evaluation Review Comments: 1) TF Glucerna 1.2Cal @ 70ml/hr x 24 hr along with Pro-stat 1 pk daily. Start @ 30ml/hr, increase 10ml/hr Q4H until goal rate is reached. Water flush 50ml Q4H TF goal volume along with Pro-stat & water flush provide 2016 kcal (100%), 116 gm protein (100%), and 1652ml free water 2) TPN if NPO>7 days 3) Advance diet as medically feasible 4) Continue current plan of care Expected Outcomes/Goals: To meet >75% estimated needs within 7 days Fu 2-3 days RANDI GLOVER MD Jun 14, 2024 14:05
== END 2024-06-13 16:00 | disposition left against medical advice (07) | DRG 870 ==
LOC: ER 17:42 → OVERFLOW 20:35 → TELE-CENTR 05-30 16:23 → ICU CENTRL 05-30 19:45 → TELE-WESTW 06-10 15:25
PROVIDERS: ADMIT Nurse Practitioner; ATTEND Nurse Practitioner
PROC: 5A1955Z Respiratory Ventilation, Greater than 96 Consecutive Hours (ICD-10-PCS; principal; 2024-05-30)
PROC: 0BH17EZ Insertion of Endotracheal Airway into Trachea, Via Natural or Artificial Opening (ICD-10-PCS; 2024-05-30)
PROC: 02HV33Z Insertion of Infusion Device into Superior Vena Cava, Percutaneous Approach (ICD-10-PCS; 2024-06-02)
PROC: B548ZZA Ultrasonography of Superior Vena Cava, Guidance (ICD-10-PCS; 2024-06-02)
PROC: B24BZZ4 Ultrasonography of Heart with Aorta, Transesophageal (ICD-10-PCS; 2024-06-03)
PROC: 0B9F8ZX Drainage of Right Lower Lung Lobe, Via Natural or Artificial Opening Endoscopic, Diagnostic (ICD-10-PCS; 2024-06-05)
PROC: 0BC78ZZ Extirpation of Matter from Left Main Bronchus, Via Natural or Artificial Opening Endoscopic (ICD-10-PCS; 2024-06-05)
DX: A41.9 Sepsis, unspecified organism (principal); J15.9 Unspecified bacterial pneumonia; R65.21 Severe sepsis with septic shock; I50.23 Acute on chronic systolic (congestive) heart failure; I63.9 Cerebral infarction, unspecified; J96.01 Acute respiratory failure with hypoxia; G93.41 Metabolic encephalopathy; N17.0 Acute kidney failure with tubular necrosis; N18.6 End stage renal disease; I21.4 Non-ST elevation (NSTEMI) myocardial infarction; I42.7 Cardiomyopathy due to drug and external agent; N30.01 Acute cystitis with hematuria; I13.2 Hypertensive heart and chronic kidney disease with heart failure and with stage 5 chronic kidney disease, or end stage renal disease; Z53.29 Procedure and treatment not carried out because of patient's decision for other reasons; E11.22 Type 2 diabetes mellitus with diabetic chronic kidney disease; K76.82 Hepatic encephalopathy; F15.10 Other stimulant abuse, uncomplicated; D45 Polycythemia vera; T50.995A Adverse effect of other drugs, medicaments and biological substances, initial encounter; I25.10 Atherosclerotic heart disease of native coronary artery without angina pectoris; J45.909 Unspecified asthma, uncomplicated; I27.20 Pulmonary hypertension, unspecified; Z87.891 Personal history of nicotine dependence; Z99.2 Dependence on renal dialysis; Z86.718 Personal history of other venous thrombosis and embolism; Z86.711 Personal history of pulmonary embolism; Z91.148 Patient's other noncompliance with medication regimen for other reason; Z88.0 Allergy status to penicillin; Z79.899 Other long term (current) drug therapy; Y92.89 Other specified places as the place of occurrence of the external cause
CPT/HCPCS: 36415; 36569; 36600; 70450; 70551; 71045; 71250; 76775; 76937; 80048; 80053; 80061; 80074; 80202; 80307; 81001; 82140; 82805; 82962; 83036; 83605; 83735; 83880; 84100; 84484; 85025; 85379; 85610; 85730; 86703; 87040; 87070; 87077; 87081; 87086; 87186; 87205; 92610; 93005; 93306; 93312; 93886; 93925; 93970; 94002; 94003; 97163; 99291; G0378; J0330; J2405; J2470; J2543